=== PATIENT | male | born 1945 | race Caucasian/White ===

== ENCOUNTER 2016-08-21 23:07 | Inpatient (IN) ==
[2016-08-21] MEDS ORDERED: Ipratropium/Albuterol Neb 3 ML IH ONE (23:35)
[2016-08-22 00:23] LABS: Basophils % 0.3 %; Hemoglobin 8.3 g/dL (12.9-16.9); Immature Granulocytes % 1.2 % (0-4); Mean Corpuscular Volume 80.4 fL (83.0-100.0); Nucleated Red Blood Cells 0.3 /100 WBC (0); Red Cell Distribution Width 21.1 % (11.5-14.5)
[2016-08-22 00:25] LABS: Eosinophils # 0.1 K/mcL (0.0-0.6); Eosinophils % 1.6 %; Hematocrit 30.4 % (37.5-50.1); Lymphocytes # 1.2 K/mcL (0.6-4.6); Mean Corpuscular HGB Conc 27.3 g/dL (31.6-35.5); Mean Platelet Volume 10.5 fL (9.4-12.4); Monocytes # 0.7 K/mcL (0.0-1.3); Monocytes % 9.6 %; Neutrophils # 5.5 K/mcL (1.6-8.9); Platelet Count 154 K/mcL (140-400); Red Blood Count 3.78 M/mcL (4.19-5.50); Segmented Neutrophils % 71.3 %
--- NOTE | 2016-08-22 00:31 | Emergency Department Note ---
Disposition Condition: Fair Referrals: NO,PCP [Primary Care Provider] - Forms: ED Satisfaction Letter SOB HPI - General Chief Complaint: ED Altered Mental Status Stated Complaint: AMS,FILIBERTO Time Seen by Provider: 08/21/16 23:21 Source: patient, EMS Mode of arrival: EMS Limitations: altered mental status Nursing Notes Reviewed: Yes Vital Signs Reviewed: Yes - History of Present Illness Pt Subjective Complaint: shortness of breath - Related Data Home Medications Medication Instructions Recorded Confirmed Albuterol Sulfate [Albuterol 2 puff IH QID PRN 03/14/16 03/14/16 Inhaler] Calcium Carbonate [Calcium] 600 mg PO DAILY 03/14/16 03/14/16 Cholecalciferol (Vitamin D3) 8,000 unit PO DAILY 03/14/16 03/14/16 [Vitamin D3] Clotrimazole 1 appl TP BID 03/14/16 03/14/16 Eucerin Creme 1 appl TP DAILY PRN 03/14/16 03/14/16 FentaNYL PATCH [Duragesic] 75 mcg TD Q72H 03/14/16 03/14/16 Furosemide [Lasix] 40 mg PO BID 03/14/16 03/14/16 Hydralazine HCl 50 mg PO TID 03/14/16 03/14/16 Insulin ASPART [NovoLOG] 42 unit SQ TID 03/14/16 03/14/16 Insulin Glargine [Lantus] 110 unit SQ BID 03/14/16 03/14/16 Omeprazole 20 mg PO DAILY 03/14/16 03/14/16 Oxycodone HCl 10 mg PO Q6H PRN 03/14/16 03/14/16 Pregabalin [Lyrica] 75 mg PO BID 03/14/16 03/14/16 Simvastatin [Zocor] 40 mg PO HS 03/14/16 03/14/16 Previous Rx's Medication Instructions Recorded Amlodipine [Norvasc] 10 mg PO DAILY 30 Days 03/22/16 Chair, Shower [SHOWER CHAIR] 1 each .ROUTE DAILY #1 each 03/22/16 Ipratropium/Albuterol Neb [Duoneb] 3 ml IH Q8HR #30 inhsol 03/22/16 Isosorbide MONOnitrate (24 HR) 30 mg PO DAILY 30 Days 03/22/16 [Imdur] Metoprolol [Lopressor] 100 mg PO BID 30 Days 03/22/16 PredniSONE 40 mg PO DAILY 5 Days 03/22/16 Walker W Wheels [WHEELED WALKER] 1 each .ROUTE DAILY #1 each 03/22/16 Allergies Allergy/AdvReac Type Severity Reaction Status Date / Time No Known Allergies Allergy Verified 03/14/16 14:07 Past Medical History - Past Medical History Medical history: Reports: diabetes, hyperlipidemia, hypertension, kidney stones , renal disease Psychiatric history: Reports: no psych history - Social History Smoking Status: Former smoker Smokeless Tobacco Status: No Alcohol use: Reports: none Drug use: Reports: none Physical Exam - General Limitations: altered mental status General appearance: alert, in no apparent distress Course - Reevaluation(s) Reevaluation #1: After the series of 3 Duoneb patient's saturation was in the low 90's but now seems to be consistently staying in the 87-89% range. He continues to have AMS , confusion and we will obtain CT head. Family states he is generally quite alert and oriented, with no memory lapses. Still awaiting other labs at this time. Dr. Brown has been in and also evaluated patient. Time: 00:32 Reevaluation #2: patient doing well on bipap, mental status improving, will plan to admit to hospital. hospitalist called. Time: 01:13 Vital Signs Temperature 97.6 F 08/21/16 23:11 Pulse Rate 74 08/21/16 23:11 Respiratory Rate 21 08/21/16 23:11 Blood Pressure 156/80 08/21/16 23:11 O2 Sat by Pulse Oximetry 90 08/21/16 23:11 Temperature 97.6 F 08/21/16 23:11 Pulse Rate 75 08/22/16 00:29 Respiratory Rate 17 08/22/16 00:29 Blood Pressure 150/81 08/22/16 00:29 O2 Sat by Pulse Oximetry 95 08/22/16 00:29 Oxygen Delivery Oxygen Delivery Room Air Shortness of Breath/Dyspnea - Medical Records Medical records reviewed: Yes I reviewed the patient's medical records. - Lab Data Lab results reviewed: Yes I reviewed the patient's lab results. Result diagrams: 08/22/16 00:10 08/22/16 00:10 Lab Results 08/22/16 08/22/16 08/22/16 Range/Units 00:10 00:10 00:10 WBC 7.7 (4.3-11.1) K/mcL RBC 3.78 L (4.19-5.50) M/mcL Hgb 8.3 L (12.9-16.9) g/dL Hct 30.4 L (37.5-50.1) % MCV 80.4 L (83.0-100.0) fL MCH 22.0 L (28.0-33.3) pg MCHC 27.3 L (31.6-35.5) g/dL RDW 21.1 H (11.5-14.5) % Plt Count 154 (140-400) K/mcL MPV 10.5 (9.4-12.4) fL Immature Gran % 1.2 (0-4) % Seg Neutrophils % 71.3 % Lymphocytes % 16.0 % Monocytes % 9.6 % Eosinophils % 1.6 % Basophils % 0.3 % Neutrophils # 5.5 (1.6-8.9) K/mcL Lymphocytes # 1.2 (0.6-4.6) K/mcL Monocytes # 0.7 (0.0-1.3) K/mcL Eosinophils # 0.1 (0.0-0.6) K/mcL Basophils # 0.0 (0.0-0.2) K/mcL Nucleated RBCs/100 WBC 0.3 H (0) /100 WBC Platelet Estimate Normal (Normal) Hypochromasia Present A (Not Present) Poikilocytosis 1+ A (Not Present) Anisocytosis 1+ A (Not Present) ABG pH (7.32-7.45) pH Units ABG pCO2 (35-45) mmHg ABG pO2 (85-104) mmHg ABG HCO3 (21-27) mEQ/L ABG Total CO2 (20-26) mEq/L ABG O2 Saturation (95-98) % ABG Base Excess (-2.0 to 3.0) mEq/L Blood Gas Modality Inspired O2 % Sodium 142 (136-145) mEq/L Potassium 4.5 (3.5-4.5) mEq/L Chloride 110 H (98-109) mEq/L Carbon Dioxide 27 (19-29) mEq/L BUN 21 (8-26) mg/dL Creatinine 1.56 H (0.72-1.25) mg/dL Est GFR ( Amer) 54 L (> 60) Est GFR (Non-Af Amer) 44 L (> 60) BUN/Creatinine Ratio 13 (6-26) Glucose 93 (70-99) mg/dL Calculated Osmolality 297 (280-300) Lactic Acid 0.6 (0.5-2.2) mmol/L Calcium 8.6 (8.6-10.8) mg/dL Ammonia (18-72) mcmol/L Troponin I (0-0.03) ng/mL B-Natriuretic Peptide (0-100) pg/mL 08/22/16 08/22/16 08/22/16 Range/Units 00:10 00:10 00:10 WBC (4.3-11.1) K/mcL RBC (4.19-5.50) M/mcL Hgb (12.9-16.9) g/dL Hct (37.5-50.1) % MCV (83.0-100.0) fL MCH (28.0-33.3) pg MCHC (31.6-35.5) g/dL RDW (11.5-14.5) % Plt Count (140-400) K/mcL MPV (9.4-12.4) fL Immature Gran % (0-4) % Seg Neutrophils % % Lymphocytes % % Monocytes % % Eosinophils % % Basophils % % Neutrophils # (1.6-8.9) K/mcL Lymphocytes # (0.6-4.6) K/mcL Monocytes # (0.0-1.3) K/mcL Eosinophils # (0.0-0.6) K/mcL Basophils # (0.0-0.2) K/mcL Nucleated RBCs/100 WBC (0) /100 WBC Platelet Estimate (Normal) Hypochromasia (Not Present) Poikilocytosis (Not Present) Anisocytosis (Not Present) ABG pH (7.32-7.45) pH Units ABG pCO2 (35-45) mmHg ABG pO2 (85-104) mmHg ABG HCO3 (21-27) mEQ/L ABG Total CO2 (20-26) mEq/L ABG O2 Saturation (95-98) % ABG Base Excess (-2.0 to 3.0) mEq/L Blood Gas Modality Inspired O2 % Sodium (136-145) mEq/L Potassium (3.5-4.5) mEq/L Chloride (98-109) mEq/L Carbon Dioxide (19-29) mEq/L BUN (8-26) mg/dL Creatinine (0.72-1.25) mg/dL Est GFR ( Amer) (> 60) Est GFR (Non-Af Amer) (> 60) BUN/Creatinine Ratio (6-26) Glucose (70-99) mg/dL Calculated Osmolality (280-300) Lactic Acid (0.5-2.2) mmol/L Calcium (8.6-10.8) mg/dL Ammonia 26 (18-72) mcmol/L Troponin I 0.02 (0-0.03) ng/mL B-Natriuretic Peptide 373 H (0-100) pg/mL 08/22/16 Range/Units 00:43 WBC (4.3-11.1) K/mcL RBC (4.19-5.50) M/mcL Hgb (12.9-16.9) g/dL Hct (37.5-50.1) % MCV (83.0-100.0) fL MCH (28.0-33.3) pg MCHC (31.6-35.5) g/dL RDW (11.5-14.5) % Plt Count (140-400) K/mcL MPV (9.4-12.4) fL Immature Gran % (0-4) % Seg Neutrophils % % Lymphocytes % % Monocytes % % Eosinophils % % Basophils % % Neutrophils # (1.6-8.9) K/mcL Lymphocytes # (0.6-4.6) K/mcL Monocytes # (0.0-1.3) K/mcL Eosinophils # (0.0-0.6) K/mcL Basophils # (0.0-0.2) K/mcL Nucleated RBCs/100 WBC (0) /100 WBC Platelet Estimate (Normal) Hypochromasia (Not Present) Poikilocytosis (Not Present) Anisocytosis (Not Present) ABG pH 7.31 L (7.32-7.45) pH Units ABG pCO2 59 H (35-45) mmHg ABG pO2 64 L (85-104) mmHg ABG HCO3 29.7 H (21-27) mEQ/L ABG Total CO2 31.5 H (20-26) mEq/L ABG O2 Saturation 90 L (95-98) % ABG Base Excess 2.6 (-2.0 to 3.0) mEq/L Blood Gas Modality [place] Inspired O2 40 % Sodium (136-145) mEq/L Potassium (3.5-4.5) mEq/L Chloride (98-109) mEq/L Carbon Dioxide (19-29) mEq/L BUN (8-26) mg/dL Creatinine (0.72-1.25) mg/dL Est GFR ( Amer) (> 60) Est GFR (Non-Af Amer) (> 60) BUN/Creatinine Ratio (6-26) Glucose (70-99) mg/dL Calculated Osmolality (280-300) Lactic Acid (0.5-2.2) mmol/L Calcium (8.6-10.8) mg/dL Ammonia (18-72) mcmol/L Troponin I (0-0.03) ng/mL B-Natriuretic Peptide (0-100) pg/mL - Radiology Data Radiology results reviewed: Yes I reviewed the patient's radiology results. Chest X-Ray 08/21/16 23:23 IMPRESSION: No acute process. D/ / Edi Fraser MD / Edi Fraser MD Interpreting Provider: Edi Fraser MD Chest CT 08/22/16 00:33 IMPRESSION: Findings consistent with interstitial pulmonary edema. There are small bilateral pleural effusions. Atelectasis is also noted in the lower lobes. Cirrhotic morphology of the liver with signs of portal venous hypertension, including [id number] splenomegaly. Hypodensity in the right lobe of the liver is stable, fatty infiltration versus mass. Follow-up CT/ MRI has been recommended in the 3 month interval. D/ / Tommy Rowell MD / Tommy Rowell MD Interpreting Provider: Tommy Rowell MD - EKG Data EKG attestation: Yes I reviewed and interpreted this EKG. EKG shows normal: Reports: sinus rhythm Rate: Reports: normal Rhythm: Reports: NSR Interpretation: Reports: no acute changes, normal EKG Critical Care Time Critical Care Time: Yes Total Critical Care Time: 35 Attestation: Critical care performed: Time is exclusive of separately billable procedures. Time includes: direct patient care, patient reassessment, coordination of patient care, interpretation of data (laboratory data, radiology data, and respiratory data), review of patient's medical records, medical consultation and documentation of patient care. Procedures included in critical care time: Procedures excluded from critical care time: Attestation Statement - Attestation Attestation: I, Max Brown MD, personally performed a history and physical exam of the patient and discussed their management with the midlevel provicer, PAC/OBSTETRICAL TECH. I reviewed the midlevel provider's note and agree with the documented findings, medical decision making, and plan of care. 70-year-old male presents to the emergency department by ambulance with a complaint of increased shortness of breath and altered mental status. Patient unsure when the shortness of breath began but states that he was fine yesterday. He states he was asleep and just woke up short of breath. Patient seems mildly confused and slow to respond but answers questions appropriately. Speech is slow and slightly slurred. Family reports this is not normal for him. Patient denies any increased cough or fever or chest pain. He is on continuous home oxygen at 2.5 L. On examination patient is a well-developed morbidly obese elderly male in mild respiratory distress. He is alert but seems a little confused. There is no cyanosis or diaphoresis. Breath sounds are decreased bilaterally with diffuse tight bilateral expiratory wheezes. Heart regular rate and rhythm. Abdomen soft with some mild right upper quadrant tenderness. Moderately distended. 3+ pedal edema. Labs reviewed. Chest x-ray negative but CT of the chest showed interstitial pulmonary edema with bilateral pleural effusions and some basilar atelectasis. No acute changes on EKG. The hospitalist, Dr. Jackson, was consulted and accepted admission of the patient.
[2016-08-22 00:38] LABS: Calcium 8.6 mg/dL (8.6-10.8); Potassium 4.5 mEq/L (3.5-4.5)
[2016-08-22 00:58] LABS: ABG Base Excess 2.6 mEq/L (-2.0 to 3.0); ABG HCO3 29.7 mEQ/L (21-27); ABG Oxygen Saturation 90 % (95-98); ABG PCO2 59 mmHg (35-45); ABG PH 7.31 pH Units (7.32-7.45); ABG PO2 64 mmHg (85-104); ABG TCO2 31.5 mEq/L (20-26); Blood Gas FiO2 40 %
[2016-08-22 01:05] LABS: Anisocytosis 1+ (Not Present); Hypochromasia Present (Not Present); Platelet Estimate Normal (Normal); Poikilocytosis 1+ (Not Present)
[2016-08-22] MEDS ORDERED: Furosemide 40 MG/4 ML VIAL IVP ONE (01:05)
--- NOTE | 2016-08-22 02:49 | Internal Med History&Physical ---
Date of Encounter: 08/22/16 Time of Encounter: 02:48 Internal Medicine - H&P: HPI History of present illness: Mr. Hamomnd is a 70 year old male Past Med Surg Social Fam HX - Past Medical History Medical history: diabetes, hyperlipidemia, hypertension, kidney stones, renal disease Psychiatric history: no psych history - Social History Smoking Status: Former smoker Smokeless Tobacco Status: No Alcohol use: none Drug use: none Internal Medicine - H&P: Meds Albuterol Sulfate [Albuterol Inhaler] 2 puff IH QID PRN 03/14/16 [History] Calcium Carbonate [Calcium] 600 mg PO DAILY 03/14/16 [History] Cholecalciferol (Vitamin D3) [Vitamin D3] 8,000 unit PO DAILY 03/14/16 [History] Clotrimazole 1 appl TP BID 03/14/16 [History] Eucerin Creme 1 appl TP DAILY PRN 03/14/16 [History] FentaNYL PATCH [Duragesic] 75 mcg TD Q72H 03/14/16 [History] Furosemide [Lasix] 40 mg PO BID 03/14/16 [History] Hydralazine HCl 50 mg PO TID 03/14/16 [History] Insulin ASPART [NovoLOG] 42 unit SQ TID 03/14/16 [History] Insulin Glargine [Lantus] 110 unit SQ BID 03/14/16 [History] Omeprazole 20 mg PO DAILY 03/14/16 [History] Oxycodone HCl 10 mg PO Q6H PRN 03/14/16 [History] Pregabalin [Lyrica] 75 mg PO BID 03/14/16 [History] Simvastatin [Zocor] 40 mg PO HS 03/14/16 [History] Amlodipine [Norvasc] 10 mg PO DAILY 30 Days 03/22/16 [Rx] Chair, Shower [SHOWER CHAIR] 1 each .ROUTE DAILY #1 each 03/22/16 [Rx] Ipratropium/Albuterol Neb [Duoneb] 3 ml IH Q8HR #30 inhsol 03/22/16 [Rx] Isosorbide MONOnitrate (24 HR) [Imdur] 30 mg PO DAILY 30 Days 03/22/16 [Rx] Metoprolol [Lopressor] 100 mg PO BID 30 Days 11/12/16 [Rx] PredniSONE 40 mg PO DAILY 5 Days 03/22/16 [Rx] Walker W Wheels [WHEELED WALKER] 1 each .ROUTE DAILY #1 each 03/22/16 [Rx] Allergies No Known Allergies Allergy (Verified 03/14/16 14:07) All Systems PM: A 10-system review of systems was performed and is negative for pertinent findings except as documented above in the HPI. - Constitutional Vitals: Temp Pulse Resp BP Pulse Ox 98 F 75 18 146/78 95 08/22/16 02:31 08/22/16 00:29 08/22/16 02:31 08/22/16 02:31 08/22/16 00:29 Internal Med - H&P Results - Labs CBC & Chem 7: 08/22/16 00:10 08/22/16 00:10
[2016-08-22] MEDS ORDERED: Dextrose Gel 15 GM PO PRN ×2 (02:58)
[2016-08-22] MEDS ORDERED: D5% in Water 1,000 ML IVC PRN (02:58)
[2016-08-22] MEDS ORDERED: *HR* Dextrose 50 % in Water (Syg) 50 ML SYRINGE IVP PRN (02:58)
[2016-08-22] MEDS ORDERED: Furosemide 20 MG/2 ML VIAL IVP SCH (03:15)
[2016-08-22] MEDS ORDERED: *HR* OxyCODONE Immed Rel 5 MG TABLET PO PRN (03:26)
[2016-08-22] MEDS ORDERED: Albuterol 2.5 MG/3 ML NEBULIZER IH PRN ×2 (03:28→07:13)
--- NOTE | 2016-08-22 03:50 | Internal Med History&Physical ---
<Grayson Hassan - Last Filed: 08/22/16 06:26> Date of Encounter: 08/22/16 Time of Encounter: 03:44 Assessment and Plan (1) Acute respiratory failure Current visit: No Status: Acute -Marked improvement with duoneb and bipap -No longer requiring bipap, is on nasal cannula -CT chest shows effusions. No signs or symptoms of infection. Cardiogenic vs noncardiogenic pulmonary edema. Plan -Duoneb prn -Lasix -Nasal cannula -restart home medication Qualifiers: Respiratory failure complication: hypoxia and hypercapnia Qualified Code(s) : J96.01 - Acute respiratory failure with hypoxia; J96.02 - Acute respiratory failure with hypercapnia (2) Acute encephalopathy Current visit: Yes Status: Acute -Unclear etiology.However, awaiting liver biopsy results for possible hepatocellular carcinoma -Ammonia lvl WNL, no fever/illness, sugars WNL. Denies alcohol or drug use -Patient currently A&Ox3 Plan -continue current treatment (3) COPD (chronic obstructive pulmonary disease) Current visit: Yes Status: Acute -Consider administrating abx based on RF, recent hospitalization in April for similar episode -See above Qualifiers: COPD type: unspecified COPD Qualified Code(s): J44.9 - Chronic obstructive pulmonary disease, unspecified (4) Diabetes Current visit: No Status: Acute -Resume home medication Qualifiers: Diabetes mellitus type: type 2 Diabetes mellitus complication status: with kidney complications Diabetes mellitus complication detail: with chronic kidney disease 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 -Most likely non compliant with medication. Plan -See above Qualifiers: Congestive heart failure type: diastolic Qualified Code(s): I50.33 - Acute on chronic diastolic (congestive) heart failure (6) HTN (hypertension) Current visit: No Status: Acute -Continue home medication Qualifiers: Hypertension type: unspecified secondary hypertension Qualified Code(s): I15.9 - Secondary hypertension, unspecified; I15 - Secondary hypertension (7) Obstructive sleep apnea Current visit: Yes Status: Acute -Consider qualifying if not on home machine. Internal Medicine - H&P: HPI Chief complaint: AMS, Hypoxia Admitted From: Emergency Dept Plans for Post Hospital Care: Home History of present illness: Mr. Hammond is a 70 year old male PHM of DM, COPD, CHF, etc admitted for AMS and hypoxia. Patient found by daughter yesterday around 5pm slumped in chair and minimally responsive and confused. EMS called. BS was "WNL" and placed on oxygen. While in the ED, patient given 3 duonebs treatment and placed on Bipap and improved remarkably. Currently, on the floor, patient is only on nasal cannula, alert, oriented, laughing and cheerful. Admits to mild SOB. Denies any CP, F/N/V/D/ blood stools , sick contacts. He is awaiting his results to his liver biopsy today for possible carcinoma. Family member outside of room informed me that patient has been very depressed and sad since 18 years ago from cancer. Patient lives by himself and is not compliant with medication nor takes care of himself very well. Family is concerned. Patient admitted for a similar episode in April 2016, requiring a 9 day hospital stay, and diagnosed with CHF and MARY. Past Med Surg Social Fam HX - Past Medical History Medical history: diabetes, hyperlipidemia, hypertension, kidney stones, renal disease Psychiatric history: no psych history - Social History Smoking Status: Former smoker Smokeless Tobacco Status: No Alcohol use: none Drug use: none - Family History Mother Hx Family Medical Disorders: Yes (Diabetes ) Internal Medicine - H&P: Meds Albuterol Sulfate [Albuterol Inhaler] 2 puff IH QID PRN 03/14/16 [History] Calcium Carbonate [Calcium] 600 mg PO DAILY 03/14/16 [History] Cholecalciferol (Vitamin D3) [Vitamin D3] 8,000 unit PO DAILY 03/14/16 [History] Eucerin Creme 1 appl TP DAILY PRN 03/14/16 [History] FentaNYL PATCH [Duragesic] 75 mcg TD Q72H 03/14/16 [History] Furosemide [Lasix] 40 mg PO BID 03/14/16 [History] Hydralazine HCl 50 mg PO TID 03/14/16 [History] Insulin ASPART [NovoLOG] 42 unit SQ TID 03/14/16 [History] Insulin Glargine [Lantus] 90 unit SQ BID 03/14/16 [History] Omeprazole 20 mg PO DAILY 03/14/16 [History] Oxycodone HCl 10 mg PO Q6H PRN 03/14/16 [History] Pregabalin [Lyrica] 150 mg PO BID 03/14/16 [History] Simvastatin [Zocor] 40 mg PO HS 03/14/16 [History] Ipratropium/Albuterol Neb [Duoneb] 3 ml IH Q8HR #30 inhsol 03/22/16 [Rx] Isosorbide MONOnitrate (24 HR) [Imdur] 30 mg PO DAILY 30 Days 03/22/16 [Rx] Metoprolol [Lopressor] 100 mg PO BID 30 Days 03/22/16 [Rx] Amitriptyline [Elavil] 25 mg PO HS 08/22/16 [History] Lisinopril [Zestril] 20 mg PO DAILY 08/22/16 [History] Metformin HCl [Glucophage] 1,000 mg PO BID 08/22/16 [History] Nitroglycerin [Nitrostat] 0.4 mg SL AD 08/22/16 [History] Sennosides [Senna] 8.6 mg PO DAILY 08/22/16 [History] Allergies No Known Allergies Allergy (Verified 03/14/16 14:07) All Systems PM: A 10-system review of systems was performed and is negative for pertinent findings except as documented above in the HPI. - Constitutional Constitutional: no chills, no fever(s), no night sweats - Cardiovascular Cardiovascular ROS IM: no chest pain, no diaphoresis, no dyspnea, no lightheadedness, no palpitations, no syncope - Respiratory Respiratory: dyspnea, no cough, no wheezing, no excessive phlegm production - Gastrointestinal Gastrointestinal: no abdominal pain, no diarrhea, no hematemesis, no hematochezia, no melena, no nausea, no vomiting - Neurological Neurological ROS: no confusion, no convulsions, no focal weakness, no numbness, no tingling, no tremor(s) - Psychiatric Psychiatric: as per HPI - Constitutional Vitals: Temp Pulse Resp BP Pulse Ox 97.9 F 80 20 178/83 96 08/22/16 03:36 08/22/16 03:36 08/22/16 03:39 08/22/16 03:36 08/22/16 03:39 General appearance: Present: A&O X 3, obese - Head Head exam: Present: atraumatic, normocephalic - Eye Eye exam: Present: PERRL, conjuntiva pink, sclera anicteric Pupils: Present: PERRL - Respiratory Respiratory exam: Present: rales (bilaterally at bases ) - Cardiovascular Cardiovascular exam: Present: RRR, systolic murmur. Absent: diastolic murmur - GI/Abdominal GI/Abdominal exam: Present: soft, no peritoneal signs. Absent: distended, tenderness - Extremities Exam Extremities exam: Present: pedal edema, warm Additional comments: Mild pitting edema bilaterally - Neurological Exam Neurological exam: Present: oriented X3, no focal deficits. Absent: pronater drift, facial droop, speech deficit - Psychiatric Psychiatric exam: Present: normal affect, normal mood Internal Med - H&P Results - Labs CBC & Chem 7: 08/22/16 00:10 08/22/16 00:10 <Lee Jackson - Last Filed: 08/22/16 20:19> Date of Encounter: 08/22/16 Internal Medicine - H&P: HPI History of present illness: Mr. Hammond is a 70 year old male Past Med Surg Social Fam HX - Past Surgical History Surgical History: other (Endoscopy) All Systems PM: A 10-system review of systems was performed and is negative for pertinent findings except as documented above in the HPI. - Constitutional Vitals: Temp Pulse Resp BP Pulse Ox 98.6 F 75 16 150/73 94 08/22/16 16:07 08/22/16 16:07 08/22/16 16:12 08/22/16 16:07 08/22/16 16:12 Internal Med - H&P Results - Labs CBC & Chem 7: 08/22/16 07:55 08/22/16 07:55 Labs: Short CBC 08/22/16 Range/Units 07:55 WBC 7.2 (4.3-11.1) K/mcL Hgb 8.1 L (12.9-16.9) g/dL Hct 29.5 L (37.5-50.1) % Plt Count 152 (140-400) K/mcL BMP 08/22/16 07:55 Sodium 142 Potassium 3.9 Chloride 106 Carbon Dioxide 29 BUN 22 Creatinine 1.42 H Glucose 99 Calcium 8.9 Cardiac Enzymes 08/22/16 Range/Units 07:55 Troponin I 0.03 (0-0.03) ng/mL Liver Function 08/22/16 Range/Units 07:55 Total Bilirubin 0.7 (0.2-1.2) mg/dL Direct Bilirubin 0.4 (0.0-0.5) mg/dL AST 23 (5-34) Units/L ALT 18 (0-55) Units/L Alkaline Phosphatase 97 (38-126) Units/L Albumin 3.1 L (3.5-5.0) g/dL - ABG Interpretation ABG results: 08/22/16 06:50 ABG pH 7.37 ABG pCO2 51 H ABG pO2 84 L ABG HCO3 29.5 H ABG Total CO2 31.1 H ABG O2 Saturation 96 ABG Base Excess 3.7 H - Impressions ITS Impressions Head CT 08/22/16 08:00 IMPRESSION: Possible acute-subacute left basal ganglia infarct. No other acute intracranial abnormality. Findings were sent to Radiology Results Communication to be conveyed to the referring clinician. D/ / Jose Hernandez MD / Jose Hernandez MD Interpreting Provider: Jose Hernandez MD Brain MRI 08/22/16 10:13 IMPRESSION: 1. No evidence of an acute infarct. 2. Minimal chronic microvascular white matter ischemic disease is noted supratentorially. 3. Motion degraded examination. D/ / 08/22/2016 14:06:18 Tommy Rosenberg MD / [email or web address] Interpreting Provider: Tommy Rosenberg MD - Diagnostic Studies Chest x-ray Status: image reviewed by me CT scan - chest Status: image reviewed by me - Attending Attestation I personally interviewed this patient and his family at bedside and examined him , my medical decision-making was reviewed with the Resident Physician. I agree with the documented findings, disposition and treatment plan as described.
--- NOTE | 2016-08-22 04:05 | Emergency Department Note ---
Disposition Clinical Impression: Hypoxia, Renal failure, Liver mass Pulmonary edema Qualifiers: Chronicity: acute Qualified Code(s): J81.0 - Acute pulmonary edema Disposition: Admitted As Inpatient Condition: Serious Time of Disposition: 03:00 General Adult HPI - General Chief complaint: ED Altered Mental Status Stated complaint: AMS,FILIBERTO Time Seen by Provider: 08/21/16 23:25 Source: patient, EMS Limitations: altered mental status - History of Present Illness HPI Narrative: This is a continuation of the previous "Shortness of Breath" note that was started on this patient for ED visit of 08/21/16. Please merge these 2 notes. Previous note / chart was completed with the exception of disposition. FAmily became concerned about patient stating he had increased difficulty in breathing, shortness of breath. His blood sugar was WNL, but these symptoms progressed over the last 24 hours. Patient arrived via EMS n respiratory distress, hypoxic, and AMS due to hypoxia. During the course of his stay in the ED, his condition improved, after administration of series of 3 Duoneb treatments, IV Lasix, and eventually placed on Bipap. His oxygen saturation was initially in the 80's on 2.5 l/min per n.c. to 96-98% on Bipap. He was then resting more comfortably with easier respiration and less difficulty with breathing. Onset (ago): day(s) (1) Pain Severity: moderate, severe Pain Scale: 9 Associated symptoms: Reports: confusion, cough, malaise, shortness of breath, weakness. Denies: fever/chills, headaches, loss of appetite, nausea/vomiting, rash, seizure, syncope - Related Data Home Medications Medication Instructions Recorded Confirmed Albuterol Sulfate [Albuterol 2 puff IH QID PRN 03/14/16 03/14/16 Inhaler] Calcium Carbonate [Calcium] 600 mg PO DAILY 03/14/16 03/14/16 Cholecalciferol (Vitamin D3) 8,000 unit PO DAILY 03/14/16 03/14/16 [Vitamin D3] Clotrimazole 1 appl TP BID 03/14/16 03/14/16 Eucerin Creme 1 appl TP DAILY PRN 03/14/16 03/14/16 FentaNYL PATCH [Duragesic] 75 mcg TD Q72H 03/14/16 03/14/16 Furosemide [Lasix] 40 mg PO BID 03/14/16 03/14/16 Hydralazine HCl 50 mg PO TID 03/14/16 03/14/16 Insulin ASPART [NovoLOG] 42 unit SQ TID 03/14/16 03/14/16 Insulin Glargine [Lantus] 110 unit SQ BID 03/14/16 03/14/16 Omeprazole 20 mg PO DAILY 03/14/16 03/14/16 Oxycodone HCl 10 mg PO Q6H PRN 03/14/16 03/14/16 Pregabalin [Lyrica] 75 mg PO BID 03/14/16 03/14/16 Simvastatin [Zocor] 40 mg PO HS 03/14/16 03/14/16 Previous Rx's Medication Instructions Recorded Amlodipine [Norvasc] 10 mg PO DAILY 30 Days 03/22/16 Chair, Shower [SHOWER CHAIR] 1 each .ROUTE DAILY #1 each 03/22/16 Ipratropium/Albuterol Neb [Duoneb] 3 ml IH Q8HR #30 inhsol 03/22/16 Isosorbide MONOnitrate (24 HR) 30 mg PO DAILY 30 Days 03/22/16 [Imdur] Metoprolol [Lopressor] 100 mg PO BID 30 Days 03/22/16 PredniSONE 40 mg PO DAILY 5 Days 03/22/16 Walker W Wheels [WHEELED WALKER] 1 each .ROUTE DAILY #1 each 03/22/16 Allergies Allergy/AdvReac Type Severity Reaction Status Date / Time No Known Allergies Allergy Verified 03/14/16 14:07 All systems ED: reviewed and negative except as stated. Constitutional: Reports: weakness Eyes: Denies: eye pain, eye discharge, vision change ENT ED: Reports: congestion. Denies: ear pain, throat pain, dental pain, hearing loss, epistaxis, dysphagia Cardiovascular: Reports: dyspnea on exertion, orthopnea Respiratory: Reports: cough, dyspnea, wheezes Gastrointestinal: Reports: other (abdominal distention, firm, tympanic ) Integumentary: Denies: rash, abrasion, lesions Neurological: Reports: confusion Psychiatric: Reports: anxiety Endocrine: Reports: fatigue Past Medical History - Past Medical History Attestation: Yes The following information was validated with the patient. Source: patient, obtained from family, nursing notes reviewed Medical history: Reports: diabetes, hyperlipidemia, hypertension, kidney stones , renal disease Psychiatric history: Reports: no psych history - Social History Smoking Status: Former smoker Smokeless Tobacco Status: No Alcohol use: Reports: none Drug use: Reports: none Physical Exam - General Limitations: altered mental status General appearance: alert, in no apparent distress - Head Head exam: atraumatic, normocephalic, normal inspection - Eye Eye exam: Present: normal appearance, PERRL, EOMI - ENT ENT exam: normal exam, normal oropharynx, mucous membranes dry, TM's normal bilaterally - Neck Neck exam: Present: normal inspection, full ROM, trachea midline. Absent: tenderness, meningismus, lymphadenopathy, thyromegaly - Chest Chest inspection: Present: other (barrel chest presentation ) - Respiratory Respiratory exam: Present: respiratory distress, wheezes, accessory muscle use, prolonged expiratory phase - Cardiovascular Cardiovascular exam: Present: regular rate, normal rhythm, tachycardia, normal heart sounds. Absent: systolic murmur, diastolic murmur, JVD - Abdominal Exam Abdominal exam: Present: hypoactive bowel sounds, ascites, other (abdominal firm , tympanic ) - Extremities Exam Extremities exam: Present: normal inspection, full ROM, normal capillary refill (delayed ), pedal edema (2+). Absent: tenderness, joint swelling - Back Exam Back exam: Present: normal inspection, full ROM. Absent: tenderness - Neurological Exam Neurological exam: Present: motor sensory deficit - Psychiatric Psychiatric exam: Present: anxious - Skin Skin exam: Present: warm, dry, intact, normal color Course Vital Signs Temperature 97.6 F 08/21/16 23:11 Pulse Rate 74 08/21/16 23:11 Respiratory Rate 21 08/21/16 23:11 Blood Pressure 156/80 08/21/16 23:11 O2 Sat by Pulse Oximetry 90 08/21/16 23:11 Temperature 97.9 F 08/22/16 03:36 Pulse Rate 80 08/22/16 03:36 Respiratory Rate 20 08/22/16 03:39 Blood Pressure 178/83 08/22/16 03:36 O2 Sat by Pulse Oximetry 96 08/22/16 03:39 Oxygen Delivery Oxygen Delivery Room Air Medical Decision Making - Lab Data Result diagrams: 08/22/16 00:10 08/22/16 00:10 Lab Results 08/22/16 08/22/16 08/22/16 Range/Units 00:10 00:10 00:10 WBC 7.7 (4.3-11.1) K/mcL RBC 3.78 L (4.19-5.50) M/mcL Hgb 8.3 L (12.9-16.9) g/dL Hct 30.4 L (37.5-50.1) % MCV 80.4 L (83.0-100.0) fL MCH 22.0 L (28.0-33.3) pg MCHC 27.3 L (31.6-35.5) g/dL RDW 21.1 H (11.5-14.5) % Plt Count 154 (140-400) K/mcL MPV 10.5 (9.4-12.4) fL Immature Gran % 1.2 (0-4) % Seg Neutrophils % 71.3 % Lymphocytes % 16.0 % Monocytes % 9.6 % Eosinophils % 1.6 % Basophils % 0.3 % Neutrophils # 5.5 (1.6-8.9) K/mcL Lymphocytes # 1.2 (0.6-4.6) K/mcL Monocytes # 0.7 (0.0-1.3) K/mcL Eosinophils # 0.1 (0.0-0.6) K/mcL Basophils # 0.0 (0.0-0.2) K/mcL Nucleated RBCs/100 WBC 0.3 H (0) /100 WBC Platelet Estimate Normal (Normal) Hypochromasia Present A (Not Present) Poikilocytosis 1+ A (Not Present) Anisocytosis 1+ A (Not Present) ABG pH (7.32-7.45) pH Units ABG pCO2 (35-45) mmHg ABG pO2 (85-104) mmHg ABG HCO3 (21-27) mEQ/L ABG Total CO2 (20-26) mEq/L ABG O2 Saturation (95-98) % ABG Base Excess (-2.0 to 3.0) mEq/L Blood Gas Modality Inspired O2 % Sodium 142 (136-145) mEq/L Potassium 4.5 (3.5-4.5) mEq/L Chloride 110 H (98-109) mEq/L Carbon Dioxide 27 (19-29) mEq/L BUN 21 (8-26) mg/dL Creatinine 1.56 H (0.72-1.25) mg/dL Est GFR ( Amer) 54 L (> 60) Est GFR (Non-Af Amer) 44 L (> 60) BUN/Creatinine Ratio 13 (6-26) Glucose 93 (70-99) mg/dL Calculated Osmolality 297 (280-300) Lactic Acid 0.6 (0.5-2.2) mmol/L Calcium 8.6 (8.6-10.8) mg/dL Ammonia (18-72) mcmol/L Troponin I (0-0.03) ng/mL B-Natriuretic Peptide (0-100) pg/mL 08/22/16 08/22/16 08/22/16 Range/Units 00:10 00:10 00:10 WBC (4.3-11.1) K/mcL RBC (4.19-5.50) M/mcL Hgb (12.9-16.9) g/dL Hct (37.5-50.1) % MCV (83.0-100.0) fL MCH (28.0-33.3) pg MCHC (31.6-35.5) g/dL RDW (11.5-14.5) % Plt Count (140-400) K/mcL MPV (9.4-12.4) fL Immature Gran % (0-4) % Seg Neutrophils % % Lymphocytes % % Monocytes % % Eosinophils % % Basophils % % Neutrophils # (1.6-8.9) K/mcL Lymphocytes # (0.6-4.6) K/mcL Monocytes # (0.0-1.3) K/mcL Eosinophils # (0.0-0.6) K/mcL Basophils # (0.0-0.2) K/mcL Nucleated RBCs/100 WBC (0) /100 WBC Platelet Estimate (Normal) Hypochromasia (Not Present) Poikilocytosis (Not Present) Anisocytosis (Not Present) ABG pH (7.32-7.45) pH Units ABG pCO2 (35-45) mmHg ABG pO2 (85-104) mmHg ABG HCO3 (21-27) mEQ/L ABG Total CO2 (20-26) mEq/L ABG O2 Saturation (95-98) % ABG Base Excess (-2.0 to 3.0) mEq/L Blood Gas Modality Inspired O2 % Sodium (136-145) mEq/L Potassium (3.5-4.5) mEq/L Chloride (98-109) mEq/L Carbon Dioxide (19-29) mEq/L BUN (8-26) mg/dL Creatinine (0.72-1.25) mg/dL Est GFR ( Amer) (> 60) Est GFR (Non-Af Amer) (> 60) BUN/Creatinine Ratio (6-26) Glucose (70-99) mg/dL Calculated Osmolality (280-300) Lactic Acid (0.5-2.2) mmol/L Calcium (8.6-10.8) mg/dL Ammonia 26 (18-72) mcmol/L Troponin I 0.02 (0-0.03) ng/mL B-Natriuretic Peptide 373 H (0-100) pg/mL 08/22/16 Range/Units 00:43 WBC (4.3-11.1) K/mcL RBC (4.19-5.50) M/mcL Hgb (12.9-16.9) g/dL Hct (37.5-50.1) % MCV (83.0-100.0) fL MCH (28.0-33.3) pg MCHC (31.6-35.5) g/dL RDW (11.5-14.5) % Plt Count (140-400) K/mcL MPV (9.4-12.4) fL Immature Gran % (0-4) % Seg Neutrophils % % Lymphocytes % % Monocytes % % Eosinophils % % Basophils % % Neutrophils # (1.6-8.9) K/mcL Lymphocytes # (0.6-4.6) K/mcL Monocytes # (0.0-1.3) K/mcL Eosinophils # (0.0-0.6) K/mcL Basophils # (0.0-0.2) K/mcL Nucleated RBCs/100 WBC (0) /100 WBC Platelet Estimate (Normal) Hypochromasia (Not Present) Poikilocytosis (Not Present) Anisocytosis (Not Present) ABG pH 7.31 L (7.32-7.45) pH Units ABG pCO2 59 H (35-45) mmHg ABG pO2 64 L (85-104) mmHg ABG HCO3 29.7 H (21-27) mEQ/L ABG Total CO2 31.5 H (20-26) mEq/L ABG O2 Saturation 90 L (95-98) % ABG Base Excess 2.6 (-2.0 to 3.0) mEq/L Blood Gas Modality [place] Inspired O2 40 % Sodium (136-145) mEq/L Potassium (3.5-4.5) mEq/L Chloride (98-109) mEq/L Carbon Dioxide (19-29) mEq/L BUN (8-26) mg/dL Creatinine (0.72-1.25) mg/dL Est GFR ( Amer) (> 60) Est GFR (Non-Af Amer) (> 60) BUN/Creatinine Ratio (6-26) Glucose (70-99) mg/dL Calculated Osmolality (280-300) Lactic Acid (0.5-2.2) mmol/L Calcium (8.6-10.8) mg/dL Ammonia (18-72) mcmol/L Troponin I (0-0.03) ng/mL B-Natriuretic Peptide (0-100) pg/mL
--- NOTE | 2016-08-22 04:20 | Emergency Department Note ---
Disposition Clinical Impression: Hypoxia, Renal failure, Liver mass Pulmonary edema Qualifiers: Chronicity: acute Qualified Code(s): J81.0 - Acute pulmonary edema Disposition: Admitted As Inpatient Condition: Serious Time of Disposition: 03:00 SOB HPI - General Chief Complaint: ED Altered Mental Status Stated Complaint: AMS,FILIBERTO Time Seen by Provider: 08/21/16 23:25 Source: patient, EMS Limitations: altered mental status Nursing Notes Reviewed: Yes Vital Signs Reviewed: Yes - History of Present Illness Pt Subjective Complaint: shortness of breath Onset (ago): day(s) (1) Severity: severe Consistency/Duration: gradually worsening Improves with: nothing Worsens with: exertion Known history of: congestive heart failure, diabetes Associated symptoms: Reports: cough, wheezing, orthopnea. Denies: chest pain, pain with inspiration, fever, sputum production, lower extremity pain, polyuria , polydipsia, parasthesias, palpitations, diaphoresis, nausea/vomiting, syncope , abdominal pain, rash Treatment prior to arrival: oxygen, bronchodilator Cough present: Yes Cough Description: Involuntary, Strong, Bronchospastic, Wheezy Cough Frequency: Intermittent Sputum production: No - Related Data Home oxygen amount: 2 liters (2.5) Home Medications Medication Instructions Recorded Confirmed Albuterol Sulfate [Albuterol 2 puff IH QID PRN 03/14/16 03/14/16 Inhaler] Calcium Carbonate [Calcium] 600 mg PO DAILY 03/14/16 03/14/16 Cholecalciferol (Vitamin D3) 8,000 unit PO DAILY 03/14/16 03/14/16 [Vitamin D3] Clotrimazole 1 appl TP BID 03/14/16 03/14/16 Eucerin Creme 1 appl TP DAILY PRN 03/14/16 03/14/16 FentaNYL PATCH [Duragesic] 75 mcg TD Q72H 03/14/16 03/14/16 Furosemide [Lasix] 40 mg PO BID 03/14/16 03/14/16 Hydralazine HCl 50 mg PO TID 03/14/16 03/14/16 Insulin ASPART [NovoLOG] 42 unit SQ TID 03/14/16 03/14/16 Insulin Glargine [Lantus] 110 unit SQ BID 03/14/16 03/14/16 Omeprazole 20 mg PO DAILY 03/14/16 03/14/16 Oxycodone HCl 10 mg PO Q6H PRN 03/14/16 03/14/16 Pregabalin [Lyrica] 75 mg PO BID 03/14/16 03/14/16 Simvastatin [Zocor] 40 mg PO HS 03/14/16 03/14/16 Previous Rx's Medication Instructions Recorded Amlodipine [Norvasc] 10 mg PO DAILY 30 Days 03/22/16 Chair, Shower [SHOWER CHAIR] 1 each .ROUTE DAILY #1 each 03/22/16 Ipratropium/Albuterol Neb [Duoneb] 3 ml IH Q8HR #30 inhsol 03/22/16 Isosorbide MONOnitrate (24 HR) 30 mg PO DAILY 30 Days 03/22/16 [Imdur] Metoprolol [Lopressor] 100 mg PO BID 30 Days 03/22/16 PredniSONE 40 mg PO DAILY 5 Days 03/22/16 Walker W Wheels [WHEELED WALKER] 1 each .ROUTE DAILY #1 each 03/22/16 Allergies Allergy/AdvReac Type Severity Reaction Status Date / Time No Known Allergies Allergy Verified 03/14/16 14:07 All systems ED: reviewed and negative except as stated. Constitutional: Reports: weakness Eyes: Denies: eye pain, eye discharge, vision change ENT ED: Reports: congestion. Denies: ear pain, throat pain, dental pain, hearing loss, epistaxis, dysphagia Cardiovascular: Reports: dyspnea on exertion, orthopnea Respiratory: Reports: cough, dyspnea, wheezes Gastrointestinal: Reports: other (abdominal distention, firm, tympanic ) Integumentary: Denies: rash, abrasion, lesions Neurological: Reports: confusion Psychiatric: Reports: anxiety Endocrine: Reports: fatigue Past Medical History - Past Medical History Attestation: Yes The following information was validated with the patient. Source: patient, obtained from family, nursing notes reviewed Medical history: Reports: diabetes, hyperlipidemia, hypertension, kidney stones , renal disease Psychiatric history: Reports: no psych history - Social History Smoking Status: Former smoker Smokeless Tobacco Status: No Alcohol use: Reports: none Drug use: Reports: none Physical Exam - General Limitations: altered mental status General appearance: alert, in no apparent distress, anxious, obese - Head Head exam: atraumatic, normocephalic, normal inspection - Eye Eye exam: Present: normal appearance, PERRL, EOMI - ENT ENT exam: normal exam, normal oropharynx, mucous membranes dry - Neck Neck exam: Present: normal inspection, full ROM, trachea midline. Absent: tenderness, meningismus, lymphadenopathy, thyromegaly - Chest Chest inspection: Present: normal inspection, symmetric chest wall rise - Respiratory Respiratory exam: Present: respiratory distress, wheezes, accessory muscle use, prolonged expiratory phase - Cardiovascular Cardiovascular exam: Present: regular rate, normal rhythm, normal heart sounds. Absent: systolic murmur, diastolic murmur, JVD - Abdominal Exam Abdominal exam: Present: distention, diminished bowel sounds, ascites. Absent: guarding, rebound - Extremities Exam Extremities exam: Present: normal inspection, full ROM, pedal edema (2-3+). Absent: tenderness - Expanded Lower Extremity Exam Gait: not tested/not observed - Back Exam Back exam: Present: normal inspection, full ROM. Absent: tenderness - Neurological Exam Neurological exam: Present: alert, oriented X3 - Psychiatric Psychiatric exam: Present: anxious - Skin Skin exam: Present: warm, dry, intact, normal color. Absent: cyanosis, diaphoresis, erythema, pallor, mottled Course - Reevaluation(s) Reevaluation #1: These notes are from the previous documentation that was cancelled in error. Time 00:32 Reevaluation: After the series of 3 Duoneb treatments patient's saturation was in the low 90' s but now seems to be consistently staying in the 87-89% range. He continues to have AMS, confusion and we will obtain CT head. Family states he is generally quite alert and oriented, with no memory lapses. Still awaiting other labs at this time. Dr. Dunn has been in and also evaluated patient. 0113: Once the patient was placed on Bipap AMS improved and he was alert oriented and answering all questions appropriately. Will plan to admit to hospital, hospitalist called Vital Signs 23:11 Temp - 97.6; P-74; R-21; BP 156/80; SAO2 90% 00:29 P-75; R- 17; BP 150/81; SAO2 95% Time: 04:30 Vital Signs Temperature 97.6 F 08/21/16 23:11 Pulse Rate 74 08/21/16 23:11 Respiratory Rate 21 08/21/16 23:11 Blood Pressure 156/80 08/21/16 23:11 O2 Sat by Pulse Oximetry 90 08/21/16 23:11 Temperature 97.9 F 08/22/16 03:36 Pulse Rate 80 08/22/16 03:36 Respiratory Rate 21 08/22/16 05:01 Blood Pressure 178/83 08/22/16 03:36 O2 Sat by Pulse Oximetry 95 08/22/16 05:01 Oxygen Delivery Oxygen Delivery Room Air Shortness of Breath/Dyspnea - MDM Narrative Medical decision making narrative: Pulmonary Edema Bipap CKD Liver Mass Admitted to the hospital Critical Care time: [address] Dunn involved in care of patient and admission - Medical Records Medical records reviewed: Yes I reviewed the patient's medical records. - Lab Data Lab results reviewed: Yes I reviewed the patient's lab results. Result diagrams: 08/22/16 00:10 08/22/16 00:10 Lab Results 08/22/16 08/22/16 08/22/16 Range/Units 00:10 00:10 00:10 WBC 7.7 (4.3-11.1) K/mcL RBC 3.78 L (4.19-5.50) M/mcL Hgb 8.3 L (12.9-16.9) g/dL Hct 30.4 L (37.5-50.1) % MCV 80.4 L (83.0-100.0) fL MCH 22.0 L (28.0-33.3) pg MCHC 27.3 L (31.6-35.5) g/dL RDW 21.1 H (11.5-14.5) % Plt Count 154 (140-400) K/mcL MPV 10.5 (9.4-12.4) fL Immature Gran % 1.2 (0-4) % Seg Neutrophils % 71.3 % Lymphocytes % 16.0 % Monocytes % 9.6 % Eosinophils % 1.6 % Basophils % 0.3 % Neutrophils # 5.5 (1.6-8.9) K/mcL Lymphocytes # 1.2 (0.6-4.6) K/mcL Monocytes # 0.7 (0.0-1.3) K/mcL Eosinophils # 0.1 (0.0-0.6) K/mcL Basophils # 0.0 (0.0-0.2) K/mcL Nucleated RBCs/100 WBC 0.3 H (0) /100 WBC Platelet Estimate Normal (Normal) Hypochromasia Present A (Not Present) Poikilocytosis 1+ A (Not Present) Anisocytosis 1+ A (Not Present) ABG pH (7.32-7.45) pH Units ABG pCO2 (35-45) mmHg ABG pO2 (85-104) mmHg ABG HCO3 (21-27) mEQ/L ABG Total CO2 (20-26) mEq/L ABG O2 Saturation (95-98) % ABG Base Excess (-2.0 to 3.0) mEq/L Blood Gas Modality Inspired O2 % Sodium 142 (136-145) mEq/L Potassium 4.5 (3.5-4.5) mEq/L Chloride 110 H (98-109) mEq/L Carbon Dioxide 27 (19-29) mEq/L BUN 21 (8-26) mg/dL Creatinine 1.56 H (0.72-1.25) mg/dL Est GFR ( Amer) 54 L (> 60) Est GFR (Non-Af Amer) 44 L (> 60) BUN/Creatinine Ratio 13 (6-26) Glucose 93 (70-99) mg/dL Calculated Osmolality 297 (280-300) Lactic Acid 0.6 (0.5-2.2) mmol/L Calcium 8.6 (8.6-10.8) mg/dL Ammonia (18-72) mcmol/L Troponin I (0-0.03) ng/mL B-Natriuretic Peptide (0-100) pg/mL 08/22/16 08/22/16 08/22/16 Range/Units 00:10 00:10 00:10 WBC (4.3-11.1) K/mcL RBC (4.19-5.50) M/mcL Hgb (12.9-16.9) g/dL Hct (37.5-50.1) % MCV (83.0-100.0) fL MCH (28.0-33.3) pg MCHC (31.6-35.5) g/dL RDW (11.5-14.5) % Plt Count (140-400) K/mcL MPV (9.4-12.4) fL Immature Gran % (0-4) % Seg Neutrophils % % Lymphocytes % % Monocytes % % Eosinophils % % Basophils % % Neutrophils # (1.6-8.9) K/mcL Lymphocytes # (0.6-4.6) K/mcL Monocytes # (0.0-1.3) K/mcL Eosinophils # (0.0-0.6) K/mcL Basophils # (0.0-0.2) K/mcL Nucleated RBCs/100 WBC (0) /100 WBC Platelet Estimate (Normal) Hypochromasia (Not Present) Poikilocytosis (Not Present) Anisocytosis (Not Present) ABG pH (7.32-7.45) pH Units ABG pCO2 (35-45) mmHg ABG pO2 (85-104) mmHg ABG HCO3 (21-27) mEQ/L ABG Total CO2 (20-26) mEq/L ABG O2 Saturation (95-98) % ABG Base Excess (-2.0 to 3.0) mEq/L Blood Gas Modality Inspired O2 % Sodium (136-145) mEq/L Potassium (3.5-4.5) mEq/L Chloride (98-109) mEq/L Carbon Dioxide (19-29) mEq/L BUN (8-26) mg/dL Creatinine (0.72-1.25) mg/dL Est GFR ( Amer) (> 60) Est GFR (Non-Af Amer) (> 60) BUN/Creatinine Ratio (6-26) Glucose (70-99) mg/dL Calculated Osmolality (280-300) Lactic Acid (0.5-2.2) mmol/L Calcium (8.6-10.8) mg/dL Ammonia 26 (18-72) mcmol/L Troponin I 0.02 (0-0.03) ng/mL B-Natriuretic Peptide 373 H (0-100) pg/mL 08/22/16 Range/Units 00:43 WBC (4.3-11.1) K/mcL RBC (4.19-5.50) M/mcL Hgb (12.9-16.9) g/dL Hct (37.5-50.1) % MCV (83.0-100.0) fL MCH (28.0-33.3) pg MCHC (31.6-35.5) g/dL RDW (11.5-14.5) % Plt Count (140-400) K/mcL MPV (9.4-12.4) fL Immature Gran % (0-4) % Seg Neutrophils % % Lymphocytes % % Monocytes % % Eosinophils % % Basophils % % Neutrophils # (1.6-8.9) K/mcL Lymphocytes # (0.6-4.6) K/mcL Monocytes # (0.0-1.3) K/mcL Eosinophils # (0.0-0.6) K/mcL Basophils # (0.0-0.2) K/mcL Nucleated RBCs/100 WBC (0) /100 WBC Platelet Estimate (Normal) Hypochromasia (Not Present) Poikilocytosis (Not Present) Anisocytosis (Not Present) ABG pH 7.31 L (7.32-7.45) pH Units ABG pCO2 59 H (35-45) mmHg ABG pO2 64 L (85-104) mmHg ABG HCO3 29.7 H (21-27) mEQ/L ABG Total CO2 31.5 H (20-26) mEq/L ABG O2 Saturation 90 L (95-98) % ABG Base Excess 2.6 (-2.0 to 3.0) mEq/L Blood Gas Modality [place] Inspired O2 40 % Sodium (136-145) mEq/L Potassium (3.5-4.5) mEq/L Chloride (98-109) mEq/L Carbon Dioxide (19-29) mEq/L BUN (8-26) mg/dL Creatinine (0.72-1.25) mg/dL Est GFR ( Amer) (> 60) Est GFR (Non-Af Amer) (> 60) BUN/Creatinine Ratio (6-26) Glucose (70-99) mg/dL Calculated Osmolality (280-300) Lactic Acid (0.5-2.2) mmol/L Calcium (8.6-10.8) mg/dL Ammonia (18-72) mcmol/L Troponin I (0-0.03) ng/mL B-Natriuretic Peptide (0-100) pg/mL - Radiology Data Radiology results reviewed: Yes I reviewed the patient's radiology results. Chest X-Ray 08/21/16 23:23 IMPRESSION: No acute process. D/ / Edi Fraser MD / Edi Fraser MD Interpreting Provider: Edi Fraser MD Chest CT 08/22/16 00:33 IMPRESSION: Findings consistent with interstitial pulmonary edema. There are small bilateral pleural effusions. Atelectasis is also noted in the lower lobes. Cirrhotic morphology of the liver with signs of portal venous hypertension, including [id number] splenomegaly. Hypodensity in the right lobe of the liver is stable, fatty infiltration versus mass. Follow-up CT/ MRI has been recommended in the 3 month interval. D/ / Tommy Rowell MD / Tommy Rowell MD Interpreting Provider: Tommy Rowell MD - EKG Data EKG attestation: Yes I reviewed and interpreted this EKG. EKG shows normal: Reports: sinus rhythm Rate: Reports: normal Rhythm: Reports: NSR Interpretation: Reports: no acute changes, normal EKG - Core Measures AMI Core Measures Followed: Yes Critical Care Time Critical Care Time: Yes Total Critical Care Time: 35 (mins. ) Attestation: Critical care performed: Time is exclusive of separately billable procedures. Time includes: direct patient care, patient reassessment, coordination of patient care, interpretation of data (laboratory data, radiology data, and respiratory data), review of patient's medical records, medical consultation and documentation of patient care. Procedures included in critical care time: Procedures excluded from critical care time: Attestation Statement - Attestation Attestation: I, Max Dunn MD, personally performed a history and physical exam of the patient and discussed their management with the midlevel provicer, PAC/MARBLE COPER. I reviewed the midlevel provider's note and agree with the documented findings, medical decision making, and plan of care. 70-year-old male presents to the emergency department by ambulance with a complaint of increased shortness of breath and altered mental status. Patient unsure when the shortness of breath began but states that he was fine yesterday. He states he was asleep and just woke up short of breath. Patient seems mildly confused and slow to respond but answers questions appropriately. Speech is slow and slightly slurred. Family reports that this is not normal for him. Patient denies any increased cough or fever or chest pain. He is on continuous home oxygen at 2.5 L. On examination patient is a well developed morbidly obese elderly male in mild respiratory distress. He is alert but seems a little confused. There is no cyanosis or diaphoresis. Breath sounds are decreased bilaterally with diffuse tight bilateral expiratory wheezes. Heart regular rate and rhythm. Abdomen soft with some mild right upper quadrant tenderness. Moderately distended. 3+ pedal edema. Labs reviewed. Chest x-ray negative but CT of the chest showed interstitial pulmonary edema with bilateral pleural effusions and some basilar atelectasis. No acute changes on EKG. The hospitalist, Dr. Jackson, was consulted and accepted admission of the patient.
[2016-08-22] MEDS ORDERED: Insulin LISPRO 300 UNITS/3 ML VIAL SQ SCH ×3 (06:00→21:00)
[2016-08-22] MEDS ORDERED: *HR* Heparin 5,000 UNIT/ML VIAL SQ SCH (06:00)
[2016-08-22] MEDS ORDERED: *HR* Dextrose 50 % in Water (Syg) 50 ML SYRINGE ONE (06:48)
[2016-08-22] MEDS ORDERED: D5% in Water 1,000 ML IVC ONE (06:54)
[2016-08-22] MEDS: Naloxone 0.4 MG/ML INJ IVP PRN ×2 (06:54→06:59)
[2016-08-22] MEDS ORDERED: Naloxone 0.4 MG/ML INJ IVP ONE (07:01)
[2016-08-22 07:12] LABS: ABG Base Excess 3.7 mEq/L (-2.0 to 3.0); ABG HCO3 29.5 mEQ/L (21-27); ABG Oxygen Saturation 96 % (95-98); ABG PCO2 51 mmHg (35-45); ABG PH 7.37 pH Units (7.32-7.45); ABG PO2 84 mmHg (85-104); ABG TCO2 31.1 mEq/L (20-26)
[2016-08-22] MEDS ORDERED: *HR* LORazepam 2 MG/ML VIAL IVP PRN (07:13)
[2016-08-22 07:14] LABS: Blood Gas FiO2 44 %; Blood Gas Liter Flow 6 L/MIN
--- NOTE | 2016-08-22 07:28 | Event Note ---
Date of Encounter: 08/22/16 Time of Encounter: 06:40 RAPID RESPONSE Dx=Acute unresponsiveness/toxic-metabolic encephalopathy/delirium; multi- factorial. Moaning articulations. Responsive only to noxious stimuli. Completely disoriented. Protection of airway demonstrated. Nostril from direct pain induction noted. Reflexes blunted. Babinski sign negative. Vital signs stable. Telemetry and pulse regular in rate and rhythm. Afebrile. No evidence of cutaneous trauma. Oropharynx clear. Pupils equal and reactive. No evidence of sensory neglect. Tx= Narcan 0.4 mg q5min4. D50 one half ampule infused. Supplemental oxygen by nasal cannula transitioning to BiPAP application.. Intravenous fluid D5 W. Correction of acid base and metabolic deficits. Introduction of pulmonary toilet measures. Precautions initiated: Aspiration fall seizure. Careful review of patient MAR and deletion of medications of concern in contributing to delirium and encephalopathy. Further assessments to be based on patient course and clinical findings. Outcome = patient awakened and was at baseline in terms of orientation and speech. Able to converse at interact with attending staff. Acutely ill. Remains delirious and encephalopathic due to underlying medical conditions. Labs= CMP, BNP, troponin, prolactin, urinalysis/urine culture, blood culture, TSH, cortisol, urine drug screen, ammonia, magnesium, phosphorus, ionized calcium, arterial blood gas/venous blood gas, lactic acid etc. Study= CT head without contrast protocol. CT chest without contrast. CT abdomen/pelvis without contrast. Electroencephalogram. Consultation = neurology Transfer = 2 north versus ICU pending a collective studies and patient acuity. 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 Hyperammonemia with episodic encephalopathy Remote h/o alcohol dependecy/abuse Copd continuous O2 dependency Chronic respiratory failure, hypoxic-hypercapnic Chronic diastolic CHF Htn Hld Morbid obesity ?PRADEEP ?OHS Debility, multifactorial Condition serious/critical Prognosis guarded orders written Vital Signs Temp Pulse Resp BP Pulse Ox 08/22/16 06:48 20 95 08/22/16 05:01 21 95 08/22/16 03:39 20 96 08/22/16 03:36 97.9 F 80 24 178/83 08/22/16 03:35 27 97 08/22/16 03:30 19 96 08/22/16 02:31 98 F 18 146/78 08/22/16 00:29 75 17 150/81 95 08/21/16 23:45 22 90 08/21/16 23:11 97.6 F 74 21 156/80 90 Intake and Output 08/21/16 08/21/16 08/22/16 15:59 23:59 07:59 Intake Total 0 / 0 Output Total 1500 / 1500 Balance -1500 / -1500 Intake: Oral 0 / 0 Output: Urine 1500 / 1500 Other: Weight 147.418 kg 157.3 kg Blood Glucose* 84 Patient Weight 08/22/16 23:59 Weight 157.3 kg 08/22/16 08/22/16 00:43 06:50 ABG pH 7.31 L 7.37 ABG pCO2 59 H 51 H ABG pO2 64 L 84 L ABG HCO3 29.7 H 29.5 H ABG Total CO2 31.5 H 31.1 H ABG O2 Saturation 90 L 96 ABG Base Excess 2.6 3.7 H Abnormal lab results RBC 3.78 M/mcL (4.19-5.50) L 08/22/16 00:10 Hgb 8.3 g/dL (12.9-16.9) L 08/22/16 00:10 Hct 30.4 % (37.5-50.1) L 08/22/16 00:10 MCV 80.4 fL (83.0-100.0) L 08/22/16 00:10 MCH 22.0 pg (28.0-33.3) L 08/22/16 00:10 MCHC 27.3 g/dL (31.6-35.5) L 08/22/16 00:10 RDW 21.1 % (11.5-14.5) H 08/22/16 00:10 Nucleated RBCs/100 WBC 0.3 /100 WBC (0) H 08/22/16 00:10 Hypochromasia Present (Not Present) A 08/22/16 00:10 Poikilocytosis 1+ (Not Present) A 08/22/16 00:10 Anisocytosis 1+ (Not Present) A 08/22/16 00:10 ABG pCO2 51 mmHg (35-45) H 08/22/16 06:50 ABG pO2 84 mmHg (85-104) L 08/22/16 06:50 ABG HCO3 29.5 mEQ/L (21-27) H 08/22/16 06:50 ABG Total CO2 31.1 mEq/L (20-26) H 08/22/16 06:50 ABG Base Excess 3.7 mEq/L (-2.0 to 3.0) H 08/22/16 06:50 Chloride 110 mEq/L (98-109) H 08/22/16 00:10 Creatinine 1.56 mg/dL (0.72-1.25) H 08/22/16 00:10 Est GFR ( Amer) 54 (> 60) L 08/22/16 00:10 Est GFR (Non-Af Amer) 44 (> 60) L 08/22/16 00:10 B-Natriuretic Peptide 373 pg/mL (0-100) H 08/22/16 00:10 Laboratory Results WBC 7.7 K/mcL (4.3-11.1) 08/22/16 00:10 RBC 3.78 M/mcL (4.19-5.50) L 08/22/16 00:10 Hgb 8.3 g/dL (12.9-16.9) L 08/22/16 00:10 Hct 30.4 % (37.5-50.1) L 08/22/16 00:10 MCV 80.4 fL (83.0-100.0) L 08/22/16 00:10 MCH 22.0 pg (28.0-33.3) L 08/22/16 00:10 MCHC 27.3 g/dL (31.6-35.5) L 08/22/16 00:10 RDW 21.1 % (11.5-14.5) H 08/22/16 00:10 Plt Count 154 K/mcL (140-400) 08/22/16 00:10 MPV 10.5 fL (9.4-12.4) 08/22/16 00:10 Immature Gran % 1.2 % (0-4) 08/22/16 00:10 Seg Neutrophils % 71.3 % 08/22/16 00:10 Lymphocytes % 16.0 % 08/22/16 00:10 Monocytes % 9.6 % 08/22/16 00:10 Eosinophils % 1.6 % 08/22/16 00:10 Basophils % 0.3 % 08/22/16 00:10 Neutrophils # 5.5 K/mcL (1.6-8.9) 08/22/16 00:10 Lymphocytes # 1.2 K/mcL (0.6-4.6) 08/22/16 00:10 Monocytes # 0.7 K/mcL (0.0-1.3) 08/22/16 00:10 Eosinophils # 0.1 K/mcL (0.0-0.6) 08/22/16 00:10 Basophils # 0.0 K/mcL (0.0-0.2) 08/22/16 00:10 Nucleated RBCs/100 WBC 0.3 /100 WBC (0) H 08/22/16 00:10 Platelet Estimate Normal (Normal) 08/22/16 00:10 Hypochromasia Present (Not Present) A 08/22/16 00:10 Poikilocytosis 1+ (Not Present) A 08/22/16 00:10 Anisocytosis 1+ (Not Present) A 08/22/16 00:10 ABG pH 7.37 pH Units (7.32-7.45) 08/22/16 06:50 ABG pCO2 51 mmHg (35-45) H 08/22/16 06:50 ABG pO2 84 mmHg (85-104) L 08/22/16 06:50 ABG HCO3 29.5 mEQ/L (21-27) H 08/22/16 06:50 ABG Total CO2 31.1 mEq/L (20-26) H 08/22/16 06:50 ABG O2 Saturation 96 % (95-98) 08/22/16 06:50 ABG Base Excess 3.7 mEq/L (-2.0 to 3.0) H 08/22/16 06:50 Liter Flow 6 L/MIN 08/22/16 06:50 Blood Gas Modality VENT 08/22/16 06:50 Inspired O2 44 % 08/22/16 06:50 Sodium 142 mEq/L (136-145) 08/22/16 00:10 Potassium 4.5 mEq/L (3.5-4.5) 08/22/16 00:10 Chloride 110 mEq/L (98-109) H 08/22/16 00:10 Carbon Dioxide 27 mEq/L (19-29) 08/22/16 00:10 BUN 21 mg/dL (8-26) 08/22/16 00:10 Creatinine 1.56 mg/dL (0.72-1.25) H 08/22/16 00:10 Est GFR ( Amer) 54 (> 60) L 08/22/16 00:10 Est GFR (Non-Af Amer) 44 (> 60) L 08/22/16 00:10 BUN/Creatinine Ratio 13 (6-26) 08/22/16 00:10 Glucose 93 mg/dL (70-99) 08/22/16 00:10 Calculated Osmolality 297 (280-300) 08/22/16 00:10 Lactic Acid 0.6 mmol/L (0.5-2.2) 08/22/16 00:10 Calcium 8.6 mg/dL (8.6-10.8) 08/22/16 00:10 Ammonia 26 mcmol/L (18-72) 08/22/16 00:10 Troponin I 0.02 ng/mL (0-0.03) 08/22/16 00:10 B-Natriuretic Peptide 373 pg/mL (0-100) H 08/22/16 00:10 Impressions Chest X-Ray 08/21/16 23:23 IMPRESSION: No acute process. D/ / Edi Fraser MD / Edi Fraser MD Interpreting Provider: Edi Fraser MD Chest CT 08/22/16 00:33 IMPRESSION: Findings consistent with interstitial pulmonary edema. There are small bilateral pleural effusions. Atelectasis is also noted in the lower lobes. Cirrhotic morphology of the liver with signs of portal venous hypertension, including [id number]-nphiwojy splenomegaly. Hypodensity in the right lobe of the liver is stable, fatty infiltration versus mass. Follow-up CT/ MRI has been recommended in the 3 month interval. D/ / Tommy Rowell MD / Tommy Rowell MD Interpreting Provider: Tommy Rowell MD
[2016-08-22] MEDS ORDERED: D5% in Water 500 ML IVC SCH (07:30)
[2016-08-22] MEDS ORDERED: Naloxone 0.4 MG/ML INJ IVP STA (07:30)
[2016-08-22 08:14] LABS: INR 1.1; Prothrombin Time 12.3 Seconds (9.4-12.1)
[2016-08-22 08:17] LABS: Activated Partial Thrombo Time 29.8 Seconds (26.0-36.0)
[2016-08-22 08:21] LABS: Ionized Calcium 1.11 mmol/L (1.15-1.35)
[2016-08-22 08:22] LABS: Hemoglobin 8.1 g/dL (12.9-16.9)
[2016-08-22] MEDS: Insulin LISPRO 300 UNITS/3 ML VIAL SQ SCH ×3 (08:23→17:37)
[2016-08-22 08:24] LABS: Hematocrit 29.5 % (37.5-50.1); Mean Corpuscular HGB Conc 27.5 g/dL (31.6-35.5); Mean Corpuscular Volume 79.9 fL (83.0-100.0); Platelet Count 152 K/mcL (140-400); Red Blood Count 3.69 M/mcL (4.19-5.50); Red Cell Distribution Width 20.8 % (11.5-14.5)
[2016-08-22 08:29] LABS: Albumin 3.1 g/dL (3.5-5.0); Albumin/Globulin Ratio 0.9 (1.1-2.2); Bilirubin,Direct 0.4 mg/dL (0.0-0.5); Bilirubin,Indirect 0.3 mg/dL (0.0-1.2); Bilirubin,Total 0.7 mg/dL (0.2-1.2); Calcium 8.9 mg/dL (8.6-10.8); Globulin 3.4 g/dL (2.4-3.5); Potassium 3.9 mEq/L (3.5-4.5); Total Protein 6.5 g/dL (6.0-8.3)
--- NOTE | 2016-08-22 08:44 | Neurology - Consult Note ---
<Franklin Ugalde - Last Filed: 08/22/16 11:02> Date of Encounter: 08/22/16 Time of Encounter: 08:44 Assessment and Plan (1) Change in mental status Current Visit: Yes Status: Acute This could be multifactorial secondary to narcotic use (fentanyl patch + oxycodone at home), carbon dioxide narcosis and/or underlying acute stroke, patient's mental status significantly improved when he received BiPAP and DuoNeb treatment in the ER, ABG showed respiratory acidosis with PCO2 of 59, overnight patient's mental status improved after use of Narcan 2, and head CT scan without contrast this morning showed a possible acute-subacute left basal ganglia infarct, patient does have risk factors for stroke such as morbid obesity, history of alcohol/tobacco abuse, DM II, hypertension, and hyperlipidemia, aspirin was started today and patient is already on statin, check lipid panel in the morning, patient will need further stroke workup of echo and carotid ultrasound, plus brain MRI w/o contrast, will make further recommendations after reviewing the brain MRI. History of Present Illness Chief complaint: Change in mental status HPI: Mr. Hammond is a 70 year old male with history of diabetes type 2, cirrhosis, remote history of alcohol abuse, COPD on home oxygen, chronic diastolic congestive heart failure, hyperlipidemia, hypertension, former smoker and hyperlipidemia, who was brought from home to the ER for change in mental status , patient's daughter found him yesterday around 5 PM slumped in chair and he was minimally responsive and he was confused, patient has no history of baseline dementia. In the ER he was put on BiPAP and patient received a DuoNeb treatment and his mental status improved back to his baseline. 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 Past Med Surg Social Fam HX - Past Medical History Medical history: diabetes, hyperlipidemia, hypertension, kidney stones, renal disease Psychiatric history: no psych history - Social History Smoking Status: Former smoker Smokeless Tobacco Status: No Alcohol use: none Drug use: none - Family History Mother Hx Family Medical Disorders: Yes (Diabetes ) Medications and Allergies Albuterol Sulfate [Albuterol Inhaler] 2 puff IH QID PRN 03/14/16 [History] Calcium Carbonate [Calcium] 600 mg PO DAILY 03/14/16 [History] Cholecalciferol (Vitamin D3) [Vitamin D3] 8,000 unit PO DAILY 03/14/16 [History] Eucerin Creme 1 appl TP DAILY PRN 03/14/16 [History] FentaNYL PATCH [Duragesic] 75 mcg TD Q72H 03/14/16 [History] Furosemide [Lasix] 40 mg PO BID 03/14/16 [History] Hydralazine HCl 50 mg PO TID 03/14/16 [History] Insulin ASPART [NovoLOG] 42 unit SQ TID 03/14/16 [History] Insulin Glargine [Lantus] 90 unit SQ BID 03/14/16 [History] Omeprazole 20 mg PO DAILY 03/14/16 [History] Oxycodone HCl 10 mg PO Q6H PRN 03/14/16 [History] Pregabalin [Lyrica] 150 mg PO BID 03/14/16 [History] Simvastatin [Zocor] 40 mg PO HS 03/14/16 [History] Ipratropium/Albuterol Neb [Duoneb] 3 ml IH Q8HR #30 inhsol 03/22/16 [Rx] Isosorbide MONOnitrate (24 HR) [Imdur] 30 mg PO DAILY 30 Days 03/22/16 [Rx] Metoprolol [Lopressor] 100 mg PO BID 30 Days 03/22/16 [Rx] Amitriptyline [Elavil] 25 mg PO HS 08/22/16 [History] Lisinopril [Zestril] 20 mg PO DAILY 08/22/16 [History] Metformin HCl [Glucophage] 1,000 mg PO BID 08/22/16 [History] Nitroglycerin [Nitrostat] 0.4 mg SL AD 08/22/16 [History] Sennosides [Senna] 8.6 mg PO DAILY 08/22/16 [History] Allergies No Known Allergies Allergy (Verified 03/14/16 14:07) All Systems: A 10-system review of systems was performed and is negative for pertinent findings except as documented above in the HPI. 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 Physical Examination - Vital Signs Vital Signs: Initial Vital Signs Temp Pulse Resp BP Pulse Ox 97.6 F 74 21 156/80 90 08/21/16 23:11 08/21/16 23:11 08/21/16 23:11 08/21/16 23:11 08/21/16 23:11 - Constitutional General appearance: comfortable, other (A and Ox3 in no acute distress) - Neurologic Sensorimotor examination: other (Patient does have chronic tingling/numbness of upper/lower extremities secondary to diabetic neuropathy, he states that nothing is worse) Detailed motor examination: grossly full strength in all extremities, full strength in all major muscle groups Motor examination - right side: 5/5: deltoids, biceps, triceps, wrist flexion, wrist extension, trolley car mechanic, hip flexors, quadriceps, plantarflexion Motor examination - left side: 5/5: deltoids, biceps, triceps, wrist flexion, wrist extension, hip flexors, trolley car mechanic, quadriceps, plantarflexion Reflexes: Biceps: 2+, Triceps: 2+, Brachioradialis: 2+, Patella: 2+, Achilles: 2 + Mental Status Examination: awake, alert, oriented to person, oriented to place, oriented to time, follows commands appropriately, answers questions appropriately, no agnosia, no aphasia, no aproxia Cranial nerve examination: PERRL, EOMI, sensory to face intact, mastication intact, no facial asymmetry is present, no dysarthria, hearing is intact symmetrically, soft palate elevates bilaterally upon phonation, tongue protrudes midline, no atrophy or facial fasiculations present Cerebellar examination: no dysmetria, no difficulty with rapid alternating movements Results - Laboratory Findings CBC and BMP: 08/22/16 07:55 08/22/16 07:55 Abnormal lab findings: Abnormal lab results RBC 3.69 M/mcL (4.19-5.50) L 08/22/16 07:55 Hgb 8.1 g/dL (12.9-16.9) L 08/22/16 07:55 Hct 29.5 % (37.5-50.1) L 08/22/16 07:55 MCV 79.9 fL (83.0-100.0) L 08/22/16 07:55 MCH 22.0 pg (28.0-33.3) L 08/22/16 07:55 MCHC 27.5 g/dL (31.6-35.5) L 08/22/16 07:55 RDW 20.8 % (11.5-14.5) H 08/22/16 07:55 Nucleated RBCs/100 WBC 0.3 /100 WBC (0) H 08/22/16 00:10 Hypochromasia Present (Not Present) A 08/22/16 00:10 Poikilocytosis 1+ (Not Present) A 08/22/16 00:10 Anisocytosis 1+ (Not Present) A 08/22/16 00:10 ESR 67 mm/hr (0-10) H 08/22/16 07:55 PT 12.3 Seconds (9.4-12.1) H 08/22/16 07:55 ABG pCO2 51 mmHg (35-45) H 08/22/16 06:50 ABG pO2 84 mmHg (85-104) L 08/22/16 06:50 ABG HCO3 29.5 mEQ/L (21-27) H 08/22/16 06:50 ABG Total CO2 31.1 mEq/L (20-26) H 08/22/16 06:50 ABG Base Excess 3.7 mEq/L (-2.0 to 3.0) H 08/22/16 06:50 Creatinine 1.42 mg/dL (0.72-1.25) H 08/22/16 07:55 Est GFR (Non-Af Amer) 49 (> 60) L 08/22/16 07:55 Ionized Calcium 1.11 mmol/L (1.15-1.35) L 08/22/16 07:55 B-Natriuretic Peptide 373 pg/mL (0-100) H 08/22/16 00:10 Albumin 3.1 g/dL (3.5-5.0) L 08/22/16 07:55 Albumin/Globulin Ratio 0.9 (1.1-2.2) L 08/22/16 07:55 Consult Discharge Plan - Plan Referrals: Eileen Danielle DO [Resident] - 09/02/16 1:00 pm <Tatyana Conrad - Last Filed: 08/22/16 15:56> Date of Encounter: 08/22/16 History of Present Illness HPI: Mr. Hammond is a 70 year old male All Systems: A 10-system review of systems was performed and is negative for pertinent findings except as documented above in the HPI. Physical Examination - Vital Signs Vital Signs: Initial Vital Signs Temp Pulse Resp BP Pulse Ox 97.6 F 74 21 156/80 90 08/21/16 23:11 08/21/16 23:11 08/21/16 23:11 08/21/16 23:11 08/21/16 23:11 Results - Laboratory Findings CBC and BMP: 08/22/16 07:55 08/22/16 07:55 Abnormal lab findings: Abnormal lab results RBC 3.69 M/mcL (4.19-5.50) L 08/22/16 07:55 Hgb 8.1 g/dL (12.9-16.9) L 08/22/16 07:55 Hct 29.5 % (37.5-50.1) L 08/22/16 07:55 MCV 79.9 fL (83.0-100.0) L 08/22/16 07:55 MCH 22.0 pg (28.0-33.3) L 08/22/16 07:55 MCHC 27.5 g/dL (31.6-35.5) L 08/22/16 07:55 RDW 20.8 % (11.5-14.5) H 08/22/16 07:55 Nucleated RBCs/100 WBC 0.3 /100 WBC (0) H 08/22/16 00:10 Hypochromasia Present (Not Present) A 08/22/16 00:10 Poikilocytosis 1+ (Not Present) A 08/22/16 00:10 Anisocytosis 1+ (Not Present) A 08/22/16 00:10 ESR 67 mm/hr (0-10) H 08/22/16 07:55 PT 12.3 Seconds (9.4-12.1) H 08/22/16 07:55 ABG pCO2 51 mmHg (35-45) H 08/22/16 06:50 ABG pO2 84 mmHg (85-104) L 08/22/16 06:50 ABG HCO3 29.5 mEQ/L (21-27) H 08/22/16 06:50 ABG Total CO2 31.1 mEq/L (20-26) H 08/22/16 06:50 ABG Base Excess 3.7 mEq/L (-2.0 to 3.0) H 08/22/16 06:50 Creatinine 1.42 mg/dL (0.72-1.25) H 08/22/16 07:55 Est GFR (Non-Af Amer) 49 (> 60) L 08/22/16 07:55 Ionized Calcium 1.11 mmol/L (1.15-1.35) L 08/22/16 07:55 C-Reactive Protein 60 mg/L (Less than 5) H 08/22/16 07:55 B-Natriuretic Peptide 373 pg/mL (0-100) H 08/22/16 00:10 Albumin 3.1 g/dL (3.5-5.0) L 08/22/16 07:55 Albumin/Globulin Ratio 0.9 (1.1-2.2) L 08/22/16 07:55 TSH 4.863 mcIU/mL (0.350-4.840) H 08/22/16 07:55
[2016-08-22] MEDS ORDERED: Folic Acid 1 MG TABLET PO SCH (09:00)
[2016-08-22] MEDS ORDERED: amLODIPine 5 MG TABLET PO SCH (09:00)
[2016-08-22] MEDS ORDERED: Lactulose Oral Soln 20 GM/30 ML UDC PO SCH (09:00)
[2016-08-22] MEDS ORDERED: Vitamin B Complex/Vit C/Vit E 1 EACH TABLET PO SCH (09:00)
[2016-08-22] MEDS ORDERED: hydrALAZINE 25 MG TABLET PO SCH ×2 (09:00→16:00)
[2016-08-22] MEDS ORDERED: Thiamine (B-1) 100 MG TABLET PO SCH (09:00)
[2016-08-22] MEDS ORDERED: Pregabalin 75 MG CAPSULE PO SCH (09:00)
[2016-08-22] MEDS ORDERED: Isosorbide MONOnitrate (24 HR) 30 MG TAB.ER.24H PO SCH (09:00)
[2016-08-22] MEDS ORDERED: Aspirin 325 MG TABLET PO ONE (09:06)
[2016-08-22 10:07] LABS: Prolactin 11.4 ng/mL (3.46-19.40)
[2016-08-22] MEDS: Ipratropium/Albuterol Neb 3 ML IH SCH ×3 (10:52→22:53)
[2016-08-22] MEDS: *HR* Heparin 5,000 UNIT/ML VIAL SQ SCH ×2 (14:26→20:33)
--- NOTE | 2016-08-22 15:01 | Internal Med Progress Note ---
<Araceli Brar - Last Filed: 08/22/16 16:48> Date of Encounter: 08/22/16 Time of Encounter: 14:58 - Assessment and plan (1) Acute encephalopathy Current Visit: Yes Status: Acute Assessment and plan: Patient was brought to the ER due to altered mental status. This improved with DuoNeb and BiPAP. ABG in the ER showed hypercapnia and mild hypoxia. The patient was admitted to the unit on BiPAP. At some point the BiPAP was removed and later a rapid response was called due to the patient being altered mental status again. At this point in time the patient was slightly hypoglycemic at ? 74, and became alert after getting Narcan 0.4 mg 2 doses. His home pain medications which had been started upon admission were stopped at this point in time. Multifactorial including but not limited to the following: Hypercapnia Hypoxia Hyperglycemia High-dose opioid use ? Obesity hypoventilation syndrome ? PRADEEP There was concern for a stroke during the rapid response. CT imaging was suspicious for stroke but confirmatory MRI was negative. Echocardiogram and carotid ultrasounds are ordered. Overnight BiPAP ordered. Blood glucose ordered to be measured between 2 and 3 AM to see if patient is becoming hypoglycemic and overcompensating to hyperglycemia by his morning fasting readings. (2) Acute respiratory failure Current Visit: Yes Status: Acute Assessment and plan: ABG in the ER showed pH 7.31, pCO2 59, pO2 64, HCO3 29.7 Patient's altered mental status improved in the ER with duonebs and bipap. Qualifiers: Respiratory failure complication: hypoxia and hypercapnia Qualified Code(s) : J96.01 - Acute respiratory failure with hypoxia; J96.02 - Acute respiratory failure with hypercapnia (3) [id number] kidney injury Current Visit: Yes Status: Acute Assessment and plan: Cr 1.56, baseline 1.28 recent contrast exposure from abdominal CT (08/18) continue to monitor (4) CKD (chronic kidney disease) stage 3, GFR 30-59 ml/min Current Visit: Yes Status: Chronic Assessment and plan: baseline labs from 08/07 Cr 1.28 GFR 56 (5) HTN (hypertension) Current Visit: Yes Status: Chronic Assessment and plan: patient on stroke precautions this morning, so HTN medications were discontinued except for lopressor, which was written as PRN, to allow for permissive HTN --MRI negative for stroke --patient also received 100 mg of lasix before it was discontinued for the day Patient has 5 medications for HTN, CAD, diuresis. Add medications back while monitoring patient. --Hydralazine written with hold parameters. Qualifiers: Hypertension type: unspecified secondary hypertension Qualified Code(s): I15.9 - Secondary hypertension, unspecified; I15 - Secondary hypertension (6) Diabetes Current Visit: Yes Status: Chronic Assessment and plan: Patient tends to run very hyperclycemic per review of PCP records. Hg A1C 06/2015 13.8 (04/2016 7.4) Qualifiers: Diabetes mellitus type: type 2 Diabetes mellitus complication status: with kidney complications Diabetes mellitus complication detail: with chronic kidney disease Diabetes mellitus airplane tester insulin use: with alf use Chronic kidney disease stage: stage 3 (moderate) Qualified Code(s): E11.22 - Type 2 diabetes mellitus with diabetic chronic kidney disease; N18.3 - Chronic kidney disease, stage 3 (moderate); Z79.4 - [facility] (current) use of insulin (7) Anemia Current Visit: Yes Status: Chronic Assessment and plan: admission Hg 8.1 baseline 10.4 (from labs 06/30/2016) continue to monitor Qualifiers: Anemia type: iron deficiency Iron deficiency anemia type: unspecified iron deficiency Qualified Code(s): D50.9 - Iron deficiency anemia, unspecified (8) COPD (chronic obstructive pulmonary disease) Current Visit: Yes Status: Chronic Assessment and plan: continue home meds of duoneb and proventil proventil nebs q 2H PRN Qualifiers: COPD type: unspecified COPD Qualified Code(s): J44.9 - Chronic obstructive pulmonary disease, unspecified (9) Obesity Current Visit: Yes Status: Chronic Qualifiers: Obesity type: due to excess calories Obesity severity: morbid Qualified Code(s): E66.01 - Morbid (severe) obesity due to excess calories (10) DVT prophylaxis Current Visit: Yes Status: Acute Assessment and plan: SQ heparin 5,000 q8 (11) Chronic pain Current Visit: Yes Status: Chronic Assessment and plan: Home pain medications were started on admission but stopped after rapid response at approximately 7 AM this morning. Restarted at approximately 4 PM. Takes fentanyl 75 mcg patch, Lyrica 150 mg twice a day, and OxyContin 10 mg twice a day. Qualifiers: Chronic pain type: other chronic pain Qualified Code(s): G89.29 - Other chronic pain - Subjective Interval history: Patient seen and examined. He does not remember this morning and had vague memories of being brought to the hospital. Denies pain at this time. - Constitutional Vitals: Temp Pulse Resp BP Pulse Ox 98.4 F 85 16 143/57 97 08/22/16 12:05 08/22/16 12:05 08/22/16 12:05 08/22/16 12:05 08/22/16 12:05 General appearance: Present: A&O X 3, morbidly obese - Head Head exam: Present: atraumatic, normocephalic - Eye Eye exam: Present: EOMI, PERRL, sclera anicteric - Neck Neck exam general surgery: Present: supple - Respiratory Respiratory exam: Present: rales - Cardiovascular Cardiovascular exam: Present: RRR, +S1, +S2 - GI/Abdominal GI/Abdominal exam: Present: normal bowel sounds, soft. Absent: tenderness - Extremities Exam Extremities exam: Present: pedal edema, warm - Neurological Exam Neurological exam: Present: alert, CN II-XII intact, oriented X3, no focal deficits - Skin Skin exam: Present: dry, intact, warm Internal Medicine: Result - Labs CBC & Chem 7: 08/22/16 07:55 08/22/16 07:55 Labs: Short CBC 08/22/16 Range/Units 07:55 WBC 7.2 (4.3-11.1) K/mcL Hgb 8.1 L (12.9-16.9) g/dL Hct 29.5 L (37.5-50.1) % Plt Count 152 (140-400) K/mcL BMP 08/22/16 07:55 Sodium 142 Potassium 3.9 Chloride 106 Carbon Dioxide 29 BUN 22 Creatinine 1.42 H Glucose 99 Calcium 8.9 Cardiac Enzymes 08/22/16 Range/Units 07:55 Troponin I 0.03 (0-0.03) ng/mL Liver Function 08/22/16 Range/Units 07:55 Total Bilirubin 0.7 (0.2-1.2) mg/dL Direct Bilirubin 0.4 (0.0-0.5) mg/dL AST 23 (5-34) Units/L ALT 18 (0-55) Units/L Alkaline Phosphatase 97 (38-126) Units/L Albumin 3.1 L (3.5-5.0) g/dL - ABG Interpretation ABG results: ABG ABG pH 7.37 pH Units (7.32-7.45) 08/22/16 06:50 ABG pCO2 51 mmHg (35-45) H 08/22/16 06:50 ABG pO2 84 mmHg (85-104) L 08/22/16 06:50 ABG O2 Saturation 96 % (95-98) 08/22/16 06:50 PT/INR, D-dimer PT 12.3 Seconds (9.4-12.1) H 08/22/16 07:55 - Impressions Impressions Head CT 08/22/16 08:00 IMPRESSION: Possible acute-subacute left basal ganglia infarct. No other acute intracranial abnormality. Findings were sent to Radiology Results Communication to be conveyed to the referring clinician. D/ / Jose Hernandez MD / Jose Hernandez MD Interpreting Provider: Jose Hernandez MD Brain MRI 08/22/16 10:13 IMPRESSION: 1. No evidence of an acute infarct. 2. Minimal chronic microvascular white matter ischemic disease is noted supratentorially. 3. Motion degraded examination. D/ / 08/22/2016 14:06:18 Tommy Rosenberg MD / bcarter Interpreting Provider: Tommy Rosenberg MD Consult Discharge Plan - Plan Referrals: Eileen Danielle DO [Resident] - 09/02/16 1:00 pm <Enmanuel Daniel - Last Filed: 08/22/16 19:11> Date of Encounter: 08/22/16 - Constitutional Vitals: Temp Pulse Resp BP Pulse Ox 98.6 F 75 16 150/73 94 08/22/16 16:07 08/22/16 16:07 08/22/16 16:12 08/22/16 16:07 08/22/16 16:12 Internal Medicine: Result - Labs CBC & Chem 7: 08/22/16 07:55 08/22/16 07:55 Labs: Short CBC 08/22/16 Range/Units 07:55 WBC 7.2 (4.3-11.1) K/mcL Hgb 8.1 L (12.9-16.9) g/dL Hct 29.5 L (37.5-50.1) % Plt Count 152 (140-400) K/mcL BMP 08/22/16 07:55 Sodium 142 Potassium 3.9 Chloride 106 Carbon Dioxide 29 BUN 22 Creatinine 1.42 H Glucose 99 Calcium 8.9 Cardiac Enzymes 08/22/16 Range/Units 07:55 Troponin I 0.03 (0-0.03) ng/mL Liver Function 08/22/16 Range/Units 07:55 Total Bilirubin 0.7 (0.2-1.2) mg/dL Direct Bilirubin 0.4 (0.0-0.5) mg/dL AST 23 (5-34) Units/L ALT 18 (0-55) Units/L Alkaline Phosphatase 97 (38-126) Units/L Albumin 3.1 L (3.5-5.0) g/dL - ABG Interpretation ABG results: ABG ABG pH 7.37 pH Units (7.32-7.45) 08/22/16 06:50 ABG pCO2 51 mmHg (35-45) H 08/22/16 06:50 ABG pO2 84 mmHg (85-104) L 08/22/16 06:50 ABG O2 Saturation 96 % (95-98) 08/22/16 06:50 PT/INR, D-dimer PT 12.3 Seconds (9.4-12.1) H 08/22/16 07:55 - Impressions Impressions Head CT 08/22/16 08:00 IMPRESSION: Possible acute-subacute left basal ganglia infarct. No other acute intracranial abnormality. Findings were sent to Radiology Results Communication to be conveyed to the referring clinician. D/ / Jose Hernandez MD / Jose Hernandez MD Interpreting Provider: Jose Hernandez MD Brain MRI 08/22/16 10:13 IMPRESSION: 1. No evidence of an acute infarct. 2. Minimal chronic microvascular white matter ischemic disease is noted supratentorially. 3. Motion degraded examination. D/ / 08/22/2016 14:06:18 Tommy Rosenberg MD / vic Interpreting Provider: Tommy Rosenberg MD - Attending Attestation I examined this patient and my medical decision-making was reviewed with the Resident Physician on 08/22/16. I agree with the documented findings, disposition and treatment plan as described except to the extent set forth below. Mr. Hammond was admitted earlier today. He had a rapid response due to somnolence. Initially thought to be CVA but MRI negative. Pt alert and conversant. He takes multiple pain meds. Plan for bipap study tonight.
--- NOTE | 2016-08-22 15:22 | EEG/EMG/Oth Biometrics Report ---
EEG Procedure Report Date of procedure: 08/22/16 EEG Procedure: Routine EEG Procedure Note: Report: This EEG was acquired with standard international 10-20 electrode placement system with EKG recording. The background activity during this EEG was replaced by a mixture of theta and alpha activity with best frequency up to 8-9 Hz. The background activity was reactive to eye openings. Stage 1 and 2 sleep were noted due to presence of background slowing, slow eye movements, K- complexes, Vertex waves and sleep spindles. There are no electricographic seizures identified during this tracing. There are no epileptiform discharges and focal slowing noted during this recording. Photic stimulation produced no abnormalities. HV not performed during this study. EKG tracing showed no significant cardiac dysarrhythmia. Impression: This is a mildly abnormal EEG due to presence of mild diffuse background slowing. Clinical Correlation: This EEG is consistent with mild diffuse cerebral dysfunction that can be seen in patients with encephalopathy, metabolic/toxic, electrolyte derangement, or other causes. Clinical correlation suggested.
--- NOTE | 2016-08-22 15:34 | Neurology - Consult Note ---
Date of Encounter: 08/22/16 Time of Encounter: 15:30 History of Present Illness Chief complaint: Abnormal CT of head and altered mental status HPI: Mr. Hammond is a 70 year old male with PMH significant for COPD, HTN, DM, CKD who developed acute COPD exacerbation and hypoxia, reportedly rapidly improved with the use of inhalor and BPAP therapy. Neurology was consulted due to reading of possible acute and subacute infarct on CT of head. Patient has no neurological deficits. I reviewed CT of head and i could not confirm what radiologist's suspicion was based upon. Indeed, MRI of brain was completed and showed no acute intracranial abnormality. Patient is currently asymptomatic. Past Med Surg Social Fam HX - Past Medical History Medical history: diabetes, hyperlipidemia, hypertension, kidney stones, renal disease Psychiatric history: no psych history - Social History Smoking Status: Former smoker Smokeless Tobacco Status: No Alcohol use: none Drug use: none - Family History Mother Hx Family Medical Disorders: Yes (Diabetes ) Medications and Allergies Albuterol Sulfate [Albuterol Inhaler] 2 puff IH QID PRN 03/14/16 [History] Calcium Carbonate [Calcium] 600 mg PO DAILY 03/14/16 [History] Cholecalciferol (Vitamin D3) [Vitamin D3] 8,000 unit PO DAILY 03/14/16 [History] Eucerin Creme 1 appl TP DAILY PRN 03/14/16 [History] FentaNYL PATCH [Duragesic] 75 mcg TD Q72H 03/14/16 [History] Furosemide [Lasix] 40 mg PO BID 03/14/16 [History] Hydralazine HCl 50 mg PO TID 03/14/16 [History] Insulin ASPART [NovoLOG] 42 unit SQ TID 03/14/16 [History] Insulin Glargine [Lantus] 90 unit SQ BID 03/14/16 [History] Omeprazole 20 mg PO DAILY 03/14/16 [History] Oxycodone HCl 10 mg PO Q6H PRN 03/14/16 [History] Pregabalin [Lyrica] 150 mg PO BID 03/14/16 [History] Simvastatin [Zocor] 40 mg PO HS 03/14/16 [History] Ipratropium/Albuterol Neb [Duoneb] 3 ml IH Q8HR #30 inhsol 03/22/16 [Rx] Isosorbide MONOnitrate (24 HR) [Imdur] 30 mg PO DAILY 30 Days 03/22/16 [Rx] Metoprolol [Lopressor] 100 mg PO BID 30 Days 03/22/16 [Rx] Amitriptyline [Elavil] 25 mg PO HS 08/22/16 [History] Lisinopril [Zestril] 20 mg PO DAILY 08/22/16 [History] Metformin HCl [Glucophage] 1,000 mg PO BID 08/22/16 [History] Nitroglycerin [Nitrostat] 0.4 mg SL AD 08/22/16 [History] Sennosides [Senna] 8.6 mg PO DAILY 08/22/16 [History] Allergies No Known Allergies Allergy (Verified 03/14/16 14:07) All Systems: A 10-system review of systems was performed and is negative for pertinent findings except as documented above in the HPI. Physical Examination - Vital Signs Vital Signs: Initial Vital Signs Temp Pulse Resp BP Pulse Ox 97.6 F 74 21 156/80 90 08/21/16 23:11 08/21/16 23:11 08/21/16 23:11 08/21/16 23:11 08/21/16 23:11 - Constitutional General appearance: comfortable - Neurologic Sensorimotor examination: intact Detailed motor examination: grossly full strength in all extremities Motor examination - right side: 5/5: deltoids, biceps, triceps, wrist flexion, wrist extension, credentialer, hip flexors, tibialis Anterior, quadriceps, toe extension (EHL), plantarflexion Mental Status Examination: awake, alert, oriented to person, oriented to place, oriented to time, follows commands appropriately, answers questions appropriately, no agnosia, no aphasia, no aproxia Cranial nerve examination: PERRL, EOMI, visual steven intact, corneal reflexes brisk symmetrically, sensory to face intact, mastication intact, no facial asymmetry is present, no dysarthria, hearing is intact symmetrically, soft palate elevates bilaterally upon phonation, gag reflex intact, flexes SCM and trapezius muscles symmetrically with full power, tongue protrudes midline, no atrophy or facial fasiculations present Cerebellar examination: no dysmetria, performs finger to nose and heel to valiente symmetrically without ataxia, no gait ataxia, no truncal ataxia, no difficulty with rapid alternating movements Results - Laboratory Findings CBC and BMP: 08/22/16 07:55 04 07:55 Abnormal lab findings: Abnormal lab results RBC 3.69 M/mcL (4.19-5.50) L 08/22/16 07:55 Hgb 8.1 g/dL (12.9-16.9) L 08/22/16 07:55 Hct 29.5 % (37.5-50.1) L 08/22/16 07:55 MCV 79.9 fL (83.0-100.0) L 08/22/16 07:55 MCH 22.0 pg (28.0-33.3) L 08/22/16 07:55 MCHC 27.5 g/dL (31.6-35.5) L 08/22/16 07:55 RDW 20.8 % (11.5-14.5) H 08/22/16 07:55 Nucleated RBCs/100 WBC 0.3 /100 WBC (0) H 08/22/16 00:10 Hypochromasia Present (Not Present) A 08/22/16 00:10 Poikilocytosis 1+ (Not Present) A 08/22/16 00:10 Anisocytosis 1+ (Not Present) A 08/22/16 00:10 ESR 67 mm/hr (0-10) H 08/22/16 07:55 PT 12.3 Seconds (9.4-12.1) H 08/22/16 07:55 ABG pCO2 51 mmHg (35-45) H 08/22/16 06:50 ABG pO2 84 mmHg (85-104) L 08/22/16 06:50 ABG HCO3 29.5 mEQ/L (21-27) H 08/22/16 06:50 ABG Total CO2 31.1 mEq/L (20-26) H 08/22/16 06:50 ABG Base Excess 3.7 mEq/L (-2.0 to 3.0) H 08/22/16 06:50 Creatinine 1.42 mg/dL (0.72-1.25) H 08/22/16 07:55 Est GFR (Non-Af Amer) 49 (> 60) L 08/22/16 07:55 Ionized Calcium 1.11 mmol/L (1.15-1.35) L 08/22/16 07:55 C-Reactive Protein 60 mg/L (Less than 5) H 08/22/16 07:55 B-Natriuretic Peptide 373 pg/mL (0-100) H 08/22/16 00:10 Albumin 3.1 g/dL (3.5-5.0) L 08/22/16 07:55 Albumin/Globulin Ratio 0.9 (1.1-2.2) L 08/22/16 07:55 TSH 4.863 mcIU/mL (0.350-4.840) H 08/22/16 07:55 Consult Discharge Plan - Plan Referrals: Eileen Danielle DO [Resident] - 09/02/16 1:00 pm
[2016-08-22] MEDS ORDERED: *HR* FentaNYL PATCH 75 MCG PATCH TD SCH (16:15)
[2016-08-22] MEDS ORDERED: Furosemide 40 MG TABLET PO SCH (17:00)
--- NOTE | 2016-08-22 17:37 | Electrocardiograph Report ---
[place] [id number] Test Date: 2016-08-21 Pat Name: Darrick Hammond Department: 105 Room: 2NE20 Gender: M Surgery Manager: SANGEETHA : 1945 Requested By: Susana Cho Order Number: [id number] Reading MD: Yoseph Ha MD Measurements Intervals [place] Rate: 75 P: 35 VA: 152 QRS: 29 QRSD: 93 T: 36 QT: 391 QTc: 419 Interpretive Statements SINUS RHYTHM Electronically Signed On 08-22-2016 17:35:51 EDT by Yoseph Ha MD
[2016-08-22] MEDS: *HR* OxyCODONE ER (12 HR) 10 MG TABLET PO SCH (17:42)
[2016-08-22] MEDS: hydrALAZINE 25 MG TABLET PO SCH (20:32)
[2016-08-22] MEDS: Pregabalin 75 MG CAPSULE PO SCH (20:32)
[2016-08-22] MEDS ORDERED: Insulin DETEMIR 100 UNIT/ML X5UNITS SQ SCH ×3 (21:00)
[2016-08-23] MEDS: Ipratropium/Albuterol Neb 3 ML IH SCH ×2 (04:32→11:03)
[2016-08-23 04:36] LABS: Hemoglobin 8.2 g/dL (12.9-16.9)
[2016-08-23 04:37] LABS: Hematocrit 29.5 % (37.5-50.1); Mean Corpuscular HGB Conc 27.8 g/dL (31.6-35.5); Mean Corpuscular Hemoglobin 21.9 pg (28.0-33.3); Mean Corpuscular Volume 78.7 fL (83.0-100.0); Mean Platelet Volume 10.9 fL (9.4-12.4); Platelet Count 113 K/mcL (140-400); Red Blood Count 3.75 M/mcL (4.19-5.50)
[2016-08-23 04:55] LABS: ABG Base Excess 7.4 mEq/L (-2.0 to 3.0); ABG HCO3 33.7 mEQ/L (21-27); ABG Oxygen Saturation 96 % (95-98); ABG PCO2 57 mmHg (35-45); ABG PH 7.38 pH Units (7.32-7.45); ABG PO2 85 mmHg (85-104); ABG TCO2 35.4 mEq/L (20-26)
[2016-08-23 04:56] LABS: Blood Gas Liter Flow 6 L/MIN
[2016-08-23 05:06] LABS: BUN/Creatinine Ratio 18 (6-26); Blood Urea Nitrogen 22 mg/dL (8-26); Calcium 8.7 mg/dL (8.6-10.8); Carbon Dioxide 26 mEq/L (19-29); Chloride 107 mEq/L (98-109); Glucose 168 mg/dL (70-99); Osmolality,Calculated 299 (280-300); Potassium 4.5 mEq/L (3.5-4.5); Sodium 141 mEq/L (136-145); eGFR For African Americans > 60 (> 60); eGFR For Non-African Americans 57 (> 60)
[2016-08-23] MEDS: *HR* Heparin 5,000 UNIT/ML VIAL SQ SCH (06:33)
[2016-08-23] MEDS: *HR* OxyCODONE ER (12 HR) 10 MG TABLET PO SCH (06:33)
[2016-08-23 07:42] VITALS: BP 144/58
--- NOTE | 2016-08-23 08:44 | Discharge Summary ---
<Araceli Brar - Last Filed: 08/23/16 09:10> Date of Encounter: 08/23/16 Time of Encounter: 08:37 - Discharge Diagnosis (1) Acute encephalopathy Priority: Primary Status: Resolved (2) Acute respiratory failure Priority: Primary Status: Acute Qualifiers: Respiratory failure complication: hypoxia and hypercapnia Qualified Code(s) : J96.01 - Acute respiratory failure with hypoxia; J96.02 - Acute respiratory failure with hypercapnia (3) [id number] kidney injury Priority: Primary Status: Acute (4) CKD (chronic kidney disease) stage 3, GFR 30-59 ml/min Priority: Secondary Status: Chronic (5) HTN (hypertension) Priority: Secondary Status: Chronic Qualifiers: Hypertension type: unspecified secondary hypertension Qualified Code(s): I15.9 - Secondary hypertension, unspecified; I15 - Secondary hypertension (6) Diabetes Priority: Secondary Status: Chronic Qualifiers: Diabetes mellitus type: type 2 Diabetes mellitus complication status: with kidney complications Diabetes mellitus complication detail: with chronic kidney disease Diabetes mellitus director long term care insulin use: with residential use Chronic kidney disease stage: stage 3 (moderate) Qualified Code(s): E11.22 - Type 2 diabetes mellitus with diabetic chronic kidney disease; N18.3 - Chronic kidney disease, stage 3 (moderate); Z79.4 - MCC (current) use of insulin (7) Anemia Priority: Secondary Status: Chronic Qualifiers: Anemia type: iron deficiency Iron deficiency anemia type: unspecified iron deficiency Qualified Code(s): D50.9 - Iron deficiency anemia, unspecified; D63.1 - Anemia in chronic kidney disease (8) COPD (chronic obstructive pulmonary disease) Priority: Secondary Status: Chronic Qualifiers: COPD type: unspecified COPD Qualified Code(s): J44.9 - Chronic obstructive pulmonary disease, unspecified (9) Obesity Priority: Secondary Status: Chronic Qualifiers: Obesity type: due to excess calories Obesity severity: morbid Qualified Code(s): E66.01 - Morbid (severe) obesity due to excess calories (10) DVT prophylaxis Priority: Secondary Status: Acute (11) Chronic pain Priority: Secondary Status: Chronic Qualifiers: Chronic pain type: other chronic pain Qualified Code(s): G89.29 - Other chronic pain - Discharge Medications Home Medications: Albuterol Sulfate [Albuterol Inhaler] 2 puff IH QID PRN 11/04/16 [History] Calcium Carbonate [Calcium] 600 mg PO DAILY 03/14/16 [History] Cholecalciferol (Vitamin D3) [Vitamin D3] 8,000 unit PO DAILY 03/14/16 [History] Eucerin Creme 1 appl TP DAILY PRN 03/14/16 [History] FentaNYL PATCH [Duragesic] 75 mcg TD Q72H 03/14/16 [History] Hydralazine HCl 50 mg PO TID 03/14/16 [History] Omeprazole 20 mg PO DAILY 03/14/16 [History] Oxycodone HCl 10 mg PO Q6H PRN 03/14/16 [History] Pregabalin [Lyrica] 150 mg PO BID 03/14/16 [History] Simvastatin [Zocor] 40 mg PO HS 03/14/16 [History] Ipratropium/Albuterol Neb [Duoneb] 3 ml IH Q8HR #30 inhsol 03/22/16 [Rx] Isosorbide MONOnitrate (24 HR) [Imdur] 30 mg PO DAILY 30 Days 03/22/16 [Rx] Metoprolol [Lopressor] 100 mg PO BID 30 Days 03/22/16 [Rx] Amitriptyline [Elavil] 25 mg PO HS 08/22/16 [History] Lisinopril [Zestril] 20 mg PO DAILY 08/22/16 [History] Metformin HCl [Glucophage] 1,000 mg PO BID 08/22/16 [History] Nitroglycerin [Nitrostat] 0.4 mg SL AD 08/22/16 [History] Sennosides [Senna] 8.6 mg PO DAILY 08/22/16 [History] Furosemide [Lasix] 80 mg PO DAILY #0 08/23/16 [Rx] Insulin ASPART [NovoLOG] 50 unit SQ TID #0 08/23/16 [Rx] Insulin Glargine [Lantus] 150 unit SQ BID #0 08/23/16 [Rx] Allergies/Adverse Reactions: Allergies No Known Allergies Allergy (Verified 03/14/16 14:07) Procedures/tests Complete & Pending: Procedures Performed prior 72 hours Category Date Time Status CT head/brain wo con [CT] Routine Cat Scan 08/22/16 08:00 Completed MR head/brain wo con [MR] Routine MRI 08/22/16 10:13 Completed ECG 12 lead ECG [ECG] Stat Y 08/22/16 07:31 Completed Date of admission: 08/22/16 02:37 Primary care physician: PCP NO Consults: 08/22/16 07:13 Consult to Nurse Navigator [CONS] Routine Comment: 08/22/16 10:15 Consult to Occupational Therapy [CONS] Stat Comment: Evaluate, develop and implement POC Consult to Physical Therapy [CONS] Routine Comment: Evaluate, develop and implement POC Consult to Speech Therapy [CONS] Routine Comment: Evaluate, develop and implement POC Reason for Consult: New CVA Call Completed: Yes 08/22/16 10:40 Consult to Interpret Exam [CONS] Routine Consulting Provider: Tatyana Conrad Consult to Interpret Exam: Interpret EEG Discharging clinician: Araceli Brar Anticipated date of discharge: 08/23/16 - Patient Status Disposition: Home Health Service Condition: Good Functional capacity at discharge: independent ambulation Overall status at discharge: patient is back to baseline - Discharge Instructions Instructions: Heart Failure (DC), Chest Pain (DC), Sleep Apnea Syndrome (DC), Sleep Apnea Syndrome (GEN), Acute Respiratory Distress Syndrome (DC), Acute Kidney Injury (DC), Acute Kidney Injury (GEN), Diabetes Mellitus Type 2 in Adults (DC), Chronic Obstructive Pulmonary Disease (DC), Chronic Hypertension ( DC), Anemia (GEN), Sleep Apnea Syndrome, Plant Senior Manager (GEN), Acute Kidney Injury, Plant Senior Manager (GEN) Follow Up With: Eileen Danielle DO [Resident] - 09/02/16 1:00 pm - Diet and Activity Diet: diabetic diet Interval History: Patient seen and examined. No complaints at this time. Denies chest pain, shortness of breath beyond baseline, nausea. Hospital course: Mr. Hammond is a 70 year old male who was found slumped in his chair and minimally responsive by his daughter 2 days prior. She called EMS. His blood glucose was "within normal limits "however the patient tends to live very hyperglycemic with blood glucose were ranging from 300-400s. He was brought to the ER and improved remarkably with duonebs and BiPAP. Labs in the ER showed hypercapnic hypoxic respiratory acidosis and a blood glucose of 93. He was not given anything in the ER to increase his blood glucose. After being admitted to the floor and BiPAP being removed for an indeterminate amount of time, he was again minimally responsive and a rapid response was called. He became more alert with the administration of Narcan and his blood sugar was 75. Glucose and D5W were administered. There was initial concern for a stroke and CT scan was suspicious but confirmatory MRI was negative. This acute encephalopathy was most likely multifactorial due to hypercapnia, hypoxia, relative hyperglycemia, possibly of lesser significance is questionable obesity hypoventilation syndrome, questionable PRADEEP, and high opioid use contributing a questionable amount. On the day of discharge Mr. Hammond is back to his normal mental status and he agrees with discharge. He will have follow-up in the residency clinic. - Time Spent with Patient Total time spent providing and/or coordinating discharge services: - Constitutional Vitals: Temp Pulse Resp BP Pulse Ox 98.3 F 66 16 144/58 96 08/23/16 07:38 08/23/16 07:38 08/23/16 07:38 08/23/16 07:38 08/23/16 07:38 General appearance: Present: A&O X 3, morbidly obese, answers questions appropriately - Head Head exam: Present: atraumatic, normocephalic - Eye Eye exam: Present: EOMI, PERRL, sclera anicteric - Neck Neck exam general surgery: Present: supple - Respiratory Respiratory exam: Present: prolonged expiratory phase, wheezes - Cardiovascular Cardiovascular exam: Present: RRR, +S1, +S2 - GI/Abdominal GI/Abdominal exam: Present: normal bowel sounds, soft. Absent: tenderness - Extremities Exam Extremities exam: Present: pedal edema (1+), tenderness (diabetic neuropathy), warm - Neurological Exam Neurological exam: Present: alert, oriented X3, no focal deficits - Skin Skin exam: Present: dry, intact, warm <Enmanuel Dainel - Last Filed: 08/23/16 13:49> Date of Encounter: 08/23/16 - Discharge Diagnosis (1) Acute respiratory failure Priority: Primary Status: Acute Qualifiers: Respiratory failure complication: hypoxia and hypercapnia Qualified Code(s) : J96.01 - Acute respiratory failure with hypoxia; J96.02 - Acute respiratory failure with hypercapnia (2) Acute metabolic encephalopathy due to hypoglycemia Priority: Primary Status: Acute Comments: Has resolved with treatment of blood sugar and bipap. (3) Chronic hypercapnic respiratory failure Priority: Primary Status: Chronic (4) Diabetes Priority: Secondary Status: Chronic Qualifiers: Diabetes mellitus type: type 2 Diabetes mellitus complication status: with kidney complications Diabetes mellitus complication detail: with chronic kidney disease Diabetes mellitus director long term care insulin use: with residential use Chronic kidney disease stage: stage 3 (moderate) Qualified Code(s): E11.22 - Type 2 diabetes mellitus with diabetic chronic kidney disease; N18.3 - Chronic kidney disease, stage 3 (moderate); Z79.4 - MCC (current) use of insulin (5) Hypertension Priority: Secondary Status: Chronic Qualifiers: Hypertension type: essential hypertension Qualified Code(s): I10 - Essential (primary) hypertension (6) Anemia Status: Chronic Qualifiers: Anemia type: other cause Other causes of anemia: chronic disease, kidney Qualified Code(s): N18.9 - Chronic kidney disease, unspecified; D63.1 - Anemia in chronic kidney disease (7) Sleep apnea Priority: Secondary Status: Suspected Comments: Needs bipap at home - to be arranged by Pool respiratory. Qualifiers: Sleep apnea type: obstructive Qualified Code(s): G47.33 - Obstructive sleep apnea (adult) (pediatric) Procedures/tests Complete & Pending: Procedures Performed prior 72 hours Category Date Time Status CT head/brain wo con [CT] Routine Cat Scan 08/22/16 08:00 Completed MR head/brain wo con [MR] Routine MRI 08/22/16 10:13 Completed ECG 12 lead ECG [ECG] Stat Y 08/22/16 07:31 Completed Date of admission: 08/22/16 02:37 Primary care physician: PCP NO Consults: 08/22/16 07:13 Consult to Nurse Navigator [CONS] Routine Comment: 08/22/16 10:15 Consult to Occupational Therapy [CONS] Stat Comment: Evaluate, develop and implement POC Consult to Physical Therapy [CONS] Routine Comment: Evaluate, develop and implement POC Consult to Speech Therapy [CONS] Routine Comment: Evaluate, develop and implement POC Reason for Consult: New CVA Call Completed: Yes 08/22/16 10:40 Consult to Interpret Exam [CONS] Routine Consulting Provider: Tatyana Conrad Consult to Interpret Exam: Interpret EEG Hospital course: Mr. Hammond is a 70 year old male - Time Spent with Patient Total time spent providing and/or coordinating discharge services: 38min - Constitutional Vitals: Temp Pulse Resp BP Pulse Ox 98.3 F 66 16 144/58 96 08/23/16 07:38 08/23/16 07:38 08/23/16 07:38 08/23/16 07:38 08/23/16 09:00 - Attending Attestation I examined this patient and my medical decision-making was reviewed with the Resident Physician on 08/23/16. I agree with the documented findings, disposition and treatment plan as described except to the extent set forth below. Mr. Hammond is doing better this AM. His sister is at bedside. His blood sugars have been fairly controlled. Exam Alert Comfortable Heart reg Lungs with some end exp wheeze Plan D/C home with bipap arranged as soon as possible Discussed with patient and sister - need to be cautious with lowering blood sugar too quickly. We also discussed when to wear bipap (i.e. night and long naps). Follow up with Dr. Danielle and Dr. Bernstein as arranged.
[2016-08-23] MEDS: Insulin LISPRO 300 UNITS/3 ML VIAL SQ SCH ×2 (08:52→11:59)
[2016-08-23] MEDS: Pregabalin 75 MG CAPSULE PO SCH (08:53)
[2016-08-23] MEDS ORDERED: Aspirin 81 MG TAB.CHEW PO SCH (09:00)
[2016-08-23] MEDS ORDERED: Lisinopril 20 MG TABLET PO SCH (09:00)
[2016-08-23] MEDS ORDERED: Isosorbide MONOnitrate (24 HR) 30 MG TAB.ER.24H PO SCH (09:00)
[2016-08-23] MEDS ORDERED: Furosemide 40 MG TABLET PO SCH (09:00)
--- NOTE | 2016-08-23 09:06 | Physician Discharge Referral ---
<FrankteresescottyAraceli westbrook - Last Filed: 08/23/16 09:03> Home Health/Hosp Referral Info Transfer to: Home Health Attending Provider: enmanuel daniel Provider in Charge Post Discharge: PCP (Storm Bernstein) - Diagnosis (1) Acute encephalopathy Priority: Secondary Status: Resolved (2) Acute respiratory failure Priority: Secondary Status: Acute (3) Pxnrh-wq-[id number] kidney injury Priority: Secondary Status: Acute (4) CKD (chronic kidney disease) stage 3, GFR 30-59 ml/min Priority: Secondary Status: Chronic (5) HTN (hypertension) Priority: Secondary Status: Chronic (6) Diabetes Priority: Primary Status: Chronic (7) Anemia Priority: Secondary Status: Chronic (8) COPD (chronic obstructive pulmonary disease) Priority: Primary Status: Chronic (9) Obesity Priority: Secondary Status: Chronic (10) DVT prophylaxis Priority: Secondary Status: Acute (11) Chronic pain Priority: Secondary Status: Chronic - Respiratory Orders Oxygen / L per min (2.5), Other (overnight bipap) Smoking Cessation: Smoking cessation has been advised. For more information, call the [place] Tobacco Quit Line at 0-722-HQLT-NOW. - Diet/Nutrition Diet/Nutrition Orders: Cardiac (diabetic) - Activity Activity Orders: Ambulate - Services Needed Following services are medically necessary services: Nursing, Home Health Aide - Transfer Medications Home Medications: Albuterol Sulfate [Albuterol Inhaler] 2 puff IH QID PRN 03/14/16 [History] Calcium Carbonate [Calcium] 600 mg PO DAILY 03/14/16 [History] Cholecalciferol (Vitamin D3) [Vitamin D3] 8,000 unit PO DAILY 03/14/16 [History] Eucerin Creme 1 appl TP DAILY PRN 03/14/16 [History] FentaNYL PATCH [Duragesic] 75 mcg TD Q72H 03/14/16 [History] Hydralazine HCl 50 mg PO TID 03/14/16 [History] Omeprazole 20 mg PO DAILY 03/14/16 [History] Oxycodone HCl 10 mg PO Q6H PRN 03/14/16 [History] Pregabalin [Lyrica] 150 mg PO BID 03/14/16 [History] Simvastatin [Zocor] 40 mg PO HS 03/14/16 [History] Ipratropium/Albuterol Neb [Duoneb] 3 ml IH Q8HR #30 inhsol 03/22/16 [Rx] Isosorbide MONOnitrate (24 HR) [Imdur] 30 mg PO DAILY 30 Days 03/22/16 [Rx] Metoprolol [Lopressor] 100 mg PO BID 30 Days 03/22/16 [Rx] Amitriptyline [Elavil] 25 mg PO HS 08/22/16 [History] Lisinopril [Zestril] 20 mg PO DAILY 08/22/16 [History] Metformin HCl [Glucophage] 1,000 mg PO BID 08/22/16 [History] Nitroglycerin [Nitrostat] 0.4 mg SL AD 08/22/16 [History] Sennosides [Senna] 8.6 mg PO DAILY 08/22/16 [History] Furosemide [Lasix] 80 mg PO DAILY #0 08/23/16 [Rx] Insulin ASPART [NovoLOG] 50 unit SQ TID #0 08/23/16 [Rx] Insulin Glargine [Lantus] 150 unit SQ BID #0 08/23/16 [Rx] Allergies/Adverse Reactions: Allergies No Known Allergies Allergy (Verified 03/14/16 14:07) Certification: Further, I certify that my clinical findings support that this patient is homebound (i.e. absences from home require considerable and taxing effort and are for medical reasons or yazidi services or infrequently or short duration when for other reasons) because: Homebound Reason: Patient requires assistance of a person or device to safely leave home, Leaving home requires considerable and taxing effort due to condition, Severity of cardiac or pulmonary status limits activity tolerance Attestation: My signature below is to certify that this patient is under my care and that I, or nurse practitioner, or a physician's assistant inventory manager working with me, has a face-to -face encounter with this patient. <Enmanuel Daniel - Last Filed: 08/23/16 13:50> - Diagnosis (1) Acute respiratory failure Status: Acute (2) Acute metabolic encephalopathy due to hypoglycemia Status: Acute (3) Chronic hypercapnic respiratory failure Status: Chronic (4) Diabetes Status: Chronic (5) Hypertension Status: Chronic (6) Anemia Status: Chronic (7) Sleep apnea Status: Suspected - Respiratory Orders Smoking Cessation: Smoking cessation has been advised. For more information, call the [place] Tobacco Quit Line at 2-454-LWRQ-NOW. Certification: Further, I certify that my clinical findings support that this patient is homebound (i.e. absences from home require considerable and taxing effort and are for medical reasons or yazidi services or infrequently or short duration when for other reasons) because: Attestation: My signature below is to certify that this patient is under my care and that I, or nurse practitioner, or a physician's assistant inventory manager working with me, has a face-to -face encounter with this patient.
[2016-08-23] MEDS: hydrALAZINE 25 MG TABLET PO SCH (11:58)
== END 2016-08-23 13:26 | disposition home health service (06) | DRG 189 ==
LOC: EMEROO 23:07 → 2NENU 23:07 → SUATTDRO 08-22 02:37 → 2NENU 08-22 03:06
PROVIDERS: ADMIT Internal Medicine; ATTEND Internal Medicine

== ENCOUNTER 2016-09-29 07:14 | Inpatient (IN) ==
--- NOTE | 2016-09-29 07:21 | Emergency Department Note ---
Disposition Clinical Impression: MARY (acute kidney injury), Hyperglycemia Fall Qualifiers: Encounter type: initial encounter Qualified Code(s): W19.XXXA - Unspecified fall, initial encounter UTI (urinary tract infection) Qualifiers: Urinary tract infection type: site unspecified Hematuria presence: without hematuria Qualified Code(s): N39.0 - Urinary tract infection, site not specified Disposition: Admitted As Inpatient Condition: Fair General Adult HPI - General Chief complaint: ED Fall Stated complaint: fall Source: patient Mode of arrival: EMS Limitations: no limitations Nursing Notes Reviewed: Yes Vital Signs Reviewed: Yes - History of Present Illness HPI Narrative: 70-year-old male history of hypertension, hyperlipidemia, CAD, diabetes, renal disease presents for evaluation of recurrent falls. Patient states he has felt multiple times in the past 2 weeks. Patient does note an injury to his right foot subsequent to from a fall. Noted to present to the ER this morning due to a fall. Patient states that he typically and relates was assistance and was getting up to use the restroom and fell backwards hitting his head. No LOC. Denies any pain or injury at this time. States that he is concerned about the frequency of his falls. Patient does live with his daughter. Patient states she has had increased urinary frequency and incontinence. Patient also notes some shakiness of his hands. Patient denies any chest pain or short of breath. Patient's typically on abdominal oxygen at baseline. Denies any nausea vomiting abdominal pain. No fevers or cough. - Related Data Home Medications Medication Instructions Recorded Confirmed Albuterol Sulfate [Albuterol 2 puff IH QID PRN 03/14/16 09/29/16 Inhaler] Calcium Carbonate [Calcium] 600 mg PO DAILY 03/14/16 09/29/16 Cholecalciferol (Vitamin D3) 8,000 unit PO DAILY 03/14/16 09/29/16 [Vitamin D3] Eucerin Creme 1 appl TP DAILY PRN 03/14/16 09/29/16 FentaNYL PATCH [Duragesic] 75 mcg TD Q72H 03/14/16 09/29/16 Hydralazine HCl 50 mg PO TID 03/14/16 09/29/16 Omeprazole 20 mg PO DAILY 03/14/16 09/29/16 Oxycodone HCl 10 mg PO Q12H 03/14/16 09/29/16 Pregabalin [Lyrica] 150 mg PO BID 03/14/16 09/29/16 Simvastatin [Zocor] 40 mg PO HS 03/14/16 09/29/16 Amitriptyline [Elavil] 25 mg PO HS 08/22/16 09/29/16 Lisinopril [Zestril] 20 mg PO DAILY 08/22/16 09/29/16 Nitroglycerin [Nitrostat] 0.4 mg SL Q5M PRN 08/22/16 09/29/16 Sennosides [Senna] 8.6 mg PO DAILY 08/22/16 09/29/16 Insulin ASPART [NovoLOG] 50 unit SQ TIDWM 09/29/16 09/29/16 Insulin Glargine,Hum.rec.anlog 80 unit SQ BID 09/29/16 09/29/16 [[place] Solostar] Ipratropium/Albuterol Neb [Duoneb] 3 ml IH Q8HR PRN 09/29/16 09/29/16 Previous Rx's Medication Instructions Recorded Isosorbide MONOnitrate (24 HR) 30 mg PO DAILY 30 Days 03/22/16 [Imdur] Metoprolol [Lopressor] 100 mg PO BID 30 Days 03/22/16 Furosemide [Lasix] 80 mg PO DAILY #0 08/23/16 Allergies Allergy/AdvReac Type Severity Reaction Status Date / Time No Known Allergies Allergy Verified 03/14/16 14:07 All systems ED: reviewed and negative except as stated. Constitutional: Reports: as per HPI. Denies: fever Eyes: Reports: as per HPI ENT ED: Reports: as per HPI Cardiovascular: Reports: as per HPI. Denies: chest pain Respiratory: Reports: as per HPI. Denies: cough, dyspnea Gastrointestinal: Reports: as per HPI. Denies: abdominal pain, nausea, vomiting , diarrhea Genitourinary: Reports: as per HPI Musculoskeletal: Reports: as per HPI Integumentary: Reports: as per HPI Neurological: Reports: as per HPI Psychiatric: Reports: as per HPI Endocrine: Reports: as per HPI Hematological/Lymphatic: Reports: as per HPI Allergic/Immunologic: Reports: as per HPI Past Medical History - Past Medical History Medical history: Reports: CHF, diabetes, hyperlipidemia, hypertension, kidney stones, renal disease Surgical history: Reports: other (Endoscopy) Psychiatric history: Reports: no psych history - Social History Smoking Status: Former smoker Smokeless Tobacco Status: No Alcohol use: Reports: rarely Drug use: Reports: none Physical Exam - General Limitations: no limitations General appearance: alert, in no apparent distress, obese - Head Head exam: atraumatic, normal inspection - Eye Eye exam: Present: normal appearance, EOMI - ENT ENT exam: normal exam, mucous membranes moist - Neck Neck exam: Present: normal inspection, trachea midline - Chest Chest inspection: Present: normal inspection, symmetric chest wall rise - Respiratory Respiratory exam: Present: normal lung sounds bilaterally. Absent: respiratory distress, accessory muscle use - Cardiovascular Cardiovascular exam: Present: regular rate, normal rhythm - Abdominal Exam Abdominal exam: Present: soft, Non-Tender, other (Anterior abdominal wall hernia ) - Extremities Exam Extremities exam: Present: other (Right lower leg and a splint with distal brisk cap refill.) - Back Exam Back exam: Present: normal inspection - Neurological Exam Neurological exam: Present: alert, oriented X3, CN II-XII intact - Skin Skin exam: Present: warm, dry, intact, normal color Course Course Narrative: Patient seen and examined upon arrival. Patient is in no acute distress. Patient's been having recurrent falls. Patient denies any recent changes to his medications. Patient is a poor historian. Patient will get a CT workup including a head CT. Basic lab work, cardiac evaluation and urinalysis. Disposition pending. - Reevaluation(s) Reevaluation #1: Patient's resting comfortably no complaints at this time. Patients receiving gradual IV fluid hydration. Time: 09:17 Vital Signs Temperature 97.9 F 09/29/16 07:15 Pulse Rate 83 09/29/16 07:15 Respiratory Rate 24 09/29/16 07:15 Blood Pressure 119/90 09/29/16 07:15 O2 Sat by Pulse Oximetry 89 09/29/16 07:15 Temperature 97.9 F 09/29/16 07:15 Pulse Rate 81 09/29/16 10:35 Respiratory Rate 18 09/29/16 10:35 Blood Pressure 124/50 09/29/16 10:35 O2 Sat by Pulse Oximetry 95 09/29/16 10:35 Oxygen Delivery Oxygen Delivery Nasal Cannula Medical Decision Making - [facility] Narrative Medical decision making narrative: 70-year-old male persists for evaluation of recurrent falls and urinary incontinence. Patient had urinalysis performed which shows signs of urinary tract infection. Patient has not had any previous microbiology cultures from his urine. Patient was started on Rocephin. Patient was also noted to be hyperglycemic and ketotic. Patient bicarbonate is normal. Patient's been giving gradual IV fluid hydration given his cardiopulmonary status. Patient's EKG and troponin shows no acute abnormalities. Patient also has new MARY which should gradually improve with IV fluid hydration. Patient was also given insulin to help with the hyperglycemia. Patient will be admitted to the hospitalist service for further evaluation and monitoring including electrolyte monitoring. Patient would benefit from a PT OT evaluation as well as discharge planning. Patient does not meet SIRS criteria does not meet sepsis. Patient's hemoglobin is chronically low at baseline. No overt signs of bleeding. - Lab Data Lab results reviewed: Yes I reviewed the patient's lab results. Result diagrams: 09/29/16 07:48 09/29/16 07:48 Lab Results 09/29/16 09/29/16 09/29/16 Range/Units 07:48 07:48 07:48 WBC 8.8 (4.3-11.1) K/mcL RBC 3.92 L (4.19-5.50) M/mcL Hgb 8.4 L (12.9-16.9) g/dL Hct 29.9 L (37.5-50.1) % MCV 76.3 L (83.0-100.0) fL MCH 21.4 L (28.0-33.3) pg MCHC 28.1 L (31.6-35.5) g/dL RDW 20.9 H (11.5-14.5) % Plt Count 217 (140-400) K/mcL MPV 10.9 (9.4-12.4) fL Immature Gran % 0.5 (0-4) % Seg Neutrophils % 77.5 % Lymphocytes % 12.1 % Monocytes % 8.0 % Eosinophils % 1.7 % Basophils % 0.2 % Neutrophils # 6.8 (1.6-8.9) K/mcL Lymphocytes # 1.1 (0.6-4.6) K/mcL Monocytes # 0.7 (0.0-1.3) K/mcL Eosinophils # 0.2 (0.0-0.6) K/mcL Basophils # 0.0 (0.0-0.2) K/mcL Polychromasia 1+ A (Not Present) Hypochromasia Present A (Not Present) Basophilic Stippling 1+ A (Not Present) PT 12.1 (9.4-12.1) Seconds INR 1.1 Sodium 137 (136-145) mEq/L Potassium 4.5 (3.5-4.5) mEq/L Chloride 98 (98-109) mEq/L Carbon Dioxide 26 (19-29) mEq/L BUN 48 H (8-26) mg/dL Creatinine 2.10 H (0.72-1.25) mg/dL Est GFR ( Amer) 38 L (> 60) Est GFR (Non-Af Amer) 31 L (> 60) BUN/Creatinine Ratio 23 (6-26) Glucose 427 H (70-99) mg/dL Calculated Osmolality 315 H (280-300) Calcium 9.1 (8.6-10.8) mg/dL Total Bilirubin 1.0 (0.2-1.2) mg/dL AST 23 (5-34) Units/L ALT 14 (0-55) Units/L Alkaline Phosphatase 126 (38-126) Units/L Troponin I (0-0.03) ng/mL B-Natriuretic Peptide (0-100) pg/mL Serum Total Protein 7.3 (6.0-8.3) g/dL Albumin 3.1 L (3.5-5.0) g/dL Globulin 4.2 H (2.4-3.5) g/dL Albumin/Globulin Ratio 0.7 L (1.1-2.2) Beta-Hydroxybutyric Acd 0.32 H (0.02-0.27) mmol/L Urine Color (Yellow) Urine Clarity (Clear) Urine pH (5.0-8.0) pH Units Ur Specific [place] (1.010-1.025) Urine Protein (Neg-Trace) mg/dL Urine Glucose (UA) (Normal) mg/dL Urine Ketones (Negative) mg/dL Urine Blood (Negative) Urine Nitrite (Negative) Urine Bilirubin (Negative) Urine Urobilinogen (Normal) mg/dL Ur Leukocyte Esterase (Negative) Urine Microscopic RBC (0-3) per hpf Urine Microscopic WBC (0-3) per hpf Ur Squamous Epith Cells (None-Few) per lpf Urine Bacteria (None-Few) per hpf Hyaline Casts Urine Yeast 09/29/16 09/29/16 09/29/16 Range/Units 07:48 07:48 07:59 WBC (4.3-11.1) K/mcL RBC (4.19-5.50) M/mcL Hgb (12.9-16.9) g/dL Hct (37.5-50.1) % MCV (83.0-100.0) fL MCH (28.0-33.3) pg MCHC (31.6-35.5) g/dL RDW (11.5-14.5) % Plt Count (140-400) K/mcL MPV (9.4-12.4) fL Immature Gran % (0-4) % Seg Neutrophils % % Lymphocytes % % Monocytes % % Eosinophils % % Basophils % % Neutrophils # (1.6-8.9) K/mcL Lymphocytes # (0.6-4.6) K/mcL Monocytes # (0.0-1.3) K/mcL Eosinophils # (0.0-0.6) K/mcL Basophils # (0.0-0.2) K/mcL Polychromasia (Not Present) Hypochromasia (Not Present) Basophilic Stippling (Not Present) PT (9.4-12.1) Seconds INR Sodium (136-145) mEq/L Potassium (3.5-4.5) mEq/L Chloride (98-109) mEq/L Carbon Dioxide (19-29) mEq/L BUN (8-26) mg/dL Creatinine (0.72-1.25) mg/dL Est GFR ( Amer) (> 60) Est GFR (Non-Af Amer) (> 60) BUN/Creatinine Ratio (6-26) Glucose (70-99) mg/dL Calculated Osmolality (280-300) Calcium (8.6-10.8) mg/dL Total Bilirubin (0.2-1.2) mg/dL AST (5-34) Units/L ALT (0-55) Units/L Alkaline Phosphatase (38-126) Units/L Troponin I 0.00 (0-0.03) ng/mL B-Natriuretic Peptide 47 (0-100) pg/mL Serum Total Protein (6.0-8.3) g/dL Albumin (3.5-5.0) g/dL Globulin (2.4-3.5) g/dL Albumin/Globulin Ratio (1.1-2.2) Beta-Hydroxybutyric Acd (0.02-0.27) mmol/L Urine Color Yellow (Yellow) Urine Clarity Cloudy A (Clear) Urine pH 5.5 (5.0-8.0) pH Units Ur Specific [place] 1.018 (1.010-1.025) Urine Protein Negative (Neg-Trace) mg/dL Urine Glucose (UA) >=1000 H (Normal) mg/dL Urine Ketones Negative (Negative) mg/dL Urine Blood Negative (Negative) Urine Nitrite Positive A (Negative) Urine Bilirubin Negative (Negative) Urine Urobilinogen Normal (Normal) mg/dL Ur Leukocyte Esterase Large H (Negative) Urine Microscopic RBC 3-5 H (0-3) per hpf Urine Microscopic WBC TNTC H (0-3) per hpf Ur Squamous Epith Cells Many H (None-Few) per lpf Urine Bacteria Moderate H (None-Few) per hpf Hyaline Casts Test Not Performed Urine Yeast Test Not Performed - Radiology Data Radiology results reviewed: Yes I reviewed the patient's radiology results. Chest X-Ray 09/29/16 07:16 IMPRESSION: Cardiomegaly without acute cardiopulmonary process. D/ / 09/29/2016 08:17:32 Edmundo Riggs MD / [email or web address] Interpreting Provider: Edmundo Riggs MD Head CT 09/29/16 07:16 IMPRESSION: No evidence of acute intracranial process. D/ / Enrique Hook MD / Enrique Hook MD Interpreting Provider: Enrique Hook MD - EKG Data EKG #1 EKG attestation: Yes I reviewed and interpreted this EKG. EKG shows normal: sinus rhythm Rate: normal Rhythm: NSR [place]/QRS: normal QTc: other (430) Interpretation: no acute changes, unchanged when compared to prior tracing (date ) Wilber - Wilber Situation: Demographics Background: Presenting Complaint Assessment: Vital Signs, Course and respsone to treatment, Patient/Family Expectation, Pertinant Lab Results Recommendation: Barrier(s) to disposition, Recommendation based on pending studies, treatments, or consults Wilber Report Given to: Dr. Tulio Merino Repor Time: 10:09 Attestation Statement - Attestation Attestation: Patient was seen with resident physician. I reviewed the history, physical, assessment and plan, and agree with the findings. I also personally evaluated this patient and had [id number] time with this patient. 70-year-old male presents to the emergency Department chief complaint of falls. Patient states that he has had more trouble controlling his urine. He said he got up today to go to the bathroom and walked the dogs, when he slipped and fell backwards. He has had on the ground. He did not lose consciousness. He complains of no pain now. He is here today because he just wants to get checked out and is concerned his medications may be contributing to his increased falling. He does have a splint from previous injury on his right lower extremity. No other complaints at this time. On examination vital signs are stable. ENT is unremarkable. The head is nontender the neck is nontender. Heart and lungs are both normal. Abdomen is soft and nontender. Extremities patient is a splint on the right lower extremity left workup is unremarkable. Pelvis is stable. Neurologically the patient's intact, though a very poor historian. Skin exam is intact with no open wounds. We will do workup for fall including head CT scan especially that he is on blood thinners. We will also check laboratory data and urinalysis to look for abnormalities that could be causing his symptoms. We will disposition based on the findings. CT scan of the abdomen did not reveal any acute abnormalities. He had multiple x-ray at abnormalities however including acute kidney injury as well as significant hyperglycemia. Patient also has a urinary tract infection. We will admit patient for management of his multiple problems. Hospitalist was notified and agreed to admit patient. Agree with resident physician assessment and plan.
[2016-09-29 07:57] LABS: Hemoglobin 8.4 g/dL (12.9-16.9)
[2016-09-29 07:59] LABS: Basophils % 0.2 %; Eosinophils # 0.2 K/mcL (0.0-0.6); Eosinophils % 1.7 %; Hematocrit 29.9 % (37.5-50.1); Immature Granulocytes % 0.5 % (0-4); Lymphocytes # 1.1 K/mcL (0.6-4.6); Lymphocytes % 12.1 %; Mean Corpuscular HGB Conc 28.1 g/dL (31.6-35.5); Mean Corpuscular Hemoglobin 21.4 pg (28.0-33.3); Mean Corpuscular Volume 76.3 fL (83.0-100.0); Mean Platelet Volume 10.9 fL (9.4-12.4); Monocytes # 0.7 K/mcL (0.0-1.3); Platelet Count 217 K/mcL (140-400); Red Blood Count 3.92 M/mcL (4.19-5.50); Red Cell Distribution Width 20.9 % (11.5-14.5); Segmented Neutrophils % 77.5 %
[2016-09-29 08:11] LABS: Albumin 3.1 g/dL (3.5-5.0); Albumin/Globulin Ratio 0.7 (1.1-2.2); Calcium 9.1 mg/dL (8.6-10.8); Globulin 4.2 g/dL (2.4-3.5); Potassium 4.5 mEq/L (3.5-4.5); Total Protein 7.3 g/dL (6.0-8.3)
[2016-09-29 08:12] LABS: Bilirubin,Urine Negative (Negative); Blood,Urine Negative (Negative); Clarity,Urine Cloudy (Clear); Color,Urine Yellow (Yellow); Glucose,Urine (UA) >=1000 mg/dL (Normal); Ketones,Urine Negative (Negative); Leukocyte Esterase,Urine Large (Negative); Nitrite,Urine Positive (Negative); PH,Urine 5.5 pH Units (5.0-8.0); Protein,Urine Negative (Neg-Trace); Specific Gravity,Urine 1.018 (1.010-1.025); Urobilinogen,Urine Normal (Normal)
[2016-09-29 08:13] LABS: Squamous Epithelial Cell,Urine Many per lpf (None-Few); WBC,Urine TNTC per hpf (0-3)
[2016-09-29 08:18] LABS: Neutrophils # 6.8 K/mcL (1.6-8.9)
[2016-09-29] MEDS ORDERED: 0.9 % Sodium Chloride 500 ML IVC ONE ×2 (08:18→09:17)
[2016-09-29 08:20] LABS: Basophilic Stippling 1+ (Not Present); Hypochromasia Present (Not Present); Polychromasia 1+ (Not Present)
[2016-09-29] MEDS ORDERED: Insulin Human Regular 10 UNIT in 0.9 % Sodium Chloride 10 ML IV ONE (08:38)
[2016-09-29 08:39] LABS: Bacteria,Urine Moderate per hpf (None-Few)
[2016-09-29 08:54] LABS: INR 1.1; Prothrombin Time 12.1 Seconds (9.4-12.1)
[2016-09-29 08:56] LABS: Beta-Hydroxybutyric Acid 0.32 mmol/L (0.02-0.27)
[2016-09-29] MEDS ORDERED: Naloxone 0.4 MG/ML INJ IVP PRN (10:08)
[2016-09-29] MEDS ORDERED: Acetaminophen 325 MG TABLET PO PRN (10:08)
[2016-09-29] MEDS ORDERED: Ondansetron 4 MG/2 ML VIAL IVP PRN (10:08)
[2016-09-29] MEDS ORDERED: D5% in Water 1,000 ML IVC PRN (10:11)
[2016-09-29] MEDS ORDERED: Dextrose Gel 15 GM PO PRN ×2 (10:11)
[2016-09-29] MEDS ORDERED: *HR* Dextrose 50 % in Water (Syg) 50 ML SYRINGE IVP PRN (10:11)
[2016-09-29] MEDS ORDERED: Nitroglycerin 0.4 MG TAB.SUBL SL PRN (11:08)
[2016-09-29] MEDS ORDERED: Ipratropium/Albuterol Neb 3 ML IH PRN (11:08)
[2016-09-29] MEDS ORDERED: 0.9 % Sodium Chloride 1,000 ML IVC SCH (11:15)
[2016-09-29] MEDS ORDERED: *HR* FentaNYL PATCH 75 MCG PATCH TD SCH (11:15)
--- NOTE | 2016-09-29 11:22 | Internal Med History&Physical ---
Date of Encounter: 09/29/16 Time of Encounter: 11:00 Assessment and Plan (1) Frequent falls Current visit: Yes Status: Acute 1atient has been extensively frequent falls within the past month recently sustaining a right fibular fracture. Patient fell again today striking head loss of consciousness CT of head was negative. Patient also complains of an essential tremor in hands and in the feet he has also history of neuropathy and complains of inability to feel the floor. 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 Today 's 2.10. Patient has had history of CHF we will give gentle hydration overnight continue to monitor creatinine 2 monitor intake and output daily weight 3 avoid nephrotoxins-we will hold lisinopril for now and resume once patient's back to baseline (3) UTI (urinary tract infection) Current visit: Yes Status: Acute 1 urinalysis indicative of UTI patient is exercising urgency frequency and no fevers no abdominal pain no leukocytosis at this time patient will be given Rocephin and past history of UTIs. Urine culture has been sent awaiting sensitivity 2 IV fluids 3 monitor intake and output Qualifiers: Urinary tract infection type: site unspecified Hematuria presence: without hematuria Qualified Code(s): N39.0 - Urinary tract infection, site not specified (4) Diabetes Current visit: No Status: Chronic We will continue with Accu-Cheks before meals at bedtime with sliding scale insulin as well as nasal insulin coverage. Goals to maintain postprandial less than 180 2 diabetic diet Qualifiers: Diabetes mellitus type: type 2 Diabetes mellitus complication status: with kidney complications Diabetes mellitus complication detail: with chronic kidney disease Diabetes mellitus termination clerk insulin use: with termination clerk use Chronic kidney disease stage: stage 3 (moderate) Qualified Code(s): E11.22 - Type 2 diabetes mellitus with diabetic chronic kidney disease; N18.3 - Chronic kidney disease, stage 3 (moderate); Z79.4 - prison (current) use of insulin (5) Diastolic CHF Current visit: No Status: Acute 1 EF of 6570%. We will hold Lasix for now due to MARY we will give gentle IV fluids and monitor intake and output will resume Lasix once back to baseline Qualifiers: Congestive heart failure chronicity: acute Qualified Code(s): I50.31 - Acute diastolic (congestive) heart failure (6) Obstructive sleep apnea Current visit: No Status: Acute Continue his CPAP at night (7) COPD (chronic obstructive pulmonary disease) Current visit: No Status: Chronic 1 presently stable we will continue with oxygen as needed titrating maintain SPO2 greater than 92% 2 we will continue with bronchodilators Qualifiers: COPD type: unspecified COPD Qualified Code(s): J44.9 - Chronic obstructive pulmonary disease, unspecified (8) HTN (hypertension) Current visit: No Status: Chronic 1e will continue with hydralazine will hold lisinopril for now due to elevation in creatinine and resume on screening back to baseline 2 low-sodium diet Qualifiers: Hypertension type: unspecified secondary hypertension Qualified Code(s): I15.9 - Secondary hypertension, unspecified; I15 - Secondary hypertension (9) DVT prophylaxis Current visit: No Status: Acute 1 heparin subcutaneous Internal Medicine - H&P: HPI Chief complaint: fall Admitted From: Emergency Dept Plans for Post Hospital Care: Home History of present illness: Mr. Hammond is a 70 year old male past medical history of coronary artery disease CHF CKD stage III hypertension diabetes and COPD oxygen dependent. Oriented the patient he has been experienced increase of falls over the past month. He has had several minor injuries however recently he broke his R foot. He states fill when he stands he has difficulty feeling the floor, and unsure where to put feet. As well as he has been experiencing tremors to his hands and feet. At times unable to eat. He lives with his daughter and uses a wheeled walker. Daughter states that she has noticed increase of falls in the last month since he moved to a new house. Patient has been experiencing urinary urgency and frequency which has also contributed to his falls. Today patient was attempting to go to the bathroom and he fell backwards striking his head. He denies any loss of consciousness chest pain or palpitations. He was brought to the ER for evaluation. According to her records CT of head was negative for any intracranial abnormality chest x-ray showed cardiomegaly but no acute cardiopulmonary process. Lab work did reveal some anemia hemoglobin 8.4 however this is stable from previous which was 8.2. Chemistry revealed some PKI creatinine 2.10 as. Hyperglycemia 427 his bicarbonate was 26 potassium 4.5. UA positive for nitrates large Leuk esterase and negative for blood patient was given IV fluid as well as Rocephin and has been admitted for further workup evaluation. On presentation patient does not appear to be in any respiratory distress he denies any chest pain or shortness of breath at this time. Lungs sounds are clear heart sounds S1 and S2 with no rubs clicks, murmurs. He is alert and oriented 3 possible commandsranial nerves II through XII i. Dr Antunez performed finger to nose, noted tremor patient was unable to complete [id number] due to tremor. Romberg was deferred due to patient's inability to stand at this time. Patient is hemodynamically stable. I reviewed this case with DR Antunez who agrees with plan Past Med Surg Social Fam HX - Past Medical History Medical history: CHF, diabetes, hyperlipidemia, hypertension, kidney stones, renal disease Psychiatric history: no psych history - Past Surgical History Surgical History: other (Endoscopy) - Social History Smoking Status: Former smoker Smokeless Tobacco Status: No Alcohol use: rarely Drug use: none - Family History Father [facility]: [facility] Mother Living Status: Cause of : Cancer DM Internal Medicine - H&P: Meds Albuterol Sulfate [Albuterol Inhaler] 2 puff IH QID PRN 03/14/16 [History] Calcium Carbonate [Calcium] 600 mg PO DAILY 03/14/16 [History] Cholecalciferol (Vitamin D3) [Vitamin D3] 8,000 unit PO DAILY 03/14/16 [History] Eucerin Creme 1 appl TP DAILY PRN 03/14/16 [History] FentaNYL PATCH [Duragesic] 75 mcg TD Q72H 03/14/16 [History] Hydralazine HCl 50 mg PO TID 03/14/16 [History] Omeprazole 20 mg PO DAILY 03/14/16 [History] Oxycodone HCl 10 mg PO Q12H 03/14/16 [History] Pregabalin [Lyrica] 150 mg PO BID 03/14/16 [History] Simvastatin [Zocor] 40 mg PO HS 03/14/16 [History] Isosorbide MONOnitrate (24 HR) [Imdur] 30 mg PO DAILY 30 Days 03/22/16 [Rx] Metoprolol [Lopressor] 100 mg PO BID 30 Days 03/22/16 [Rx] Amitriptyline [Elavil] 25 mg PO HS 08/22/16 [History] Lisinopril [Zestril] 20 mg PO DAILY 08/22/16 [History] Nitroglycerin [Nitrostat] 0.4 mg SL Q5M PRN 08/22/16 [History] Sennosides [Senna] 8.6 mg PO DAILY 08/22/16 [History] Furosemide [Lasix] 80 mg PO DAILY #0 08/23/16 [Rx] Insulin ASPART [NovoLOG] 50 unit SQ TIDWM 09/29/16 [History] Insulin Glargine,Hum.rec.anlog [Toujeo Solostar] 80 unit SQ BID 09/29/16 [ History] Ipratropium/Albuterol Neb [Duoneb] 3 ml IH Q8HR PRN 09/29/16 [History] Allergies No Known Allergies Allergy (Verified 03/14/16 14:07) All Systems PM: A 10-system review of systems was performed and is negative for pertinent findings except as documented above in the HPI. - Constitutional Constitutional: falls, no chills, no fever(s), no night sweats - EENT Eyes: no change in vision, no discharge, no pain, no photophobia Nose, mouth and throat: no dysphagia, no nasal discharge, no neck pain, no sore throat - Cardiovascular Cardiovascular ROS IM: no chest pain, no diaphoresis, no dyspnea, no lightheadedness, no palpitations, no syncope - Respiratory Respiratory: no cough, no dyspnea, no wheezing, no excessive phlegm production - Gastrointestinal Gastrointestinal: no abdominal pain, no diarrhea, no hematemesis, no hematochezia, no melena, no nausea, no vomiting - Genitourinary Genitourinary ROS male: urinary frequency, urinary urgency - Integumentary Integumentary IM: no rash, no unusual bruising - Neurological Neurological ROS: frequent falls, numbness, tingling, tremor(s), weakness - Constitutional Vitals: Temp Pulse Resp BP Pulse Ox 97.9 F 81 18 124/50 95 09/29/16 07:15 09/29/16 10:35 09/29/16 10:35 09/29/16 10:35 09/29/16 10:35 General appearance: Present: A&O X 3, morbidly obese, answers questions appropriately - Head Head exam: Present: atraumatic, normocephalic - Eye Eye exam: Present: PERRL, conjuntiva pink, sclera anicteric Pupils: Present: PERRL - Neck Neck exam general surgery: Present: supple, trachea midline. Absent: lymphadenopathy - Respiratory Respiratory exam: Present: CTAB. Absent: accessory muscle use, rales, rhonchi, wheezes - Cardiovascular Cardiovascular exam: Present: RRR, +S1, +S2. Absent: diastolic murmur, gallop, rubs, systolic murmur - GI/Abdominal GI/Abdominal exam: Present: normal bowel sounds, soft, no peritoneal signs. Absent: distended, tenderness - Extremities Exam Extremities exam: Present: normal capillary refill, warm, radial pulses palpable and symetrical. Absent: calf tenderness, cyanotic, pedal edema Additional comments: Right leg splint in place extremity warm and pink brisk capillary refill - Neurological Exam Neurological exam: Present: CN II-XII intact, oriented X3, no focal deficits. Absent: pronater drift, facial droop, speech deficit - Expanded Neurological Exam Cerebellar function: finger to nose: Normal (tremor noted ), heel to valiente: Abnormal Right (unable to complete dt tremor ) - Skin Skin exam: Present: dry, intact Additional comments: has multiple abrasions on face a different stages of healing Internal Med - H&P Results - Labs CBC & Chem 7: 09/29/16 07:48 09/29/16 07:48 - EKG Data EKG shows normal: sinus rhythm - EKG Data Prior EKG available for review: yes When compared to previous EKG: there is no significant change - Diagnostic Studies Other Images Additional comments: Chest X-Ray 09/29/16 07:16 IMPRESSION: Cardiomegaly without acute cardiopulmonary process. D/ / 09/29/2016 08:17:32 Edmundo Riggs MD / vic Interpreting Provider: Edmundo Riggs MD Head CT 09/29/16 07:16 IMPRESSION: No evidence of acute intracranial process. D/ / Enrique Hook MD / Enrique Hook MD Interpreting Provider: Enrique Hook MD
[2016-09-29] MEDS ORDERED: Insulin LISPRO 300 UNITS/3 ML VIAL SQ SCH ×3 (11:30→21:00)
--- NOTE | 2016-09-29 11:50 | Event Note ---
Date of Encounter: 09/29/16 Time of Encounter: 11:00 I examined this patient and my medical decision-making was reviewed with Ms. Bowen. I agree with the documented findings, disposition and treatment plan as described except to the extent set forth below. Briefly, 70 yo CM with multiple falls present to ER after sustaining another fall. Patient accompanied by daughter. Both report that patient has been having tremors in both his hands when he tries to feed himself or perform an activity over the past 2 weeks. Denies weakness in his arms. Denies vertigo or dysphagia. On exam, patient has what appears to be intentional tremor in both hands. No dysdiadocokinesia. Finger nose finger abnormal due to tremors and heel valiente test also abnormal due to tremors. Power 5/5 B/L upper extremities. Limited power exam of LE due to pain. CTAB. 1. Recurent falls in the setting of new onset intention tremors - Will perform MRI for evaluation of cerebellar lesions. Pt. does not have a history of CVA/ TIA. If unable to obtain MRI (pt. has possible screws in his right shoulder), will obtain neurology consult. PT/OT. 2. DM-2 on insulin with CKD-3 with mild MARY - Resume home insulin. SSI. IV fluid hydration. 3. Abnormal stress test being managed medically Admit to inpatient status. High risk due to risk of falls and possible CVA. Expected to stay at least 2 midnights. Expected DC dispo is home health vs rehab. JOHNSON Nicholas
[2016-09-29] MEDS ORDERED: Eucerin Cream 57 GM TUBE TP PRN (13:33)
[2016-09-29] MEDS: *HR* OxyCODONE Immed Rel 5 MG TABLET PO SCH (13:36)
[2016-09-29] MEDS: hydrALAZINE 25 MG TABLET PO SCH ×2 (13:46→20:37)
--- NOTE | 2016-09-29 15:16 | Podiatry Consult Note ---
Date of Encounter: 09/29/16 Time of Encounter: 15:14 Assessment and Plan (1) Lisfranc dislocation Current visit: Yes Status: Acute had planned on surgery for fusion of this dislocated joint in his foot this thursday s/p other fall. f/u xray. if patient is stable and medically cleared/ optimized may plan to proceed Qualifiers: Qualified Code(s): S93.324A - Dislocation of tarsometatarsal joint of right foot, initial encounter (2) Ankle fracture, lateral malleolus, closed Current visit: Yes Status: Acute this was midly dislocated and was going to be treated nonoperatively prior to this last fall, f/u xray. if further dislocated may require ORIF of the right ankle. Qualifiers: Qualified Code(s): S82.61XA - Displaced fracture of lateral malleolus of right fibula, initial encounter for closed fracture History of Present Illness Chief complaint: frequent falls HPI: Mr. Hammond is a 70 year old male admitted to the hospital s/p fall. He was seen in our office last week for a mildly displaced ankle fracture and found to have a 1st tarsometatarsal dislocation on the right foot for which he was scheduled to undergo surgery on Thursday. He is currently admitted after this last fall at home and says he was trying to get to the bathroom and fell. He says he thinks he put all of his weight on the right extremity when he fell and says he felt pain. denies f/c/n/v/sob/cp. Past Med Surg Social Fam HX - Past Medical History Medical history: CHF, diabetes, hyperlipidemia, hypertension, kidney stones, renal disease Psychiatric history: no psych history - Past Surgical History Surgical History: other - Social History Smoking Status: Former smoker Smokeless Tobacco Status: No Alcohol use: rarely Drug use: none - Family History Father Living Status: Cause of : uknown Mother Living Status: Cause of : Cancer DM Medications and Allergies RX: Albuterol Sulfate [Albuterol Inhaler] 2 puff IH QID PRN 03/14/16 [History] RX: Calcium Carbonate [Calcium] 600 mg PO DAILY 03/14/16 [History] RX: Cholecalciferol (Vitamin D3) [Vitamin D3] 8,000 unit PO DAILY 03/14/16 [ History] RX: Eucerin Creme 1 appl TP DAILY PRN 03/14/16 [History] RX: FentaNYL PATCH [Duragesic] 75 mcg TD Q72H 03/14/16 [History] RX: Hydralazine HCl 50 mg PO TID 03/14/16 [History] RX: Omeprazole 20 mg PO DAILY 03/14/16 [History] RX: Oxycodone HCl 10 mg PO Q12H 03/14/16 [History] RX: Pregabalin [Lyrica] 150 mg PO BID 03/14/16 [History] RX: Simvastatin [Zocor] 40 mg PO HS 03/14/16 [History] RX: Isosorbide MONOnitrate (24 HR) [Imdur] 30 mg PO DAILY 30 Days 03/22/16 [Rx] RX: Metoprolol [Lopressor] 100 mg PO BID 30 Days 03/22/16 [Rx] RX: Amitriptyline [Elavil] 25 mg PO HS 08/22/16 [History] RX: Lisinopril [Zestril] 20 mg PO DAILY 08/22/16 [History] RX: Nitroglycerin [Nitrostat] 0.4 mg SL Q5M PRN 08/22/16 [History] RX: Sennosides [Senna] 8.6 mg PO DAILY 08/22/16 [History] RX: Furosemide [Lasix] 80 mg PO DAILY #0 08/23/16 [Rx] Insulin Glargine,Hum.rec.anlog [Toujeo Solostar] 80 unit SQ BID 09/29/16 [ History] RX: Insulin ASPART [NovoLOG] 50 unit SQ TIDWM 09/29/16 [History] RX: Ipratropium/Albuterol Neb [Duoneb] 3 ml IH Q8HR PRN 09/29/16 [History] Allergies No Known Allergies Allergy (Verified 03/14/16 14:07) All Systems Reviewed: A 10-system review of systems was performed and is negative for pertinent findings except as documented above in the HPI. Physical Exam - Constitutional Vitals: Temp Pulse Resp BP Pulse Ox 98.4 F 68 18 147/63 96 09/29/16 12:48 09/29/16 12:48 09/29/16 12:48 09/29/16 12:48 09/29/16 14:45 - Ankle & Foot Exam: right foot splint is clean, dry, and intact. absent sensation to toes. can flex and extend digits of the right foot. toes are warm to touch. no calf tenderness with squeeze. Results - Labs Result Diagrams: 09/29/16 07:48 09/29/16 07:48 Labs: Abnormal lab results RBC 3.92 M/mcL (4.19-5.50) L 09/29/16 07:48 Hgb 8.4 g/dL (12.9-16.9) L 09/29/16 07:48 Hct 29.9 % (37.5-50.1) L 09/29/16 07:48 MCV 76.3 fL (83.0-100.0) L 09/29/16 07:48 MCH 21.4 pg (28.0-33.3) L 09/29/16 07:48 MCHC 28.1 g/dL (31.6-35.5) L 09/29/16 07:48 RDW 20.9 % (11.5-14.5) H 09/29/16 07:48 Polychromasia 1+ (Not Present) A 09/29/16 07:48 Hypochromasia Present (Not Present) A 09/29/16 07:48 Basophilic Stippling 1+ (Not Present) A 09/29/16 07:48 BUN 48 mg/dL (8-26) H 09/29/16 07:48 Creatinine 2.10 mg/dL (0.72-1.25) H 09/29/16 07:48 Est GFR ( Amer) 38 (> 60) L 09/29/16 07:48 Est GFR (Non-Af Amer) 31 (> 60) L 09/29/16 07:48 Glucose 427 mg/dL (70-99) H 09/29/16 07:48 POC Glucose 550 (58-89) H* 09/29/16 15:01 Calculated Osmolality 315 (280-300) H 09/29/16 07:48 Albumin 3.1 g/dL (3.5-5.0) L 09/29/16 07:48 Globulin 4.2 g/dL (2.4-3.5) H 09/29/16 07:48 Albumin/Globulin Ratio 0.7 (1.1-2.2) L 09/29/16 07:48 Beta-Hydroxybutyric Acd 0.32 mmol/L (0.02-0.27) H 09/29/16 07:48 Urine Clarity Cloudy (Clear) A 09/29/16 07:59 Urine Glucose (UA) >=1000 mg/dL (Normal) H 09/29/16 07:59 Urine Nitrite Positive (Negative) A 09/29/16 07:59 Ur Leukocyte Esterase Large (Negative) H 09/29/16 07:59 Urine Microscopic RBC 3-5 per hpf (0-3) H 09/29/16 07:59 Urine Microscopic WBC TNTC per hpf (0-3) H 09/29/16 07:59 Ur Squamous Epith Cells Many per lpf (None-Few) H 09/29/16 07:59 Urine Bacteria Moderate per hpf (None-Few) H 09/29/16 07:59 All other labs normal. Consult Discharge Plan - Plan Referrals: Storm Bernstein DO [Primary Care Provider] -
[2016-09-29] MEDS: Insulin Human Regular 100 UNIT in 0.9 % Sodium Chloride 100 ML IVC SCH ×2 (16:39→22:56)
[2016-09-29] MEDS: *HR* Heparin 5,000 UNIT/ML VIAL SQ SCH (17:23)
--- NOTE | 2016-09-29 18:59 | Electrocardiograph Report ---
[address] [address] Test Date: 2016-09-29 Pat Name: Darrick Hammond Department: 104 Room: 3A21 Gender: M Rest Room Matron: [facility] : 1945 Requested By: Julius Torres Order Number: [id number] Reading MD: Yoseph Ha MD Measurements Intervals [place] Rate: 78 P: 41 CO: 185 QRS: 22 QRSD: 97 T: 47 QT: 396 QTc: 430 Interpretive Statements SINUS RHYTHM Electronically Signed On 09-29-2016 18:58:07 EDT by Yoseph Ha MD
[2016-09-29] MEDS ORDERED: Insulin Human Regular 20 UNIT in 0.9 % Sodium Chloride 10 ML IV ONE (19:19)
[2016-09-29] MEDS: Pregabalin 75 MG CAPSULE PO SCH (20:38)
[2016-09-29] MEDS ORDERED: Insulin DETEMIR 100 UNIT/ML X5UNITS SQ SCH ×3 (21:00)
[2016-09-29] MEDS ORDERED: *HR* FentaNYL PATCH 75 MCG PATCH TD ONE (21:36)
[2016-09-30] MEDS: *HR* Heparin 5,000 UNIT/ML VIAL SQ SCH ×3 (00:10→16:53)
[2016-09-30] MEDS: *HR* OxyCODONE Immed Rel 5 MG TABLET PO SCH ×3 (00:10→22:46)
[2016-09-30 04:53] LABS: Calcium 8.6 mg/dL (8.6-10.8); Potassium 4.2 mEq/L (3.5-4.5)
[2016-09-30] MEDS: Cholecalciferol (D-3) 1,000 UNIT TABLET PO SCH (08:13)
[2016-09-30] MEDS: Isosorbide MONOnitrate (24 HR) 30 MG TAB.ER.24H PO SCH (08:13)
[2016-09-30] MEDS: Pregabalin 75 MG CAPSULE PO SCH ×2 (08:13→21:49)
[2016-09-30] MEDS: hydrALAZINE 25 MG TABLET PO SCH ×3 (08:14→21:49)
[2016-09-30] MEDS: Sennosides 8.6 MG TABLET PO SCH (08:14)
[2016-09-30] MEDS ORDERED: 0.9 % Sodium Chloride 1,000 ML ONE (11:07)
[2016-09-30] MEDS ORDERED: Insulin DETEMIR 100 UNIT/ML X5UNITS SQ SCH (12:00)
[2016-09-30 12:07] LABS: Hemoglobin A1C 11.5 %
--- NOTE | 2016-09-30 13:29 | Podiatry Consult Note ---
Date of Encounter: 09/30/16 Time of Encounter: 13:27 Assessment and Plan (1) Lisfranc dislocation Current visit: Yes Status: Acute xrays reviewed. discussed with nib adjuster, Dr. Sanders, will proceed with first TMT joint fusion on Thursday as long as medically cleared and optimized. discussed with Dr. Sanders and patient who are in agreement with an ECF upon discharge. Qualifiers: Qualified Code(s): S93.324A - Dislocation of tarsometatarsal joint of right foot, initial encounter (2) Ankle fracture, lateral malleolus, closed Current visit: Yes Status: Acute reviewed xrays. there is more displacement and some lateral shift of the ankle joint. discussed with nib adjuster, Dr. Sanders, will plan for ORIF of the right ankle fracture on Thursday as long as medically clear and optimized for surgery. will benefit from ECF placement s/p surgery with demonstrated difficulty being non-wb which is a strict requirement for his condition and potential for disrupting his surgery and requiring more surgery if he is non-compliant. risks vs benefits potential complications and consequences of the procedure were discussed with the patient again today including but not limited to infection, bleeding, swelling, numbness, tingling, pain, arthritis, blood clot, heart attack, loss of limb, loss of life, delayed or non-healing of bone or wound, pneumonia, need for further surgery. all questions were answered. Qualifiers: Qualified Code(s): S82.61XA - Displaced fracture of lateral malleolus of right fibula, initial encounter for closed fracture History of Present Illness HPI: patient sitting up in bed talking. AO x 3. he admits to walking on the right foot at home against instruction. he is being worked up by medicine and medical conditions being treated by them. Past Med Surg Social Fam HX - Past Medical History Medical history: CHF, diabetes, hyperlipidemia, hypertension, kidney stones, renal disease Psychiatric history: no psych history - Past Surgical History Surgical History: other - Social History Smoking Status: Former smoker Smokeless Tobacco Status: No Alcohol use: rarely Drug use: none - Family History Father Living Status: [facility] : [facility] Mother Living Status: Cause of : Cancer DM Medications and Allergies Albuterol Sulfate [Albuterol Inhaler] 2 puff IH QID PRN 03/14/16 [History] Calcium Carbonate [Calcium] 600 mg PO DAILY 03/14/16 [History] Cholecalciferol (Vitamin D3) [Vitamin D3] 8,000 unit PO DAILY 03/14/16 [History] Eucerin Creme 1 appl TP DAILY PRN 03/14/16 [History] FentaNYL PATCH [Duragesic] 75 mcg TD Q72H 03/14/16 [History] Hydralazine HCl 50 mg PO TID 03/14/16 [History] Omeprazole 20 mg PO DAILY 03/14/16 [History] Oxycodone HCl 10 mg PO Q12H 03/14/16 [History] Pregabalin [Lyrica] 150 mg PO BID 03/14/16 [History] Simvastatin [Zocor] 40 mg PO HS 03/14/16 [History] Isosorbide MONOnitrate (24 HR) [Imdur] 30 mg PO DAILY 30 Days 03/22/16 [Rx] Metoprolol [Lopressor] 100 mg PO BID 30 Days 03/22/16 [Rx] Amitriptyline [Elavil] 25 mg PO HS 08/22/16 [History] Lisinopril [Zestril] 20 mg PO DAILY 08/22/16 [History] Nitroglycerin [Nitrostat] 0.4 mg SL Q5M PRN 08/22/16 [History] Sennosides [Senna] 8.6 mg PO DAILY 08/22/16 [History] Furosemide [Lasix] 80 mg PO DAILY #0 08/23/16 [Rx] Insulin ASPART [NovoLOG] 50 unit SQ TIDWM 09/29/16 [History] Insulin Glargine,Hum.rec.anlog [Toujeo Solostar] 80 unit SQ BID 09/29/16 [ History] Ipratropium/Albuterol Neb [Duoneb] 3 ml IH Q8HR PRN 09/29/16 [History] Allergies No Known Allergies Allergy (Verified 03/14/16 14:07) All Systems Reviewed: A 10-system review of systems was performed and is negative for pertinent findings except as documented above in the HPI. Physical Exam - Constitutional Vitals: Temp Pulse Resp BP Pulse Ox 96.6 F L 69 18 133/50 95 09/30/16 11:00 09/30/16 11:00 09/30/16 11:00 09/30/16 11:00 09/30/16 11:00 General appearance: cooperative, no acute distress - Ankle & Foot Exam: right LE in posterior splint. CFT < 3 sec x 5 digits right foot. can flex and extend digits of the right foot. no calf pain with squeeze. profound neuropathy right foot. Results - Labs Result Diagrams: 09/29/16 07:48 09/30/16 04:16 Labs: Abnormal lab results RBC 3.92 M/mcL (4.19-5.50) L 09/29/16 07:48 Hgb 8.4 g/dL (12.9-16.9) L 09/29/16 07:48 Hct 29.9 % (37.5-50.1) L 09/29/16 07:48 MCV 76.3 fL (83.0-100.0) L 09/29/16 07:48 MCH 21.4 pg (28.0-33.3) L 09/29/16 07:48 MCHC 28.1 g/dL (31.6-35.5) L 09/29/16 07:48 RDW 20.9 % (11.5-14.5) H 09/29/16 07:48 Polychromasia 1+ (Not Present) A 09/29/16 07:48 Hypochromasia Present (Not Present) A 09/29/16 07:48 Basophilic Stippling 1+ (Not Present) A 09/29/16 07:48 BUN 33 mg/dL (8-26) H D 09/30/16 04:16 Creatinine 1.43 mg/dL (0.72-1.25) H 09/30/16 04:16 Est GFR ( Amer) 59 (> 60) L 09/30/16 04:16 Est GFR (Non-Af Amer) 49 (> 60) L 09/30/16 04:16 Glucose 151 mg/dL (70-99) H 09/30/16 04:16 POC Glucose 223 (58-89) H 09/30/16 11:53 Hemoglobin A1c 11.5 % (-5.6) H 09/30/16 04:10 Albumin 3.1 g/dL (3.5-5.0) L 09/29/16 07:48 Globulin 4.2 g/dL (2.4-3.5) H 09/29/16 07:48 Albumin/Globulin Ratio 0.7 (1.1-2.2) L 09/29/16 07:48 Beta-Hydroxybutyric Acd 0.32 mmol/L (0.02-0.27) H 09/29/16 07:48 Urine Clarity Cloudy (Clear) A 09/29/16 07:59 Urine Glucose (UA) >=1000 mg/dL (Normal) H 09/29/16 07:59 Urine Nitrite Positive (Negative) A 09/29/16 07:59 Ur Leukocyte Esterase Large (Negative) H 09/29/16 07:59 Urine Microscopic RBC 3-5 per hpf (0-3) H 09/29/16 07:59 Urine Microscopic WBC TNTC per hpf (0-3) H 09/29/16 07:59 Ur Squamous Epith Cells Many per lpf (None-Few) H 09/29/16 07:59 Urine Bacteria Moderate per hpf (None-Few) H 09/29/16 07:59 All other labs normal. Consult Discharge Plan - Plan Referrals: Storm Bernstein DO [Primary Care Provider] -
[2016-09-30] MEDS: Insulin LISPRO 300 UNITS/3 ML VIAL SQ SCH ×5 (13:52→21:50)
--- NOTE | 2016-09-30 15:43 | Internal Med Progress Note ---
Date of Encounter: 09/30/16 Time of Encounter: 10:00 - Assessment and plan (1) Frequent falls Current Visit: Yes Status: Acute Assessment and plan: Patient denies loss of consciousness. CAT scan of head negative. Will check TSH, vitamin B12, folic acid, and VDRL. (2) Congestive heart failure Current Visit: No Status: Acute Assessment and plan: stable. No signs of exacerbation Qualifiers: Congestive heart failure type: diastolic Congestive heart failure chronicity: unspecified congestive heart failure chronicity Qualified Code(s) : I50.30 - Unspecified diastolic (congestive) heart failure (3) Diabetes Current Visit: No Status: Chronic Assessment and plan: Patient use a high-dose insulin at home. will continue basal, prandial, and a sliding sugar insulin. Closely monitor glucose level. Qualifiers: Diabetes mellitus type: type 2 Diabetes mellitus complication status: with kidney complications Diabetes mellitus complication detail: with chronic kidney disease Diabetes mellitus terminologist insulin use: with terminologist use Chronic kidney disease stage: stage 3 (moderate) Qualified Code(s): E11.22 - Type 2 diabetes mellitus with diabetic chronic kidney disease; N18.3 - Chronic kidney disease, stage 3 (moderate); Z79.4 - MCC (current) use of insulin (4) CKD (chronic kidney disease) stage 3, GFR 30-59 ml/min Current Visit: No Status: Chronic Assessment and plan: creatinine level is at baseline. (5) [id number] kidney injury Current Visit: No Status: Acute Assessment and plan: creatinine level has improved after hydration. Now is about at baseline (6) Obesity Current Visit: No Status: Acute Assessment and plan: need lifestyle modification Qualifiers: Obesity type: due to excess calories Obesity severity: morbid Qualified Code(s): E66.01 - Morbid (severe) obesity due to excess calories (7) DVT prophylaxis Current Visit: No Status: Acute Assessment and plan: heparin subcutaneously. (8) Sleep apnea Current Visit: No Status: Suspected Assessment and plan: continue CPAP during night. continuous pulse oximeter monitoring Qualifiers: Sleep apnea type: obstructive Qualified Code(s): G47.33 - Obstructive sleep apnea (adult) (pediatric) (9) Ankle fracture, lateral malleolus, closed Current Visit: Yes Status: Acute Assessment and plan: podiatry consult is appreciated. plan for surgery on Thursday Qualifiers: Encounter type: initial encounter Fracture alignment: displaced Laterality: right Qualified Code(s): S82.61XA - Displaced fracture of lateral malleolus of right fibula, initial encounter for closed fracture (10) DVT prophylaxis Current Visit: No Status: Acute Assessment and plan: heparin subcutaneously - Time Spent With Patient 25 - 35 minutes - Subjective Interval history: patient is a 70-year-old male admitted for frequent fall in last 2 weeks. his past medical history is significant for CHF, diabetes, hyperlipidemia, hTN, renal disease. Patient was seen and examined. denies pain or discomfort. Vitals are stable. Patient has a right ankle fracture, plan for surgery on Thursday. Podiatry consult appreciated. patient use a high-dose insulin at home for DM. Will cover him with basal, prandial, and sliding scale insulin. - Constitutional Vitals: Temp Pulse Resp BP Pulse Ox 98.3 F 88 18 118/63 96 09/30/16 15:09 09/30/16 15:09 09/30/16 15:09 09/30/16 15:09 09/30/16 15:09 General appearance: Present: A&O X 3, morbidly obese, answers questions appropriately - Head Head exam: Present: atraumatic, normocephalic - Eye Eye exam: Present: PERRL, conjuntiva pink, sclera anicteric Pupils: Present: PERRL - Neck Neck exam general surgery: Present: supple, trachea midline. Absent: lymphadenopathy - Respiratory Respiratory exam: Present: CTAB. Absent: accessory muscle use, rales, rhonchi, wheezes - Cardiovascular Cardiovascular exam: Present: RRR, +S1, +S2. Absent: diastolic murmur, gallop, rubs, systolic murmur - GI/Abdominal GI/Abdominal exam: Present: normal bowel sounds, soft, no peritoneal signs. Absent: distended, tenderness - Extremities Exam Extremities exam: Present: warm, radial pulses palpable and symetrical. Absent : calf tenderness, cyanotic, pedal edema - Neurological Exam Neurological exam: Present: CN II-XII intact, oriented X3, no focal deficits. Absent: pronater drift, facial droop, speech deficit - Skin Skin exam: Present: dry, intact Internal Medicine: Result - Labs CBC & Chem 7: 09/29/16 07:48 09/30/16 04:16 Labs: BMP 09/30/16 04:16 Sodium 140 Potassium 4.2 Chloride 104 Carbon Dioxide 28 BUN 33 H D Creatinine 1.43 H Glucose 151 H Calcium 8.6 - ABG Interpretation ABG results: PT/INR, D-dimer PT 12.1 Seconds (9.4-12.1) 09/29/16 07:48 - Impressions Impressions Brain MRI 09/29/16 11:22 IMPRESSION: 1. No acute intracranial abnormality. 2. Minimal chronic white matter microvascular ischemic changes. D/ / Jaren Vogt MD / Jaren Vogt MD Interpreting Provider: Jaren Vogt MD Ankle X-Ray 09/29/16 15:11 IMPRESSION: 1. Again noted is an oblique traumatic fracture of the distal fibula with slightly increased displacement. Otherwise stable appearance of the right ankle and right foot since 09/21/2016. D/ / 09/29/2016 16:04:00 Nicolle Casanova MD / semaj Interpreting Provider: Nicolle Casanova MD Foot X-Ray 09/29/16 15:11 IMPRESSION: 1. Again noted is an oblique traumatic fracture of the distal fibula with slightly increased displacement. Otherwise stable appearance of the right ankle and right foot since 09/21/2016. D/ / 09/29/2016 16:04:00 Nicolle Casanova MD / semaj Interpreting Provider: Nicolle Casanova MD Consult Discharge Plan - Plan Referrals: Storm Bernstein DO [Primary Care Provider] -
[2016-09-30] MEDS ORDERED: *HR* FentaNYL PATCH 75 MCG PATCH TD SCH (21:22)
[2016-09-30] MEDS: Insulin DETEMIR 100 UNIT/ML X5UNITS SQ SCH (21:50)
[2016-10-01] MEDS: *HR* Heparin 5,000 UNIT/ML VIAL SQ SCH ×4 (00:15→23:13)
[2016-10-01 06:31] LABS: Basophils % 0.2 %; Hemoglobin 7.8 g/dL (12.9-16.9); Mean Corpuscular Volume 77.2 fL (83.0-100.0); Monocytes % 9.8 %
[2016-10-01 06:32] LABS: Eosinophils # 0.2 K/mcL (0.0-0.6); Eosinophils % 2.7 %; Hematocrit 27.8 % (37.5-50.1); Immature Granulocytes % 0.6 % (0-4); Lymphocytes # 1.1 K/mcL (0.6-4.6); Mean Corpuscular HGB Conc 28.1 g/dL (31.6-35.5); Mean Corpuscular Hemoglobin 21.7 pg (28.0-33.3); Monocytes # 0.6 K/mcL (0.0-1.3); Neutrophils # 4.4 K/mcL (1.6-8.9); Platelet Count 195 K/mcL (140-400); Red Cell Distribution Width 20.4 % (11.5-14.5); Segmented Neutrophils % 69.7 %
[2016-10-01 06:46] LABS: Potassium 4.1 mEq/L (3.5-4.5)
[2016-10-01 07:08] LABS: Thyroid Stimulating Hormone 6.495 mcIU/mL (0.350-4.840)
[2016-10-01 07:40] LABS: Anisocytosis 2+ (Not Present); Hypochromasia Present (Not Present); Microcytosis Present (Not Present); Polychromasia 2+ (Not Present)
[2016-10-01 07:41] LABS: Platelet Estimate Normal (Normal)
[2016-10-01] MEDS: Isosorbide MONOnitrate (24 HR) 30 MG TAB.ER.24H PO SCH (08:32)
[2016-10-01] MEDS: Pregabalin 75 MG CAPSULE PO SCH ×2 (08:32→20:46)
[2016-10-01] MEDS: Sennosides 8.6 MG TABLET PO SCH (08:33)
[2016-10-01] MEDS: hydrALAZINE 25 MG TABLET PO SCH ×3 (08:33→20:48)
[2016-10-01] MEDS: Cholecalciferol (D-3) 1,000 UNIT TABLET PO SCH (08:33)
[2016-10-01] MEDS: Insulin LISPRO 300 UNITS/3 ML VIAL SQ SCH ×7 (08:49→22:34)
[2016-10-01] MEDS: Insulin DETEMIR 100 UNIT/ML X5UNITS SQ SCH ×2 (08:50→22:30)
[2016-10-01 11:34] LABS: Folate 8.7 ng/mL (7.0-31.4)
[2016-10-01] MEDS ORDERED: 0.9 % Sodium Chloride 250 ML ONE (11:38)
[2016-10-01] MEDS: *HR* OxyCODONE Immed Rel 5 MG TABLET PO SCH ×2 (12:37→23:13)
[2016-10-01] MEDS ORDERED: Insulin DETEMIR 100 UNIT/ML X5UNITS SQ SCH ×3 (15:16→21:00)
--- NOTE | 2016-10-01 15:23 | Internal Med Progress Note ---
Date of Encounter: 10/01/16 Time of Encounter: 10:00 - Assessment and plan (1) Frequent falls Current Visit: Yes Status: Acute Assessment and plan: Patient denies loss of consciousness. CAT scan of head negative. He has a mild elevated TSH, possibly subclinical hypothyroidism, will recommend repeat TSH in 6 weeks. vitamin B12 and folic acid are WNL. VDRL is pending. (2) Congestive heart failure Current Visit: No Status: Acute Assessment and plan: stable. No signs of exacerbation Qualifiers: Congestive heart failure type: diastolic Congestive heart failure chronicity: unspecified congestive heart failure chronicity Qualified Code(s) : I50.30 - Unspecified diastolic (congestive) heart failure (3) Diabetes Current Visit: No Status: Chronic Assessment and plan: Patient use a high-dose insulin at home. will continue basal, prandial, and a sliding sugar insulin. Adjust dose to get better control. Closely monitor glucose level. Qualifiers: Diabetes mellitus type: type 2 Diabetes mellitus complication status: with kidney complications Diabetes mellitus complication detail: with chronic kidney disease Diabetes mellitus meterman insulin use: with fpc use Chronic kidney disease stage: stage 3 (moderate) Qualified Code(s): E11.22 - Type 2 diabetes mellitus with diabetic chronic kidney disease; N18.3 - Chronic kidney disease, stage 3 (moderate); Z79.4 - superintendent container terminal (current) use of insulin (4) CKD (chronic kidney disease) stage 3, GFR 30-59 ml/min Current Visit: No Status: Chronic Assessment and plan: creatinine level is at baseline. (5) Vkhqh-ko-dbulssi kidney injury Current Visit: No Status: Acute Assessment and plan: creatinine level has improved after hydration. Now is about at baseline (6) Obesity Current Visit: No Status: Acute Assessment and plan: need lifestyle modification Qualifiers: Obesity type: due to excess calories Obesity severity: morbid Qualified Code(s): E66.01 - Morbid (severe) obesity due to excess calories (7) DVT prophylaxis Current Visit: No Status: Acute Assessment and plan: heparin subcutaneously. (8) Sleep apnea Current Visit: No Status: Suspected Assessment and plan: continue CPAP during night. continuous pulse oximeter monitoring. Risk for scheduled surgery, needed close monitoring theresa-operatively. Qualifiers: Sleep apnea type: obstructive Qualified Code(s): G47.33 - Obstructive sleep apnea (adult) (pediatric) (9) Ankle fracture, lateral malleolus, closed Current Visit: Yes Status: Acute Assessment and plan: podiatry consult is appreciated. plan for surgery on Thursday Qualifiers: Encounter type: initial encounter Fracture alignment: displaced Laterality: right Qualified Code(s): S82.61XA - Displaced fracture of lateral malleolus of right fibula, initial encounter for closed fracture (10) DVT prophylaxis Current Visit: No Status: Acute Assessment and plan: heparin subcutaneously - Subjective Interval history: patient is a 70-year-old male admitted for frequent fall in last 2 weeks. his past medical history is significant for CHF, diabetes, hyperlipidemia, hTN, renal disease. Patient was seen and examined. Mild right ankle pain. Vitals are stable. Patient has a right ankle fracture, plan for surgery on Thursday by podiatry. patient use a high-dose insulin at home for DM. Cover him with basal, prandial , and sliding scale insulin and adjust dose to get better control. Urinalysis shows UTI, patient had no symptoms, will empirically treat patient with Rocephin. Patient has a low hemoglobin, will give him transfusion for 1 unit to prepare scheduled surgery. Patient has a chronic anemia since March 2016 , previous anemia workup shows iron deficiency, patient also had endoscope and a colonoscopy done in March 2016, results are reviewed, unremarkable. - Constitutional Vitals: Temp Pulse Resp BP Pulse Ox 97.8 F 75 18 145/63 99 10/01/16 14:47 10/01/16 14:47 10/01/16 14:47 10/01/16 14:47 10/01/16 14:47 General appearance: Present: A&O X 3, morbidly obese, answers questions appropriately - Head Head exam: Present: atraumatic, normocephalic - Eye Eye exam: Present: PERRL, conjuntiva pink, sclera anicteric Pupils: Present: PERRL - Neck Neck exam general surgery: Present: supple, trachea midline. Absent: lymphadenopathy - Respiratory Respiratory exam: Present: CTAB. Absent: accessory muscle use, rales, rhonchi, wheezes - Cardiovascular Cardiovascular exam: Present: RRR, +S1, +S2. Absent: diastolic murmur, gallop, rubs, systolic murmur - GI/Abdominal GI/Abdominal exam: Present: normal bowel sounds, soft, no peritoneal signs. Absent: distended, tenderness - Extremities Exam Extremities exam: Present: tenderness (Right ankle), warm, radial pulses palpable and symetrical. Absent: calf tenderness, cyanotic, pedal edema - Neurological Exam Neurological exam: Present: CN II-XII intact, oriented X3, no focal deficits. Absent: pronater drift, facial droop, speech deficit - Skin Skin exam: Present: dry, intact Internal Medicine: Result - Labs CBC & Chem 7: 10/01/16 05:17 10/01/16 05:17 Labs: Short CBC 10/01/16 Range/Units 05:17 WBC 6.3 (4.3-11.1) K/mcL Hgb 7.8 L (12.9-16.9) g/dL Hct 27.8 L (37.5-50.1) % Plt Count 195 (140-400) K/mcL Neutrophils # 4.4 (1.6-8.9) K/mcL BMP 10/01/16 05:17 Sodium 139 Potassium 4.1 Chloride 104 Carbon Dioxide 27 BUN 27 H Creatinine 1.44 H Glucose 277 H Calcium 9.0 - ABG Interpretation ABG results: PT/INR, D-dimer PT 12.1 Seconds (9.4-12.1) 09/29/16 07:48 - Impressions Impressions Ankle X-Ray 09/30/16 18:51 IMPRESSION: Slightly limited evaluation of left angle as only a single frontal view was obtained. No definite acute fracture subluxation. Ankle mortise is grossly symmetric and intact. D/ / Clayton Alba MD / Clayton Alba MD Interpreting Provider: Clayton Alba MD Consult Discharge Plan - Plan Referrals: Storm Bernstein DO [Primary Care Provider] -
[2016-10-02 04:35] LABS: Red Cell Distribution Width 19.9 % (11.5-14.5)
[2016-10-02 04:37] LABS: Basophils % 0.2 %; Eosinophils # 0.2 K/mcL (0.0-0.6); Eosinophils % 2.8 %; Hematocrit 31.7 % (37.5-50.1); Hemoglobin 8.9 g/dL (12.9-16.9); Immature Granulocytes % 0.6 % (0-4); Lymphocytes # 0.9 K/mcL (0.6-4.6); Lymphocytes % 16.4 %; Mean Corpuscular HGB Conc 28.1 g/dL (31.6-35.5); Mean Corpuscular Hemoglobin 21.7 pg (28.0-33.3); Mean Corpuscular Volume 77.1 fL (83.0-100.0); Mean Platelet Volume 9.8 fL (9.4-12.4); Monocytes # 0.4 K/mcL (0.0-1.3); Monocytes % 7.3 %; Neutrophils # 3.9 K/mcL (1.6-8.9); Platelet Count 198 K/mcL (140-400); Red Blood Count 4.11 M/mcL (4.19-5.50); Segmented Neutrophils % 72.7 %
[2016-10-02 05:08] LABS: Anisocytosis 1+ (Not Present); Microcytosis Present (Not Present); Platelet Estimate Normal (Normal); Reactive Lymphocytes Present (Not Present)
[2016-10-02 05:09] LABS: Hypochromasia Present (Not Present); Polychromasia 2+ (Not Present)
[2016-10-02 05:17] LABS: BUN/Creatinine Ratio 17 (6-26); Blood Urea Nitrogen 22 mg/dL (8-26); Calcium 9.2 mg/dL (8.6-10.8); Carbon Dioxide 26 mEq/L (19-29); Chloride 103 mEq/L (98-109); Glucose 235 mg/dL (70-99); Osmolality,Calculated 297 (280-300); Potassium 4.4 mEq/L (3.5-4.5); Sodium 138 mEq/L (136-145); eGFR For African Americans > 60 (> 60); eGFR For Non-African Americans 54 (> 60)
[2016-10-02] MEDS: *HR* Heparin 5,000 UNIT/ML VIAL SQ SCH ×2 (09:00→15:43)
[2016-10-02] MEDS: Insulin LISPRO 300 UNITS/3 ML VIAL SQ SCH ×7 (09:00→20:43)
[2016-10-02] MEDS: Insulin DETEMIR 100 UNIT/ML X5UNITS SQ SCH ×2 (09:01→20:41)
[2016-10-02] MEDS: Isosorbide MONOnitrate (24 HR) 30 MG TAB.ER.24H PO SCH (09:04)
[2016-10-02] MEDS: hydrALAZINE 25 MG TABLET PO SCH ×3 (09:04→20:41)
[2016-10-02] MEDS: Sennosides 8.6 MG TABLET PO SCH (09:04)
[2016-10-02] MEDS: Pregabalin 75 MG CAPSULE PO SCH ×2 (09:04→20:41)
[2016-10-02] MEDS: Cholecalciferol (D-3) 1,000 UNIT TABLET PO SCH (09:05)
--- NOTE | 2016-10-02 09:42 | Podiatry Progress Note ---
Date of Encounter: 10/02/16 Time of Encounter: 08:20 - Assessment and Plan (1) Lisfranc dislocation Current Visit: Yes Status: Acute xrays reviewed. discussed with firmware developer, Dr. Sanders and patient cleared for planned procedures. will proceed with first TMT joint fusion tomorrow. procedure discussed at length with patient as well as risks vs benefits potential complications and consequces of all procedures. all questions answered. no guarantees made as to the outcome. informed consent was signed and witnessed. Qualifiers: Qualified Code(s): S93.324D - Dislocation of tarsometatarsal joint of right foot, subsequent encounter (2) Ankle fracture, lateral malleolus, closed Current Visit: Yes Status: Acute reviewed xrays. discussed with patient with Dr. Sanders, clear for surgery tomorrow for his foot and ORIF of the right ankle fracture. discussed procedures in detail. strict non-wb is imperative following the surgery. awaiting ECF placement after surgery. risks vs benefits potential complications and consequences of the procedure were discussed with the patient again today including but not limited to infection, bleeding, swelling, numbness, tingling, pain, arthritis, blood clot, heart attack, loss of limb, loss of life, delayed or non-healing of bone or wound, pneumonia, need for further surgery. all questions were answered. informed consent was signed for all procedures. NPO after midnight Qualifiers: Encounter type: subsequent encounter Fracture alignment: displaced Laterality: right Qualified Code(s): S82.61XD - Displaced fracture of lateral malleolus of right fibula, subsequent encounter for closed fracture with routine healing Subjective Interval history: says he is doing well. he is sitting up in bed eating. denies f/c/n/v/sob/cp. patient says his blood sugar has been under better control. Objective - Vital Signs Vital Signs: Vital Signs Temp Pulse Resp BP Pulse Ox 10/02/16 06:48 97.7 F 71 17 157/69 93 10/02/16 04:53 97.8 F 66 15 126/64 97 10/02/16 04:00 18 93 10/01/16 23:44 98.4 F 76 15 133/55 92 10/01/16 20:18 98.4 F 85 14 132/55 95 10/01/16 14:47 97.8 F 75 18 145/63 99 10/01/16 14:35 98.7 F 75 12 129/69 75 10/01/16 12:30 97.5 F L 72 12 137/64 97 10/01/16 12:15 97.7 F 68 12 149/60 96 10/01/16 10:59 98.4 F 68 18 128/53 94 Intake and Output 10/01/16 10/02/16 10/02/16 23:59 07:59 15:59 Intake Total 0 / 0 120 / 120 Output Total 770 / 770 0 / 0 Balance -770 / -770 0 / 0 120 / 120 Intake: Oral 0 / 0 120 / 120 Output: Urine 770 / 770 0 / 0 Other: Meal Breakfast Percent of Meal Consumed 100% Weight 143.39 kg Blood Glucose* 131 267 Patient Weight 10/02/16 23:59 Weight 143.39 kg - Exam Exam: well developed obese male in no acute distress Vasc: CFT < 3 sec x 5 digits right foot. foot is warm to touch. Derm: no open lesions. ecchymosis of the foot. Musc: no calf pain with squeeze, pt can flex and extend digits of the right foot Neuro: absent sensation to light touch. - Radiology X-Rays: report reviewed, other (increased displacement of right ankle fracture with more than a 1mm increase in medial clear space compared to previous xrays. right foot demonstrates persistent 1st TMT dislocation.) - Lab Result Diagrams: 10/02/16 04:21 10/02/16 04:21 Labs: Abnormal lab results RBC 4.11 M/mcL (4.19-5.50) L 10/02/16 04:21 Hgb 8.9 g/dL (12.9-16.9) L 10/02/16 04:21 Hct 31.7 % (37.5-50.1) L 10/02/16 04:21 MCV 77.1 fL (83.0-100.0) L 10/02/16 04:21 MCH 21.7 pg (28.0-33.3) L 10/02/16 04:21 MCHC 28.1 g/dL (31.6-35.5) L 10/02/16 04:21 RDW 19.9 % (11.5-14.5) H 10/02/16 04:21 Reactive Lymphocytes Present (Not Present) A 10/02/16 04:21 Polychromasia 2+ (Not Present) A 10/02/16 04:21 Hypochromasia Present (Not Present) A 10/02/16 04:21 Basophilic Stippling 1+ (Not Present) A 09/29/16 07:48 Anisocytosis 1+ (Not Present) A 10/02/16 04:21 Microcytosis Present (Not Present) A 10/02/16 04:21 Creatinine 1.32 mg/dL (0.72-1.25) H 10/02/16 04:21 Est GFR (Non-Af Amer) 54 (> 60) L 10/02/16 04:21 Glucose 235 mg/dL (70-99) H 10/02/16 04:21 POC Glucose 267 (58-89) H 10/02/16 08:15 Hemoglobin A1c 11.5 % (-5.6) H 09/30/16 04:10 Albumin 3.1 g/dL (3.5-5.0) L 09/29/16 07:48 Globulin 4.2 g/dL (2.4-3.5) H 09/29/16 07:48 Albumin/Globulin Ratio 0.7 (1.1-2.2) L 09/29/16 07:48 Beta-Hydroxybutyric Acd 0.32 mmol/L (0.02-0.27) H 09/29/16 07:48 TSH 6.495 mcIU/mL (0.350-4.840) H 10/01/16 05:17 Urine Clarity Cloudy (Clear) A 09/29/16 07:59 Urine Glucose (UA) >=1000 mg/dL (Normal) H 09/29/16 07:59 Urine Nitrite Positive (Negative) A 09/29/16 07:59 Ur Leukocyte Esterase Large (Negative) H 09/29/16 07:59 Urine Microscopic RBC 3-5 per hpf (0-3) H 09/29/16 07:59 Urine Microscopic WBC TNTC per hpf (0-3) H 09/29/16 07:59 Ur Squamous Epith Cells Many per lpf (None-Few) H 09/29/16 07:59 Urine Bacteria Moderate per hpf (None-Few) H 09/29/16 07:59 Consult Discharge Plan - Plan Referrals: Storm Bernstein, DO [Primary Care Provider] -
[2016-10-02] MEDS: *HR* OxyCODONE Immed Rel 5 MG TABLET PO SCH (10:07)
--- NOTE | 2016-10-02 16:41 | Internal Med Progress Note ---
Date of Encounter: 10/02/16 Time of Encounter: 10:00 - Assessment and plan (1) Frequent falls Current Visit: Yes Status: Acute Assessment and plan: Patient denies loss of consciousness. CAT scan of head negative. He has a mild elevated TSH, possibly subclinical hypothyroidism, will recommend repeat TSH in 6 weeks. vitamin B12 and folic acid are WNL. VDRL is pending. (2) Congestive heart failure Current Visit: No Status: Acute Assessment and plan: stable. No signs of exacerbation Qualifiers: Congestive heart failure type: diastolic Congestive heart failure chronicity: unspecified congestive heart failure chronicity Qualified Code(s) : I50.30 - Unspecified diastolic (congestive) heart failure (3) Diabetes Current Visit: No Status: Chronic Assessment and plan: Patient use a high-dose insulin at home. will continue basal, prandial, and a sliding sugar insulin. Adjust dose to get better control. Closely monitor glucose level. Qualifiers: Diabetes mellitus type: type 2 Diabetes mellitus complication status: with kidney complications Diabetes mellitus complication detail: with chronic kidney disease Diabetes mellitus buttermaker continuous churn insulin use: with chcf use Chronic kidney disease stage: stage 3 (moderate) Qualified Code(s): E11.22 - Type 2 diabetes mellitus with diabetic chronic kidney disease; N18.3 - Chronic kidney disease, stage 3 (moderate); Z79.4 - medical terminologist (current) use of insulin (4) CKD (chronic kidney disease) stage 3, GFR 30-59 ml/min Current Visit: No Status: Chronic Assessment and plan: creatinine level is at baseline. (5) Wxgiz-ni-enxwkrz kidney injury Current Visit: No Status: Acute Assessment and plan: creatinine level has improved after hydration. Now is about at baseline (6) Obesity Current Visit: No Status: Acute Assessment and plan: need lifestyle modification Qualifiers: Obesity type: due to excess calories Obesity severity: morbid Qualified Code(s): E66.01 - Morbid (severe) obesity due to excess calories (7) Sleep apnea Current Visit: No Status: Suspected Assessment and plan: continue CPAP during night. continuous pulse oximeter monitoring. Risk for scheduled surgery, needed close monitoring theresa-operatively. Qualifiers: Sleep apnea type: obstructive Qualified Code(s): G47.33 - Obstructive sleep apnea (adult) (pediatric) (8) Ankle fracture, lateral malleolus, closed Current Visit: Yes Status: Acute Assessment and plan: podiatry consult is appreciated. plan for surgery on Thursday Qualifiers: Encounter type: subsequent encounter Fracture alignment: displaced Laterality: right Qualified Code(s): S82.61XD - Displaced fracture of lateral malleolus of right fibula, subsequent encounter for closed fracture with routine healing (9) DVT prophylaxis Current Visit: No Status: Acute Assessment and plan: heparin subcutaneously - Time Spent With Patient 25 - 35 minutes - Subjective Interval history: patient is a 70-year-old male admitted for frequent fall in last 2 weeks. his past medical history is significant for CHF, diabetes, hyperlipidemia, hTN, renal disease. Patient was seen and examined. Mild right ankle pain. Vitals are stable. Patient has a right ankle fracture, plan for surgery on Thursday by podiatry. Hemoglobin increased to 8.9 after transfusion. Diabetes is getting better controlled. EKG reviewed, unremarkable. Medically patient is optimized for surgery. He has history of PRADEEP, need closely monitor pulse oximeter perioperatively. Also need to closely monitor glucose level perioperatively. - Constitutional Vitals: Temp Pulse Resp BP Pulse Ox 98.5 F 68 14 131/54 94 10/02/16 11:20 10/02/16 11:20 10/02/16 11:20 10/02/16 11:20 10/02/16 11:20 General appearance: Present: A&O X 3, morbidly obese, answers questions appropriately - Head Head exam: Present: atraumatic, normocephalic - Eye Eye exam: Present: PERRL, conjuntiva pink, sclera anicteric Pupils: Present: PERRL - Neck Neck exam general surgery: Present: supple, trachea midline. Absent: lymphadenopathy - Respiratory Respiratory exam: Present: CTAB. Absent: accessory muscle use, rales, rhonchi, wheezes - Cardiovascular Cardiovascular exam: Present: RRR, +S1, +S2. Absent: diastolic murmur, gallop, rubs, systolic murmur - GI/Abdominal GI/Abdominal exam: Present: normal bowel sounds, soft, no peritoneal signs. Absent: distended, tenderness - Extremities Exam Extremities exam: Present: warm, radial pulses palpable and symetrical. Absent : calf tenderness, cyanotic, pedal edema Additional comments: Right ankle fixed due to fracture - Neurological Exam Neurological exam: Present: CN II-XII intact, oriented X3, no focal deficits. Absent: pronater drift, facial droop, speech deficit - Skin Skin exam: Present: dry, intact Internal Medicine: Result - Labs CBC & Chem 7: 10/02/16 04:21 10/02/16 04:21 Labs: Short CBC 10/02/16 Range/Units 04:21 WBC 5.4 (4.3-11.1) K/mcL Hgb 8.9 L (12.9-16.9) g/dL Hct 31.7 L (37.5-50.1) % Plt Count 198 (140-400) K/mcL Neutrophils # 3.9 (1.6-8.9) K/mcL BMP 10/02/16 04:21 Sodium 138 Potassium 4.4 Chloride 103 Carbon Dioxide 26 BUN 22 Creatinine 1.32 H Glucose 235 H Calcium 9.2 - ABG Interpretation ABG results: PT/INR, D-dimer PT 12.1 Seconds (9.4-12.1) 09/29/16 07:48 Consult Discharge Plan - Plan Referrals: Storm Bernstein DO [Primary Care Provider] -
--- NOTE | 2016-10-02 19:56 | Anesthesia Evaluation PreOp ---
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 REPAIRER History: Denies Any Significant HX Other Medical History: Renal (CKD stage 3), Diabetes Type II, Other (obesity BMI =42.9) Anesthesia History: No Prior Anesthetic Complications, Past Anesthesia Alcohol Use: rarely Drug use: none Medications and Allergies Albuterol Sulfate [Albuterol Inhaler] 2 puff IH QID PRN 03/14/16 [History] Calcium Carbonate [Calcium] 600 mg PO DAILY 03/14/16 [History] Cholecalciferol (Vitamin D3) [Vitamin D3] 8,000 unit PO DAILY 03/14/16 [History] Eucerin Creme 1 appl TP DAILY PRN 03/14/16 [History] FentaNYL PATCH [Duragesic] 75 mcg TD Q72H 03/14/16 [History] Hydralazine HCl 50 mg PO TID 03/14/16 [History] Omeprazole 20 mg PO DAILY 03/14/16 [History] Oxycodone HCl 10 mg PO Q12H 03/14/16 [History] Pregabalin [Lyrica] 150 mg PO BID 03/14/16 [History] Simvastatin [Zocor] 40 mg PO HS 03/14/16 [History] Isosorbide MONOnitrate (24 HR) [Imdur] 30 mg PO DAILY 30 Days 03/22/16 [Rx] Metoprolol [Lopressor] 100 mg PO BID 30 Days 03/22/16 [Rx] Amitriptyline [Elavil] 25 mg PO HS 08/22/16 [History] Lisinopril [Zestril] 20 mg PO DAILY 08/22/16 [History] Nitroglycerin [Nitrostat] 0.4 mg SL Q5M PRN 08/22/16 [History] Sennosides [Senna] 8.6 mg PO DAILY 08/22/16 [History] Furosemide [Lasix] 80 mg PO DAILY #0 08/23/16 [Rx] Insulin ASPART [NovoLOG] 50 unit SQ TIDWM 09/29/16 [History] Insulin Glargine,Hum.rec.anlog [Edinson Cifuentes] 80 unit SQ BID 09/29/16 [ History] Ipratropium/Albuterol Neb [Duoneb] 3 ml IH Q8HR PRN 09/29/16 [History] Allergies No Known Allergies Allergy (Verified 03/14/16 14:07) - Meds/Allergy Pre-op Review Medications Reviewed: Yes Allergies Reviewed: Yes Beta Blockers on Current Med List: Yes If Beta Blockers taken, Date/Time (Last Dose taken): 10/02/2016 at 2041 Anesthesia Results - Labs 10/02/16 04:21 10/02/16 04:21 - Imaging EKG: report reviewed (09/29/2016 SR) Additional studies: 03/19/2016 Stress technically challenging study due to body habitus EF 58% patchy perfusion uptake on rst and stress VLA images HLA images demonstrate normal rest perfusion. There is a small sized, mild intensity perfusion defect seen in the distal inferior wall. This may represent a small amount of ischemia 03/16/2016 Echo LVEF 65-70% moderate LV diastolic dysfunction mildly dilated RV with normal appearing function severely dilated LA Anesthesia Exam Vital Signs/O2 Sat/Glucose, Most Recent Temp Pulse Resp BP Pulse Ox 98.5 F 68 14 131/54 94 10/02/16 11:20 10/02/16 11:20 10/02/16 11:20 10/02/16 11:20 10/02/16 11:20 Blood Glucose* 267 Height: 6'/1.83 m Weight: 316 lbs/143.39 kg Pain Scale: 6 Pain Scale Used: Numeric (1 - 10) - HEENT Pupil (Motor): EOMI Mallampati: III Teeth: Edentulous Oral Opening: Greater than 3 - MAGNETO REPAIRER LOC: Oriented MAGNETO REPAIRER Motor: Normal RUE, Normal LUE, Normal RLE, Normal LLE, Normal Face MAGNETO REPAIRER Sensory: Normal: Face, Deficit: RUE, LUE, RLE, LLE - Cardiac Rhythm: Regular Murmur: None - Pulmonary Breath Sounds: bilateral Clear Respiratory Effort: Symmetrical Anesthesia Assess/Plan ASA Score: 4 Modified Alyssa Scale for Level of Consciousness: Cooperative, oriented, and tranquil Anesthetic Plan: General, Regional Monitoring Plan: Standard Monitors Recovery Plan: PACU
[2016-10-03] MEDS: *HR* OxyCODONE Immed Rel 5 MG TABLET PO SCH ×3 (00:04→23:20)
[2016-10-03] MEDS: *HR* Heparin 5,000 UNIT/ML VIAL SQ SCH ×3 (00:05→23:22)
[2016-10-03 05:01] LABS: Basophils % 0.4 %; Immature Granulocytes % 0.4 % (0-4)
[2016-10-03 05:02] LABS: Eosinophils # 0.1 K/mcL (0.0-0.6); Eosinophils % 2.6 %; Hematocrit 30.8 % (37.5-50.1); Hemoglobin 8.5 g/dL (12.9-16.9); Lymphocytes % 19.3 %; Mean Corpuscular HGB Conc 27.6 g/dL (31.6-35.5); Mean Corpuscular Hemoglobin 21.4 pg (28.0-33.3); Mean Corpuscular Volume 77.6 fL (83.0-100.0); Mean Platelet Volume 10.6 fL (9.4-12.4); Monocytes # 0.5 K/mcL (0.0-1.3); Neutrophils # 3.7 K/mcL (1.6-8.9); Platelet Count 211 K/mcL (140-400); Red Blood Count 3.97 M/mcL (4.19-5.50); Red Cell Distribution Width 19.7 % (11.5-14.5); Segmented Neutrophils % 68.3 %
[2016-10-03 05:16] LABS: BUN/Creatinine Ratio 16 (6-26); Blood Urea Nitrogen 21 mg/dL (8-26); Calcium 9.1 mg/dL (8.6-10.8); Carbon Dioxide 26 mEq/L (19-29); Chloride 104 mEq/L (98-109); Glucose 198 mg/dL (70-99); Osmolality,Calculated 299 (280-300); Potassium 4.1 mEq/L (3.5-4.5); Sodium 140 mEq/L (136-145); eGFR For African Americans > 60 (> 60); eGFR For Non-African Americans 55 (> 60)
[2016-10-03 05:34] LABS: Anisocytosis 1+ (Not Present); Hypochromasia Present (Not Present); Platelet Estimate Normal (Normal); Poikilocytosis 1+ (Not Present)
[2016-10-03] MEDS ORDERED: *HR* FentaNYL (PF) 100 MCG/2 ML VIAL ONE (08:46)
[2016-10-03] MEDS ORDERED: *HR* Midazolam HCl 2 MG/2 ML VIAL ONE (08:47)
[2016-10-03] MEDS ORDERED: *HR* Propofol 200 MG/20 ML VIAL IVP ONE (08:48)
[2016-10-03] MEDS ORDERED: Lidocaine -MPF 2% 2 ML VIAL ONE (08:49)
[2016-10-03] MEDS: Sennosides 8.6 MG TABLET PO SCH (08:50)
[2016-10-03] MEDS ORDERED: *HR* Succinylcholine 200 MG/10 ML VIAL IVP ONE (08:50)
[2016-10-03] MEDS: Cholecalciferol (D-3) 1,000 UNIT TABLET PO SCH (08:50)
[2016-10-03] MEDS: Pregabalin 75 MG CAPSULE PO SCH ×2 (08:50→20:47)
[2016-10-03] MEDS: hydrALAZINE 25 MG TABLET PO SCH ×2 (08:50→20:48)
[2016-10-03] MEDS: Isosorbide MONOnitrate (24 HR) 30 MG TAB.ER.24H PO SCH (08:50)
[2016-10-03] MEDS: Insulin LISPRO 300 UNITS/3 ML VIAL SQ SCH ×7 (08:52→20:49)
[2016-10-03] MEDS: Insulin DETEMIR 100 UNIT/ML X5UNITS SQ SCH ×2 (08:54→20:51)
[2016-10-03] MEDS ORDERED: Ondansetron 4 MG/2 ML VIAL ONE (08:57)
[2016-10-03] MEDS ORDERED: Dexamethasone 4 MG/ML VIAL ONE (08:57)
[2016-10-03] MEDS ORDERED: Propofol 500 MG/50 ML INFUS..BTL ONE (09:02)
[2016-10-03] MEDS ORDERED: Ketorolac 30 MG/ML VIAL ONE (09:12)
--- NOTE | 2016-10-03 12:06 | Podiatry Progress Note ---
Date of Encounter: 10/03/16 Time of Encounter: 12:04 - Assessment and Plan (1) Lisfranc dislocation Current Visit: Yes Status: Acute patient has been medically cleared. proceed as planned. Qualifiers: Qualified Code(s): S93.324D - Dislocation of tarsometatarsal joint of right foot, subsequent encounter (2) Ankle fracture, lateral malleolus, closed Current Visit: Yes Status: Acute patient has been medically cleared. proceed as planned risks vs benefits potential complications and consequences of the procedure were discussed with the patient again today including but not limited to infection, bleeding, swelling, numbness, tingling, pain, arthritis, blood clot, heart attack, loss of limb, loss of life, delayed or non-healing of bone or wound, pneumonia, need for further surgery. all questions were answered. informed consent was signed for all procedures. Qualifiers: Encounter type: subsequent encounter Fracture alignment: displaced Laterality: right Qualified Code(s): S82.61XD - Displaced fracture of lateral malleolus of right fibula, subsequent encounter for closed fracture with routine healing Subjective Interval history: brought to OR. denies f/c/n/v/sob/cp. Objective - Vital Signs Vital Signs: Vital Signs Temp Pulse Resp BP Pulse Ox 10/03/16 10:28 98.2 F 61 19 122/62 96 10/03/16 07:58 98.1 F 74 20 162/72 10/03/16 07:07 98.1 F 74 20 162/72 95 10/03/16 03:37 98.7 F 70 22 155/66 98 10/03/16 01:00 95 10/02/16 21:52 98.7 F 87 14 164/70 94 Intake and Output 10/02/16 10/03/16 10/03/16 23:59 07:59 15:59 Intake Total 240 / 240 0 / 0 0 / 0 Output Total 300 / 300 525 / 525 475 / 475 Balance -60 / -60 -525 / -525 -475 / -475 Intake: Oral 240 / 240 0 / 0 0 / 0 Output: Urine 300 / 300 525 / 525 475 / 475 Other: Meal Dinner NPO Percent of Meal Consumed 100% Stool Size Large Stool Consistency soft Stool Color Brown # Bowel Movements 1 Weight 143.4 kg Blood Glucose* 194 220 Patient Weight 10/03/16 23:59 Weight 143.4 kg - Exam Exam: unchanged from previous. AOx3. - Lab Result Diagrams: 10/03/16 03:30 10/03/16 03:30 Labs: Abnormal lab results RBC 3.97 M/mcL (4.19-5.50) L 10/03/16 03:30 Hgb 8.5 g/dL (12.9-16.9) L 10/03/16 03:30 Hct 30.8 % (37.5-50.1) L 10/03/16 03:30 MCV 77.6 fL (83.0-100.0) L 10/03/16 03:30 MCH 21.4 pg (28.0-33.3) L 10/03/16 03:30 MCHC 27.6 g/dL (31.6-35.5) L 10/03/16 03:30 RDW 19.7 % (11.5-14.5) H 10/03/16 03:30 Reactive Lymphocytes Present (Not Present) A 10/02/16 04:21 Polychromasia 2+ (Not Present) A 10/02/16 04:21 Hypochromasia Present (Not Present) A 10/03/16 03:30 Poikilocytosis 1+ (Not Present) A 10/03/16 03:30 Basophilic Stippling 1+ (Not Present) A 09/29/16 07:48 Anisocytosis 1+ (Not Present) A 10/03/16 03:30 Microcytosis Present (Not Present) A 10/02/16 04:21 Creatinine 1.29 mg/dL (0.72-1.25) H 10/03/16 03:30 Est GFR (Non-Af Amer) 55 (> 60) L 10/03/16 03:30 Glucose 198 mg/dL (70-99) H 10/03/16 03:30 POC Glucose 220 (58-89) H 10/03/16 11:11 Hemoglobin A1c 11.5 % (-5.6) H 09/30/16 04:10 Albumin 3.1 g/dL (3.5-5.0) L 09/29/16 07:48 Globulin 4.2 g/dL (2.4-3.5) H 09/29/16 07:48 Albumin/Globulin Ratio 0.7 (1.1-2.2) L 09/29/16 07:48 Beta-Hydroxybutyric Acd 0.32 mmol/L (0.02-0.27) H 09/29/16 07:48 TSH 6.495 mcIU/mL (0.350-4.840) H 10/01/16 05:17 Urine Clarity Cloudy (Clear) A 09/29/16 07:59 Urine Glucose (UA) >=1000 mg/dL (Normal) H 09/29/16 07:59 Urine Nitrite Positive (Negative) A 09/29/16 07:59 Ur Leukocyte Esterase Large (Negative) H 09/29/16 07:59 Urine Microscopic RBC 3-5 per hpf (0-3) H 09/29/16 07:59 Urine Microscopic WBC TNTC per hpf (0-3) H 09/29/16 07:59 Ur Squamous Epith Cells Many per lpf (None-Few) H 09/29/16 07:59 Urine Bacteria Moderate per hpf (None-Few) H 09/29/16 07:59 Consult Discharge Plan - Plan Referrals: Storm Bernstein DO [Primary Care Provider] -
[2016-10-03] MEDS ORDERED: Bupivacaine/EPI 1:200k 0.25%PF 30 ML VIAL ONE (12:08)
[2016-10-03] MEDS ORDERED: ROPIVACAINE HCL/PF 0.5% 30 ML VIAL ONE ×2 (12:13→12:49)
[2016-10-03] MEDS ORDERED: 0.9 % Sodium Chloride 1,000 ML IVC SCH (14:00)
--- NOTE | 2016-10-03 14:01 | Internal Med Progress Note ---
Date of Encounter: 10/03/16 Time of Encounter: 10:00 - Assessment and plan (1) Frequent falls Current Visit: Yes Status: Acute Assessment and plan: Patient denies loss of consciousness. CAT scan of head negative. He has a mild elevated TSH, possibly subclinical hypothyroidism, will recommend repeat TSH in 6 weeks. vitamin B12 and folic acid are WNL. VDRL is pending. (2) Congestive heart failure Current Visit: No Status: Acute Assessment and plan: stable. No signs of exacerbation Qualifiers: Congestive heart failure type: diastolic Congestive heart failure chronicity: unspecified congestive heart failure chronicity Qualified Code(s) : I50.30 - Unspecified diastolic (congestive) heart failure (3) Diabetes Current Visit: No Status: Chronic Assessment and plan: Patient use a high-dose insulin at home. will continue basal, prandial, and a sliding sugar insulin. Adjust dose to get better control. Closely monitor glucose level. 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 (5) [id number] kidney injury Current Visit: No Status: Acute Assessment and plan: creatinine level has improved after hydration. Now is about at baseline (6) Obesity Current Visit: No Status: Acute Assessment and plan: need lifestyle modification Qualifiers: Obesity type: due to excess calories Obesity severity: morbid Qualified Code(s): E66.01 - Morbid (severe) obesity due to excess calories (7) Sleep apnea Current Visit: No Status: Suspected Assessment and plan: continue CPAP during night. continuous pulse oximeter monitoring. Risk for scheduled surgery, needed close monitoring theresa-operatively. Qualifiers: Sleep apnea type: obstructive Qualified Code(s): G47.33 - Obstructive sleep apnea (adult) (pediatric) (8) Ankle fracture, lateral malleolus, closed Current Visit: Yes Status: Acute Assessment and plan: podiatry consult is appreciated. plan for surgery today Qualifiers: Encounter type: subsequent encounter Fracture alignment: displaced Laterality: right Qualified Code(s): S82.61XD - Displaced fracture of lateral malleolus of right fibula, subsequent encounter for closed fracture with routine healing (9) DVT prophylaxis Current Visit: No Status: Acute Assessment and plan: heparin subcutaneously - Time Spent With Patient 25 - 35 minutes - Subjective Interval history: patient is a 70-year-old male admitted for frequent fall in last 2 weeks. his past medical history is significant for CHF, diabetes, hyperlipidemia, hTN, renal disease. Patient was seen and examined. Mild right ankle pain. Vitals are stable. Patient has a right ankle fracture, plan for surgery today. - Constitutional Vitals: Temp Pulse Resp BP Pulse Ox 98.2 F 61 19 122/62 96 10/03/16 10:28 10/03/16 10:28 10/03/16 10:28 10/03/16 10:28 10/03/16 10:28 General appearance: Present: A&O X 3, morbidly obese, answers questions appropriately - Head Head exam: Present: atraumatic, normocephalic - Eye Eye exam: Present: PERRL, conjuntiva pink, sclera anicteric Pupils: Present: PERRL - Neck Neck exam general surgery: Present: supple, trachea midline. Absent: lymphadenopathy - Respiratory Respiratory exam: Present: CTAB. Absent: accessory muscle use, rales, rhonchi, wheezes - Cardiovascular Cardiovascular exam: Present: RRR, +S1, +S2. Absent: diastolic murmur, gallop, rubs, systolic murmur - GI/Abdominal GI/Abdominal exam: Present: normal bowel sounds, soft, no peritoneal signs. Absent: distended, tenderness - Extremities Exam Extremities exam: Present: warm, radial pulses palpable and symetrical. Absent : calf tenderness, cyanotic, pedal edema - Neurological Exam Neurological exam: Present: CN II-XII intact, oriented X3, no focal deficits. Absent: pronater drift, facial droop, speech deficit - Skin Skin exam: Present: dry, intact Internal Medicine: Result - Labs CBC & Chem 7: 10/03/16 03:30 10/03/16 03:30 Labs: Short CBC 10/03/16 Range/Units 03:30 WBC 5.4 (4.3-11.1) K/mcL Hgb 8.5 L (12.9-16.9) g/dL Hct 30.8 L (37.5-50.1) % Plt Count 211 (140-400) K/mcL Neutrophils # 3.7 (1.6-8.9) K/mcL BMP 10/03/16 03:30 Sodium 140 Potassium 4.1 Chloride 104 Carbon Dioxide 26 BUN 21 Creatinine 1.29 H Glucose 198 H Calcium 9.1 - ABG Interpretation ABG results: PT/INR, D-dimer PT 12.1 Seconds (9.4-12.1) 09/29/16 07:48 - Impressions Impressions Ankle X-Ray 10/02/16 16:28 IMPRESSION: No acute osseous abnormality of the left ankle. Soft tissue swelling is unchanged. D/ / Lanre Bee MD / Lanre Bee MD Interpreting Provider: Lanre Bee MD Consult Discharge Plan - Plan Referrals: Storm Bernstein DO [Primary Care Provider] -
--- NOTE | 2016-10-03 15:48 | Orthopedic Operative Note ---
Date of procedure: 10/03/16 Pre-op diagnosis: right foot dislocation 1st TMT, displaced ankle fracture Post-op diagnosis: same Procedure: 10/03/16 15:47 right ankle ORIF, midfoot capsulotomy, 1st Tarsometatarsal joint fusion Surgeon: Ishmael Miles Estimated blood loss (cc): 25 Specimen: none Condition: stable Disposition: PACU
[2016-10-03] MEDS ORDERED: Ipratropium/Albuterol Neb 3 ML IH PRN (16:27)
[2016-10-03] MEDS ORDERED: Eucerin Cream 57 GM TUBE TP PRN (16:27)
[2016-10-03] MEDS ORDERED: Ondansetron 4 MG/2 ML VIAL IVP PRN (16:27)
[2016-10-03] MEDS ORDERED: Naloxone 0.4 MG/ML INJ IVP PRN (16:27)
[2016-10-03] MEDS ORDERED: D5% in Water 1,000 ML IVC PRN (16:27)
[2016-10-03] MEDS ORDERED: Nitroglycerin 0.4 MG TAB.SUBL SL PRN (16:27)
[2016-10-03] MEDS ORDERED: *HR* Dextrose 50 % in Water (Syg) 50 ML SYRINGE IVP PRN (16:27)
[2016-10-03] MEDS ORDERED: Dextrose Gel 15 GM PO PRN ×2 (16:27)
[2016-10-03] MEDS ORDERED: Acetaminophen 325 MG TABLET PO PRN (16:27)
--- NOTE | 2016-10-03 16:36 | Operative Note ---
Date of procedure: 10/03/16 Pre-op diagnosis: right foot dislocated 1st TMT joint, right displaced ankle fracture Post-op diagnosis: same Procedure: right ankle ORIF, midfoot capsulotomy, 1st tarsometatarsal joint fusion, injection of PRP Implants: [employer] fibula locking plate with 3.5mm locking and non-locking screws, 3.5mm solid lag screw [employer] locking plate with 3.5mm locking and non-locking screws 4.5mm cannulated partially threaded screw Complications: none Anesthesia: GETA Surgeon: Ishmael Miles Estimated blood loss (cc): 25 Specimen: none Condition: stable Disposition: PACU Procedure in Detail: Indications: This is a 70-year-old diabetic male with neuropathy who sustained a fall approximately 2 weeks ago sustaining a right ankle fracture and first tarsometatarsal dislocation. He sustained a second fall approximately 5 days ago and was admitted to the hospital. X-rays of his right ankle showed increased displacement of the right ankle fracture zone and increased medial clear space more than 1 mm compared to previous. He was cleared medically and stable to proceed with surgery including the above. Procedures discussed at length with patient and his family member bedside. Risks versus benefits potential complications and consequences of surgery discussed with the patient. No guarantees made as to the outcome of any procedure. All questions answered and the informed consent had been signed. The patient was given a popliteal block. The patient was taken from the preoperative holding area into the operating room placed on the operating room table in the supine position. The right lower extremity was scrubbed prepped and draped in the usual sterile fashion. A high thigh tourniquet was applied to the right lower extremity inflated to 300 mmHg. The following procedures then began. Right ankle ORIF. Attention was directed to the lateral aspect of the patient s right ankle where a #15 blade was used to make an incision over the fibula approximately 8 cm in length. Skin incision was deepened through blunt dissection care was taken to avoid all neurovascular tendinous structures. The periosteum was then incised and reflected from the fibula exposing the displaced right ankle fracture. The fibula fracture site hematoma was then evacuated and bone curet used to freshen the ends of the fracture zone. There was bleeding bone present. At this time the reduction clamp was used to reduce the fracture. Position and alignment was confirmed with intraoperative fluoroscopy. The fibula was noted to be out to length and talus well aligned and the ankle mortise. It was also good tib-fib overlap. Next using standard technique a [employer] 3.5 mm lag screw was thrown using standard technique perpendicular to the fracture zone of the fibula. Next the [employer] locking plate with 3.5 mm locking locking was applied to the lateral aspect of the fibula with screws and 3.5mm locking and non-locking screws inserted with the ankle joint in a neutral position, two screws were thrown tib-pro-fib due to the patients neuropathic condition and history of noncompliance to weightbearing course. C-arm was used to confirm good position and alignment with reduction of the fracture zone. Intra-operative c-arm showed reduction of the medial clearspace was within normal limits. Surgical site was then flushed with copious amounts of normal sterile saline and closure performed in the deep and subcutaneous tissues with 2-0 Vicryl and vini used to reapproximate the skin. PRP was injected into the lateral ankle and fracture zone. Midfoot capsulotomy and fusion of the first tarsometatarsal joint. Attention was then directed to the patients right midfoot where a dislocated right first tarsometatarsal joint was present. Skin incision was made over the first tarsometatarsal joint approximately 5 cm in length. Skin incision was deepened through sharp and blunt dissection care was taken to avoid all neurovascular tendinous structures. All traversing veins were divided and ligated as deemed appropriate with the Bovie. Once down to the level of the midfoot joint, the capsule was incised and a portion resected of the capsule to be able to reduce the first tarsometatarsal joint into alignment with the medial cuneiform. At this time using a combination of bone curettes and osteotomes cartilage was removed from the first metatarsal and cuneiform joint and the osteotome was used to fenestrate past the subchondral bone in a fish scale technique and K wire was also used to fenestrate the joint. PRP was injected into the fusion zone. The surgical site was then held in a reduced position and good apposition held with a k-wire and a [employer] 4.5 mm cannulated partially threaded screw was then inserted from the drosal first metatarsal into the cuneiform traversing the fusion zone with threads capture the proximal plantar end of the medial cuneiform. C-arm was used to confirm position and alignment and that all threads were past the fusion zone. Clinically, there was excellent compression across the fusion zone was noted and there was no space that could be filled with bone graft. Next a [employer] locking plate was applied to the dorsomedial aspect of the right first tarsometatarsal joint with 3.5mm locking and non-locking screws. Excellent compression was noted. C-arm was used to confirm position and alignment intra-operatively and the proximal screws were clear of the 2nd tarsometatarsal joint. The surgical site was flushed with copious amounts of normal sterile saline. Deep and subcutaneous tissues were closed with 2-0 Vicryl and the skin was reapproximated with vini. Postoperative bandaging included Xeroform, 4 x 4 gauze, abdominal pad , Kerlix and the patient was placed in a adequately padded posterior splint. Patient tolerated the anesthesia and the procedure well and was escorted to recovery room with vital signs stable and vascular status intact to the right foot noted by instant capillary refill time to all digits of the right foot. Patient instructed first direct nonweight bearing to the right foot. He will return to the floor when cleared to leave PACU. Patient will follow-up in one week.
[2016-10-03] MEDS ORDERED: *HR* FentaNYL PATCH 75 MCG PATCH TD SCH (21:22)
[2016-10-04 03:55] LABS: Hemoglobin 8.7 g/dL (12.9-16.9); Immature Granulocytes % 0.5 % (0-4); Red Cell Distribution Width 19.7 % (11.5-14.5)
[2016-10-04 03:56] LABS: Hematocrit 30.6 % (37.5-50.1); Lymphocytes # 0.6 K/mcL (0.6-4.6); Lymphocytes % 6.9 %; Mean Corpuscular HGB Conc 28.4 g/dL (31.6-35.5); Mean Corpuscular Hemoglobin 22.2 pg (28.0-33.3); Mean Corpuscular Volume 78.1 fL (83.0-100.0); Mean Platelet Volume 11.2 fL (9.4-12.4); Monocytes # 0.2 K/mcL (0.0-1.3); Monocytes % 2.8 %; Neutrophils # 7.3 K/mcL (1.6-8.9); Platelet Count 217 K/mcL (140-400); Red Blood Count 3.92 M/mcL (4.19-5.50); Segmented Neutrophils % 89.8 %
[2016-10-04 04:17] LABS: BUN/Creatinine Ratio 14 (6-26); Blood Urea Nitrogen 20 mg/dL (8-26); Calcium 8.9 mg/dL (8.6-10.8); Carbon Dioxide 24 mEq/L (19-29); Chloride 103 mEq/L (98-109); Glucose 369 mg/dL (70-99); Osmolality,Calculated 300 (280-300); Potassium 4.9 mEq/L (3.5-4.5); Sodium 136 mEq/L (136-145); eGFR For African Americans > 60 (> 60); eGFR For Non-African Americans 50 (> 60)
[2016-10-04 04:35] LABS: Anisocytosis 1+ (Not Present)
[2016-10-04 04:36] LABS: Hypochromasia Present (Not Present); Large Platelets Present (Not Present); Microcytosis Present (Not Present); Platelet Estimate Normal (Normal); Polychromasia 1+ (Not Present)
[2016-10-04] MEDS: hydrALAZINE 25 MG TABLET PO SCH ×3 (08:27→20:40)
[2016-10-04] MEDS: Pregabalin 75 MG CAPSULE PO SCH ×2 (08:27→20:39)
[2016-10-04] MEDS: *HR* Heparin 5,000 UNIT/ML VIAL SQ SCH ×3 (08:27→23:16)
[2016-10-04] MEDS: Isosorbide MONOnitrate (24 HR) 30 MG TAB.ER.24H PO SCH (08:28)
[2016-10-04] MEDS: Cholecalciferol (D-3) 1,000 UNIT TABLET PO SCH (08:28)
[2016-10-04] MEDS: Sennosides 8.6 MG TABLET PO SCH (08:28)
[2016-10-04] MEDS: Insulin LISPRO 300 UNITS/3 ML VIAL SQ SCH ×7 (08:29→20:45)
[2016-10-04] MEDS: Insulin DETEMIR 100 UNIT/ML X5UNITS SQ SCH ×2 (08:31→20:46)
--- NOTE | 2016-10-04 10:47 | Podiatry Progress Note ---
Date of Encounter: 10/04/16 Time of Encounter: 10:43 - Assessment and Plan (1) Lisfranc dislocation Current Visit: Yes Status: Acute c/w non-wb R LE. f/u physical therapy. OOB to chair with assistance only. elevation. pain controlled with medication. c/w current regimine. awaiting ECF placement. Qualifiers: Qualified Code(s): S93.324D - Dislocation of tarsometatarsal joint of right foot, subsequent encounter (2) Ankle fracture, lateral malleolus, closed Current Visit: Yes Status: Acute c/w non-weight bearing right LE. elevation. f/u physical therapy. pain controlled. c/w current regimine. patient has fell multiple times in the past couple weeks which resulted in fracture dislocations and remains high risk for recurrent falls after his surgery as he is non-wb to the right LE. more falls could result in disruption of surgery or more injuries both of which could necessitate more surgery. awaiting ECF placement. he does have right calf pain with squeeze and I did order a venous doppler to look for a DVT. c/w DVT ppx for now and will treat accordingly. discussed blood sugar management with Dr. Sanders. discussed with patient and encouraged glycemic control. discussed high blood sugar increases potential risks and complications. He will follow up in my office after discharge. Qualifiers: Encounter type: subsequent encounter Fracture alignment: displaced Laterality: right Qualified Code(s): S82.61XD - Displaced fracture of lateral malleolus of right fibula, subsequent encounter for closed fracture with routine healing Subjective Interval history: day #1 s/p right ankle ORIF, midfoot capsulotomy, and 1st tarsometatarsal fusion. says pain is controlled. denies f/c/n/v/sob/cp. no falls or accidents. Objective - Vital Signs Vital Signs: Vital Signs Temp Pulse Resp BP Pulse Ox 10/04/16 07:46 98 F 69 16 158/71 95 10/04/16 03:29 97.2 F L 84 18 152/67 97 10/03/16 23:30 98.3 F 74 18 164/68 94 10/03/16 20:45 98.4 F 86 12 117/56 92 10/03/16 19:40 97.5 F L 86 16 132/69 94 10/03/16 19:29 98.1 F 87 16 147/65 93 10/03/16 18:36 97.3 F L 74 16 179/66 10/03/16 17:57 97.3 F L 83 16 165/62 10/03/16 17:21 97.9 F 77 16 181/65 96 10/03/16 16:23 97.2 F L 79 14 140/77 94 10/03/16 16:13 97.2 F L 78 16 156/61 95 10/03/16 16:03 71 16 150/63 97 10/03/16 15:53 80 18 161/89 93 10/03/16 15:43 97.5 F L 80 20 157/81 97 Intake and Output 10/03/16 10/04/16 10/04/16 23:59 07:59 15:59 Intake Total 120 / 120 0 / 0 Output Total 1200 / 1200 955 / 955 Balance -1080 / -1080 -955 / -955 Intake: Oral 120 / 120 0 / 0 Output: Urine 1200 / 1200 955 / 955 Other: Meal Dinner Percent of Meal Consumed 75% Weight 143.4 kg Blood Glucose* 367 373 Patient Weight 10/04/16 23:59 Weight 143.4 kg - Exam Exam: well developed obese male in no acute distress posterior splint clean, dry, and intact. CFT < 3 sec x 5 digits b/l. toes are warm to touch. can flex and extend digits of the right foot. there is some calf pain with squeeze on the right. absent sensation consistent with pre-operative evaluation and neuropathy. - Lab Result Diagrams: 10/04/16 03:11 10/04/16 03:11 Labs: Abnormal lab results RBC 3.92 M/mcL (4.19-5.50) L 10/04/16 03:11 Hgb 8.7 g/dL (12.9-16.9) L 10/04/16 03:11 Hct 30.6 % (37.5-50.1) L 10/04/16 03:11 MCV 78.1 fL (83.0-100.0) L 10/04/16 03:11 MCH 22.2 pg (28.0-33.3) L 10/04/16 03:11 MCHC 28.4 g/dL (31.6-35.5) L 10/04/16 03:11 RDW 19.7 % (11.5-14.5) H 10/04/16 03:11 Reactive Lymphocytes Present (Not Present) A 10/02/16 04:21 Large Platelets Present (Not Present) A 10/04/16 03:11 Polychromasia 1+ (Not Present) A 10/04/16 03:11 Hypochromasia Present (Not Present) A 10/04/16 03:11 Poikilocytosis 1+ (Not Present) A 10/03/16 03:30 Basophilic Stippling 1+ (Not Present) A 09/29/16 07:48 Anisocytosis 1+ (Not Present) A 10/04/16 03:11 Microcytosis Present (Not Present) A 10/04/16 03:11 Potassium 4.9 mEq/L (3.5-4.5) H 10/04/16 03:11 Creatinine 1.41 mg/dL (0.72-1.25) H 10/04/16 03:11 Est GFR (Non-Af Amer) 50 (> 60) L 10/04/16 03:11 Glucose 369 mg/dL (70-99) H 10/04/16 03:11 POC Glucose 373 (58-89) H 10/04/16 07:42 Hemoglobin A1c 11.5 % (-5.6) H 09/30/16 04:10 Albumin 3.1 g/dL (3.5-5.0) L 09/29/16 07:48 Globulin 4.2 g/dL (2.4-3.5) H 09/29/16 07:48 Albumin/Globulin Ratio 0.7 (1.1-2.2) L 09/29/16 07:48 Beta-Hydroxybutyric Acd 0.32 mmol/L (0.02-0.27) H 09/29/16 07:48 TSH 6.495 mcIU/mL (0.350-4.840) H 10/01/16 05:17 Urine Clarity Cloudy (Clear) A 09/29/16 07:59 Urine Glucose (UA) >=1000 mg/dL (Normal) H 09/29/16 07:59 Urine Nitrite Positive (Negative) A 09/29/16 07:59 Ur Leukocyte Esterase Large (Negative) H 09/29/16 07:59 Urine Microscopic RBC 3-5 per hpf (0-3) H 09/29/16 07:59 Urine Microscopic WBC TNTC per hpf (0-3) H 09/29/16 07:59 Ur Squamous Epith Cells Many per lpf (None-Few) H 09/29/16 07:59 Urine Bacteria Moderate per hpf (None-Few) H 09/29/16 07:59 Consult Discharge Plan - Plan Referrals: Storm Bernstein DO [Primary Care Provider] -
--- NOTE | 2016-10-04 13:40 | Internal Med Progress Note ---
Date of Encounter: 10/04/16 Time of Encounter: 09:00 - Assessment and plan (1) Frequent falls Current Visit: Yes Status: Acute Assessment and plan: Patient denies loss of consciousness. CAT scan of head negative. He has a mild elevated TSH (very mild with age correction), possibly subclinical hypothyroidism, will recommend repeat TSH in 6 weeks. vitamin B12 and folic acid are WNL. VDRL negative. (2) Congestive heart failure Current Visit: No Status: Acute Assessment and plan: stable. No signs of exacerbation Qualifiers: Congestive heart failure type: diastolic Congestive heart failure chronicity: unspecified congestive heart failure chronicity Qualified Code(s) : I50.30 - Unspecified diastolic (congestive) heart failure (3) Diabetes Current Visit: No Status: Chronic Assessment and plan: Patient use a high-dose insulin at home. will continue basal, prandial, and a sliding sugar insulin. Adjust dose to get better control. Closely monitor glucose level. Qualifiers: Diabetes mellitus type: type 2 Diabetes mellitus complication status: with kidney complications Diabetes mellitus complication detail: with chronic kidney disease Diabetes mellitus termite inspector insulin use: with termite inspector use Chronic kidney disease stage: stage 3 (moderate) Qualified Code(s): E11.22 - Type 2 diabetes mellitus with diabetic chronic kidney disease; N18.3 - Chronic kidney disease, stage 3 (moderate); Z79.4 - shelter (current) use of insulin (4) CKD (chronic kidney disease) stage 3, GFR 30-59 ml/min Current Visit: No Status: Chronic Assessment and plan: creatinine level is at baseline. (5) Oxxda-pp-uvdixgr kidney injury Current Visit: No Status: Acute Assessment and plan: creatinine level has improved after hydration. Now is about at baseline (6) Obesity Current Visit: No Status: Acute Assessment and plan: need lifestyle modification Qualifiers: Obesity type: due to excess calories Obesity severity: morbid Qualified Code(s): E66.01 - Morbid (severe) obesity due to excess calories (7) Sleep apnea Current Visit: No Status: Suspected Assessment and plan: continue CPAP during night. continuous pulse oximeter monitoring. Qualifiers: Sleep apnea type: obstructive Qualified Code(s): G47.33 - Obstructive sleep apnea (adult) (pediatric) (8) Ankle fracture, lateral malleolus, closed Current Visit: Yes Status: Acute Assessment and plan: podiatry consult is appreciated. s/p SURGERY. Continue pain management and PT/OT Qualifiers: Encounter type: subsequent encounter Fracture alignment: displaced Laterality: right Qualified Code(s): S82.61XD - Displaced fracture of lateral malleolus of right fibula, subsequent encounter for closed fracture with routine healing (9) DVT prophylaxis Current Visit: No Status: Acute Assessment and plan: heparin subcutaneously - Subjective Interval history: patient is a 70-year-old male admitted for frequent fall in last 2 weeks. his past medical history is significant for CHF, diabetes, hyperlipidemia, hTN, renal disease. Patient was seen and examined. Had surgery yesterday. Vitals are stable. No pain (blockade placed by anesthesiologist). Continue insulin for DM control. - Constitutional Vitals: Temp Pulse Resp BP Pulse Ox 97.3 F L 72 18 137/57 96 10/04/16 11:51 10/04/16 11:51 10/04/16 11:51 10/04/16 11:51 10/04/16 11:51 General appearance: Present: A&O X 3, morbidly obese, answers questions appropriately - Head Head exam: Present: atraumatic, normocephalic - Eye Eye exam: Present: PERRL, conjuntiva pink, sclera anicteric Pupils: Present: PERRL - Neck Neck exam general surgery: Present: supple, trachea midline. Absent: lymphadenopathy - Respiratory Respiratory exam: Present: CTAB. Absent: accessory muscle use, rales, rhonchi, wheezes - Cardiovascular Cardiovascular exam: Present: RRR, +S1, +S2. Absent: diastolic murmur, gallop, rubs, systolic murmur - GI/Abdominal GI/Abdominal exam: Present: normal bowel sounds, soft, no peritoneal signs. Absent: distended, tenderness - Extremities Exam Extremities exam: Present: warm, radial pulses palpable and symetrical. Absent : calf tenderness, cyanotic, pedal edema - Neurological Exam Neurological exam: Present: CN II-XII intact, oriented X3, no focal deficits. Absent: pronater drift, facial droop, speech deficit - Skin Skin exam: Present: dry, intact Internal Medicine: Result - Labs CBC & Chem 7: 10/04/16 03:11 10/04/16 03:11 Labs: Short CBC 10/04/16 Range/Units 03:11 WBC 8.1 (4.3-11.1) K/mcL Hgb 8.7 L (12.9-16.9) g/dL Hct 30.6 L (37.5-50.1) % Plt Count 217 (140-400) K/mcL Neutrophils # 7.3 (1.6-8.9) K/mcL BMP 10/04/16 03:11 Sodium 136 Potassium 4.9 H Chloride 103 Carbon Dioxide 24 BUN 20 Creatinine 1.41 H Glucose 369 H Calcium 8.9 - ABG Interpretation ABG results: PT/INR, D-dimer PT 12.1 Seconds (9.4-12.1) 09/29/16 07:48 - Impressions Impressions Ankle X-Ray 09/29/16 15:11 IMPRESSION: 1. Again noted is an oblique traumatic fracture of the distal fibula with slightly increased displacement. 2. Questionable mild lateral subluxation of the 1st TMT and 2nd TMT joints. Disruption of the Lisfranc interval cannot be excluded. Otherwise stable appearance of the right ankle and right foot since 09/21/2016. D/ / 09/29/2016 16:04:00 Nicolle Casanova MD / semaj Interpreting Provider: Nicolle Casanova MD Foot X-Ray 09/29/16 15:11 IMPRESSION: 1. Again noted is an oblique traumatic fracture of the distal fibula with slightly increased displacement. 2. Questionable mild lateral subluxation of the 1st TMT and 2nd TMT joints. Disruption of the Lisfranc interval cannot be excluded. Otherwise stable appearance of the right ankle and right foot since 09/21/2016. D/ / 09/29/2016 16:04:00 Nicolle Casanova MD / semaj Interpreting Provider: Nicolle Casanova MD Fluoroscopy 10/03/16 13:22 IMPRESSION: Intraprocedural fluoroscopic spot images as above. See separate procedure report for more information. D/ / 10/03/2016 17:01:56 Immanuel Bryson MD / michael Interpreting Provider: Immanuel Bryson MD Fluoroscopy 10/03/16 13:22 IMPRESSION: Intraprocedural fluoroscopic spot images as above. See separate procedure report for more information. D/ / 10/03/2016 17:01:56 Immanuel Bryson MD / michael Interpreting Provider: Immanuel Bryson MD Ankle X-Ray 10/03/16 15:48 IMPRESSION: Postoperative changes fibular fracture fixation and 1st tarsometatarsal joint fixation. No acute complication identified. D/ / 10/03/2016 17:25:53 Jose Hernandez MD / [email or web address] Interpreting Provider: Jose Hernandez MD Foot X-Ray 10/03/16 15:48 IMPRESSION: Postsurgical changes from interval fixation of 1st TMT joint as well as a fixation screw from the 1st metatarsal to the middle cuneiform. D/ / 10/03/2016 17:20:58 Nicolle Casanova MD / michael Interpreting Provider: Nicolle Casanova MD Consult Discharge Plan - Plan Referrals: Storm Bernstein DO [Primary Care Provider] -
[2016-10-04] MEDS: *HR* OxyCODONE Immed Rel 5 MG TABLET PO SCH ×2 (14:36→23:15)
--- NOTE | 2016-10-04 17:29 | Venous Imaging Report ---
LE Venous Duplex Patient Name:Darrick Hammond Order Number:[id number] Procedure Date:10/04/2016 Date:1945ge:70 yrs Gender:Male Location:[facility] Room #: 3A21 Senior Network Systems Engineer:Carlyn Juarezrony Referring MD:Ishmael Miles DPM executive director of nursing:Storm Bernstein DO Reading MD:Job Palacio MD Primary Indications:calf pain Secondary Indications: Risk Factors Yes/No Anticoagulants Yes Impressions: Right lower extremity: normal superficial and deep exam. Recommendations: After imaging the patient returned to their room. Findings Venous Duplex Results: Right: Venous imaging of the lower extremity reveals full patency and normal vessel compressibility of the right distal iliac, right common femoral, right superficial femoral, right popliteal, right proximal posterior tibial, right proximal peroneal, right great saphenous and right lesser saphenous. Doppler signals in the evaluated veins were normal. Left: Venous imaging of the lower extremity reveals full patency and normal vessel compressibility of the left common femoral. Doppler signals in the evaluated veins were normal. Prior Study: No prior study available for comparison. Lower Extremity Venous Duplex Side Vein Compress Spontaneous Flow Augment Diameter (cm) Depth (cm) Right Distal Iliac Normal Yes Phasic Yes Right Common Femoral Normal Yes Phasic Yes Right Superficial Femoral Normal Yes Phasic Yes Right Popliteal Normal Yes Phasic Yes Right Posterior Tibial Normal Yes Phasic Yes Right Peroneal Normal Yes Phasic Yes Right Great Saphenous Normal Yes Phasic Yes Right Lesser Saphenous Normal Yes Phasic Yes Left Common Femoral Normal Yes Phasic Yes Updated by Job Palacio MD on 10/04/2016 5:25:18 PM electronically signed on 10/04/2016 5:25:29 PM with status of Final
[2016-10-05 04:59] LABS: Basophils % 0.3 %; Eosinophils % 0.4 %; Hematocrit 30.6 % (37.5-50.1); Hemoglobin 8.4 g/dL (12.9-16.9); Immature Granulocytes % 0.4 % (0-4); Lymphocytes # 1.3 K/mcL (0.6-4.6); Lymphocytes % 18.1 %; Mean Corpuscular HGB Conc 27.5 g/dL (31.6-35.5); Mean Corpuscular Hemoglobin 21.9 pg (28.0-33.3); Mean Corpuscular Volume 79.9 fL (83.0-100.0); Monocytes # 0.6 K/mcL (0.0-1.3); Monocytes % 7.7 %; Platelet Count 220 K/mcL (140-400); Red Blood Count 3.83 M/mcL (4.19-5.50); Segmented Neutrophils % 73.1 %
[2016-10-05 05:00] LABS: Neutrophils # 5.3 K/mcL (1.6-8.9)
[2016-10-05 05:13] LABS: Calcium 8.7 mg/dL (8.6-10.8); Potassium 4.5 mEq/L (3.5-4.5)
[2016-10-05 05:20] LABS: Hypochromasia Present (Not Present); Platelet Estimate Normal (Normal)
[2016-10-05 05:21] LABS: Polychromasia 1+ (Not Present)
[2016-10-05 05:22] LABS: Anisocytosis 1+ (Not Present)
[2016-10-05] MEDS: Cholecalciferol (D-3) 1,000 UNIT TABLET PO SCH (08:22)
[2016-10-05] MEDS: hydrALAZINE 25 MG TABLET PO SCH ×2 (08:22→14:43)
[2016-10-05] MEDS: Pregabalin 75 MG CAPSULE PO SCH (08:23)
[2016-10-05] MEDS: Isosorbide MONOnitrate (24 HR) 30 MG TAB.ER.24H PO SCH (08:23)
[2016-10-05] MEDS: Sennosides 8.6 MG TABLET PO SCH (08:23)
[2016-10-05] MEDS: *HR* Heparin 5,000 UNIT/ML VIAL SQ SCH ×2 (08:23→15:45)
[2016-10-05] MEDS: Insulin DETEMIR 100 UNIT/ML X5UNITS SQ SCH (08:24)
[2016-10-05] MEDS: Insulin LISPRO 300 UNITS/3 ML VIAL SQ SCH ×4 (08:25→11:40)
[2016-10-05] MEDS: *HR* OxyCODONE Immed Rel 5 MG TABLET PO PRN ×2 (09:52→15:44)
[2016-10-05 11:37] VITALS: BP 136/71
--- NOTE | 2016-10-05 11:37 | Discharge Summary ---
Date of Encounter: 10/05/16 Time of Encounter: 10:00 - Discharge Diagnosis (1) Frequent falls Priority: Primary Status: Acute (2) Congestive heart failure Priority: Secondary Status: Acute Qualifiers: Congestive heart failure type: diastolic Congestive heart failure chronicity: unspecified congestive heart failure chronicity Qualified Code(s) : I50.30 - Unspecified diastolic (congestive) heart failure (3) Diabetes Priority: Secondary Status: Chronic Qualifiers: Diabetes mellitus type: type 2 Diabetes mellitus complication status: with kidney complications Diabetes mellitus complication detail: with chronic kidney disease Diabetes mellitus fci insulin use: with fci use Chronic kidney disease stage: stage 3 (moderate) Qualified Code(s): E11.22 - Type 2 diabetes mellitus with diabetic chronic kidney disease; N18.3 - Chronic kidney disease, stage 3 (moderate); Z79.4 - manager terminal (current) use of insulin (4) CKD (chronic kidney disease) stage 3, GFR 30-59 ml/min Priority: Secondary Status: Chronic (5) Jdvam-rh-thuwlbc kidney injury Priority: Secondary Status: Acute (6) Obesity Priority: Secondary Status: Acute Qualifiers: Obesity type: due to excess calories Obesity severity: morbid Qualified Code(s): E66.01 - Morbid (severe) obesity due to excess calories (7) Sleep apnea Priority: Secondary Status: Suspected Qualifiers: Sleep apnea type: obstructive Qualified Code(s): G47.33 - Obstructive sleep apnea (adult) (pediatric) (8) Ankle fracture, lateral malleolus, closed Priority: Primary Status: Acute Qualifiers: Encounter type: subsequent encounter Fracture alignment: displaced Laterality: right Qualified Code(s): S82.61XD - Displaced fracture of lateral malleolus of right fibula, subsequent encounter for closed fracture with routine healing (9) DVT prophylaxis Priority: Primary Status: Acute - Discharge Medications Prescriptions: Heparin 5,000 unit SQ Q12HR #14 vial FentaNYL PATCH [Duragesic] 75 mcg TD Q72H #3 patch.td72 OxyCODONE Immed Rel [Roxicodone 5 MG] 10 mg PO Q12H #6 tablet Pregabalin [Lyrica] 150 mg PO BID #10 capsule Home Medications: Albuterol Sulfate [Albuterol Inhaler] 2 puff IH QID PRN 03/14/16 [History] Calcium Carbonate [Calcium] 600 mg PO DAILY 03/14/16 [History] Cholecalciferol (Vitamin D3) [Vitamin D3] 8,000 unit PO DAILY 03/14/16 [History] Eucerin Creme 1 appl TP DAILY PRN 03/14/16 [History] Hydralazine HCl 50 mg PO TID 03/14/16 [History] Omeprazole 20 mg PO DAILY 03/14/16 [History] Oxycodone HCl 10 mg PO Q12H 03/14/16 [History] Simvastatin [Zocor] 40 mg PO HS 03/14/16 [History] Isosorbide MONOnitrate (24 HR) [Imdur] 30 mg PO DAILY 30 Days 03/22/16 [Rx] Metoprolol [Lopressor] 100 mg PO BID 30 Days 03/22/16 [Rx] Amitriptyline [Elavil] 25 mg PO HS 08/22/16 [History] Lisinopril [Zestril] 20 mg PO DAILY 08/22/16 [History] Nitroglycerin [Nitrostat] 0.4 mg SL Q5M PRN 08/22/16 [History] Sennosides [Senna] 8.6 mg PO DAILY 08/22/16 [History] Furosemide [Lasix] 80 mg PO DAILY #0 08/23/16 [Rx] Insulin ASPART [NovoLOG] 50 unit SQ TIDWM 09/29/16 [History] Insulin Glargine,Hum.rec.anlog [Toujeo Solostar] 80 unit SQ BID 09/29/16 [ History] Ipratropium/Albuterol Neb [Duoneb] 3 ml IH Q8HR PRN 09/29/16 [History] FentaNYL PATCH [Duragesic] 75 mcg TD Q72H #3 patch.td72 10/05/16 [Rx] Heparin 5,000 unit SQ Q12HR #14 vial 10/05/16 [Rx] OxyCODONE Immed Rel [Roxicodone 5 MG] 10 mg PO Q12H #6 tablet 10/05/16 [Rx] Pregabalin [Lyrica] 150 mg PO BID #10 capsule 10/05/16 [Rx] Allergies/Adverse Reactions: Allergies No Known Allergies Allergy (Verified 03/14/16 14:07) Procedures/tests Complete & Pending: Procedures Performed prior 72 hours Category Date Time Status Venous Ultrasound [EV venous imaging LE RT] Stat Y 10/04/16 10:42 Completed - Notes to Outpatient Provider 1. Please continue heparin 5000 units subcutaneously every 12 hours for DVT prophylaxis for 4 weeks. Please check hemoglobin and platelet level weekly when patient is on heparin. Date of admission: 09/29/16 11:00 Primary care physician: Storm Bernstein, Consults: 09/29/16 12:55 Consult to Corn Detasseler Machine Operator [CONS] Routine Reason for SW Consult: potential need for ECF 09/30/16 11:38 Consult to Podiatry [CONS] Stat Consulting Provider: [facility] Reason for Consult: Ankle/foot fracture, supposed to have surgery thursday by Dr. Stoll. Call Completed: No Discharging clinician: Ariel Sanders Anticipated date of discharge: 10/05/16 - Patient Status Disposition: Transfer Inpatient Rehab Fac Condition: Fair Overall status at discharge: patient is not back to baseline - Discharge Instructions Follow Up With: Storm Bernstein, [Primary Care Provider] - - Diet and Activity Activity: as per physical therapy Diet: diabetic diet Interval History: Mr. Hammond is a 70 year old male past medical history of coronary artery disease CHF CKD stage III hypertension diabetes and COPD oxygen dependent. Oriented the patient he has been experienced increase of falls over the past month. He has had several minor injuries however recently he broke his R foot. He states fill when he stands he has difficulty feeling the floor, and unsure where to put feet. As well as he has been experiencing tremors to his hands and feet. At times unable to eat. He lives with his daughter and uses a wheeled walker. Daughter states that she has noticed increase of falls in the last month since he moved to a new house. Patient has been experiencing urinary urgency and frequency which has also contributed to his falls. Today patient was attempting to go to the bathroom and he fell backwards striking his head. He denies any loss of consciousness chest pain or palpitations. He was brought to the ER for evaluation. According to her records CT of head was negative for any intracranial abnormality chest x-ray showed cardiomegaly but no acute cardiopulmonary process. Lab work did reveal some anemia hemoglobin 8.4 however this is stable from previous which was 8.2. Chemistry revealed some PKI creatinine 2.10 as. Hyperglycemia 427 his bicarbonate was 26 potassium 4.5. UA positive for nitrates large Leuk esterase and negative for blood patient was given IV fluid as well as Rocephin and has been admitted for further workup evaluation. On presentation patient does not appear to be in any respiratory distress he denies any chest pain or shortness of breath at this time. Lungs sounds are clear heart sounds S1 and S2 with no rubs clicks, murmurs. He is alert and oriented 3 possible commandsranial nerves II through XII i. Dr Antunez performed finger to nose, noted tremor patient was unable to complete [id number] due to tremor. Romberg was deferred due to patient's inability to stand at this time. Patient is hemodynamically stable. Hospital course: Mr. Hammond is a 70 year old male admitted for fall. He denies loss of consciousness. He was placed on close monitoring. He has dehydration and acute renal injury, which improved after hydration. He has UTI, finished that 3 days IV antibiotic treatment. He has right ankle fracture, podiatry consult was called. Patient had the surgery. After surgery, patient's vital are stable , will discharge patient to rehabilitation center for further management. Pt was seen and examined today. He is awake alert, oriented 3. Complaining mild to moderate operation sites pain. Vitals are stable. D/W podiatry, will discharge patient to rehabilitation for further management. Patient will follow -up with podiatry in 1 week as outpatient. - Time Spent with Patient Total time spent providing and/or coordinating discharge services: 40 minutes Greater than 30 minutes - Constitutional Vitals: Temp Pulse Resp BP Pulse Ox 98.5 F 71 16 148/56 99 10/04/16 23:46 10/04/16 23:46 10/04/16 23:46 10/04/16 23:46 10/04/16 23:46 General appearance: Present: A&O X 3, morbidly obese, answers questions appropriately - Head Head exam: Present: atraumatic, normocephalic - Eye Eye exam: Present: PERRL, conjuntiva pink, sclera anicteric Pupils: Present: PERRL - Neck Neck exam general surgery: Present: supple, trachea midline. Absent: lymphadenopathy - Respiratory Respiratory exam: Present: CTAB. Absent: accessory muscle use, rales, rhonchi, wheezes - Cardiovascular Cardiovascular exam: Present: RRR, +S1, +S2. Absent: diastolic murmur, gallop, rubs, systolic murmur - GI/Abdominal GI/Abdominal exam: Present: normal bowel sounds, soft, no peritoneal signs. Absent: distended, tenderness - Extremities Exam Extremities exam: Present: warm, radial pulses palpable and symetrical. Absent : calf tenderness, cyanotic, pedal edema Additional comments: Rt ankle s/p surgery, in cast - Neurological Exam Neurological exam: Present: CN II-XII intact, oriented X3, no focal deficits. Absent: pronater drift, facial droop, speech deficit - Skin Skin exam: Present: dry, intact
[2016-10-05] MEDS: *HR* OxyCODONE Immed Rel 5 MG TABLET PO SCH (11:39)
--- NOTE | 2016-10-05 11:48 | Physician Discharge Referral ---
ExtendedCare Referral Info Transfer To: Rehab Provider in Charge after Transfer: Other - Diagnosis (1) Frequent falls Priority: Primary Status: Acute (2) Congestive heart failure Priority: Secondary Status: Acute (3) Diabetes Priority: Secondary Status: Chronic (4) CKD (chronic kidney disease) stage 3, GFR 30-59 ml/min Priority: Secondary Status: Chronic (5) [id number]-[id number] kidney injury Priority: Primary Status: Acute (6) Obesity Priority: Secondary Status: Acute (7) Sleep apnea Priority: Secondary Status: Suspected (8) Ankle fracture, lateral malleolus, closed Priority: Primary Status: Acute (9) DVT prophylaxis Priority: Primary Status: Acute - Transfer Medications Prescriptions: Heparin 5,000 unit SQ Q12HR #14 vial FentaNYL PATCH [Duragesic] 75 mcg TD Q72H #3 patch.td72 OxyCODONE Immed Rel [Roxicodone 5 MG] 10 mg PO Q12H #6 tablet Pregabalin [Lyrica] 150 mg PO BID #10 capsule Home Medications: Albuterol Sulfate [Albuterol Inhaler] 2 puff IH QID PRN 03/14/16 [History] Calcium Carbonate [Calcium] 600 mg PO DAILY 03/14/16 [History] Cholecalciferol (Vitamin D3) [Vitamin D3] 8,000 unit PO DAILY 03/14/16 [History] Eucerin Creme 1 appl TP DAILY PRN 03/14/16 [History] Hydralazine HCl 50 mg PO TID 03/14/16 [History] Omeprazole 20 mg PO DAILY 03/14/16 [History] Oxycodone HCl 10 mg PO Q12H 03/14/16 [History] Simvastatin [Zocor] 40 mg PO HS 03/14/16 [History] Isosorbide MONOnitrate (24 HR) [Imdur] 30 mg PO DAILY 30 Days 03/22/16 [Rx] Metoprolol [Lopressor] 100 mg PO BID 30 Days 03/22/16 [Rx] Amitriptyline [Elavil] 25 mg PO HS 08/22/16 [History] Lisinopril [Zestril] 20 mg PO DAILY 08/22/16 [History] Nitroglycerin [Nitrostat] 0.4 mg SL Q5M PRN 08/22/16 [History] Sennosides [Senna] 8.6 mg PO DAILY 08/22/16 [History] Furosemide [Lasix] 80 mg PO DAILY #0 08/23/16 [Rx] Insulin ASPART [NovoLOG] 50 unit SQ TIDWM 09/29/16 [History] Insulin Glargine,Hum.rec.anlog [[place] Solostar] 80 unit SQ BID 09/29/16 [ History] Ipratropium/Albuterol Neb [Duoneb] 3 ml IH Q8HR PRN 09/29/16 [History] FentaNYL PATCH [Duragesic] 75 mcg TD Q72H #3 patch.td72 10/05/16 [Rx] Heparin 5,000 unit SQ Q12HR #14 vial 10/05/16 [Rx] OxyCODONE Immed Rel [Roxicodone 5 MG] 10 mg PO Q12H #6 tablet 10/05/16 [Rx] Pregabalin [Lyrica] 150 mg PO BID #10 capsule 10/05/16 [Rx] Allergies/Adverse Reactions: Allergies No Known Allergies Allergy (Verified 03/14/16 14:07) - Respiratory Orders Oxygen / L per min (3), Other (CPAP during night) Smoking Cessation: Smoking cessation has been advised. For more information, call the [place] Tobacco Quit Line at 7-198-MDGQ-NOW. - Lab Orders Lab Orders: CBC (Weekly when pt is on heparin) - Advance Directives Code Status: Full Code - Rehabiliation Orders Rehab Orders: Evaluation for Physical Therapy, Evaluation for Occupational Therapy - Diet Orders No Concentrated Sweets CERTIFICATION: I certify that the transfer of the above named patient to an Extended Care Facility is necessary for the continuing treatment of the diagnosis listed. The above information is true and accurate reflection of patient's current condition. Confidential - Redisclosure prohibited without a patient's written consent.
== END 2016-10-05 16:20 | DRG 493 ==
LOC: EMEROO 07:14 → 3ANU 07:14 → SUATTDRO 11:00 → 3ANU 12:32
PROVIDERS: ADMIT Internal Medicine Sleep Medicine; ATTEND Internal Medicine

== ENCOUNTER 2016-10-14 12:19 | Inpatient (IN) ==
--- NOTE | 2016-10-14 12:25 | Emergency Department Note ---
Disposition Clinical Impression: Acute kidney injury Disposition: Admitted As Inpatient Referrals: Storm Bernstein DO [Primary Care Provider] - Forms: ED Satisfaction Letter Time of Disposition: 14:06 General Adult HPI - General Chief complaint: ED Shortness of Breath/Dyspnea Stated complaint: Abd distention Time Seen by Provider: 10/14/16 12:22 Source: patient, EMS Mode of arrival: EMS Limitations: no limitations Nursing Notes Reviewed: Yes Vital Signs Reviewed: Yes - History of Present Illness HPI Narrative: 71-year-old who was sent in from the intermediate due to hand swelling and increasing abdominal girth. Patient has a history of CHF. The patient has no complaints. He states his hands while intimately swell he doesn't really notice it. He denies shortness of breath. Patient is admitted there as he tripped over his dog broke his right foot. Pt Subjective Complaint: None - Related Data Home Medications Medication Instructions Recorded Confirmed Albuterol Sulfate [Albuterol 2 puff IH QID PRN 03/14/16 09/29/16 Inhaler] Calcium Carbonate [Calcium] 600 mg PO DAILY 03/14/16 09/29/16 Cholecalciferol (Vitamin D3) 8,000 unit PO DAILY 03/14/16 09/29/16 [Vitamin D3] Eucerin Creme 1 appl TP DAILY PRN 03/14/16 09/29/16 Hydralazine HCl 50 mg PO TID 03/14/16 09/29/16 Omeprazole 20 mg PO DAILY 03/14/16 09/29/16 Oxycodone HCl 10 mg PO Q12H 03/14/16 09/29/16 Simvastatin [Zocor] 40 mg PO HS 03/14/16 09/29/16 Amitriptyline [Elavil] 25 mg PO HS 08/22/16 09/29/16 Lisinopril [Zestril] 20 mg PO DAILY 08/22/16 09/29/16 Nitroglycerin [Nitrostat] 0.4 mg SL Q5M PRN 08/22/16 09/29/16 Sennosides [Senna] 8.6 mg PO DAILY 08/22/16 09/29/16 Insulin ASPART [NovoLOG] 50 unit SQ TIDWM 09/29/16 09/29/16 Insulin Glargine,Hum.rec.anlog 80 unit SQ BID 09/29/16 09/29/16 [[place] Solostar] Ipratropium/Albuterol Neb [Duoneb] 3 ml IH Q8HR PRN 09/29/16 09/29/16 Previous Rx's Medication Instructions Recorded Isosorbide MONOnitrate (24 HR) 30 mg PO DAILY 30 Days 03/22/16 [Imdur] Metoprolol [Lopressor] 100 mg PO BID 30 Days 03/22/16 Furosemide [Lasix] 80 mg PO DAILY #0 08/23/16 FentaNYL PATCH [Duragesic] 75 mcg TD Q72H #3 patch.td72 10/05/16 Heparin 5,000 unit SQ Q12HR #14 vial 10/05/16 OxyCODONE Immed Rel [Roxicodone 5 10 mg PO Q12H #6 tablet 10/05/16 MG] Pregabalin [Lyrica] 150 mg PO BID #10 capsule 10/05/16 Allergies Allergy/AdvReac Type Severity Reaction Status Date / Time No Known Allergies Allergy Verified 03/14/16 14:07 All systems ED: reviewed and negative except as stated. Constitutional: Denies: fever, chills, weakness, weight change Eyes: Denies: eye pain, eye discharge, vision change ENT ED: Denies: ear pain, throat pain, dental pain, hearing loss, epistaxis, congestion, dysphagia Cardiovascular: Denies: chest pain, palpitations, dyspnea on exertion, edema, syncope Respiratory: Denies: cough, dyspnea, wheezes, hemoptysis, stridor Gastrointestinal: Denies: abdominal pain, nausea, vomiting, diarrhea, constipation, hematemesis, melena, hematochezia Genitourinary: Denies: urgency, dysuria, frequency, hematuria Musculoskeletal: Denies: back pain, neck pain, arthralgia, myalgia Integumentary: Denies: rash, abrasion, lesions Neurological: Denies: headache, weakness, numbness, paresthesias, confusion, abnormal gait, vertigo Psychiatric: Denies: anxiety, depression, suicidal thoughts, homicidal thoughts , auditory hallucinations, visual hallucinations Endocrine: Denies: fatigue Hematological/Lymphatic: Denies: easy bleeding, easy bruising Allergic/Immunologic: Denies: facial swelling, urticaria Past Medical History - Past Medical History Medical history: Reports: CHF, diabetes, hyperlipidemia, hypertension, kidney stones, renal disease Surgical history: Reports: other Psychiatric history: Reports: no psych history - Social History Smoking Status: Former smoker Smokeless Tobacco Status: No Alcohol use: Reports: rarely Drug use: Reports: none Physical Exam - General Limitations: no limitations General appearance: alert, in no apparent distress - Head Head exam: atraumatic, normocephalic, normal inspection - Eye Eye exam: Present: normal appearance, PERRL, EOMI - ENT ENT exam: normal exam, normal oropharynx, mucous membranes moist - Neck Neck exam: Present: normal inspection, full ROM, trachea midline - Respiratory Respiratory exam: Present: normal lung sounds bilaterally - Cardiovascular Cardiovascular exam: Present: regular rate, normal rhythm, normal heart sounds - Abdominal Exam Abdominal exam: Present: soft, Non-Tender. Absent: tenderness, distention, guarding, rebound, rigidity - Extremities Exam Extremities exam: Present: normal inspection, full ROM. Absent: tenderness, pedal edema - Expanded Upper Extremity Exam Shoulder exam: Present: normal inspection, full ROM Arm exam: Present: normal inspection, full ROM Elbow exam: Present: normal inspection, full ROM Forearm/Wrist exam: Present: normal inspection, full ROM Hand exam: Present: normal inspection, full ROM. Absent: swelling Vascular exam: Normal: capillary refill, radial pulse - Expanded Lower Extremity Exam Gait: not tested/not observed - Back Exam Back exam: Present: normal inspection, full ROM. Absent: tenderness - Neurological Exam Neurological exam: Present: alert, oriented X3 - Psychiatric Psychiatric exam: Present: normal affect, normal mood - Skin Skin exam: Present: warm, dry, intact, normal color Course - Reevaluation(s) Reevaluation #1: The patient comes in with increasing swelling of his extremities and abdominal girth increased. Findings of acute kidney injury with a creatinine of 2.20 which is significantly up for him. I discussed the case with the admitting hospitalist and he wants to gently hydrate at 50. The patient does not appear to be volume overloaded with respect to intravascular volume with a BNP of less than 100. They will also obtain renal consultation. Time: 13:58 - Consultations Consultation #1: Discussed with james Powell. Time: 14:04 Vital Signs Temperature 98.5 F 10/14/16 12:21 Pulse Rate 70 10/14/16 12:21 Respiratory Rate 16 10/14/16 12:21 Blood Pressure 136/61 10/14/16 12:21 O2 Sat by Pulse Oximetry 94 10/14/16 12:21 Temperature 98.5 F 10/14/16 12:21 Pulse Rate 82 10/14/16 13:31 Respiratory Rate 16 10/14/16 13:31 Blood Pressure 131/55 10/14/16 13:31 O2 Sat by Pulse Oximetry 96 10/14/16 13:31 Oxygen Delivery Oxygen Delivery Nasal Cannula Medical Decision Making - Lab Data Lab results reviewed: Yes I reviewed the patient's lab results. Result diagrams: 10/14/16 12:54 10/14/16 12:54 Lab Results 10/14/16 10/14/16 10/14/16 Range/Units 12:54 12:54 12:54 WBC 6.8 (4.3-11.1) K/mcL RBC 3.68 L (4.19-5.50) M/mcL Hgb 8.1 L (12.9-16.9) g/dL Hct 29.3 L (37.5-50.1) % MCV 79.6 L (83.0-100.0) fL MCH 22.0 L (28.0-33.3) pg MCHC 27.6 L (31.6-35.5) g/dL RDW 20.4 H (11.5-14.5) % Plt Count 214 (140-400) K/mcL MPV 10.3 (9.4-12.4) fL Immature Gran % 0.6 (0-4) % Seg Neutrophils % 73.1 % Lymphocytes % 15.4 % Monocytes % 8.4 % Eosinophils % 2.2 % Basophils % 0.3 % Neutrophils # 5.0 (1.6-8.9) K/mcL Lymphocytes # 1.1 (0.6-4.6) K/mcL Monocytes # 0.6 (0.0-1.3) K/mcL Eosinophils # 0.2 (0.0-0.6) K/mcL Basophils # 0.0 (0.0-0.2) K/mcL Platelet Estimate Normal (Normal) Hypochromasia Present A (Not Present) Anisocytosis 1+ A (Not Present) Sodium 139 (136-145) mEq/L Potassium 4.4 (3.5-4.5) mEq/L Chloride 104 (98-109) mEq/L Carbon Dioxide 26 (19-29) mEq/L BUN 49 H (8-26) mg/dL Creatinine 2.20 H (0.72-1.25) mg/dL Est GFR ( Amer) 36 L (> 60) Est GFR (Non-Af Amer) 30 L (> 60) BUN/Creatinine Ratio 22 (6-26) Glucose 244 H (70-99) mg/dL Calculated Osmolality 309 H (280-300) Calcium 9.1 (8.6-10.8) mg/dL Troponin I 0.01 (0-0.03) ng/mL B-Natriuretic Peptide (0-100) pg/mL 10/14/16 Range/Units 12:54 WBC (4.3-11.1) K/mcL RBC (4.19-5.50) M/mcL Hgb (12.9-16.9) g/dL Hct (37.5-50.1) % MCV (83.0-100.0) fL MCH (28.0-33.3) pg MCHC (31.6-35.5) g/dL RDW (11.5-14.5) % Plt Count (140-400) K/mcL MPV (9.4-12.4) fL Immature Gran % (0-4) % Seg Neutrophils % % Lymphocytes % % Monocytes % % Eosinophils % % Basophils % % Neutrophils # (1.6-8.9) K/mcL Lymphocytes # (0.6-4.6) K/mcL Monocytes # (0.0-1.3) K/mcL Eosinophils # (0.0-0.6) K/mcL Basophils # (0.0-0.2) K/mcL Platelet Estimate (Normal) Hypochromasia (Not Present) Anisocytosis (Not Present) Sodium (136-145) mEq/L Potassium (3.5-4.5) mEq/L Chloride (98-109) mEq/L Carbon Dioxide (19-29) mEq/L BUN (8-26) mg/dL Creatinine (0.72-1.25) mg/dL Est GFR ( Amer) (> 60) Est GFR (Non-Af Amer) (> 60) BUN/Creatinine Ratio (6-26) Glucose (70-99) mg/dL Calculated Osmolality (280-300) Calcium (8.6-10.8) mg/dL Troponin I (0-0.03) ng/mL B-Natriuretic Peptide 78 (0-100) pg/mL - EKG Data EKG #1 EKG shows normal: sinus rhythm Rate: normal Rhythm: NSR When compared to previous EKG there are: no significant changes (09/29/2016) Interpretation: no acute changes
[2016-10-14 13:05] LABS: Hemoglobin 8.1 g/dL (12.9-16.9); Immature Granulocytes % 0.6 % (0-4); Mean Corpuscular HGB Conc 27.6 g/dL (31.6-35.5)
[2016-10-14 13:07] LABS: Basophils % 0.3 %; Eosinophils # 0.2 K/mcL (0.0-0.6); Eosinophils % 2.2 %; Hematocrit 29.3 % (37.5-50.1); Lymphocytes % 15.4 %; Mean Corpuscular Volume 79.6 fL (83.0-100.0); Mean Platelet Volume 10.3 fL (9.4-12.4); Monocytes # 0.6 K/mcL (0.0-1.3); Monocytes % 8.4 %; Platelet Count 214 K/mcL (140-400); Red Blood Count 3.68 M/mcL (4.19-5.50); Red Cell Distribution Width 20.4 % (11.5-14.5); Segmented Neutrophils % 73.1 %
[2016-10-14 13:10] LABS: Lymphocytes # 1.1 K/mcL (0.6-4.6)
[2016-10-14 13:19] LABS: Calcium 9.1 mg/dL (8.6-10.8); Potassium 4.4 mEq/L (3.5-4.5)
[2016-10-14 13:30] LABS: Anisocytosis 1+ (Not Present); Hypochromasia Present (Not Present); Platelet Estimate Normal (Normal)
--- NOTE | 2016-10-14 20:28 | Event Note ---
Date of Encounter: 10/14/16 Time of Encounter: 20:27 1. Acute on chronic renal failure/chronic kidney disease stage III likely secondary to acute diastolic CHF exacerbation Start Lasix IV 40 mg twice a day Strict I's and O's, daily weight Nephrology consult/Dr. Jody Houston 2. Diabetes type 2 insulin-dependent, continue insulin sliding scale 3. COPD oxygen dependent, order DuoNeb nebs as needed and continue oxygen therapy 4. Hyperlipidemia, stable The patient will be admitted as inpatient. Expected to stay more than 2 midnights. Full code. Time spent on this admission 40 minutes. High risk due to acute on chronic renal failure Subcutaneous heparin for DVT prophylaxis
[2016-10-14] MEDS ORDERED: Naloxone 0.4 MG/ML INJ IVP PRN (20:33)
[2016-10-14] MEDS ORDERED: Ondansetron ODT 4 MG TAB.RAPDIS SL PRN (20:33)
[2016-10-14] MEDS ORDERED: Nitroglycerin 0.4 MG TAB.SUBL SL PRN (20:37)
[2016-10-14] MEDS ORDERED: Eucerin Cream 57 GM TUBE TP PRN (20:37)
[2016-10-14] MEDS ORDERED: Ipratropium/Albuterol Neb 3 ML IH PRN (20:37)
[2016-10-14] MEDS ORDERED: D5% in Water 1,000 ML IVC PRN (20:42)
[2016-10-14] MEDS ORDERED: Dextrose Gel 15 GM PO PRN ×2 (20:42)
[2016-10-14] MEDS ORDERED: *HR* Dextrose 50 % in Water (Syg) 50 ML SYRINGE IVP PRN (20:42)
--- NOTE | 2016-10-14 20:49 | Internal Med History&Physical ---
<YoeloisakendellVin le - Last Filed: 10/14/16 21:25> Date of Encounter: 10/14/16 Time of Encounter: 20:15 Assessment and Plan (1) [id number] kidney injury Current visit: Yes Status: Acute Assess: Patient presents with acute on chronic kidney injury and chronic kidney disease stage III likely secondary to acute diastolic CHF exacerbation. Plan: Hold oral Lasix Lasix IV 40 mg BID ordered Daily I&O Monitor daily weight (2) Diastolic CHF Current visit: Yes Status: Acute Assess: Patient presents with chronic history of chronic congestive heart failure. Patient currently has edema of the extremities and SOB related to CHF exacerbation and acute on chronic renal failure. Plan: Hold oral Lasix Lasix IV 40 mg BID ordered Daily I&O Monitor daily weight Qualifiers: Congestive heart failure chronicity: acute Qualified Code(s): I50.31 - Acute diastolic (congestive) heart failure (3) Diabetes Current visit: Yes Status: Chronic Assess: Patient presents with history of chronic diabetes type 2 insulin-dependent. 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 Plan: DuoNebs ordered PRN Supplemental O2 ordered with titration if SpO2 <92% Continuous SpO2 monitoring Monitor patient and vital signs Qualifiers: COPD type: unspecified COPD Qualified Code(s): J44.9 - Chronic obstructive pulmonary disease, unspecified (5) Hyperlipidemia Current visit: Yes Status: Chronic Assess: Patient presents with history of chronic hyperlipidemia. Plan: Continue Zocor Lipid panel ordered Qualifiers: Hyperlipidemia type: unspecified Qualified Code(s): E78.5 - Hyperlipidemia , unspecified (6) Hypertension Current visit: Yes Status: Chronic Assess: Patient presents with history of chronic hypertension. Plan: Continue Lisinopril Monitor patient and vital signs Qualifiers: Hypertension type: essential hypertension Qualified Code(s): I10 - Essential (primary) hypertension (7) DVT prophylaxis Current visit: Yes Status: Acute Assess: Patient to receive DVT prophylaxis based on inpatient protocol and bed rest status. Plan: Heparin 5,000 units SQ Q8 ordered Internal Medicine - H&P: HPI Chief complaint: SOB/Dyspnea Admitted From: Emergency Dept Plans for Post Hospital Care: Home History of present illness: Mr. Hammond is a 71 year old male presents from the ED with chief complaint of shortness of breath and dyspnea related to chronic CHF. Patient reports his daughter noticed his hands, face, stomach had become more swollen. Patient also currently has chronic kidney disease stage III with acute changes as evidenced by changes in creatinine level up to 2.2 during this admission. Patient reports neuropathy in both feet and denies chest pain, cough, lightheadedness, nausea, vomiting, diarrhea. Patient reports occasional dizziness when standing. She reports using cane at home for ambulation and is currently falls risk due to broken right ankle with cast. Patient has a history of CHF, diabetes, hyperlipidemia, hypertension, kidney stones, and chronic renal disease. Patient to be admitted as inpatient status due to high risk related to readmission and acute on chronic renal failure/chronic kidney disease stage III likely secondary to acute diastolic CHF exacerbation. Patient is currently full code. Patient will receive IV Lasix 40 mg twice a day with daily I&O and daily weight. DuoNebs will be ordered for COPD status with supplemental O2 with titration if SpO2 <92%. Patient to continue insulin with correction dosing and hypoglycemia protocol. Patient will be given Heparin SQ Q8 for DVT prophylaxis. Patient to be closely monitored for continued signs of fluid overload. Past Med Surg Social Fam HX - Past Medical History Medical history: CHF, diabetes, hyperlipidemia, hypertension, kidney stones, renal disease Psychiatric history: no psych history - Past Surgical History Surgical History: other (Rotator cuff repair of right shoulder, repair of right ankle which was broken in 2 places and right great toe) - Social History Smoking Status: Former smoker Packs per day: 2 PPD - Reports quitting 9 months ago Smokeless Tobacco Status: No Alcohol use: none Drug use: none Occupational status: retired Current living situation: Home, With Family Activity Level: Uses cane/walker Recent Out of Country Travel Within the Last 8 Weeks: No Exposure or Possible Exposure to Illness During Travel: No - Family History Father Race: Family Member Ethnicity: Non- Living Status: Age at : 83 Cause of : Old age Mother Race: Family Member Ethnicity: Non- Living Status: Age at : 70 Cause of : Cancer Hx Family Cancer: Yes (Unknown) Hx Family Endocrine Disorder: Yes (DM) Brother Race: Family Member Ethnicity: Non- Living Status: Hx Family Endocrine Disorder: Yes (DM) Sister Race: Family Member Ethnicity: Non- Living Status: Still Living Hx Family Neurologic Disorders: Yes (Alzheimer's disease) Internal Medicine - H&P: Meds Albuterol Sulfate [Albuterol Inhaler] 2 puff IH QID PRN 03/14/16 [History] Calcium Carbonate [Calcium] 600 mg PO DAILY 03/14/16 [History] Cholecalciferol (Vitamin D3) [Vitamin D3] 8,000 unit PO DAILY 03/14/16 [History] Eucerin Creme 1 appl TP DAILY PRN 03/14/16 [History] Hydralazine HCl 50 mg PO TID 03/14/16 [History] Omeprazole 20 mg PO DAILY 03/14/16 [History] Simvastatin [Zocor] 40 mg PO HS 03/14/16 [History] Isosorbide MONOnitrate (24 HR) [Imdur] 30 mg PO DAILY 30 Days 03/22/16 [Rx] Metoprolol [Lopressor] 100 mg PO BID 30 Days 03/22/16 [Rx] Amitriptyline [Elavil] 25 mg PO HS 08/22/16 [History] Lisinopril [Zestril] 20 mg PO DAILY 08/22/16 [History] Nitroglycerin [Nitrostat] 0.4 mg SL Q5M PRN 08/22/16 [History] Sennosides [Senna] 8.6 mg PO DAILY 08/22/16 [History] Furosemide [Lasix] 80 mg PO DAILY #0 08/23/16 [Rx] Insulin ASPART [NovoLOG] 50 unit SQ TIDWM 09/29/16 [History] Insulin Glargine,Hum.rec.anlog [Toujeo Solostar] 80 unit SQ BID 09/29/16 [ History] Ipratropium/Albuterol Neb [Duoneb] 3 ml IH Q8HR PRN 09/29/16 [History] FentaNYL PATCH [Duragesic] 75 mcg TD Q72H #3 patch.td72 10/05/16 [Rx] Pregabalin [Lyrica] 150 mg PO BID #10 capsule 10/05/16 [Rx] Insulin ASPART [NovoLOG] 2 - 12 unit SQ QID 10/14/16 [History] Oxycodone HCl 10 mg PO BID 10/14/16 [History] Allergies No Known Allergies Allergy (Verified 10/14/16 14:36) All Systems PM: A 10-system review of systems was performed and is negative for pertinent findings except as documented above in the HPI. - Constitutional Constitutional: no chills, no fever(s), no night sweats - EENT Eyes: no change in vision, no discharge, no pain, no photophobia Ears: no ear discharge, no ear pain, no tinnitus Nose, mouth and throat: no dysphagia, no nasal discharge, no neck pain, no sore throat - Breasts Breasts: as per HPI - Cardiovascular Cardiovascular ROS IM: as per HPI, dyspnea, dyspnea on exertion, edema, no chest pain, no diaphoresis, no lightheadedness, no palpitations, no syncope - Respiratory Respiratory: as per HPI, dyspnea, dyspnea on exertion, no cough, no wheezing, no excessive phlegm production - Gastrointestinal Gastrointestinal: no abdominal pain, no diarrhea, no hematemesis, no hematochezia, no melena, no nausea, no vomiting - Genitourinary Genitourinary ROS male: as per HPI, urinary frequency, urinary urgency (Related to lasix use) - Musculoskeletal Musculoskeletal ROS IM: as per HPI, other (Limited ambulation due to broken right ankle with cast), no numbness, no tingling - Integumentary Integumentary IM: no rash, no unusual bruising - Neurological Neurological ROS: no confusion, no convulsions, no focal weakness, no numbness, no tingling, no tremor(s) - Psychiatric Psychiatric: as per HPI - Endocrine Endocrine IM: as per HPI - Hematologic/Lymphatic Hematologic/Lymphatic: no easy bruising - Allergic/Immunologic Allergic/Immunologic: as per HPI - Constitutional Vitals: Temp Pulse Resp BP Pulse Ox 98.9 F 84 16 107/57 94 10/14/16 19:04 06/06/17 19:04 10/14/16 19:04 10/14/16 19:04 10/14/16 19:04 General appearance: Present: cooperative, A&O X 3, morbidly obese, pleasant, no acute distress, answers questions appropriately - Head Head exam: Present: atraumatic, normocephalic - Eye Eye exam: Present: PERRL, conjuntiva pink, sclera anicteric Pupils: Present: PERRL - ENT ENT exam: Present: normal exam, normal external ear exam - Neck Neck exam general surgery: Present: supple, trachea midline. Absent: lymphadenopathy - Respiratory Respiratory exam: Present: accessory muscle use, decreased breath sounds. Absent: rales, rhonchi, wheezes - Cardiovascular Cardiovascular exam: Present: RRR, +S1, +S2. Absent: diastolic murmur, gallop, rubs, systolic murmur - GI/Abdominal GI/Abdominal exam: Present: normal bowel sounds, soft, no peritoneal signs. Absent: distended, tenderness - Rectal Rectal exam: Present: deferred - Additional comments: exam deferred. - Extremities Exam Extremities exam: Present: warm, radial pulses palpable and symetrical. Absent : calf tenderness, cyanotic, pedal edema - Back Exam Back exam: Present: normal inspection - Neurological Exam Neurological exam: Present: CN II-XII intact, oriented X3, no focal deficits. Absent: pronater drift, facial droop, speech deficit - Psychiatric Psychiatric exam: Present: normal affect, normal mood - Skin Skin exam: Present: dry, intact Internal Med - H&P Results - Labs CBC & Chem 7: 10/14/16 12:54 10/14/16 12:54 - EKG Data EKG shows normal: sinus rhythm - EKG Data Prior EKG available for review: yes When compared to previous EKG: there is no significant change EKG comments: 10/14/16 21:04 EKG dated 09/29/16 shows sinus rhythm. EKG dated 10/14/16 shows sinus rhythm nonspecific ST elevation. - Diagnostic Studies Chest x-ray Additional comments: Impressions Chest X-Ray 10/14/16 12:22 IMPRESSION: Cardiomegaly without acute cardiopulmonary process. D/ / 10/14/2016 13:27:06 Edmundo Riggs MD / robert Interpreting Provider: Edmundo Riggs MD <Brett Pisano H - Last Filed: 10/14/16 21:59> Date of Encounter: 10/14/16 Internal Medicine - H&P: HPI History of present illness: Mr. Hammond is a 71 year old male All Systems PM: A 10-system review of systems was performed and is negative for pertinent findings except as documented above in the HPI. - Constitutional Vitals: Temp Pulse Resp BP Pulse Ox 98.9 F 84 16 107/57 94 10/14/16 19:04 10/14/16 19:04 10/14/16 19:04 10/14/16 19:04 10/14/16 19:04 Internal Med - H&P Results - Labs CBC & Chem 7: 10/14/16 12:54 10/14/16 12:54 - Attending Attestation 1. Acute on chronic renal failure/chronic kidney disease stage III likely secondary to acute diastolic CHF exacerbation Start Lasix IV 40 mg twice a day Strict I's and O's, daily weight Nephrology consult/Dr. Jody Houston 2. Diabetes type 2 insulin-dependent, continue insulin sliding scale 3. COPD oxygen dependent, order DuoNeb nebs as needed and continue oxygen therapy 4. Hyperlipidemia, stable The patient will be admitted as inpatient. Expected to stay more than 2 midnights. Full code. Time spent on this admission 40 minutes. High risk due to acute on chronic renal failure Subcutaneous heparin for DVT prophylaxis I examined this patient and my medical decision-making was reviewed with the STONE DRILLER HELPER/PA/Advanced Practice Nurse/Resident Physician. I agree with the documented findings, disposition and treatment plan as described except to the extent set forth below.
[2016-10-14] MEDS ORDERED: Insulin LISPRO 300 UNITS/3 ML VIAL SQ SCH (21:00)
[2016-10-14] MEDS ORDERED: *HR* FentaNYL PATCH 75 MCG PATCH TD SCH (21:00)
[2016-10-14] MEDS: *HR* OxyCODONE Immed Rel 5 MG TABLET PO SCH (22:22)
[2016-10-14] MEDS: Insulin DETEMIR 100 UNIT/ML X5UNITS SQ SCH (22:22)
[2016-10-14] MEDS: Pregabalin 75 MG CAPSULE PO SCH (22:22)
[2016-10-14] MEDS: hydrALAZINE 25 MG TABLET PO SCH (22:23)
[2016-10-14] MEDS: *HR* Heparin 5,000 UNIT/ML VIAL SQ SCH (22:25)
[2016-10-14] MEDS: Metoprolol 100 MG TABLET PO SCH (22:25)
[2016-10-14] MEDS: Furosemide 40 MG/4 ML VIAL IVP SCH (22:26)
[2016-10-15 06:10] LABS: Hemoglobin 7.7 g/dL (12.9-16.9); Immature Granulocytes % 0.6 % (0-4)
[2016-10-15 06:11] LABS: Hematocrit 28.3 % (37.5-50.1); Mean Corpuscular HGB Conc 27.2 g/dL (31.6-35.5); Mean Corpuscular Hemoglobin 21.3 pg (28.0-33.3); Mean Corpuscular Volume 78.4 fL (83.0-100.0); Mean Platelet Volume 10.1 fL (9.4-12.4); Platelet Count 192 K/mcL (140-400); Red Blood Count 3.61 M/mcL (4.19-5.50); Red Cell Distribution Width 20.1 % (11.5-14.5); Segmented Neutrophils % 64.1 %
[2016-10-15 06:12] LABS: Basophils % 0.2 %; Eosinophils # 0.2 K/mcL (0.0-0.6); Eosinophils % 3.2 %; Lymphocytes # 1.2 K/mcL (0.6-4.6); Lymphocytes % 23.1 %; Monocytes # 0.4 K/mcL (0.0-1.3); Monocytes % 8.8 %; Neutrophils # 3.2 K/mcL (1.6-8.9)
[2016-10-15 06:27] LABS: Calcium 8.6 mg/dL (8.6-10.8); Chol/HDL Ratio 4.1 (0-4.9); Magnesium 2.2 mg/dL (1.6-2.6); Potassium 4.6 mEq/L (3.5-4.5)
[2016-10-15] MEDS: *HR* Heparin 5,000 UNIT/ML VIAL SQ SCH ×3 (06:53→21:14)
[2016-10-15 06:56] LABS: Anisocytosis 1+ (Not Present); Hypochromasia Present (Not Present); Microcytosis Present (Not Present); Platelet Estimate Normal (Normal); Poikilocytosis 1+ (Not Present)
[2016-10-15] MEDS ORDERED: INSULIN ASPART 50 UNIT SQ SCH (08:00)
[2016-10-15] MEDS: Insulin LISPRO 300 UNITS/3 ML VIAL SQ SCH ×4 (08:38→21:21)
[2016-10-15] MEDS: Cholecalciferol (D-3) 1,000 UNIT TABLET PO SCH (08:39)
[2016-10-15] MEDS: *HR* OxyCODONE Immed Rel 5 MG TABLET PO SCH (08:39)
[2016-10-15] MEDS: Furosemide 40 MG/4 ML VIAL IVP SCH ×2 (08:39→16:12)
[2016-10-15] MEDS: Metoprolol 100 MG TABLET PO SCH ×2 (08:39→20:17)
[2016-10-15] MEDS: Isosorbide MONOnitrate (24 HR) 30 MG TAB.ER.24H PO SCH (08:39)
[2016-10-15] MEDS: hydrALAZINE 25 MG TABLET PO SCH ×3 (08:39→20:17)
[2016-10-15] MEDS: Lisinopril 20 MG TABLET PO SCH (08:40)
[2016-10-15] MEDS: Pregabalin 75 MG CAPSULE PO SCH ×2 (08:40→20:17)
[2016-10-15] MEDS: Sennosides 8.6 MG TABLET PO SCH (08:40)
[2016-10-15] MEDS: Insulin DETEMIR 100 UNIT/ML X5UNITS SQ SCH ×2 (08:46→20:20)
--- NOTE | 2016-10-15 09:46 | Nephrology Consult Note ---
Date of Encounter: 10/15/16 Time of Encounter: 09:20 Assessment and Plan (1) Acute kidney injury Current Visit: Yes Status: Acute Non-oliguric MARY on CKD stage III, likely multifactorial in etiology. 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 He is already trending better. Hold nephrotoxins while hospitalized. Diuretics for ADHF as per primary but in general to use the lowest but effective dose for volume mgt. Continue to follow a renal protective & supportive strategy. Dose Rx by GFR. Avoid nephrotoxins as able. Thank you for consulting the [facility] group. Will follow with you. (2) CKD (chronic kidney disease) stage 3, GFR 30-59 ml/min Current Visit: Yes Status: Chronic (3) Hypertension Current Visit: Yes Status: Chronic Qualifiers: Hypertension type: essential hypertension Qualified Code(s): I10 - Essential (primary) hypertension (4) Diastolic CHF Current Visit: Yes Status: Acute Qualifiers: Congestive heart failure chronicity: acute Qualified Code(s): I50.31 - Acute diastolic (congestive) heart failure (5) Diabetes Current Visit: Yes Status: Chronic Qualifiers: Diabetes mellitus type: type 2 Diabetes mellitus complication status: with kidney complications Diabetes mellitus complication detail: with chronic kidney disease Diabetes mellitus terminal operator insulin use: with fci use Chronic kidney disease stage: stage 3 (moderate) Qualified Code(s): E11.22 - Type 2 diabetes mellitus with diabetic chronic kidney disease; N18.3 - Chronic kidney disease, stage 3 (moderate); Z79.4 - prison (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 The pt said that he was unclear why the ECF sent him the ER and he reported no new symptoms to me. He denied significant worsening of shortness of breath, CP, N/V/D. He said that his LLE edema is actually much better than normal for him. He recently had RLE podiatric surgery , he said, and is scheduled for outpt follow with [facility] later this week to assess for cast removal. He is followed by my colleague Dr. Rhodes in the nephrology clinic. He denied using NSAIDs. He denied having any Family History of ESRD. Past Med Surg Social Fam HX - Past Medical History Medical history: CHF, diabetes, hyperlipidemia, hypertension, kidney stones, renal disease Psychiatric history: no psych history - Past Surgical History Surgical History: other (Rotator cuff repair of right shoulder, repair of right ankle which was broken in 2 places and right great toe) - Social History Smoking Status: Former smoker Packs per day: 2 PPD - Reports quitting 9 months ago Smokeless Tobacco Status: No Alcohol use: none Drug use: none - Family History Father Race: Family Member Ethnicity: Non- Living Status: Age at : 83 Cause of : Old age Mother Race: Family Member Ethnicity: Non- Living Status: Age at : 70 Cause of : Cancer Hx Family Cancer: Yes (Unknown) Hx Family Endocrine Disorder: Yes (DM) Brother Race: Family Member Ethnicity: Non- Living Status: Hx Family Endocrine Disorder: Yes (DM) Sister Race: Family Member Ethnicity: Non- Living Status: Still Living Hx Family Neurologic Disorders: Yes (Alzheimer's disease) Medications and Allergies Albuterol Sulfate [Albuterol Inhaler] 2 puff IH QID PRN 03/14/16 [History] Calcium Carbonate [Calcium] 600 mg PO DAILY 03/14/16 [History] Cholecalciferol (Vitamin D3) [Vitamin D3] 8,000 unit PO DAILY 03/14/16 [History] Eucerin Creme 1 appl TP DAILY PRN 03/14/16 [History] Hydralazine HCl 50 mg PO TID 03/14/16 [History] Omeprazole 20 mg PO DAILY 03/14/16 [History] Simvastatin [Zocor] 40 mg PO HS 03/14/16 [History] Isosorbide MONOnitrate (24 HR) [Imdur] 30 mg PO DAILY 30 Days 03/22/16 [Rx] Metoprolol [Lopressor] 100 mg PO BID 30 Days 03/22/16 [Rx] Amitriptyline [Elavil] 25 mg PO HS 08/22/16 [History] Lisinopril [Zestril] 20 mg PO DAILY 08/22/16 [History] Nitroglycerin [Nitrostat] 0.4 mg SL Q5M PRN 08/22/16 [History] Sennosides [Senna] 8.6 mg PO DAILY 08/22/16 [History] Furosemide [Lasix] 80 mg PO DAILY #0 08/23/16 [Rx] Insulin ASPART [NovoLOG] 50 unit SQ TIDWM 09/29/16 [History] Insulin Glargine,Hum.rec.anlog [Toujeo Solostar] 80 unit SQ BID 09/29/16 [ History] Ipratropium/Albuterol Neb [Duoneb] 3 ml IH Q8HR PRN 09/29/16 [History] FentaNYL PATCH [Duragesic] 75 mcg TD Q72H #3 patch.td72 10/05/16 [Rx] Pregabalin [Lyrica] 150 mg PO BID #10 capsule 10/05/16 [Rx] Insulin ASPART [NovoLOG] 2 - 12 unit SQ QID 10/14/16 [History] Oxycodone HCl 10 mg PO BID 10/14/16 [History] Allergies No Known Allergies Allergy (Verified 10/14/16 14:36) Review of Systems All Systems: reviewed and no additional remarkable complaints except as stated Exam - Vital Signs Vital signs: Initial Vital Signs Temp Pulse Resp BP Pulse Ox 98.5 F 70 16 136/61 94 10/14/16 12:21 10/14/16 12:21 10/14/16 12:21 10/14/16 12:21 10/14/16 12:21 Vital Signs - Last 8 Hours Temp Pulse Resp BP Pulse Ox 10/15/16 06:58 97.6 F 81 18 161/51 93 10/15/16 04:36 98.2 F 82 16 150/71 96 Intake and Output 10/14/16 10/15/16 10/15/16 23:59 07:59 15:59 Output Total 600 / 600 600 / 600 Balance -600 / -600 -600 / -600 Output: Urine 600 / 600 600 / 600 Other: Weight 145.3 kg Blood Glucose* 479 357 Patient Weight 10/15/16 23:59 Weight 145.3 kg - General Appearance General appearance: well-developed, well-nourished, appears started age, obese EENT: ATNC, PERRL, mucous membranes moist Neck: supple Respiratory: clear Cardiology: edema (trace to 1+ LLE pretibial and the RLE remains in a cast), normal S1, normal S2 Gastrointestinal: normoactive bowel sounds, no tenderness, no guarding, obese Integumentary: no rash, warm and dry Neurologic: no focal deficit, no asterixis, alert and oriented x3 Musculoskeletal: no deformities, no erythema, no cyanosis Psychiatric: mood/affect appropriate, cooperative Results - Lab Results 10/15/16 05:51 10/15/16 05:51 Most recent lab results Calcium 8.6 mg/dL (8.6-10.8) 10/15/16 05:51 Magnesium 2.2 mg/dL (1.6-2.6) 10/15/16 05:51 I reviewed the above autogenerated data steven including labs, meds, vitals, I/ Os, medical records including outpt Nephrology progress notes and imaging. Consult Discharge Plan - Plan Referrals: Storm Bernstein DO [Primary Care Provider] -
[2016-10-15] MEDS ORDERED: *HR* OxyCODONE Immed Rel 5 MG TABLET PO PRN (10:23)
--- NOTE | 2016-10-15 10:29 | Internal Med Progress Note ---
<Storm Bernstein - Last Filed: 10/15/16 10:27> Date of Encounter: 10/15/16 Time of Encounter: 10:27 - Assessment and plan (1) Icrxn-pk-tvuxzsz kidney injury Current Visit: Yes Status: Acute Assessment and plan: Good urine output. Likely related to fluid overload, improved with diureses. Will continue to cautiously diurese, monitor kidney function. Appreciate nephrology recommendations (2) Cirrhosis Current Visit: Yes Status: Acute Assessment and plan: with ascities present. Patient has evidence of cirrhosis on imaging performed as an outpatient. Further work up has been delayed due to recent hospitalizations and hesitancy by the patient for further invasive testing. Likely contributing to patients edema in the setting of increased fluid intake. Will diurese with lasix. Potassium is elevated so will not start spirinolactone at this time. Will check ammonia. Further work up as an outpatient Qualifiers: Hepatic cirrhosis type: unspecified hepatic cirrhosis Ascites presence: with ascites Qualified Code(s): K74.60 - Unspecified cirrhosis of liver (3) HTN (hypertension) Current Visit: No Status: Chronic Assessment and plan: Stable. Continue home medication Qualifiers: Hypertension type: unspecified secondary hypertension Qualified Code(s): I15.9 - Secondary hypertension, unspecified (4) Diabetes Current Visit: No Status: Chronic Assessment and plan: Elevated on arrival. Difficult to control, increase basal insulin. 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 He states he feels much better. He states his swelling is much improved. He states his breathing is improved. Denies fever ,chills, chest pain. - Constitutional Vitals: Temp Pulse Resp BP Pulse Ox 97.6 F 81 18 161/51 93 10/15/16 06:58 10/15/16 06:58 10/15/16 06:58 10/15/16 06:58 10/15/16 06:58 General appearance: Present: cooperative, A&O X 3, morbidly obese, pleasant, no acute distress, answers questions appropriately - Respiratory Respiratory exam: Present: CTAB. Absent: rales, rhonchi, wheezes - Cardiovascular Cardiovascular exam: Present: RRR. Absent: gallop, rubs, systolic murmur - GI/Abdominal GI/Abdominal exam: Present: distended, normal bowel sounds, soft. Absent: tenderness Additional comments: +fluid wave, dullness to percussion - Extremities Exam Extremities exam: Present: pedal edema (1+), warm. Absent: tenderness Additional comments: Splint with eliceo wrap present to R LE - Neurological Exam Neurological exam: Present: alert, CN II-XII intact, oriented X3, no focal deficits Internal Medicine: Result - Labs CBC & Chem 7: 10/15/16 05:51 10/15/16 05:51 Labs: Short CBC 10/15/16 Range/Units 05:51 WBC 5.0 (4.3-11.1) K/mcL Hgb 7.7 L (12.9-16.9) g/dL Hct 28.3 L (37.5-50.1) % Plt Count 192 (140-400) K/mcL Neutrophils # 3.2 (1.6-8.9) K/mcL BMP 10/15/16 05:51 Sodium 139 Potassium 4.6 H Chloride 106 Carbon Dioxide 25 BUN 42 H Creatinine 1.78 H Glucose 343 H Calcium 8.6 Consult Discharge Plan - Plan Referrals: Storm Bernstein, [Primary Care Provider] - <Enmanuel Daniel - Last Filed: 10/15/16 19:29> Date of Encounter: 10/15/16 - Assessment and plan (1) Diastolic CHF Current Visit: Yes Status: Acute Assessment and plan: Diuresing well. Qualifiers: Congestive heart failure chronicity: acute Qualified Code(s): I50.31 - Acute diastolic (congestive) heart failure (2) Acute kidney injury Current Visit: Yes Status: Acute (3) CKD (chronic kidney disease) stage 3, GFR 30-59 ml/min Current Visit: Yes Status: Chronic (4) HTN (hypertension) Current Visit: No Status: Chronic Qualifiers: Hypertension type: renovascular hypertension Qualified Code(s): I15.0 - Renovascular hypertension (5) Diabetes Current Visit: No Status: Chronic Qualifiers: Diabetes mellitus type: type 2 Diabetes mellitus complication status: with kidney complications Diabetes mellitus complication detail: with chronic kidney disease 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 Chronic kidney disease stage: stage 3 (moderate) Qualified Code(s): E11.22 - Type 2 diabetes mellitus with diabetic chronic kidney disease; N18.3 - Chronic kidney disease, stage 3 (moderate); Z79.4 - longterm (current) use of insulin (6) Chronic pain Current Visit: No Status: Chronic Qualifiers: Chronic pain type: other chronic pain Qualified Code(s): G89.29 - Other chronic pain (7) Obstructive sleep apnea Current Visit: No Status: Acute - Constitutional Vitals: Temp Pulse Resp BP Pulse Ox 98.2 F 76 18 145/63 93 10/15/16 15:49 10/15/16 15:49 10/15/16 15:49 10/15/16 15:49 10/15/16 15:49 Internal Medicine: Result - Labs CBC & Chem 7: 10/15/16 05:51 10/15/16 05:51 Labs: Short CBC 10/15/16 Range/Units 05:51 WBC 5.0 (4.3-11.1) K/mcL Hgb 7.7 L (12.9-16.9) g/dL Hct 28.3 L (37.5-50.1) % Plt Count 192 (140-400) K/mcL Neutrophils # 3.2 (1.6-8.9) K/mcL BMP 10/15/16 05:51 Sodium 139 Potassium 4.6 H Chloride 106 Carbon Dioxide 25 BUN 42 H Creatinine 1.78 H Glucose 343 H Calcium 8.6 Liver Function 10/15/16 Range/Units 10:54 Total Bilirubin 0.6 (0.2-1.2) mg/dL Direct Bilirubin 0.3 (0.0-0.5) mg/dL AST 34 (5-34) Units/L ALT 25 (0-55) Units/L Alkaline Phosphatase 159 H (38-126) Units/L Albumin 3.0 L (3.5-5.0) g/dL - ABG Interpretation ABG results: PT/INR, D-dimer PT 11.9 Seconds (9.4-12.1) 10/15/16 10:54 - Attending Attestation I examined this patient and my medical decision-making was reviewed with the Resident Physician on 10/15/16. I agree with the documented findings, disposition and treatment plan as described except to the extent set forth below. Mr. Hammond is currently admitted for acute kidney injury and acute exac CHF. He is moderate to high risk due to potential for worsening respiratory status. Mr. Hammond has diuresed OK overnight. No new issues. No fever or chills. No GI symptoms. Exam Alert. Comfortable Heart reg No wheeze Edema present I/P 1. CHF exac 2. MARY Further diagnoses and plan as above.
[2016-10-15 11:09] LABS: INR 1.1; Prothrombin Time 11.9 Seconds (9.4-12.1)
[2016-10-15 11:19] LABS: Albumin/Globulin Ratio 0.8 (1.1-2.2); Bilirubin,Direct 0.3 mg/dL (0.0-0.5); Bilirubin,Indirect 0.3 mg/dL (0.0-1.2); Bilirubin,Total 0.6 mg/dL (0.2-1.2); Globulin 3.9 g/dL (2.4-3.5); Total Protein 6.9 g/dL (6.0-8.3)
[2016-10-15 11:53] LABS: Folate 10.9 ng/mL (7.0-31.4)
--- NOTE | 2016-10-15 15:19 | Electrocardiograph Report ---
[place] [id number] Test Date: 2016-10-14 Pat Name: Darrick Hammond Department: 104 Room: [facility] Gender: M Varnish Mixer: : [id number] Requested By: Eddy De Leon Order Number: [id number] Reading MD: Yoseph Ha MD Measurements Intervals Bishop Rate: 69 P: 42 CT: 196 QRS: 19 QRSD: 97 T: 31 QT: 411 QTc: 430 Interpretive Statements SINUS RHYTHM BASELINE ARTIFACT Electronically Signed On 10-15-2016 15:17:43 EDT by Yoseph Ha MD
[2016-10-15] MEDS ORDERED: Insulin DETEMIR 100 UNIT/ML X5UNITS SQ ONE (20:18)
[2016-10-16] MEDS: *HR* Heparin 5,000 UNIT/ML VIAL SQ SCH ×3 (05:47→23:01)
[2016-10-16 05:52] LABS: Hemoglobin 7.9 g/dL (12.9-16.9); Immature Granulocytes % 0.4 % (0-4)
[2016-10-16 05:54] LABS: Basophils % 0.2 %; Eosinophils # 0.1 K/mcL (0.0-0.6); Eosinophils % 2.5 %; Lymphocytes # 1.2 K/mcL (0.6-4.6); Lymphocytes % 22.1 %; Mean Corpuscular HGB Conc 28.2 g/dL (31.6-35.5); Mean Platelet Volume 11.3 fL (9.4-12.4); Monocytes # 0.4 K/mcL (0.0-1.3); Monocytes % 7.1 %; Neutrophils # 3.5 K/mcL (1.6-8.9); Platelet Count 193 K/mcL (140-400); Red Blood Count 3.59 M/mcL (4.19-5.50); Red Cell Distribution Width 20.4 % (11.5-14.5); Segmented Neutrophils % 67.7 %
[2016-10-16 06:14] LABS: Calcium 8.8 mg/dL (8.6-10.8); Magnesium 2.3 mg/dL (1.6-2.6); Phosphorous 3.7 mg/dL (2.3-4.7); Potassium 4.8 mEq/L (3.5-4.5)
[2016-10-16 06:28] LABS: Platelet Estimate Normal (Normal)
[2016-10-16 06:30] LABS: Anisocytosis 2+ (Not Present); Hypochromasia Present (Not Present)
[2016-10-16] MEDS: Cholecalciferol (D-3) 1,000 UNIT TABLET PO SCH (07:43)
[2016-10-16] MEDS: hydrALAZINE 25 MG TABLET PO SCH ×3 (07:43→23:01)
[2016-10-16] MEDS: Sennosides 8.6 MG TABLET PO SCH (07:43)
[2016-10-16] MEDS: Metoprolol 100 MG TABLET PO SCH ×2 (07:43→23:01)
[2016-10-16] MEDS: Furosemide 40 MG/4 ML VIAL IVP SCH (07:43)
[2016-10-16] MEDS: Pregabalin 75 MG CAPSULE PO SCH ×2 (07:43→23:01)
[2016-10-16] MEDS: Isosorbide MONOnitrate (24 HR) 30 MG TAB.ER.24H PO SCH (07:43)
[2016-10-16] MEDS: Insulin LISPRO 300 UNITS/3 ML VIAL SQ SCH ×6 (07:44→23:02)
[2016-10-16] MEDS: Insulin DETEMIR 100 UNIT/ML X5UNITS SQ SCH ×2 (07:44→23:01)
--- NOTE | 2016-10-16 10:22 | Nephrology Progress Note ---
Date of Encounter: 10/16/16 Time of Encounter: 10:22 - Assessment and Plan (1) Acute kidney injury Current Visit: Yes Status: Acute Nonoliguric MARY on CKD with improving SCr while undergoing IV diuresis. Volume status is improving. Likely able to wean down to oral diuretics by tomorrow. Cont to follow a renal protective / supportive strategy: dose Rx by GFR, Avoid Nephrotoxins. Thank you. (2) CKD (chronic kidney disease) stage 3, GFR 30-59 ml/min Current Visit: Yes Status: Chronic (3) Hypertension Current Visit: Yes Status: Chronic Hold MARU or ARB d/t the MARY Qualifiers: Hypertension type: essential hypertension Qualified Code(s): I10 - Essential (primary) hypertension (4) Diastolic CHF Current Visit: Yes Status: Acute As per primary Qualifiers: Congestive heart failure chronicity: acute Qualified Code(s): I50.31 - Acute diastolic (congestive) heart failure (5) Diabetes Current Visit: Yes Status: Chronic I counseled him to focus on glycemic control for a nursing home goal of delaying CKD progression. 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 He did not affirm N/V or uremic symptoms. He felt like his edema is improving. Objective - Vital Signs Vital signs: Vital Signs Temp Pulse Resp BP Pulse Ox 10/16/16 07:20 97.5 F L 75 18 153/62 92 10/16/16 03:13 98.2 F 77 16 136/63 97 10/16/16 00:21 98.5 F 73 16 126/53 93 10/15/16 23:45 18 96 10/15/16 19:24 97.8 F 85 18 145/53 95 10/15/16 15:49 98.2 F 76 18 145/63 93 10/15/16 10:26 98 F 73 18 124/61 100 Intake and Output 06/11/2410/16/16 10/16/16 23:59 07:59 15:59 Intake Total 240 / 240 200 / 200 360 / 360 Output Total 1450 / 1450 1600 / 1600 0 / 0 Balance -1210 / -1210 -1400 / -1400 360 / 360 Intake: Oral 240 / 240 200 / 200 360 / 360 Output: Urine 1450 / 1450 1600 / 1600 0 / 0 Other: Meal Breakfast Percent of Meal Consumed 100% Stool Size Smear Stool Consistency loose Stool Color Brown # Voids 0 1 # Bowel Movements 0 Weight 144.6 kg Blood Glucose* [phone] Patient Weight 10/16/16 23:59 Weight 144.6 kg - General Appearance Exam: General appearance: well-developed, well-nourished, appears started age, obese EENT: ATNC, PERRL, mucous membranes moist Neck: supple Respiratory: clear Cardiology: edema (trace to 1+ LLE pretibial and the RLE remains in a cast), normal S1, normal S2 Gastrointestinal: normoactive bowel sounds, no tenderness, no guarding, obese Integumentary: no rash, warm and dry Neurologic: no focal deficit, no asterixis, alert and oriented x3 Musculoskeletal: no deformities, no erythema, no cyanosis Psychiatric: mood/affect appropriate, cooperative - Lab 10/16/16 05:21 10/16/16 14:49 Most recent lab results Calcium 8.8 mg/dL (8.6-10.8) 10/16/16 05:21 Phosphorus 3.7 mg/dL (2.3-4.7) 10/16/16 05:21 Magnesium 2.3 mg/dL (1.6-2.6) 10/16/16 05:21 Consult Discharge Plan - Plan Referrals: Storm Bernstein DO [Primary Care Provider] - 10/23/16 2:30 pm (Correction Phone Number is [phone] Bernstein at [facility]. Please follow up as scheduled)
--- NOTE | 2016-10-16 10:23 | Internal Med Progress Note ---
<Storm Bernstein - Last Filed: 10/16/16 10:21> Date of Encounter: 10/16/16 Time of Encounter: 10:21 - Assessment and plan (1) Cfpzb-fl-ibnxies kidney injury Current Visit: Yes Status: Acute Assessment and plan: Good urine output. Likely related to fluid overload, improved with diuresis. Will continue to cautiously diurese, monitor kidney function. Transitioned to by mouth Lasix today Appreciate nephrology recommendations (2) Cirrhosis Current Visit: Yes Status: Acute Assessment and plan: with ascities present. Patient has evidence of cirrhosis on imaging performed as an outpatient. Further work up has been delayed due to recent hospitalizations and hesitancy by the patient for further invasive testing. Likely contributing to patients edema in the setting of increased fluid intake. Will diurese with lasix. Potassium is elevated so will not start spirinolactone at this time. Will check ammonia. Further work up as an outpatient Qualifiers: Hepatic cirrhosis type: unspecified hepatic cirrhosis Ascites presence: with ascites Qualified Code(s): K74.60 - Unspecified cirrhosis of liver (3) HTN (hypertension) Current Visit: No Status: Chronic Assessment and plan: Stable. Continue home medication Qualifiers: Hypertension type: renovascular hypertension Qualified Code(s): I15.0 - Renovascular hypertension (4) Diabetes Current Visit: No Status: Chronic Assessment and plan: Elevated on arrival. Difficult to control, increase basal insulin. We will add preprandial insulin in addition to sliding scale. 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 He states he feels much better. He states his swelling is much improved. He states his breathing is improved. Continues to have good urine output. Denies fever,chills, chest pain. - Constitutional Vitals: Temp Pulse Resp BP Pulse Ox 97.5 F L 75 18 153/62 92 10/16/16 07:20 10/16/16 07:20 10/16/16 07:20 10/16/16 07:20 10/16/16 07:20 General appearance: Present: cooperative, A&O X 3, morbidly obese, pleasant, no acute distress, answers questions appropriately - Respiratory Respiratory exam: Present: CTAB. Absent: rales, rhonchi, wheezes - Cardiovascular Cardiovascular exam: Present: RRR. Absent: gallop, rubs, systolic murmur - GI/Abdominal GI/Abdominal exam: Present: distended, normal bowel sounds, soft. Absent: tenderness Additional comments: Improved. - Extremities Exam Extremities exam: Present: pedal edema (1+), warm. Absent: tenderness Additional comments: Cast present to right lower extremity. - Neurological Exam Neurological exam: Present: alert, CN II-XII intact, oriented X3, no focal deficits Internal Medicine: Result - Labs CBC & Chem 7: 10/16/16 05:21 10/16/16 05:21 Labs: Short CBC 10/16/16 Range/Units 05:21 WBC 5.2 (4.3-11.1) K/mcL Hgb 7.9 L (12.9-16.9) g/dL Hct 28.0 L (37.5-50.1) % Plt Count 193 (140-400) K/mcL Neutrophils # 3.5 (1.6-8.9) K/mcL BMP 10/16/16 05:21 Sodium 139 Potassium 4.8 H Chloride 103 Carbon Dioxide 28 BUN 42 H Creatinine 1.66 H Glucose 389 H Calcium 8.8 Liver Function 10/15/16 Range/Units 10:54 Total Bilirubin 0.6 (0.2-1.2) mg/dL Direct Bilirubin 0.3 (0.0-0.5) mg/dL AST 34 (5-34) Units/L ALT 25 (0-55) Units/L Alkaline Phosphatase 159 H (38-126) Units/L Albumin 3.0 L (3.5-5.0) g/dL - ABG Interpretation ABG results: PT/INR, D-dimer PT 11.9 Seconds (9.4-12.1) 10/15/16 10:54 Consult Discharge Plan - Plan Referrals: Storm Bernstein DO [Primary Care Provider] - 10/23/16 2:30 pm (Correction Phone Number is [phone] Bernstein at [facility]. Please follow up as scheduled) <Enmanuel Daniel - Last Filed: 10/16/16 18:54> Date of Encounter: 10/16/16 - Assessment and plan (1) Diastolic CHF Current Visit: Yes Status: Acute Qualifiers: Congestive heart failure chronicity: acute Qualified Code(s): I50.31 - Acute diastolic (congestive) heart failure (2) Acute kidney injury Current Visit: Yes Status: Acute (3) CKD (chronic kidney disease) stage 3, GFR 30-59 ml/min Current Visit: Yes Status: Chronic (4) HTN (hypertension) Current Visit: No Status: Chronic Qualifiers: Hypertension type: renovascular hypertension Qualified Code(s): I15.0 - Renovascular hypertension (5) Diabetes Current Visit: No Status: Chronic Qualifiers: Diabetes mellitus type: type 2 Diabetes mellitus complication status: with kidney complications Diabetes mellitus complication detail: with chronic kidney disease Diabetes mellitus intermediate accountant insulin use: with intermediate accountant use Chronic kidney disease stage: stage 3 (moderate) Qualified Code(s): E11.22 - Type 2 diabetes mellitus with diabetic chronic kidney disease; N18.3 - Chronic kidney disease, stage 3 (moderate); 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 of 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 (6) Chronic pain Current Visit: No Status: Chronic Qualifiers: Chronic pain type: other chronic pain Qualified Code(s): G89.29 - Other chronic pain (7) Obstructive sleep apnea Current Visit: No Status: Acute - Constitutional Vitals: Temp Pulse Resp BP Pulse Ox 98.3 F 80 16 140/65 94 10/16/16 16:16 10/16/16 16:16 10/16/16 16:16 10/16/16 16:16 10/16/16 16:16 Internal Medicine: Result - Labs CBC & Chem 7: 10/16/16 05:21 10/16/16 14:49 Labs: Short CBC 10/16/16 Range/Units 05:21 WBC 5.2 (4.3-11.1) K/mcL Hgb 7.9 L (12.9-16.9) g/dL Hct 28.0 L (37.5-50.1) % Plt Count 193 (140-400) K/mcL Neutrophils # 3.5 (1.6-8.9) K/mcL BMP 10/16/16 10/16/16 05:21 14:49 Sodium 139 Potassium 4.8 H 5.1 H Chloride 103 Carbon Dioxide 28 BUN 42 H Creatinine 1.66 H Glucose 389 H Calcium 8.8 Urine 10/16/16 Range/Units 10:40 Urine Color Yellow (Yellow) Urine Clarity Clear (Clear) Urine pH 6.0 (5.0-8.0) pH Units Ur Specific [place] 1.014 (1.010-1.025) Urine Protein Negative (Neg-Trace) mg/dL Urine Glucose (UA) 500 H (Normal) mg/dL - ABG Interpretation ABG results: PT/INR, D-dimer PT 11.9 Seconds (9.4-12.1) 10/15/16 10:54 - Attending Attestation I examined this patient and my medical decision-making was reviewed with the Resident Physician on 10/16/16. I agree with the documented findings, disposition and treatment plan as described except to the extent set forth below. Mr. Hammond is currently admitted for acute exac CHF. He remains moderate to high risk due to potential for worsening cardiac and renal status. Mr. Hammond is starting to improve. He has been diuresing. No other new issues. No fever. No GI symptoms. Exam Alert. Comfortable Heart reg No wheeze Less edema I/P 1. CHF exac 2. Cirrhosis Further diagnoses and plan as above.
[2016-10-16] MEDS: Lisinopril 20 MG TABLET PO SCH (10:34)
[2016-10-16 11:09] LABS: Bilirubin,Urine Negative (Negative); Clarity,Urine Clear (Clear); Color,Urine Yellow (Yellow); Glucose,Urine (UA) 500 mg/dL (Normal); Ketones,Urine Negative (Negative); Specific Gravity,Urine 1.014 (1.010-1.025)
[2016-10-16 11:10] LABS: Blood,Urine Negative (Negative)
[2016-10-16 11:11] LABS: Leukocyte Esterase,Urine Negative (Negative); Nitrite,Urine Negative (Negative); Protein,Urine Negative (Neg-Trace); Urobilinogen,Urine Normal (Normal)
[2016-10-16] MEDS: Furosemide 40 MG TABLET PO SCH (16:36)
[2016-10-16] MEDS ORDERED: Insulin LISPRO 300 UNITS/3 ML VIAL SQ ONE (21:30)
[2016-10-17] MEDS ORDERED: Insulin LISPRO 300 UNITS/3 ML VIAL SQ ONE (02:45)
[2016-10-17] MEDS: Insulin LISPRO 300 UNITS/3 ML VIAL SQ SCH ×4 (05:44→11:49)
[2016-10-17] MEDS: *HR* Heparin 5,000 UNIT/ML VIAL SQ SCH (05:45)
[2016-10-17 05:52] LABS: Eosinophils % 2.1 %; Hemoglobin 8.3 g/dL (12.9-16.9); Immature Granulocytes % 0.5 % (0-4)
[2016-10-17 05:53] LABS: Basophils % 0.4 %; Eosinophils # 0.1 K/mcL (0.0-0.6); Hematocrit 29.9 % (37.5-50.1); Lymphocytes # 1.2 K/mcL (0.6-4.6); Lymphocytes % 21.7 %; Mean Corpuscular HGB Conc 27.8 g/dL (31.6-35.5); Mean Corpuscular Hemoglobin 21.4 pg (28.0-33.3); Mean Corpuscular Volume 77.3 fL (83.0-100.0); Monocytes # 0.5 K/mcL (0.0-1.3); Monocytes % 8.1 %; Neutrophils # 3.8 K/mcL (1.6-8.9); Platelet Count 200 K/mcL (140-400); Red Blood Count 3.87 M/mcL (4.19-5.50); Red Cell Distribution Width 20.3 % (11.5-14.5); Segmented Neutrophils % 67.2 %
[2016-10-17 06:03] LABS: Calcium 9.2 mg/dL (8.6-10.8); Magnesium 2.2 mg/dL (1.6-2.6); Potassium 4.4 mEq/L (3.5-4.5)
[2016-10-17 06:46] LABS: Anisocytosis 2+ (Not Present); Hypochromasia Present (Not Present)
[2016-10-17 06:48] LABS: Microcytosis Present (Not Present); Platelet Estimate Normal (Normal); Stomatocytes 1+ (Not Present)
[2016-10-17 06:49] LABS: Ovalocytes 1+ (Not Present)
[2016-10-17] MEDS: hydrALAZINE 25 MG TABLET PO SCH (08:31)
[2016-10-17] MEDS: Isosorbide MONOnitrate (24 HR) 30 MG TAB.ER.24H PO SCH (08:32)
[2016-10-17] MEDS: Lisinopril 20 MG TABLET PO SCH (08:32)
[2016-10-17] MEDS: Sennosides 8.6 MG TABLET PO SCH (08:32)
[2016-10-17] MEDS: Cholecalciferol (D-3) 1,000 UNIT TABLET PO SCH (08:32)
[2016-10-17] MEDS: Pregabalin 75 MG CAPSULE PO SCH (08:32)
[2016-10-17] MEDS: Furosemide 40 MG TABLET PO SCH (08:32)
[2016-10-17] MEDS: Metoprolol 100 MG TABLET PO SCH (08:32)
[2016-10-17] MEDS: Insulin DETEMIR 100 UNIT/ML X5UNITS SQ SCH (08:38)
--- NOTE | 2016-10-17 08:49 | Discharge Summary ---
<Storm Bernstein - Last Filed: 10/17/16 09:52> Date of Encounter: 10/17/16 Time of Encounter: 08:47 - Discharge Diagnosis (1) Wddtz-oc-[id number] kidney injury Priority: Primary Status: Acute (2) Cirrhosis Priority: Secondary Status: Chronic Qualifiers: Hepatic cirrhosis type: unspecified hepatic cirrhosis Ascites presence: with ascites Qualified Code(s): K74.60 - Unspecified cirrhosis of liver (3) HTN (hypertension) Priority: Secondary Status: Chronic Qualifiers: Hypertension type: renovascular hypertension Qualified Code(s): I15.0 - Renovascular hypertension (4) Diabetes Priority: Secondary Status: Chronic Qualifiers: Diabetes mellitus type: type 2 Diabetes mellitus complication status: with kidney complications Diabetes mellitus complication detail: with chronic kidney disease Diabetes mellitus mcc insulin use: with mcc use Chronic kidney disease stage: stage 3 (moderate) Qualified Code(s): E11.22 - Type 2 diabetes mellitus with diabetic chronic kidney disease; N18.3 - Chronic kidney disease, stage 3 (moderate); Z79.4 - prison (current) use of insulin - Discharge Medications Prescriptions: Furosemide [Lasix] 40 mg PO BID #60 tablet Home Medications: Albuterol Sulfate [Albuterol Inhaler] 2 puff IH QID PRN 03/14/16 [History] Calcium Carbonate [Calcium] 600 mg PO DAILY 03/14/16 [History] Cholecalciferol (Vitamin D3) [Vitamin D3] 8,000 unit PO DAILY 03/14/16 [History] Eucerin Creme 1 appl TP DAILY PRN 03/14/16 [History] Hydralazine HCl 50 mg PO TID 03/14/16 [History] Omeprazole 20 mg PO DAILY 03/14/16 [History] Simvastatin [Zocor] 40 mg PO HS 03/14/16 [History] Isosorbide MONOnitrate (24 HR) [Imdur] 30 mg PO DAILY 30 Days 03/22/16 [Rx] Metoprolol [Lopressor] 100 mg PO BID 30 Days 03/22/16 [Rx] Amitriptyline [Elavil] 25 mg PO HS 08/22/16 [History] Lisinopril [Zestril] 20 mg PO DAILY 08/22/16 [History] Nitroglycerin [Nitrostat] 0.4 mg SL Q5M PRN 08/22/16 [History] Sennosides [Senna] 8.6 mg PO DAILY 08/22/16 [History] Insulin ASPART [NovoLOG] 50 unit SQ TIDWM 09/29/16 [History] Insulin Glargine,Hum.rec.anlog [Toujeo Solostar] 80 unit SQ BID 09/29/16 [ History] Ipratropium/Albuterol Neb [Duoneb] 3 ml IH Q8HR PRN 09/29/16 [History] FentaNYL PATCH [Duragesic] 75 mcg TD Q72H #3 patch.td72 10/05/16 [Rx] Pregabalin [Lyrica] 150 mg PO BID #10 capsule 10/05/16 [Rx] Insulin ASPART [NovoLOG] 2 - 12 unit SQ QID 10/14/16 [History] Oxycodone HCl 10 mg PO BID 10/14/16 [History] Furosemide [Lasix] 40 mg PO BID #60 tablet 10/17/16 [Rx] Allergies/Adverse Reactions: Allergies No Known Allergies Allergy (Verified 10/14/16 14:36) Date of admission: 10/14/16 20:33 Primary care physician: Storm Bernstein, Consults: 10/14/16 22:32 Consult to Nephrology [CONS] Routine Consulting Provider: Kidney Lois/TAMMY/RICH/PAMELA Reason for Consult: Acute on chronic kidney failure Call Completed: No Discharging clinician: Storm Bernstein Anticipated date of discharge: 10/17/16 - Patient Status Disposition: Home Health Service Condition: Fair Functional capacity at discharge: wheelchair bound Overall status at discharge: patient is progressing back to baseline - Discharge Instructions Instructions: Furosemide (By mouth) Follow Up With: Storm Bernstein, [Primary Care Provider] - 10/31/16 2:00 pm (Correction Phone Number is [phone] Bernstein at [facility]. Please follow up as scheduled) Additional Instructions: Please follow up with your primary care physician as scheduled. Please restart your home medications. Please take lasix 40mg twice a day. Please restrict your fluid intake to 1.5L daily. Please return for any new or worsening symptoms. - Diet and Activity Activity: as per physical therapy, wear oxygen at all times Diet: low salt diet, other (Restrict your fluid to 1.5L daily) Interval History: Patient seen and examined at bedside. Patient states he feels much improved today. He denies any shortness of breath, reports his lower extremity swelling is much better. Hospital course: Mr. Hammond is a 71 year old male with history of type 2 diabetes, diastolic heart failure presented with shortness of breath. Patient was found to have evidence of fluid overload and acute kidney injury. Patient did report that he was drinking more water than normal recently. Patient underwent aggressive IV diuresis which showed an improvement in his kidney function which is returned to baseline. Patient's symptomatology had resolved. Patient has been discharged home in stable condition. - Time Spent with Patient Total time spent providing and/or coordinating discharge services: - Constitutional Vitals: Temp Pulse Resp BP Pulse Ox 97.6 F 71 20 144/72 97 10/17/16 08:17 10/17/16 08:17 10/17/16 08:17 10/17/16 08:17 10/17/16 08:17 General appearance: Present: cooperative, A&O X 3, morbidly obese, pleasant, no acute distress, answers questions appropriately - Respiratory Respiratory exam: Present: CTAB. Absent: rales, rhonchi, wheezes - Cardiovascular Cardiovascular exam: Present: RRR. Absent: gallop, rubs, systolic murmur - GI/Abdominal GI/Abdominal exam: Present: distended (Improved), normal bowel sounds, soft. Absent: tenderness - Extremities Exam Extremities exam: Present: pedal edema (Trace), warm. Absent: tenderness Additional comments: Cast present right lower extremity. - Neurological Exam Neurological exam: Present: alert, CN II-XII intact, oriented X3, no focal deficits <Enmanuel Daniel - Last Filed: 10/17/16 14:49> Date of Encounter: 10/17/16 - Discharge Diagnosis (1) Diastolic CHF Priority: Primary Status: Acute Qualifiers: Congestive heart failure chronicity: acute Qualified Code(s): I50.31 - Acute diastolic (congestive) heart failure (2) Acute kidney injury Priority: Secondary Status: Acute (3) CKD (chronic kidney disease) stage 3, GFR 30-59 ml/min Priority: Secondary Status: Chronic (4) HTN (hypertension) Status: Chronic Qualifiers: Hypertension type: renovascular hypertension Qualified Code(s): I15.0 - Renovascular hypertension (5) Diabetes Status: Chronic Qualifiers: Diabetes mellitus type: type 2 Diabetes mellitus complication status: with kidney complications Diabetes mellitus complication detail: with chronic kidney disease Diabetes mellitus medical terminologist insulin use: with medical terminologist use Chronic kidney disease stage: stage 3 (moderate) Qualified Code(s): E11.22 - Type 2 diabetes mellitus with diabetic chronic kidney disease; N18.3 - Chronic kidney disease, stage 3 (moderate); Z79.4 - prison (current) use of insulin (6) Chronic pain Priority: Secondary Status: Chronic Qualifiers: Chronic pain type: other chronic pain Qualified Code(s): G89.29 - Other chronic pain (7) Obstructive sleep apnea Priority: Secondary Status: Acute (8) Cirrhosis Priority: Secondary Status: Chronic Qualifiers: Hepatic cirrhosis type: unspecified hepatic cirrhosis Ascites presence: with ascites Qualified Code(s): K74.60 - Unspecified cirrhosis of liver Date of admission: 10/14/16 20:33 Primary care physician: Storm Bernstein, Consults: 10/14/16 22:32 Consult to Nephrology [CONS] Routine Consulting Provider: Kidney Lois/TAMMY/RICH/PAMELA Reason for Consult: Acute on chronic kidney failure Call Completed: No Hospital course: Mr. Hammond is a 71 year old male - Time Spent with Patient Total time spent providing and/or coordinating discharge services: 28min - Constitutional Vitals: Temp Pulse Resp BP Pulse Ox 97.6 F 71 20 144/72 97 10/17/16 08:17 10/17/16 08:17 10/17/16 08:17 10/17/16 08:17 10/17/16 08:17 - Attending Attestation I examined this patient and my medical decision-making was reviewed with the Resident Physician on 10/17/16. I agree with the documented findings, disposition and treatment plan as described except to the extent set forth below. Mr. Hammond is doing better today. He feels nearly at baseline. He is afebrile with stable vitals and feels ready for discharge home. Exam Alert. Comfortable Heart reg No wheeze Plan D/C home today Follow up as outpatient.
--- NOTE | 2016-10-17 09:08 | Physician Discharge Referral ---
<Storm Bernstein - Last Filed: 10/17/16 09:06> Home Health/Hosp Referral Info Transfer to: Home Health Attending Provider: Enmanuel Daniel Provider in Charge Post Discharge: PCP - Diagnosis (1) Nojkw-ry-xnvxsrj kidney injury Priority: Primary Status: Acute (2) Cirrhosis Priority: Secondary Status: Chronic (3) HTN (hypertension) Priority: Secondary Status: Chronic (4) Diabetes Priority: Secondary Status: Chronic - Respiratory Orders Oxygen / L per min (2) Smoking Cessation: Smoking cessation has been advised. For more information, call the [place] Tobacco Quit Line at 5-005-ZCCI-NOW. - Diet/Nutrition Diet/Nutrition Orders: Cardiac (Fluid restriction 1.5L) - Services Needed Following services are medically necessary services: Nursing, Home Health Aide, Physical Therapy, Occupational Therapy - Transfer Medications Prescriptions: Furosemide [Lasix] 40 mg PO BID #60 tablet Home Medications: Albuterol Sulfate [Albuterol Inhaler] 2 puff IH QID PRN 03/14/16 [History] Calcium Carbonate [Calcium] 600 mg PO DAILY 03/14/16 [History] Cholecalciferol (Vitamin D3) [Vitamin D3] 8,000 unit PO DAILY 03/14/16 [History] Eucerin Creme 1 appl TP DAILY PRN 03/14/16 [History] Hydralazine HCl 50 mg PO TID 03/14/16 [History] Omeprazole 20 mg PO DAILY 03/14/16 [History] Simvastatin [Zocor] 40 mg PO HS 03/14/16 [History] Isosorbide MONOnitrate (24 HR) [Imdur] 30 mg PO DAILY 30 Days 03/22/16 [Rx] Metoprolol [Lopressor] 100 mg PO BID 30 Days 03/22/16 [Rx] Amitriptyline [Elavil] 25 mg PO HS 08/22/16 [History] Lisinopril [Zestril] 20 mg PO DAILY 08/22/16 [History] Nitroglycerin [Nitrostat] 0.4 mg SL Q5M PRN 08/22/16 [History] Sennosides [Senna] 8.6 mg PO DAILY 08/22/16 [History] Insulin ASPART [NovoLOG] 50 unit SQ TIDWM 09/29/16 [History] Insulin Glargine,Hum.rec.anlog [Toujeo Solostar] 80 unit SQ BID 09/29/16 [ History] Ipratropium/Albuterol Neb [Duoneb] 3 ml IH Q8HR PRN 09/29/16 [History] FentaNYL PATCH [Duragesic] 75 mcg TD Q72H #3 patch.td72 10/05/16 [Rx] Pregabalin [Lyrica] 150 mg PO BID #10 capsule 10/05/16 [Rx] Insulin ASPART [NovoLOG] 2 - 12 unit SQ QID 10/14/16 [History] Oxycodone HCl 10 mg PO BID 10/14/16 [History] Furosemide [Lasix] 40 mg PO BID #60 tablet 10/17/16 [Rx] Allergies/Adverse Reactions: Allergies No Known Allergies Allergy (Verified 10/14/16 14:36) Certification: Further, I certify that my clinical findings support that this patient is homebound (i.e. absences from home require considerable and taxing effort and are for medical reasons or [facility] services or infrequently or short duration when for other reasons) because: Homebound Reason: Patient requires assistance of a person or device to safely leave home, Post-surgery restriction and or conditions limit ability to leave home, Leaving home requires considerable and taxing effort due to condition Attestation: My signature below is to certify that this patient is under my care and that I, or nurse practitioner, or a physician's court assistant working with me, has a face-to -face encounter with this patient. <Enmanuel Daniel - Last Filed: 10/17/16 10:17> - Diagnosis (1) Diastolic CHF Status: Acute (2) Acute kidney injury Status: Acute (3) CKD (chronic kidney disease) stage 3, GFR 30-59 ml/min Status: Chronic (4) HTN (hypertension) Status: Chronic (5) Diabetes Status: Chronic (6) Chronic pain Status: Chronic (7) Obstructive sleep apnea Status: Acute - Respiratory Orders Smoking Cessation: Smoking cessation has been advised. For more information, call the [place] Tobacco Quit Line at 2-843-GLVA-NOW. Certification: Further, I certify that my clinical findings support that this patient is homebound (i.e. absences from home require considerable and taxing effort and are for medical reasons or [facility] services or infrequently or short duration when for other reasons) because: Attestation: My signature below is to certify that this patient is under my care and that I, or nurse practitioner, or a physician's court assistant working with me, has a face-to -face encounter with this patient.
[2016-10-18 07:08] VITALS: BP 135/55
== END 2016-10-17 12:13 | disposition home health service (06) | DRG 291 ==
LOC: 3BNU 12:19 → EMEROO 12:19 → 3BNU 15:58 → SUATTDRO 20:33 → 2ANU 10-15 01:21
PROVIDERS: ADMIT Nurse Practitioner Family; ATTEND Internal Medicine

== ENCOUNTER 2017-10-11 23:27 | Inpatient (IN) ==
[2017-10-12 00:10] LABS: Basophils % 0.3 %; Eosinophils % 0.5 %; Hematocrit 38.1 % (37.5-50.1); Hemoglobin 12.5 g/dL (12.9-16.9); Immature Granulocytes % 0.5 % (0-4); Lymphocytes # 0.9 K/mcL (0.6-4.6); Lymphocytes % 14.1 %; Mean Corpuscular HGB Conc 32.8 g/dL (31.6-35.5); Mean Corpuscular Hemoglobin 30.8 pg (28.0-33.3); Mean Corpuscular Volume 93.8 fL (83.0-100.0); Mean Platelet Volume 11.6 fL (9.4-12.4); Monocytes # 0.5 K/mcL (0.0-1.3); Monocytes % 7.9 %; Neutrophils # 4.8 K/mcL (1.6-8.9); Platelet Count 156 K/mcL (140-400); Red Blood Count 4.06 M/mcL (4.19-5.50); Red Cell Distribution Width 15.6 % (11.5-14.5); Segmented Neutrophils % 76.7 %
[2017-10-12 00:14] LABS: Bilirubin,Urine Negative (Negative); Blood,Urine Negative (Negative); Clarity,Urine Clear (Clear); Color,Urine Yellow (Yellow); Glucose,Urine (UA) >=1000 mg/dL (Normal); Ketones,Urine Negative (Negative); Leukocyte Esterase,Urine Negative (Negative); Nitrite,Urine Negative (Negative); Protein,Urine Negative (Neg-Trace); Specific Gravity,Urine 1.015 (1.010-1.025); Urobilinogen,Urine Normal (Normal)
[2017-10-12 00:15] LABS: INR 1.1; Prothrombin Time 11.6 Seconds (9.4-12.1)
[2017-10-12 00:16] LABS: Amphetamine Screen,Urine Negative ng/mL (Cutoff=1000); Barbiturate Screen,Urine Negative ng/mL (Cutoff=200); Benzodiazepines Screen,Urine Negative ng/mL (Cutoff=200); Cannabinoid Screen,Urine Negative ng/mL (Cutoff = 50); Cocaine Screen,Urine Negative ng/mL (Cutoff= 300); Opiate Screen,Urine Negative ng/mL (Cutoff=300); Phencyclidine Screen,Urine Negative ng/mL (Cutoff=25)
[2017-10-12 00:18] LABS: Activated Partial Thrombo Time 32.6 Seconds (26.0-36.0)
[2017-10-12 00:28] LABS: Troponin I < 0.03 ng/mL (< 0.04)
[2017-10-12 00:29] LABS: Alanine Aminotransferase 32 Units/L (7-52); Albumin/Globulin Ratio 1.1 (1.1-2.2); Alkaline Phosphatase 147 Units/L (34-104); Aspartate Amino Transferase 42 Units/L (13-39); BUN/Creatinine Ratio 18 (6-26); Bilirubin,Direct 0.2 mg/dL (0.0-0.2); Bilirubin,Indirect 0.4 mg/dL (0.0-1.2); Bilirubin,Total 0.6 mg/dL (0.3-1.0); Blood Urea Nitrogen 33 mg/dL (8-23); Calcium 9.9 mg/dL (8.6-10.3); Carbon Dioxide 20 mEq/L (23-29); Chloride 106 mEq/L (98-107); Ethanol < 10 mg/dL (Less than 10); Globulin 3.7 g/dL (2.4-3.5); Glucose 241 mg/dL (70-105); Osmolality,Calculated 301 (280-300); Potassium 4.4 mEq/L (3.5-5.1); Sodium 138 mEq/L (136-145); Total Protein 7.7 g/dL (6.4-8.9); eGFR For African Americans 43 (> 60); eGFR For Non-African Americans 36 (> 60)
[2017-10-12] MEDS ORDERED: Lactulose Oral Soln 20 GM/30 ML UDC PO ONE ×2 (00:31→04:21)
[2017-10-12] MEDS ORDERED: Ondansetron 4 MG/2 ML VIAL IVP ONE (00:37)
--- NOTE | 2017-10-12 00:37 | Emergency Department Note ---
Disposition Clinical Impression: Hepatic encephalopathy Disposition: Admitted As Inpatient Referrals: Storm Bernstein DO [Primary Care Provider] - Forms: ED Satisfaction Letter Time of Disposition: 01:39 Altered Mental Status HPI - General Chief Complaint: ED Altered Mental Status Stated Complaint: lethargy Source: patient, EMS Limitations: altered mental status Nursing Notes Reviewed: Yes Vital Signs Reviewed: Yes - History of Present Illness HPI Narrative: This is a 72 year-old male with history of cirrhosis/end-stage liver disease, HTN, HLD, IDDM, COPD, CHF, and CKD. He presents with lethargy, gradually worsening for the past day. Patient's reports gradually worsening generalized weakness and confusion. He has had 2 episodes of nonbloody, nonbilious emesis. He "felt warm" but has had no measured fevers Family state that patient's symptoms are similar to previous bouts of hepatic encephalopathy. On questioning, family says that patient's ascites is worse today. Patient is on lactulose but missed his second dose today. MD complaint: altered mental status, confusion, decreased responsiveness Onset (ago): day(s) (1) Timing confirmed by: spouse Pain Severity: mild Consistency of Symptoms: getting worse Context: history of similar presentation Associated symptoms: Reports: chills, malaise, nausea/vomiting, shortness of breath (sounds congested), weakness (generalized). Denies: chest pain, cough, fever - Related Data Home Medications Medication Instructions Recorded Confirmed Albuterol Sulfate [Albuterol 2 puff IH QID PRN 03/14/16 10/12/17 Inhaler] Cholecalciferol (Vitamin D3) 2,000 unit PO DAILY 03/14/16 10/12/17 [Vitamin D3] Eucerin Creme 1 appl TP DAILY PRN 03/14/16 10/12/17 Hydralazine HCl 50 mg PO TID 03/14/16 10/12/17 Omeprazole 20 mg PO DAILY 03/14/16 10/12/17 Simvastatin [Zocor] 40 mg PO HS 03/14/16 10/12/17 Lisinopril [Zestril] 10 mg PO DAILY 08/22/16 10/12/17 Nitroglycerin [Nitrostat] 0.4 mg SL Q5M PRN 08/22/16 10/12/17 Ipratropium/Albuterol Neb [Duoneb] 3 ml IH Q8HR PRN 09/29/16 10/12/17 OxyCODONE Immed Rel [Roxicodone 10 10 mg PO Q6H PRN 10/14/16 10/12/17 MG] Aspirin Enteric Coated [Aspirin EC] 325 mg PO DAILY 07/11/17 10/12/17 Ferrous Sulfate [Iron] 325 mg PO TID 07/11/17 10/12/17 Metoprolol [Lopressor] 50 mg PO BID 07/11/17 10/12/17 Sennosides/Docusate Sodium 1 tab PO BID PRN 07/11/17 10/12/17 [Senna-Docusate Sodium Tablet] Insulin Glargine,Hum.rec.anlog 220 unit SQ BID 10/12/17 10/12/17 [Lantus Solostar] Previous Rx's Medication Instructions Recorded Isosorbide MONOnitrate (24 HR) 30 mg PO DAILY 30 Days tab.er.24h 03/22/16 [Imdur] FentaNYL PATCH [Duragesic] 75 mcg TD Q72H #3 patch.td72 10/05/16 Pregabalin [Lyrica] 150 mg PO BID #10 capsule 10/05/16 Furosemide [Lasix] 40 mg PO BID #60 tablet 10/17/16 Lactulose 20 gm PO BID 2 Days #4 udc 07/12/17 Allergies Allergy/AdvReac Type Severity Reaction Status Date / Time No Known Allergies Allergy Verified 10/14/16 14:36 Limitations: ROS unobtainable due to patients medical condition Constitutional: Denies: fever Cardiovascular: Denies: chest pain Respiratory: Denies: dyspnea (but breathing sounded "congested" according to family) Gastrointestinal: Reports: abdominal pain, vomiting, other (no BM today) Past Medical History - Past Medical History Medical history: Reports: CHF, diabetes, hyperlipidemia, hypertension, kidney stones, liver disease, renal disease Surgical history: Reports: other Psychiatric history: Reports: no psych history - Social History Smoking Status: Former smoker Smokeless Tobacco Status: No Alcohol use: Reports: none Drug use: Reports: none Physical Exam - General Limitations: altered mental status General appearance: in no apparent distress, lethargic (somnolent) - Head Head exam: atraumatic, normocephalic - Eye Eye exam: Present: normal appearance. Absent: scleral icterus - ENT ENT exam: normal exam - Neck Neck exam: Absent: meningismus - Chest Chest inspection: Present: normal inspection - Respiratory Respiratory exam: Present: normal lung sounds bilaterally. Absent: respiratory distress, wheezes - Cardiovascular Cardiovascular exam: Present: regular rate, normal rhythm, normal heart sounds - Abdominal Exam Abdominal exam: Present: soft, ascites. Absent: tenderness, guarding, rebound, rigidity - Extremities Exam Extremities exam: Present: normal inspection - Neurological Exam Neurological exam: Present: CN II-XII intact, other (+asterixis). Absent: oriented X3, motor sensory deficit - Skin Skin exam: Present: warm, dry, intact Course - Reevaluation(s) Reevaluation #1: Patient remains stable. Patient took lactulose well. Mental status seems slightly improved. Time: 02:48 - Consultations Consultation #1: Reviewed case with Dr. Mccain, and patient accepted for admission. Time: 04:01 Vital Signs Temperature 98.8 F 10/11/17 23:28 Pulse Rate 103 10/11/17 23:28 Respiratory Rate 20 10/11/17 23:28 Blood Pressure 139/68 10/11/17 23:28 O2 Sat by Pulse Oximetry 94 10/11/17 23:28 Temperature 98.8 F 10/11/17 23:28 Pulse Rate 80 10/12/17 03:06 Respiratory Rate 20 10/12/17 03:06 Blood Pressure 135/66 10/12/17 03:06 O2 Sat by Pulse Oximetry 94 10/12/17 03:07 Oxygen Delivery Oxygen Delivery Nasal Cannula Altered Mental Status - Lab Data Lab results reviewed: Yes I reviewed the patient's lab results. Result diagrams: 10/11/17 23:56 10/11/17 23:56 Lab Results 10/11/17 10/11/17 10/11/17 Range/Units 23:36 23:48 23:48 WBC (4.3-11.1) K/mcL RBC (4.19-5.50) M/mcL Hgb (12.9-16.9) g/dL Hct (37.5-50.1) % MCV (83.0-100.0) fL MCH (28.0-33.3) pg MCHC (31.6-35.5) g/dL RDW (11.5-14.5) % Plt Count (140-400) K/mcL MPV (9.4-12.4) fL Immature Gran % (0-4) % Seg Neutrophils % % Lymphocytes % % Monocytes % % Eosinophils % % Basophils % % Neutrophils # (1.6-8.9) K/mcL Lymphocytes # (0.6-4.6) K/mcL Monocytes # (0.0-1.3) K/mcL Eosinophils # (0.0-0.6) K/mcL Basophils # (0.0-0.2) K/mcL PT (9.4-12.1) Seconds INR APTT (26.0-36.0) Seconds Sample Site ABG pH (7.32-7.45) pH Units ABG pCO2 (35-45) mmHg ABG pO2 (85-104) mmHg ABG HCO3 (21-27) mEq/L ABG Total CO2 (20-26) mEq/L ABG O2 Saturation (95-98) % ABG Base Excess (-2 to 3) mEq/L Tyler Test O2 Delivery Device Inspired O2 (1-15=lpm [id number]=%) Sodium (136-145) mEq/L Potassium (3.5-5.1) mEq/L Chloride (98-107) mEq/L Carbon Dioxide (23-29) mEq/L BUN (8-23) mg/dL Creatinine (0.70-1.30) mg/dL Est GFR ( Amer) (> 60) Est GFR (Non-Af Amer) (> 60) BUN/Creatinine Ratio (6-26) Glucose (70-105) mg/dL Calculated Osmolality (280-300) Calcium (8.6-10.3) mg/dL Total Bilirubin (0.3-1.0) mg/dL Direct Bilirubin (0.0-0.2) mg/dL Indirect Bilirubin (0.0-1.2) mg/dL AST (13-39) Units/L ALT (7-52) Units/L Alkaline Phosphatase (34-104) Units/L Ammonia 187 H (16-53) mcmol/L Troponin I (< 0.04) ng/mL Serum Total Protein (6.4-8.9) g/dL Albumin (3.5-5.7) g/dL Globulin (2.4-3.5) g/dL Albumin/Globulin Ratio (1.1-2.2) TSH (0.340-5.600) mcIU/mL Urine Color Yellow (Yellow) Urine Clarity Clear (Clear) Urine pH 6.0 (5.0-8.0) pH Units Ur Specific [place] 1.015 (1.010-1.025) Urine Protein Negative (Neg-Trace) mg/dL Urine Glucose (UA) >=1000 H (Normal) mg/dL Urine Ketones Negative (Negative) mg/dL Urine Blood Negative (Negative) Urine Nitrite Negative (Negative) Urine Bilirubin Negative (Negative) Urine Urobilinogen Normal (Normal) mg/dL Ur Leukocyte Esterase Negative (Negative) Ur Culture Indicated? NO (NO) Urine Opiates Screen Negative (Cujoan=564) ng/mL Ur Barbiturates Screen Negative (Zxmtsn=189) ng/mL Ur Phencyclidine Scrn Negative (Cutoff=25) ng/mL Ur Amphetamines Screen Negative (Lmsymx=0648) ng/mL U Benzodiazepines Scrn Negative (Xeumiu=015) ng/mL Urine Cocaine Screen Negative (Cutoff= 300) ng/mL U Marijuana (THC) Screen Negative (Cutoff = 50) ng/mL Ethyl Alcohol (Less than 10) mg/dL 10/11/17 10/11/17 10/11/17 Range/Units 23:56 23:56 23:56 WBC 6.3 (4.3-11.1) K/mcL RBC 4.06 L (4.19-5.50) M/mcL Hgb 12.5 L (12.9-16.9) g/dL Hct 38.1 (37.5-50.1) % MCV 93.8 (83.0-100.0) fL MCH 30.8 (28.0-33.3) pg MCHC 32.8 (31.6-35.5) g/dL RDW 15.6 H (11.5-14.5) % Plt Count 156 (140-400) K/mcL MPV 11.6 (9.4-12.4) fL Immature Gran % 0.5 (0-4) % Seg Neutrophils % 76.7 % Lymphocytes % 14.1 % Monocytes % 7.9 % Eosinophils % 0.5 % Basophils % 0.3 % Neutrophils # 4.8 (1.6-8.9) K/mcL Lymphocytes # 0.9 (0.6-4.6) K/mcL Monocytes # 0.5 (0.0-1.3) K/mcL Eosinophils # 0.0 (0.0-0.6) K/mcL Basophils # 0.0 (0.0-0.2) K/mcL PT 11.6 (9.4-12.1) Seconds INR 1.1 APTT 32.6 (26.0-36.0) Seconds Sample Site ABG pH (7.32-7.45) pH Units ABG pCO2 (35-45) mmHg ABG pO2 (85-104) mmHg ABG HCO3 (21-27) mEq/L ABG Total CO2 (20-26) mEq/L ABG O2 Saturation (95-98) % ABG Base Excess (-2 to 3) mEq/L Tyler Test O2 Delivery Device Inspired O2 (1-15=lpm [id number]=%) Sodium 138 (136-145) mEq/L Potassium 4.4 (3.5-5.1) mEq/L Chloride 106 (98-107) mEq/L Carbon Dioxide 20 L (23-29) mEq/L BUN 33 H (8-23) mg/dL Creatinine 1.87 H (0.70-1.30) mg/dL Est GFR ( Amer) 43 L (> 60) Est GFR (Non-Af Amer) 36 L (> 60) BUN/Creatinine Ratio 18 (6-26) Glucose 241 H (70-105) mg/dL Calculated Osmolality 301 H (280-300) Calcium 9.9 (8.6-10.3) mg/dL Total Bilirubin 0.6 (0.3-1.0) mg/dL Direct Bilirubin 0.2 (0.0-0.2) mg/dL Indirect Bilirubin 0.4 (0.0-1.2) mg/dL AST 42 H (13-39) Units/L ALT 32 (7-52) Units/L Alkaline Phosphatase 147 H (34-104) Units/L Ammonia (16-53) mcmol/L Troponin I < 0.03 (< 0.04) ng/mL Serum Total Protein 7.7 (6.4-8.9) g/dL Albumin 4.0 (3.5-5.7) g/dL Globulin 3.7 H (2.4-3.5) g/dL Albumin/Globulin Ratio 1.1 (1.1-2.2) TSH 9.572 H (0.340-5.600) mcIU/mL Urine Color (Yellow) Urine Clarity (Clear) Urine pH (5.0-8.0) pH Units Ur Specific [place] (1.010-1.025) Urine Protein (Neg-Trace) mg/dL Urine Glucose (UA) (Normal) mg/dL Urine Ketones (Negative) mg/dL Urine Blood (Negative) Urine Nitrite (Negative) Urine Bilirubin (Negative) Urine Urobilinogen (Normal) mg/dL Ur Leukocyte Esterase (Negative) Ur Culture Indicated? (NO) Urine Opiates Screen (Fqrnbo=563) ng/mL Ur Barbiturates Screen (Ftuoaz=297) ng/mL Ur Phencyclidine Scrn (Cutoff=25) ng/mL Ur Amphetamines Screen (Qsrtht=8246) ng/mL U Benzodiazepines Scrn (Ftwlil=653) ng/mL Urine Cocaine Screen (Cutoff= 300) ng/mL U Marijuana (THC) Screen (Cutoff = 50) ng/mL Ethyl Alcohol < 10 (Less than 10) mg/dL 10/12/17 Range/Units 02:22 WBC (4.3-11.1) K/mcL RBC (4.19-5.50) M/mcL Hgb (12.9-16.9) g/dL Hct (37.5-50.1) % MCV (83.0-100.0) fL MCH (28.0-33.3) pg MCHC (31.6-35.5) g/dL RDW (11.5-14.5) % Plt Count (140-400) K/mcL MPV (9.4-12.4) fL Immature Gran % (0-4) % Seg Neutrophils % % Lymphocytes % % Monocytes % % Eosinophils % % Basophils % % Neutrophils # (1.6-8.9) K/mcL Lymphocytes # (0.6-4.6) K/mcL Monocytes # (0.0-1.3) K/mcL Eosinophils # (0.0-0.6) K/mcL Basophils # (0.0-0.2) K/mcL PT (9.4-12.1) Seconds INR APTT (26.0-36.0) Seconds Sample Site L Radial ABG pH 7.43 (7.32-7.45) pH Units ABG pCO2 37 (35-45) mmHg ABG pO2 89 (85-104) mmHg ABG HCO3 24 (21-27) mEq/L ABG Total CO2 25 (20-26) mEq/L ABG O2 Saturation 97 (95-98) % ABG Base Excess 0 (-2 to 3) mEq/L Tyler Test Positive O2 Delivery Device Cannula Inspired O2 3.0 (1-15=lpm [id number]=%) Sodium (136-145) mEq/L Potassium (3.5-5.1) mEq/L Chloride (98-107) mEq/L Carbon Dioxide (23-29) mEq/L BUN (8-23) mg/dL Creatinine (0.70-1.30) mg/dL Est GFR ( Amer) (> 60) Est GFR (Non-Af Amer) (> 60) BUN/Creatinine Ratio (6-26) Glucose (70-105) mg/dL Calculated Osmolality (280-300) Calcium (8.6-10.3) mg/dL Total Bilirubin (0.3-1.0) mg/dL Direct Bilirubin (0.0-0.2) mg/dL Indirect Bilirubin (0.0-1.2) mg/dL AST (13-39) Units/L ALT (7-52) Units/L Alkaline Phosphatase (34-104) Units/L Ammonia (16-53) mcmol/L Troponin I (< 0.04) ng/mL Serum Total Protein (6.4-8.9) g/dL Albumin (3.5-5.7) g/dL Globulin (2.4-3.5) g/dL Albumin/Globulin Ratio (1.1-2.2) TSH (0.340-5.600) mcIU/mL Urine Color (Yellow) Urine Clarity (Clear) Urine pH (5.0-8.0) pH Units Ur Specific [place] (1.010-1.025) Urine Protein (Neg-Trace) mg/dL Urine Glucose (UA) (Normal) mg/dL Urine Ketones (Negative) mg/dL Urine Blood (Negative) Urine Nitrite (Negative) Urine Bilirubin (Negative) Urine Urobilinogen (Normal) mg/dL Ur Leukocyte Esterase (Negative) Ur Culture Indicated? (NO) Urine Opiates Screen (Dnaari=075) ng/mL Ur Barbiturates Screen (Uhbevl=851) ng/mL Ur Phencyclidine Scrn (Cutoff=25) ng/mL Ur Amphetamines Screen (Woblit=9896) ng/mL U Benzodiazepines Scrn (Supijc=789) ng/mL Urine Cocaine Screen (Cutoff= 300) ng/mL U Marijuana (THC) Screen (Cutoff = 50) ng/mL Ethyl Alcohol (Less than 10) mg/dL - Radiology Data Radiology results reviewed: Yes I reviewed the patient's radiology results. XR/XR chest 1V portable IMPRESSION: No acute abnormality. CT/CT head/brain wo con IMPRESSION: No acute intracranial abnormality. CT/CT chest wo con IMPRESSION: 1. Minimal edema versus atelectasis at the bilateral lung bases. 2. Nodular contour of the liver may indicate underlying chronic liver disease. Recommend correlation with liver function studies. Stable enlargement of the spleen. CT/CT abd pelvis wo no iv no oral IMPRESSION: 1. Minimal edema versus atelectasis at the bilateral lung bases. 2. Nodular contour of the liver may indicate underlying chronic liver disease. Recommend correlation with liver function studies. Stable enlargement of the spleen. TPA Checklist - LKW: 3-4.5 hrs Add. Warnings/Precautions Patient/family understanding: The patient/family members have been counseled and understood the risk, benefit , and alternatives of treatment.
[2017-10-12 00:42] LABS: Thyroid Stimulating Hormone 9.572 mcIU/mL (0.340-5.600)
[2017-10-12 02:25] LABS: ABG Base Excess 0 mEq/L (-2 to 3); ABG HCO3 24 mEq/L (21-27); ABG Oxygen Saturation 97 % (95-98); ABG PCO2 37 mmHg (35-45); ABG PH 7.43 pH Units (7.32-7.45); ABG PO2 89 mmHg (85-104); ABG TCO2 25 mEq/L (20-26)
--- NOTE | 2017-10-12 04:16 | Event Note ---
Date of Encounter: 10/12/17 Time of Encounter: 04:11 Patient was seen and examined. I agree with the H&P as written by the Resident Physician. 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 Family brought him in and there is no family at my time of evaluation. Reprtedly he missed his lactulose doses today for whatever reason. He got a work up including lab, CT chest, CT abd/pelvis, and CT head that were mostly unremarkable except for ammonia of 187 and TSH 9.572 Given ammonia in the ED. Hemodynamically stable in the ED. A/Ox0. Stares at me RRR. S1, S2, no m/r/g Diminished breath sounds. No wheezes. bibasilar crackles Abdomen is obese, soft, NT, +BS No edema. 2+ DP moves extremities spontaneously but follows no commands. Pupils equal and reactive Admit to hospitalist for hepatic encephalopathy Lactulose and Rifaximin with goals of 3-4 BM in 24 hours Give a dose of IV synthroid Check free T4 Resume rest of home meds DVT ppx
--- NOTE | 2017-10-12 04:49 | Internal Med History&Physical ---
Date of Encounter: 10/15/17 Time of Encounter: 04:01 Internal Medicine - H&P: HPI Chief complaint: AMS Admitted From: Home Plans for Post Hospital Care: Home History of present illness: Mr. Hammond is a 72 year old male w/ pmh of cirrhosis, HTN, HLD, T2DM insulin dependent, COPD CHF, and CKD presents after missing today's doses of lactulose with confusion. Due to mental status, hx was gathered from charts. Patient had progressively worsening weakness and confusion throughout the day and also had associated 2 nonbloody, nonbilious emesis. This presentation is similar to previous hepatic encephalopathy episodes Past Med Surg Social Fam HX - Past Medical History Medical history: CHF, diabetes, hyperlipidemia, hypertension, kidney stones, liver disease, renal disease Additional medical history: Chronic back pain Psychiatric history: no psych history - Past Surgical History Surgical History: other Additional surgical history: Back surgery, right shoulder surgery. - Social History Smoking Status: Former smoker Smokeless Tobacco Status: No Alcohol use: none Drug use: none - Family History Father Family Member Ethnicity: Non- Living Status: Mother Family Member Ethnicity: Non- Living Status: Hx Family Cancer: Yes (Unknown) Hx Family Endocrine Disorder: Yes (DM) Brother Family Member Ethnicity: Non- Living Status: Hx Family Endocrine Disorder: Yes (DM) Sister Family Member Ethnicity: Non- Living Status: Still Living Hx Family Neurologic Disorders: Yes (Alzheimer's disease) Internal Medicine - H&P: Meds Albuterol Sulfate [Albuterol Inhaler] 2 puff IH QID PRN 03/14/16 [History] Cholecalciferol (Vitamin D3) [Vitamin D3] 2,000 unit PO DAILY 03/14/16 [History] Hydralazine HCl 50 mg PO TID 03/14/16 [History] Omeprazole 20 mg PO DAILY 03/14/16 [History] Simvastatin [Zocor] 40 mg PO HS 03/14/16 [History] Isosorbide MONOnitrate (24 HR) [Imdur] 30 mg PO DAILY 30 Days tab.er.24h [Rx] Lisinopril [Zestril] 10 mg PO DAILY 08/22/16 [History] Nitroglycerin [Nitrostat] 0.4 mg SL Q5M PRN 08/22/16 [History] FentaNYL PATCH [Duragesic] 75 mcg TD Q72H #3 patch.td72 10/05/16 [Rx] Pregabalin [Lyrica] 150 mg PO BID #10 capsule 10/05/16 [Rx] OxyCODONE Immed Rel [Roxicodone 10 MG] 10 mg PO Q6H PRN 10/14/16 [History] Furosemide [Lasix] 40 mg PO BID #60 tablet 10/17/16 [Rx] Aspirin Enteric Coated [Aspirin EC] 325 mg PO DAILY 07/11/17 [History] Ferrous Sulfate [Iron] 325 mg PO TID 07/11/17 [History] Metoprolol [Lopressor] 50 mg PO BID 07/11/17 [History] Sennosides/Docusate Sodium [Senna-Docusate Sodium Tablet] 1 tab PO BID PRN 07/11 [History] Insulin Glargine,Hum.rec.anlog [Lantus Solostar] 220 unit SQ BID 10/12/17 [ History] Insulin Regular, Human [Humulin R U-500 Kwikpen] 220 unit SQ BID 10/12/17 [ History] Saxagliptin HCl [Onglyza] 2.5 mg PO DAILY 10/12/17 [History] Lactulose 20 gm PO BID 2 Days #4 udc 10/15/17 [Rx] Rifaximin [Xifaxan] 400 mg PO BID #30 tablet 10/15/17 [Rx] 3 Allergy/AdvReac Type Severity Reaction Status Date / Time No Known Allergies Allergy Verified 10/14/16 14:36 ROS unobtainable: due to mental status All Systems PM: A 10-system review of systems was performed and is negative for pertinent findings except as documented above in the HPI. - Constitutional Vitals: Temp Pulse Resp BP Pulse Ox 98.8 F 100 20 135/60 100 10/11/17 23:28 10/12/17 04:23 10/12/17 04:23 10/12/17 04:23 10/12/17 04:23 General appearance: Present: A&O X 0, disheveled, morbidly obese - Head Head exam: Present: atraumatic, normocephalic - Eye Eye exam: Present: PERRL, conjuntiva pink, sclera anicteric Pupils: Present: PERRL - Neck Neck exam general surgery: Present: supple, trachea midline. Absent: lymphadenopathy - Respiratory Respiratory exam: Present: prolonged expiratory phase. Absent: accessory muscle use, rales, rhonchi, wheezes - Cardiovascular Cardiovascular exam: Present: RRR. Absent: diastolic murmur, gallop, rubs, systolic murmur - GI/Abdominal GI/Abdominal exam: Present: diminished bowel sounds, distended, hepatomegaly, soft, no peritoneal signs. Absent: firm, guarding, rebound, rigid, tenderness Additional comments: positive fluid wave - Extremities Exam Extremities exam: Present: warm, radial pulses palpable and symmetrical. Absent : calf tenderness, cyanotic, pedal edema - Neurological Exam Neurological exam: Absent: pronater drift, facial droop, speech deficit Additional comments: patient is unable to follow commands - Skin Skin exam: Present: dry, intact Internal Med - H&P Results - Labs CBC & Chem 7: 10/15/17 04:09 10/15/17 04:09 - Impressions ITS Impressions Chest X-Ray 10/12/17 23:56 IMPRESSION: No acute abnormality. D/ / All Hernandez MD / All Hernandez MD Interpreting Provider: All Hernandez MD - Assessment and plan (1) Hepatic encephalopathy Current Visit: Yes Status: Acute Assessment and plan: most likely due to hepatic encephalopathy vs cannot rule out hypothyroid as contributing factor vs possible polypharmacy. Patient missed dose of lactulose today, will continue home rx of lactulose with goal BM 2-3 a day. As well ammonia was elevated; will not continue to follow due to poor correlation between encephalopathy and ammonia levels. Patient TSH was elevated on admission, unlikely in the myxedema range. Will replace with levothyroxine, follow up outpatient for lab follow up. Will hold mentally altering medications - continue lactulose, rifaxamin - strict I/O - continuous neurologic exams - hold mentally altering meds - replacing levothyroxine (2) Hypothyroid Current Visit: Yes Status: Acute Assessment and plan: TSH in ED was 9.572. Will replenish with levothyroxine Qualifiers: Qualified Code(s): E03.9 - Hypothyroidism, unspecified (3) Acute on chronic renal failure Current Visit: Yes Status: Acute Assessment and plan: Cr on admission 1.87, baseline ~1.50. Will continue to follow Cr. Qualifiers: Acute renal failure type: unspecified Chronic kidney disease stage: stage 3 (moderate) Qualified Code(s): N17.9 - Acute kidney failure, unspecified; N18.3 - Chronic kidney disease, stage 3 (moderate) (4) Anemia Current Visit: Yes Status: Chronic Assessment and plan: mildly decreased on admission. unlikely related to the encephalopathy. Qualifiers: Anemia type: iron deficiency Iron deficiency anemia type: unspecified iron deficiency Qualified Code(s): D50.9 - Iron deficiency anemia, unspecified (5) Cirrhosis Current Visit: Yes Status: Chronic Assessment and plan: Known hx of End stage liver disease. Patient has ascites on clinical exam. MELD score is 13; 3 month mortality estimated to be 6.0%. Recommend patient have follow up with club room attendant on discharge. Qualifiers: Hepatic cirrhosis type: unspecified hepatic cirrhosis Ascites presence: with ascites Qualified Code(s): K74.60 - Unspecified cirrhosis of liver; R18.8 - Other ascites (6) CKD (chronic kidney disease) stage 3, GFR 30-59 ml/min Current Visit: Yes Status: Chronic Assessment and plan: see above (7) COPD (chronic obstructive pulmonary disease) Current Visit: Yes Status: Chronic Assessment and plan: currently stable. will continue to provide support - Respiratory support; SpO2 goal 88-92%. - duoneb Qualifiers: COPD type: emphysema Emphysema type: panlobular Qualified Code(s): J43.1 - Panlobular emphysema (8) Diabetes Current Visit: Yes Status: Chronic Assessment and plan: BG on admission elevated. known hx of poorly controlled DM. 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 (9) DVT prophylaxis Current Visit: Yes Status: Acute Assessment and plan: sq heparin (10) HTN (hypertension) Current Visit: Yes Status: Chronic Assessment and plan: currently stable, continue to montior Qualifiers: Hypertension type: essential hypertension Qualified Code(s): I10 - Essential (primary) hypertension (11) Hyperlipidemia Current Visit: Yes Status: Chronic Assessment and plan: chonic Qualifiers: Hyperlipidemia type: mixed hyperlipidemia Qualified Code(s): E78.2 - Mixed hyperlipidemia (12) Obstructive sleep apnea Current Visit: Yes Status: Chronic Assessment and plan: unsure if patient uses sleeping device at home. patient has both PRADEEP and COPD, and most likely also has OHS. (13) CHF (congestive heart failure) Current Visit: Yes Status: Acute Assessment and plan: known hx of CHF. last echo 07/2017 LVEF 65%. Qualifiers: Qualified Code(s): I50.9 - Heart failure, unspecified (14) Morbid obesity with BMI of 40.0-44.9, adult Current Visit: Yes Status: Acute Assessment and plan: chronic - Time Spent With Patient Total time spent is greater than 50% in coordination of care (as documented) at patient's floor/unit and/or counseling patient:
[2017-10-12] MEDS ORDERED: Naloxone 0.4 MG/ML INJ IVP PRN (05:06)
[2017-10-12] MEDS ORDERED: Dextrose Gel 15 GM/37.5 ML TUBE PO PRN ×2 (05:15)
[2017-10-12] MEDS ORDERED: *HR* Dextrose 50 % in Water (Syg) 50 ML SYRINGE IVP PRN (05:15)
[2017-10-12] MEDS ORDERED: D5% in Water 1,000 ML IVC PRN (05:15)
[2017-10-12] MEDS ORDERED: Nitroglycerin 0.4 MG TAB.SUBL SL PRN (05:21)
[2017-10-12] MEDS ORDERED: Sennosides/Docusate Sodium TABLET PO PRN (05:21)
[2017-10-12] MEDS ORDERED: Ipratropium/Albuterol Neb 3 ML IH PRN (05:21)
[2017-10-12] MEDS ORDERED: Eucerin Cream 57 GM TUBE TP PRN (05:21)
[2017-10-12 06:39] LABS: Magnesium 2.2 mg/dL (1.6-2.6); Phosphorous 4.4 mg/dL (2.7-4.5)
[2017-10-12] MEDS ORDERED: Levothyroxine Sodium 200 MCG VIAL IVP ONE (06:58)
[2017-10-12] MEDS ORDERED: Lactulose Oral Soln 20 GM/30 ML UDC PO SCH (09:00)
[2017-10-12] MEDS ORDERED: Insulin DETEMIR 100 UNIT/ML X5UNITS SQ SCH (09:00)
--- NOTE | 2017-10-12 09:06 | Event Note ---
Date of Encounter: 10/12/17 Time of Encounter: 09:05 Seen patient at bedside Patient remains partially confused Discussed with care team aspiration risk , trial of lactulose - titrate to 3-4 BM daily Close monitoring of symptoms and labs If unable to take PO, may have to place NGT and schedule lactulose
[2017-10-12] MEDS: Insulin LISPRO 300 UNITS/3 ML VIAL SQ SCH ×4 (09:40→22:00)
[2017-10-12] MEDS: Insulin DETEMIR 100 UNIT/ML X5UNITS SQ SCH ×2 (09:40→22:10)
[2017-10-12] MEDS: Furosemide 40 MG TABLET PO SCH ×2 (11:59→15:10)
[2017-10-12] MEDS: Cholecalciferol (D-3) 1,000 UNIT TABLET PO SCH (12:00)
[2017-10-12] MEDS: hydrALAZINE 25 MG TABLET PO SCH ×3 (12:00→22:01)
[2017-10-12] MEDS: Isosorbide MONOnitrate (24 HR) 30 MG TAB.ER.24H PO SCH (12:00)
[2017-10-12] MEDS: Lactulose Oral Soln 20 GM/30 ML UDC RC SCH ×3 (12:48→22:00)
--- NOTE | 2017-10-12 17:13 | Electrocardiograph Report ---
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
[2017-10-12 21:50] LABS: Acinetobacter baumannii by PCR Not Detected (Not Detect); Candida albicans by PCR Not Detected (Not Detect); Candida glabrata by PCR Not Detected (Not Detect); Candida krusei by PCR Not Detected (Not Detect); Candida parapsilosis by PCR Not Detected (Not Detect); Candida tropicalis by PCR Not Detected (Not Detect); Escherichia coli by PCR Not Detected (Not Detect); Klebsiella oxytoca by PCR Not Detected (Not Detect); Klebsiella pneumoniae by PCR Not Detected (Not Detect); Pseudomonas aeruginosa by PCR Not Detected (Not Detect); Serratia marcescens by PCR Not Detected (Not Detect); Staphylococcus aureus by PCR Not Detected (Not Detect); Streptococcus agalactiae(B)PCR Not Detected (Not Detect); Streptococcus by PCR Not Detected (Not Detect); Streptococcus pneumoniae PCR Not Detected (Not Detect); Streptococcus pyogenes (A) PCR Not Detected (Not Detect); blaKPC Carbapenem-Resist Gene Not Detected (Not Detect); mecA Methicillin-Resist Gene Not Detected (Not Detect); vanA/B Vancomycin-Resist Genes Not Detected (Not Detect)
[2017-10-12 21:51] LABS: Enterococcus by PCR Not Detected (Not Detect)
--- NOTE | 2017-10-12 22:19 | Event Note ---
Date of Encounter: 10/12/17 Time of Encounter: 22:17 Blood culture is positive for entero bacter, proteus and staph, the patient is on rifaxim, will add merrem until sensitivity is back.
[2017-10-13] MEDS ORDERED: Meropenem 500 MG in Water for inj. (sterile) 20 ML 10 ML IVPB SCH
[2017-10-13] MEDS ORDERED: Albuterol 2.5 MG/3 ML NEBULIZER IH PRN (07:20)
[2017-10-13 07:28] LABS: Basophils % 0.2 %; Eosinophils % 0.7 %; Hematocrit 38.5 % (37.5-50.1); Hemoglobin 12.5 g/dL (12.9-16.9); Immature Granulocytes % 0.2 % (0-4); Lymphocytes % 16.6 %; Mean Corpuscular HGB Conc 32.5 g/dL (31.6-35.5); Mean Corpuscular Hemoglobin 30.3 pg (28.0-33.3); Mean Corpuscular Volume 93.2 fL (83.0-100.0); Mean Platelet Volume 11.3 fL (9.4-12.4); Monocytes # 0.5 K/mcL (0.0-1.3); Monocytes % 9.2 %; Neutrophils # 4.3 K/mcL (1.6-8.9); Platelet Count 141 K/mcL (140-400); Red Blood Count 4.13 M/mcL (4.19-5.50); Red Cell Distribution Width 15.4 % (11.5-14.5); Segmented Neutrophils % 73.1 %
[2017-10-13 07:48] LABS: Albumin 3.8 g/dL (3.5-5.7); Albumin/Globulin Ratio 1.1 (1.1-2.2); Calcium 9.8 mg/dL (8.6-10.3); Globulin 3.4 g/dL (2.4-3.5); Potassium 4.8 mEq/L (3.5-5.1); Total Protein 7.2 g/dL (6.4-8.9)
--- NOTE | 2017-10-13 07:50 | Internal Med Progress Note ---
Date of Encounter: 10/13/17 Time of Encounter: 07:40 - Assessment and plan (1) Hepatic encephalopathy Current Visit: Yes Status: Acute Assessment and plan: most likely due to hepatic encephalopathy vs cannot rule out hypothyroid as contributing factor vs possible polypharmacy. Patient missed dose of lactulose today, will continue home rx of lactulose with goal BM 2-3 a day. As well ammonia was elevated; will not continue to follow due to poor correlation between encephalopathy and ammonia levels. Patient TSH was elevated on admission, unlikely in the myxedema range. Will replace with levothyroxine, follow up outpatient for lab follow up. Will hold mentally altering medications - continue lactulose, rifaxamin - strict I/O - continuous neurologic exams - hold mentally altering meds - replacing levothyroxine (2) Cirrhosis Current Visit: Yes Status: Chronic Qualifiers: Hepatic cirrhosis type: unspecified hepatic cirrhosis Ascites presence: with ascites Qualified Code(s): K74.60 - Unspecified cirrhosis of liver (3) Acute on chronic renal failure Current Visit: Yes Status: Acute Qualifiers: Acute renal failure type: unspecified Chronic kidney disease stage: stage 3 (moderate) Qualified Code(s): N17.9 - Acute kidney failure, unspecified; N18.3 - Chronic kidney disease, stage 3 (moderate); N18.3 - Chronic kidney disease, stage 3 (moderate) (4) Congestive heart failure Current Visit: Yes Status: Acute Qualifiers: Qualified Code(s): I50.30 - Unspecified diastolic (congestive) heart failure (5) Diabetes Current Visit: Yes Status: Chronic Qualifiers: Diabetes mellitus type: type 2 Diabetes mellitus correction insulin use: with etcher machine use Diabetes mellitus complication status: with kidney complications Diabetes mellitus complication detail: with chronic kidney disease Chronic kidney disease stage: stage 3 (moderate) Qualified Code(s): E11.22 - Type 2 diabetes mellitus with diabetic chronic kidney disease; N18.3 - Chronic kidney disease, stage 3 (moderate); Z79.4 - sugar controller (current) use of insulin (6) Obesity Current Visit: Yes Status: Chronic Qualifiers: Obesity type: due to excess calories Qualified Code(s): E66.01 - Morbid ( severe) obesity due to excess calories (7) CKD (chronic kidney disease) stage 3, GFR 30-59 ml/min Current Visit: Yes Status: Chronic (8) DVT prophylaxis Current Visit: Yes Status: Acute (9) Anemia Current Visit: Yes Status: Acute Qualifiers: Qualified Code(s): D64.9 - Anemia, unspecified (10) HTN (hypertension) Current Visit: Yes Status: Chronic Qualifiers: Hypertension type: renovascular hypertension Qualified Code(s): I15.0 - Renovascular hypertension (11) COPD (chronic obstructive pulmonary disease) Current Visit: Yes Status: Chronic Qualifiers: COPD type: unspecified COPD Qualified Code(s): J44.9 - Chronic obstructive pulmonary disease, unspecified (12) Obstructive sleep apnea Current Visit: Yes Status: Acute (13) Hyperlipidemia Current Visit: Yes Status: Chronic Qualifiers: Hyperlipidemia type: unspecified Qualified Code(s): E78.5 - Hyperlipidemia , unspecified (14) Hypothyroid Current Visit: Yes Status: Acute - Time Spent With Patient Total time spent is greater than 50% in coordination of care (as documented) at patient's floor/unit and/or counseling patient: - Subjective Interval history: No acute events overnight - Constitutional Vitals: Temp Pulse Resp BP Pulse Ox 98.3 F 69 15 163/69 97 10/13/17 07:36 10/13/17 07:36 10/13/17 07:36 10/13/17 07:36 10/13/17 07:36 General appearance: Present: A&O X 0, disheveled, morbidly obese Internal Medicine: Result - Labs CBC & Chem 7: 10/13/17 07:14 10/13/17 07:14 Labs: Short CBC 10/13/17 Range/Units 07:14 WBC 5.9 (4.3-11.1) K/mcL Hgb 12.5 L (12.9-16.9) g/dL Hct 38.5 (37.5-50.1) % Plt Count 141 (140-400) K/mcL Neutrophils # 4.3 (1.6-8.9) K/mcL BMP 10/13/17 07:14 Sodium 137 Potassium 4.8 Chloride 107 Carbon Dioxide 19 L BUN 31 H Creatinine 1.60 H Glucose 298 H Calcium 9.8 Liver Function 10/13/17 Range/Units 07:14 Total Bilirubin 1.0 (0.3-1.0) mg/dL AST 41 H (13-39) Units/L ALT 31 (7-52) Units/L Alkaline Phosphatase 124 H (34-104) Units/L Albumin 3.8 (3.5-5.7) g/dL - ABG Interpretation ABG results: ABG ABG pH 7.43 pH Units (7.32-7.45) 10/12/17 02:22 ABG pCO2 37 mmHg (35-45) 10/12/17 02:22 ABG pO2 89 mmHg (85-104) 10/12/17 02:22 ABG O2 Saturation 97 % (95-98) 10/12/17 02:22 PT/INR, D-dimer PT 11.6 Seconds (9.4-12.1) 10/11/17 23:56 Consult Discharge Plan - Plan Referrals: Storm Bernstein DO [Primary Care Provider] -
--- NOTE | 2017-10-13 08:18 | Internal Med Progress Note ---
<AmandeepStorm Kelsea - Last Filed: 10/13/17 08:16> Date of Encounter: 10/13/17 Time of Encounter: 08:16 - Assessment and plan (1) Hepatic encephalopathy Current Visit: Yes Status: Acute Assessment and plan: Likely due to noncompliance with lactulose regimen. Ammonia elevated 187 on presentation, has decreased to 67 this morning. Mental status appears to be improving. Continue lactulose orally and rifaximin. Patient has known cirrhosis with large liver mass of unknown etiology. This is been discussed extensively as an outpatient and patient has refused further workup and does not want to know what is causing this liver mass. (2) Cirrhosis Current Visit: Yes Status: Chronic Assessment and plan: Likely secondary to nonalcoholic fatty liver disease however patient has refused biopsy and further workup of his liver abnormalities. Meld score 12 indicative of a 6% 3 month mortality. Continue with symptomatic treatment. Qualifiers: Hepatic cirrhosis type: unspecified hepatic cirrhosis Ascites presence: with ascites Qualified Code(s): K74.60 - Unspecified cirrhosis of liver (3) Positive blood culture Current Visit: Yes Status: Acute Assessment and plan: One blood culture was positive for gram-positive cocci indicative of staph species, not staph aureus. Likely contaminant. Patient has no clinical signs of infection including no fever, leukocytosis, or source of infection. We will hold antibiotics at this time and repeat blood cultures. (4) Elevated TSH Current Visit: Yes Status: Acute Assessment and plan: Likely sick euthyroid as patient has normal T4. Will hold off on any treatment at this time, will recheck as outpatient. (5) Diabetes Current Visit: Yes Status: Chronic Assessment and plan: Patient assets of diabetes with severe insulin resistance. Falls with endocrinology as an outpatient. Currently on U500 220 units twice a day. Blood sugars are controlled. We will restart at 150 units twice a day and adjust as necessary. Continue sliding scale insulin. Qualifiers: Diabetes mellitus type: type 2 Diabetes mellitus bed bug exterminator insulin use: with correction use Diabetes mellitus complication status: with kidney complications Diabetes mellitus complication detail: with chronic kidney disease Chronic kidney disease stage: stage 3 (moderate) Qualified Code(s): E11.22 - Type 2 diabetes mellitus with diabetic chronic kidney disease; N18.3 - Chronic kidney disease, stage 3 (moderate); Z79.4 - care home (current) use of insulin (6) CKD (chronic kidney disease) stage 3, GFR 30-59 ml/min Current Visit: Yes Status: Chronic Assessment and plan: Patient had acute elevation presentation however this has returned to normal. Good urine output. Continue monitor renal function. (7) Goals of care, counseling/discussion Current Visit: Yes Status: Acute Assessment and plan: Patient has previously established a CODE STATUS of DNR CCA/DNI as an outpatient. Order has been changed to reflect this. Patient is currently slightly altered so cannot discuss in detail with him, we will discuss with the patient's daughter who is the medical power of deputy county attorney upon arrival and confirm goals of care. We will also bring up the subject of hospice with the family. (8) Anemia Current Visit: Yes Status: Acute Assessment and plan: Mild. Hemoglobin 12.5 on presentation, has remained stable. Continue iron supplementation. No evidence of active bleeding Qualifiers: Anemia type: iron deficiency Iron deficiency anemia type: unspecified iron deficiency Qualified Code(s): D50.9 - Iron deficiency anemia, unspecified (9) HTN (hypertension) Current Visit: Yes Status: Chronic Assessment and plan: Blood pressure mildly elevated this morning but not critical. Continue home medications and continue to monitor. Adjust as necessary. Qualifiers: Hypertension type: essential hypertension Qualified Code(s): I10 - Essential (primary) hypertension (10) COPD (chronic obstructive pulmonary disease) Current Visit: Yes Status: Chronic Assessment and plan: Stable. No evidence of acute exacerbation. Continue when necessary albuterol. Qualifiers: COPD type: unspecified COPD Qualified Code(s): J44.9 - Chronic obstructive pulmonary disease, unspecified (11) Chronic pain Current Visit: Yes Status: Acute Assessment and plan: Patient at home and uses fentanyl patches 75 g every 72 hours and oxycodone 10 mg every 6 when necessary. We will restart fentanyl patch at a lower dose given the patient's altered mental status and closely monitor. Qualifiers: Chronic pain type: chronic pain syndrome Qualified Code(s): G89.4 - Chronic pain syndrome (12) Obstructive sleep apnea Current Visit: Yes Status: Acute (13) Hyperlipidemia Current Visit: Yes Status: Chronic Qualifiers: Hyperlipidemia type: unspecified Qualified Code(s): E78.5 - Hyperlipidemia , unspecified (14) DVT prophylaxis Current Visit: Yes Status: Acute Assessment and plan: Heparin 5000u sq BID (15) Heart failure Current Visit: Yes Status: Acute Assessment and plan: Chronic heart failure with preserved ejection fraction. No evidence of acute exacerbation. Continue home diuretic regimen Qualifiers: Heart failure type: diastolic Heart failure chronicity: chronic Qualified Code(s): I50.32 - Chronic diastolic (congestive) heart failure - Time Spent With Patient Total time spent is greater than 50% in coordination of care (as documented) at patient's floor/unit and/or counseling patient: - Subjective Interval history: Patient seen and examined at bedside. Patient states that he feels pretty good today, he is ready to go home. Patient still seems slightly confused. Otherwise has no complaints at this time. - Constitutional Vitals: Temp Pulse Resp BP Pulse Ox 98.3 F 69 15 163/69 97 10/13/17 07:36 10/13/17 07:36 10/13/17 07:36 10/13/17 07:36 10/13/17 07:36 General appearance: Present: A&O X 2, morbidly obese, no acute distress - Respiratory Respiratory exam: Present: decreased breath sounds. Absent: rales, rhonchi, wheezes - Cardiovascular Cardiovascular exam: Present: RRR. Absent: diastolic murmur, gallop, rubs, systolic murmur - GI/Abdominal GI/Abdominal exam: Present: diminished bowel sounds, distended, soft, tenderness (mild, diffuse). Absent: firm - Extremities Exam Extremities exam: Present: pedal edema (trace bilateral), tenderness (bilateral) , warm - Neurological Exam Neurological exam: Present: alert, altered, no focal deficits. Absent: oriented X3 Internal Medicine: Result - Labs CBC & Chem 7: 10/13/17 07:14 10/13/17 07:14 Labs: Short CBC 10/13/17 Range/Units 07:14 WBC 5.9 (4.3-11.1) K/mcL Hgb 12.5 L (12.9-16.9) g/dL Hct 38.5 (37.5-50.1) % Plt Count 141 (140-400) K/mcL Neutrophils # 4.3 (1.6-8.9) K/mcL BMP 10/13/17 07:14 Sodium 137 Potassium 4.8 Chloride 107 Carbon Dioxide 19 L BUN 31 H Creatinine 1.60 H Glucose 298 H Calcium 9.8 Liver Function 10/13/17 Range/Units 07:14 Total Bilirubin 1.0 (0.3-1.0) mg/dL AST 41 H (13-39) Units/L ALT 31 (7-52) Units/L Alkaline Phosphatase 124 H (34-104) Units/L Albumin 3.8 (3.5-5.7) g/dL - ABG Interpretation ABG results: ABG ABG pH 7.43 pH Units (7.32-7.45) 10/12/17 02:22 ABG pCO2 37 mmHg (35-45) 10/12/17 02:22 ABG pO2 89 mmHg (85-104) 10/12/17 02:22 ABG O2 Saturation 97 % (95-98) 10/12/17 02:22 PT/INR, D-dimer PT 11.6 Seconds (9.4-12.1) 10/11/17 23:56 Consult Discharge Plan - Plan Referrals: Storm Bernstein, [Primary Care Provider] - <Enmanuel Daniel - Last Filed: 10/13/17 12:55> Date of Encounter: 10/13/17 - Assessment and plan (1) Hepatic encephalopathy Current Visit: Yes Status: Acute (2) Diabetes Current Visit: Yes Status: Chronic Qualifiers: Diabetes mellitus type: type 2 Diabetes mellitus correction insulin use: with bed bug exterminator use Diabetes mellitus complication status: with kidney complications Diabetes mellitus complication detail: with chronic kidney disease Chronic kidney disease stage: stage 3 (moderate) Qualified Code(s): E11.22 - Type 2 diabetes mellitus with diabetic chronic kidney disease; N18.3 - Chronic kidney disease, stage 3 (moderate); 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 of insulin (3) CKD (chronic kidney disease) stage 3, GFR 30-59 ml/min Current Visit: Yes Status: Chronic (4) DVT prophylaxis Current Visit: Yes Status: Acute (5) Anemia Current Visit: Yes Status: Acute Qualifiers: Anemia type: iron deficiency Iron deficiency anemia type: unspecified iron deficiency Qualified Code(s): D50.9 - Iron deficiency anemia, unspecified (6) HTN (hypertension) Current Visit: Yes Status: Chronic Qualifiers: Hypertension type: essential hypertension Qualified Code(s): I10 - Essential (primary) hypertension (7) COPD (chronic obstructive pulmonary disease) Current Visit: Yes Status: Chronic Qualifiers: COPD type: emphysema Emphysema type: panlobular Qualified Code(s): J43.1 - Panlobular emphysema (8) Obstructive sleep apnea Current Visit: Yes Status: Acute (9) Hyperlipidemia Current Visit: Yes Status: Chronic Qualifiers: Hyperlipidemia type: mixed hyperlipidemia Qualified Code(s): E78.2 - Mixed hyperlipidemia (10) Cirrhosis Current Visit: Yes Status: Chronic Qualifiers: Hepatic cirrhosis type: unspecified hepatic cirrhosis Ascites presence: with ascites Qualified Code(s): K74.60 - Unspecified cirrhosis of liver (11) Elevated TSH Current Visit: Yes Status: Acute (12) Chronic pain Current Visit: Yes Status: Acute Qualifiers: Chronic pain type: chronic pain syndrome Qualified Code(s): G89.4 - Chronic pain syndrome (13) Positive blood culture Current Visit: Yes Status: Acute (14) Goals of care, counseling/discussion Current Visit: Yes Status: Acute (15) Heart failure Current Visit: Yes Status: Acute Qualifiers: Heart failure type: diastolic Heart failure chronicity: chronic Qualified Code(s): I50.32 - Chronic diastolic (congestive) heart failure - Time Spent With Patient Total time spent is greater than 50% in coordination of care (as documented) at patient's floor/unit and/or counseling patient: - Constitutional Vitals: Temp Pulse Resp BP Pulse Ox 97.6 F 78 18 110/56 91 10/13/17 11:49 10/13/17 11:49 10/13/17 11:49 10/13/17 11:49 10/13/17 11:49 Internal Medicine: Result - Labs CBC & Chem 7: 10/13/17 07:14 10/13/17 07:14 Labs: Short CBC 10/13/17 Range/Units 07:14 WBC 5.9 (4.3-11.1) K/mcL Hgb 12.5 L (12.9-16.9) g/dL Hct 38.5 (37.5-50.1) % Plt Count 141 (140-400) K/mcL Neutrophils # 4.3 (1.6-8.9) K/mcL BMP 10/13/17 07:14 Sodium 137 Potassium 4.8 Chloride 107 Carbon Dioxide 19 L BUN 31 H Creatinine 1.60 H Glucose 298 H Calcium 9.8 Liver Function 10/13/17 Range/Units 07:14 Total Bilirubin 1.0 (0.3-1.0) mg/dL AST 41 H (13-39) Units/L ALT 31 (7-52) Units/L Alkaline Phosphatase 124 H (34-104) Units/L Albumin 3.8 (3.5-5.7) g/dL - ABG Interpretation ABG results: ABG ABG pH 7.43 pH Units (7.32-7.45) 10/12/17 02:22 ABG pCO2 37 mmHg (35-45) 10/12/17 02:22 ABG pO2 89 mmHg (85-104) 10/12/17 02:22 ABG O2 Saturation 97 % (95-98) 10/12/17 02:22 PT/INR, D-dimer PT 11.6 Seconds (9.4-12.1) 10/11/17 23:56 - Attending Attestation I examined this patient and my medical decision-making was reviewed with the Resident Physician on 10/13/17. I agree with the documented findings, disposition and treatment plan as described except to the extent set forth below. Mr Hammond is currently admitted for acute hepatic encephalopathy. He remains moderate to high risk due to potential for worsening clinical status. Mr Hammond is doing somewhat better. He is still confused some but appears to be improving. No fever or chills. No CP. Exam alert. Remains disoriented at times Mucus membranes moist Heart not tachy Lungs diminished Abd soft I/P 1 Hepatic encephalopathy slowly improving 2. Cirrhosis Further diagnoses and plan as above.
[2017-10-13] MEDS ORDERED: *HR* FentaNYL PATCH 50 MCG PATCH TD SCH (08:30)
[2017-10-13] MEDS: Insulin LISPRO 300 UNITS/3 ML VIAL SQ SCH ×4 (09:35→20:57)
[2017-10-13] MEDS: Lactulose Oral Soln 20 GM/30 ML UDC PO SCH ×3 (09:35→20:57)
[2017-10-13] MEDS: Cholecalciferol (D-3) 1,000 UNIT TABLET PO SCH (09:37)
[2017-10-13] MEDS: Pregabalin 75 MG CAPSULE PO SCH ×2 (09:37→20:57)
[2017-10-13] MEDS: Furosemide 40 MG TABLET PO SCH ×2 (09:37→16:57)
[2017-10-13] MEDS: hydrALAZINE 25 MG TABLET PO SCH ×3 (09:38→20:57)
[2017-10-13] MEDS: Isosorbide MONOnitrate (24 HR) 30 MG TAB.ER.24H PO SCH (09:38)
[2017-10-13] MEDS: *HR* Insulin Regular U-500 500 UNIT/ML SQ SCH ×2 (09:38→16:58)
[2017-10-13] MEDS: *HR* OxyCODONE Immed Rel 5 MG TABLET PO PRN (10:50)
[2017-10-13] MEDS: *HR* Heparin 5,000 UNIT/ML VIAL SQ SCH ×2 (12:27→16:59)
[2017-10-14] MEDS: *HR* OxyCODONE Immed Rel 5 MG TABLET PO PRN ×2 (02:34→17:54)
[2017-10-14] MEDS ORDERED: Levothyroxine 25 MCG TABLET PO SCH (06:30)
[2017-10-14] MEDS: *HR* Heparin 5,000 UNIT/ML VIAL SQ SCH ×2 (06:46→17:54)
[2017-10-14 06:52] LABS: Basophils % 0.4 %; Eosinophils % 0.7 %; Hematocrit 37.3 % (37.5-50.1); Hemoglobin 12.3 g/dL (12.9-16.9); Immature Granulocytes % 0.4 % (0-4); Lymphocytes # 1.4 K/mcL (0.6-4.6); Lymphocytes % 24.7 %; Mean Corpuscular Hemoglobin 30.6 pg (28.0-33.3); Mean Corpuscular Volume 92.8 fL (83.0-100.0); Mean Platelet Volume 11.2 fL (9.4-12.4); Monocytes # 0.5 K/mcL (0.0-1.3); Monocytes % 9.3 %; Neutrophils # 3.7 K/mcL (1.6-8.9); Platelet Count 128 K/mcL (140-400); Red Blood Count 4.02 M/mcL (4.19-5.50); Red Cell Distribution Width 15.3 % (11.5-14.5); Segmented Neutrophils % 64.5 %
[2017-10-14 07:11] LABS: Albumin 3.7 g/dL (3.5-5.7); Albumin/Globulin Ratio 1.1 (1.1-2.2); Calcium 9.4 mg/dL (8.6-10.3); Globulin 3.4 g/dL (2.4-3.5); Potassium 4.5 mEq/L (3.5-5.1); Total Protein 7.1 g/dL (6.4-8.9)
[2017-10-14] MEDS: hydrALAZINE 25 MG TABLET PO SCH ×3 (08:06→22:33)
[2017-10-14] MEDS: Cholecalciferol (D-3) 1,000 UNIT TABLET PO SCH (08:06)
[2017-10-14] MEDS: Pregabalin 75 MG CAPSULE PO SCH ×2 (08:06→22:33)
[2017-10-14] MEDS: Isosorbide MONOnitrate (24 HR) 30 MG TAB.ER.24H PO SCH (08:06)
[2017-10-14] MEDS: Furosemide 40 MG TABLET PO SCH ×2 (08:06→17:54)
[2017-10-14] MEDS: Insulin LISPRO 300 UNITS/3 ML VIAL SQ SCH ×4 (08:07→22:33)
[2017-10-14] MEDS: Lactulose Oral Soln 20 GM/30 ML UDC PO SCH ×3 (08:07→22:33)
[2017-10-14] MEDS: *HR* Insulin Regular U-500 500 UNIT/ML SQ SCH ×2 (08:08→17:37)
--- NOTE | 2017-10-14 14:00 | Internal Med Progress Note ---
<PietroStorm danielson Kelsea - Last Filed: 10/14/17 13:58> Date of Encounter: 10/14/17 Time of Encounter: 13:58 - Assessment and plan (1) Hepatic encephalopathy Current Visit: Yes Status: Acute Assessment and plan: Likely due to ineffective lactulose regimen, patient states that some days he would have bowel movements but there is other days that he would take his lactulose and not have bowel movements. Mental status appears to be back to baseline. Continue lactulose orally and rifaximin. Patient has known cirrhosis with large liver mass of unknown etiology. This is been discussed extensively as an outpatient and patient has refused further workup and does not want to know what is causing this liver mass. (2) Cirrhosis Current Visit: Yes Status: Chronic Assessment and plan: Likely secondary to nonalcoholic fatty liver disease however patient has refused biopsy and further workup of his liver abnormalities. Meld score 12 indicative of a 6% 3 month mortality. Continue with symptomatic treatment. Qualifiers: Hepatic cirrhosis type: unspecified hepatic cirrhosis Ascites presence: with ascites Qualified Code(s): K74.60 - Unspecified cirrhosis of liver (3) Positive blood culture Current Visit: Yes Status: Acute Assessment and plan: One out of 2 blood culture was positive for gram-positive cocci indicative of staph species, not staph aureus. Likely contaminant. Patient has no clinical signs of infection including no fever, leukocytosis, or source of infection. Repeat blood cultures pending (4) Diabetes Current Visit: Yes Status: Chronic Assessment and plan: Patient assets of diabetes with severe insulin resistance. Falls with endocrinology as an outpatient. Currently on U500 220 units twice a day. Blood sugars are uncontrolled. We will increase to 200 units twice a day. Continue sliding scale insulin. Qualifiers: Diabetes mellitus type: type 2 Diabetes mellitus group home insulin use: with intermodal dispatcher use Diabetes mellitus complication status: with kidney complications Diabetes mellitus complication detail: with chronic kidney disease Chronic kidney disease stage: stage 3 (moderate) Qualified Code(s): E11.22 - Type 2 diabetes mellitus with diabetic chronic kidney disease; N18.3 - Chronic kidney disease, stage 3 (moderate); Z79.4 - [facility] (current) use of insulin (5) CKD (chronic kidney disease) stage 3, GFR 30-59 ml/min Current Visit: Yes Status: Chronic Assessment and plan: Patient had acute elevation presentation however this has returned to baseline. Good urine output. Continue monitor renal function. (6) Anemia Current Visit: Yes Status: Acute Assessment and plan: Mild. Hemoglobin 12.3 on presentation, has remained stable. Continue iron supplementation. No evidence of active bleeding Qualifiers: Anemia type: iron deficiency Iron deficiency anemia type: unspecified iron deficiency Qualified Code(s): D50.9 - Iron deficiency anemia, unspecified (7) HTN (hypertension) Current Visit: Yes Status: Chronic Assessment and plan: Blood pressure under adequate control. Continue medications. Qualifiers: Hypertension type: essential hypertension Qualified Code(s): I10 - Essential (primary) hypertension (8) COPD (chronic obstructive pulmonary disease) Current Visit: Yes Status: Chronic Assessment and plan: Stable. No evidence of acute exacerbation. Continue when necessary albuterol. Qualifiers: COPD type: emphysema Emphysema type: panlobular Qualified Code(s): J43.1 - Panlobular emphysema (9) Obstructive sleep apnea Current Visit: Yes Status: Acute Assessment and plan: Noncompliant with treatment. Patient is resistant to CPAP use in the past. (10) Hyperlipidemia Current Visit: Yes Status: Chronic Assessment and plan: chonic Qualifiers: Hyperlipidemia type: mixed hyperlipidemia Qualified Code(s): E78.2 - Mixed hyperlipidemia (11) Elevated TSH Current Visit: Yes Status: Acute Assessment and plan: Likely sick euthyroid as patient has normal T4. Will hold off on any treatment at this time, will recheck as outpatient. (12) Chronic pain Current Visit: Yes Status: Acute Assessment and plan: Patient at home and uses fentanyl patches 75 g every 72 hours and oxycodone 10 mg every 6 when necessary. Pain is well-controlled, continue current regimen Qualifiers: Chronic pain type: chronic pain syndrome Qualified Code(s): G89.4 - Chronic pain syndrome (13) Goals of care, counseling/discussion Current Visit: Yes Status: Acute Assessment and plan: Patient has previously established a CODE STATUS of DNR CCA/DNI as an outpatient. Order has been changed to reflect this. We will discuss hospice with the patient and family as outpatient (14) DVT prophylaxis Current Visit: Yes Status: Acute Assessment and plan: Heparin 5000u sq BID (15) Heart failure Current Visit: Yes Status: Acute Assessment and plan: Chronic heart failure with preserved ejection fraction. No evidence of acute exacerbation. Continue home diuretic regimen Qualifiers: Heart failure type: diastolic Heart failure chronicity: chronic Qualified Code(s): I50.32 - Chronic diastolic (congestive) heart failure - Time Spent With Patient Total time spent is greater than 50% in coordination of care (as documented) at patient's floor/unit and/or counseling patient: - Subjective Interval history: Patient seen and examined at bedside. Patient states that he feels good today, he states he ready to go home. He is awake alert and his normal jovial self. He denies fever, chills, chest pain, shortness of breath. He reports frequent bowel movements. - Constitutional Vitals: Temp Pulse Resp BP Pulse Ox 98.7 F 69 13 150/77 93 10/14/17 10:35 10/14/17 10:35 10/14/17 10:35 10/14/17 10:35 10/14/17 10:35 General appearance: Present: A&O X 3, morbidly obese, pleasant, no acute distress - Respiratory Respiratory exam: Present: CTAB. Absent: rales, rhonchi, wheezes - Cardiovascular Cardiovascular exam: Present: RRR. Absent: gallop, rubs, systolic murmur - GI/Abdominal GI/Abdominal exam: Present: distended, normal bowel sounds, soft. Absent: tenderness - Extremities Exam Extremities exam: Present: pedal edema (1+), warm. Absent: tenderness - Neurological Exam Neurological exam: Present: alert, CN II-XII intact, oriented X3, no focal deficits Internal Medicine: Result - Labs CBC & Chem 7: 10/14/17 06:35 10/14/17 06:35 Labs: Short CBC 10/14/17 Range/Units 06:35 WBC 5.7 (4.3-11.1) K/mcL Hgb 12.3 L (12.9-16.9) g/dL Hct 37.3 L (37.5-50.1) % Plt Count 128 L (140-400) K/mcL Neutrophils # 3.7 (1.6-8.9) K/mcL BMP 10/14/17 06:35 Sodium 134 L Potassium 4.5 Chloride 103 Carbon Dioxide 22 L BUN 37 H Creatinine 1.68 H Glucose 336 H Calcium 9.4 Liver Function 10/14/17 Range/Units 06:35 Total Bilirubin 1.0 (0.3-1.0) mg/dL AST 47 H (13-39) Units/L ALT 29 (7-52) Units/L Alkaline Phosphatase 133 H (34-104) Units/L Albumin 3.7 (3.5-5.7) g/dL - ABG Interpretation ABG results: ABG ABG pH 7.43 pH Units (7.32-7.45) 10/12/17 02:22 ABG pCO2 37 mmHg (35-45) 10/12/17 02:22 ABG pO2 89 mmHg (85-104) 10/12/17 02:22 ABG O2 Saturation 97 % (95-98) 10/12/17 02:22 PT/INR, D-dimer PT 11.6 Seconds (9.4-12.1) 10/11/17 23:56 - VTE Documentation of Mechanical Device: Intermittent pneumatic compression device Consult Discharge Plan - Plan Referrals: Storm Bernstein, DO [Primary Care Provider] - <Enmanuel Daniel - Last Filed: 10/14/17 19:47> Date of Encounter: 10/14/17 - Assessment and plan (1) Diabetes Current Visit: Yes Status: Chronic Qualifiers: Diabetes mellitus type: type 2 Diabetes mellitus group home insulin use: with group home use Diabetes mellitus complication status: with kidney complications Diabetes mellitus complication detail: with chronic kidney disease Chronic kidney disease stage: stage 3 (moderate) Qualified Code(s): E11.22 - Type 2 diabetes mellitus with diabetic chronic kidney disease; N18.3 - Chronic kidney disease, stage 3 (moderate); Z79.4 - [facility] (current) use of insulin (2) CKD (chronic kidney disease) stage 3, GFR 30-59 ml/min Current Visit: Yes Status: Chronic (3) DVT prophylaxis Current Visit: Yes Status: Acute (4) Anemia Current Visit: Yes Status: Acute Qualifiers: Anemia type: iron deficiency Iron deficiency anemia type: unspecified iron deficiency Qualified Code(s): D50.9 - Iron deficiency anemia, unspecified (5) HTN (hypertension) Current Visit: Yes Status: Chronic Qualifiers: Hypertension type: essential hypertension Qualified Code(s): I10 - Essential (primary) hypertension (6) COPD (chronic obstructive pulmonary disease) Current Visit: Yes Status: Chronic Qualifiers: COPD type: emphysema Emphysema type: panlobular Qualified Code(s): J43.1 - Panlobular emphysema (7) Obstructive sleep apnea Current Visit: Yes Status: Acute (8) Hyperlipidemia Current Visit: Yes Status: Chronic Qualifiers: Hyperlipidemia type: mixed hyperlipidemia Qualified Code(s): E78.2 - Mixed hyperlipidemia (9) Cirrhosis Current Visit: Yes Status: Chronic Qualifiers: Hepatic cirrhosis type: unspecified hepatic cirrhosis Ascites presence: with ascites Qualified Code(s): K74.60 - Unspecified cirrhosis of liver (10) Hepatic encephalopathy Current Visit: Yes Status: Acute (11) Elevated TSH Current Visit: Yes Status: Acute (12) Chronic pain Current Visit: Yes Status: Acute Qualifiers: Chronic pain type: chronic pain syndrome Qualified Code(s): G89.4 - Chronic pain syndrome (13) Positive blood culture Current Visit: Yes Status: Acute (14) Goals of care, counseling/discussion Current Visit: Yes Status: Acute (15) Heart failure Current Visit: Yes Status: Acute Qualifiers: Heart failure type: diastolic Heart failure chronicity: chronic Qualified Code(s): I50.32 - Chronic diastolic (congestive) heart failure - Time Spent With Patient Total time spent is greater than 50% in coordination of care (as documented) at patient's floor/unit and/or counseling patient: - Constitutional Vitals: Temp Pulse Resp BP Pulse Ox 98.6 F 73 14 151/57 92 10/14/17 16:36 10/14/17 16:36 10/14/17 16:36 10/14/17 16:36 10/14/17 16:36 Internal Medicine: Result - Labs CBC & Chem 7: 10/14/17 06:35 10/14/17 06:35 Labs: Short CBC 10/14/17 Range/Units 06:35 WBC 5.7 (4.3-11.1) K/mcL Hgb 12.3 L (12.9-16.9) g/dL Hct 37.3 L (37.5-50.1) % Plt Count 128 L (140-400) K/mcL Neutrophils # 3.7 (1.6-8.9) K/mcL BMP 10/14/17 06:35 Sodium 134 L Potassium 4.5 Chloride 103 Carbon Dioxide 22 L BUN 37 H Creatinine 1.68 H Glucose 336 H Calcium 9.4 Liver Function 06/06/18 Range/Units 06:35 Total Bilirubin 1.0 (0.3-1.0) mg/dL AST 47 H (13-39) Units/L ALT 29 (7-52) Units/L Alkaline Phosphatase 133 H (34-104) Units/L Albumin 3.7 (3.5-5.7) g/dL - ABG Interpretation ABG results: ABG ABG pH 7.43 pH Units (7.32-7.45) 10/12/17 02:22 ABG pCO2 37 mmHg (35-45) 10/12/17 02:22 ABG pO2 89 mmHg (85-104) 10/12/17 02:22 ABG O2 Saturation 97 % (95-98) 10/12/17 02:22 PT/INR, D-dimer PT 11.6 Seconds (9.4-12.1) 10/11/17 23:56 - Attending Attestation I examined this patient and my medical decision-making was reviewed with the Resident Physician on 10/14/17. I agree with the documented findings, disposition and treatment plan as described except to the extent set forth below. Mr Hammond is currently admitted for hepatic encephalopathy. He remains moderate to high risk due to potential for worsening clinical status. Mr Hammond is doing OK. His mentation is improving. No fever or chills. Awaiting repeat blood cultures. Exam alert comfortable Mucus membranes dry Heart distant No wheeze I/P 1. Hepatic enceph 2. Cirrhosis Further diagnoses and plan as above.
[2017-10-15] MEDS: *HR* OxyCODONE Immed Rel 5 MG TABLET PO PRN (02:34)
[2017-10-15 04:52] LABS: Basophils % 0.5 %; Eosinophils # 0.1 K/mcL (0.0-0.6); Eosinophils % 1.5 %; Hematocrit 37.1 % (37.5-50.1); Immature Granulocytes % 0.3 % (0-4); Lymphocytes # 1.3 K/mcL (0.6-4.6); Lymphocytes % 18.8 %; Mean Corpuscular HGB Conc 32.3 g/dL (31.6-35.5); Mean Corpuscular Hemoglobin 29.7 pg (28.0-33.3); Mean Corpuscular Volume 91.8 fL (83.0-100.0); Mean Platelet Volume 11.3 fL (9.4-12.4); Monocytes # 0.7 K/mcL (0.0-1.3); Monocytes % 9.9 %; Neutrophils # 4.6 K/mcL (1.6-8.9); Platelet Count 135 K/mcL (140-400); Red Blood Count 4.04 M/mcL (4.19-5.50); Red Cell Distribution Width 14.9 % (11.5-14.5)
[2017-10-15 05:09] LABS: Albumin 3.7 g/dL (3.5-5.7); Bilirubin,Total 0.6 mg/dL (0.3-1.0); Calcium 9.4 mg/dL (8.6-10.3); Globulin 3.7 g/dL (2.4-3.5); Potassium 4.4 mEq/L (3.5-5.1); Total Protein 7.4 g/dL (6.4-8.9)
[2017-10-15] MEDS: *HR* Heparin 5,000 UNIT/ML VIAL SQ SCH (06:19)
[2017-10-15] MEDS: Insulin LISPRO 300 UNITS/3 ML VIAL SQ SCH (08:21)
[2017-10-15] MEDS: *HR* Insulin Regular U-500 500 UNIT/ML SQ SCH (08:29)
[2017-10-15] MEDS: Isosorbide MONOnitrate (24 HR) 30 MG TAB.ER.24H PO SCH (08:29)
[2017-10-15] MEDS: Cholecalciferol (D-3) 1,000 UNIT TABLET PO SCH (08:29)
[2017-10-15] MEDS: hydrALAZINE 25 MG TABLET PO SCH (08:30)
[2017-10-15] MEDS: Lactulose Oral Soln 20 GM/30 ML UDC PO SCH (08:30)
[2017-10-15] MEDS: Pregabalin 75 MG CAPSULE PO SCH (08:30)
[2017-10-15] MEDS: Furosemide 40 MG TABLET PO SCH (08:30)
--- NOTE | 2017-10-15 09:35 | Discharge Summary ---
<Storm Bernstein - Last Filed: 10/15/17 09:26> - NOTES TO OUTPATIENT PROVIDER Notes to Outpatient Provider: Follow up TSH, discuss hospice Orders not resulted at time of discharge: Pending orders 10/13/17 08:15 Culture,Blood [BC] Stat 10/16/17 04:00 CBC [Complete Blood Count] [HEME] AM 0400 CMP [Comprehensive Metabolic Panel] AM 0400 10/17/17 04:00 CBC [Complete Blood Count] [HEME] AM 0400 CMP [Comprehensive Metabolic Panel] AM 0400 10/18/17 04:00 CBC [Complete Blood Count] [HEME] AM 0400 CMP [Comprehensive Metabolic Panel] AM 0400 10/19/17 04:00 CBC [Complete Blood Count] [HEME] AM 0400 Date of Encounter: 10/15/17 Time of Encounter: 09:27 - Discharge Diagnosis (1) Hepatic encephalopathy Priority: Primary Status: Acute (2) Cirrhosis Priority: Primary Status: Chronic Qualifiers: Hepatic cirrhosis type: unspecified hepatic cirrhosis Ascites presence: with ascites Qualified Code(s): K74.60 - Unspecified cirrhosis of liver (3) Positive blood culture Priority: Secondary Status: Resolved (4) Diabetes Priority: Secondary Status: Chronic Qualifiers: Diabetes mellitus type: type 2 Diabetes mellitus [facility] insulin use: with intermediate manager use Diabetes mellitus complication status: with kidney complications Diabetes mellitus complication detail: with chronic kidney disease Chronic kidney disease stage: stage 3 (moderate) Qualified Code(s): E11.22 - Type 2 diabetes mellitus with diabetic chronic kidney disease; N18.3 - Chronic kidney disease, stage 3 (moderate); Z79.4 - [facility] (current) use of insulin (5) CKD (chronic kidney disease) stage 3, GFR 30-59 ml/min Priority: Secondary Status: Chronic (6) Anemia Priority: Secondary Status: Chronic Qualifiers: Anemia type: iron deficiency Iron deficiency anemia type: unspecified iron deficiency Qualified Code(s): D50.9 - Iron deficiency anemia, unspecified (7) HTN (hypertension) Priority: Secondary Status: Chronic Qualifiers: Hypertension type: essential hypertension Qualified Code(s): I10 - Essential (primary) hypertension (8) COPD (chronic obstructive pulmonary disease) Priority: Secondary Status: Chronic Qualifiers: COPD type: emphysema Emphysema type: panlobular Qualified Code(s): J43.1 - Panlobular emphysema (9) Obstructive sleep apnea Priority: Secondary Status: Chronic (10) Hyperlipidemia Priority: Secondary Status: Chronic Qualifiers: Hyperlipidemia type: mixed hyperlipidemia Qualified Code(s): E78.2 - Mixed hyperlipidemia (11) Elevated TSH Priority: Secondary Status: Acute (12) Chronic pain Priority: Secondary Status: Acute Qualifiers: Chronic pain type: chronic pain syndrome Qualified Code(s): G89.4 - Chronic pain syndrome (13) Heart failure Priority: Secondary Status: Acute Qualifiers: Heart failure type: diastolic Heart failure chronicity: chronic Qualified Code(s): I50.32 - Chronic diastolic (congestive) heart failure (14) Goals of care, counseling/discussion Priority: Secondary Status: Acute Hospital course: Mr. Hammond is a 72 year old male with history of cirrhosis, type 2 diabetes presented with altered mental status. He has family stated home he was taking his lactulose however some days he would not have bowel movements and he did not have a bowel movement several days prior to arrival. Upon arrival his ammonia was noted to be significantly elevated. His lactulose as restarted and the patient had frequent bowel movements. The patient's mental status is likely return to normal. Blood cultures were initially drawn presentation and 1 out of 2 bottles were positive for staph hominis. Patient had no clinical evidence of infection so this was felt to be contaminant. Patient was put on antibiotics and monitored closely and repeat blood cultures were drawn. He remained without signs of infection and repeat blood cultures are negative. Patient will be discharged home in stable condition. Discharge discussed with: patient, family, nurse - Time Spent with Patient Total time spent providing and/or coordinating discharge services: Greater than 30 minutes - Discharge Medications Prescriptions: Rifaximin [Xifaxan] 400 mg PO BID #30 tablet Home Medications: Albuterol Sulfate [Albuterol Inhaler] 2 puff IH QID PRN 03/14/16 [History] Cholecalciferol (Vitamin D3) [Vitamin D3] 2,000 unit PO DAILY 03/14/16 [History] Hydralazine HCl 50 mg PO TID 03/14/16 [History] Omeprazole 20 mg PO DAILY 03/14/16 [History] Simvastatin [Zocor] 40 mg PO HS 03/14/16 [History] Isosorbide MONOnitrate (24 HR) [Imdur] 30 mg PO DAILY 30 Days tab.er.24h [Rx] Lisinopril [Zestril] 10 mg PO DAILY 08/22/16 [History] Nitroglycerin [Nitrostat] 0.4 mg SL Q5M PRN 08/22/16 [History] FentaNYL PATCH [Duragesic] 75 mcg TD Q72H #3 patch.td72 10/05/16 [Rx] Pregabalin [Lyrica] 150 mg PO BID #10 capsule 10/05/16 [Rx] OxyCODONE Immed Rel [Roxicodone 10 MG] 10 mg PO Q6H PRN 10/14/16 [History] Furosemide [Lasix] 40 mg PO BID #60 tablet 10/17/16 [Rx] Aspirin Enteric Coated [Aspirin EC] 325 mg PO DAILY 07/11/17 [History] Ferrous Sulfate [Iron] 325 mg PO TID 07/11/17 [History] Metoprolol [Lopressor] 50 mg PO BID 07/11/17 [History] Sennosides/Docusate Sodium [Senna-Docusate Sodium Tablet] 1 tab PO BID PRN 07/11 [History] Insulin Glargine,Hum.rec.anlog [Lantus Solostar] 220 unit SQ BID 10/12/17 [ History] Insulin Regular, Human [Humulin R U-500 Kwikpen] 220 unit SQ BID 10/12/17 [ History] Saxagliptin HCl [Onglyza] 2.5 mg PO DAILY 10/12/17 [History] Lactulose 20 gm PO BID 2 Days #4 udc 10/15/17 [Rx] Rifaximin [Xifaxan] 400 mg PO BID #30 tablet 10/15/17 [Rx] Allergies/Adverse Reactions: 3 Allergy/AdvReac Type Severity Reaction Status Date / Time No Known Allergies Allergy Verified 10/14/16 14:36 Date of admission: 10/12/17 04:32 Primary care physician: Storm Bernstein, Consults: 10/12/17 05:04 Consult to Transfer Operator [CONS] Routine Reason for SW Consult: discharge planning 10/13/17 07:36 Consult to Physical Therapy [CONS] Routine Comment: Evaluate, develop and implement POC Reason for Consult: deconditioning Does patient have active BEDREST order?: No Is patient medically & hemodynamically stable?: Yes Discharging clinician: Storm Bernstein Anticipated date of discharge: 10/15/17 - Constitutional Vitals: Temp Pulse Resp BP Pulse Ox 98.0 F 77 16 130/70 93 10/15/17 07:49 10/15/17 07:49 10/15/17 07:49 10/15/17 07:49 10/15/17 08:42 General appearance: Present: A&O X 3, morbidly obese, pleasant, no acute distress - Respiratory Respiratory exam: Present: CTAB. Absent: rales, rhonchi, wheezes - Cardiovascular Cardiovascular exam: Present: RRR. Absent: gallop, rubs, systolic murmur - GI/Abdominal GI/Abdominal exam: Present: distended (mild), soft. Absent: tenderness - Extremities Exam Extremities exam: Present: pedal edema (1+ b/l), warm. Absent: tenderness - Neurological Exam Neurological exam: Present: alert, CN II-XII intact, oriented X3, no focal deficits - Patient Status Disposition: Home, Self-Care Condition: Fair Functional capacity at discharge: independent ambulation Overall status at discharge: patient is progressing back to baseline - Discharge Instructions Follow Up With: Storm Bernstein DO [Primary Care Provider] - 10/20/17 Additional Instructions: Please follow-up with your primary care physician as scheduled. Procedures your home medications. Please start rifaximin twice a day. Please take her lactulose at least 3 times a day and make sure you are having 2- 3 soft bowel movements daily. Please have your thyroid level checked prior to yyour primary care physician appointment Please return for any new or worsening symptoms. - Diet and Activity Activity: increase activity as tolerated Diet: diabetic diet - VTE Documentation of Mechanical Device: Intermittent pneumatic compression device <Millie Andersen - Last Filed: 10/15/17 10:39> Orders not resulted at time of discharge: Pending orders 10/13/17 08:15 Culture,Blood [BC] Stat 10/16/17 04:00 CBC [Complete Blood Count] [HEME] AM 0400 CMP [Comprehensive Metabolic Panel] AM 0400 10/17/17 04:00 CBC [Complete Blood Count] [HEME] AM 0400 CMP [Comprehensive Metabolic Panel] AM 0400 10/18/17 04:00 CBC [Complete Blood Count] [HEME] AM 0400 CMP [Comprehensive Metabolic Panel] AM 0400 10/19/17 04:00 CBC [Complete Blood Count] [HEME] AM 0400 Date of Encounter: 10/15/17 Hospital course: Mr. Hammond is a 72 year old male - Time Spent with Patient Total time spent providing and/or coordinating discharge services: Date of admission: 10/12/17 04:32 Primary care physician: Storm Bernstein, Consults: 10/12/17 05:04 Consult to Transfer Operator [CONS] Routine Reason for SW Consult: discharge planning 10/13/17 07:36 Consult to Physical Therapy [CONS] Routine Comment: Evaluate, develop and implement POC Reason for Consult: deconditioning Does patient have active BEDREST order?: No Is patient medically & hemodynamically stable?: Yes - Constitutional Vitals: Temp Pulse Resp BP Pulse Ox 98.0 F 77 16 130/70 93 10/15/17 07:49 10/15/17 07:49 10/15/17 07:49 10/15/17 07:49 10/15/17 08:42 - Patient Status Functional capacity at discharge: independent ambulation - Attending Attestation I saw and examined this patient independently, and my medical decision making was reviewed with the Resident on 2017. I agree with the documented findings, assessment and treatment plan as described in the progress note or discharge summary.
[2017-10-15 11:52] VITALS: BP 124/64
== END 2017-10-15 12:34 | disposition home or self-care (01) | DRG 442 ==
LOC: EMEROO 23:27 → SUATTDRO 10-12 04:32 → 2SOUTHHOLD 10-12 04:32 → 2ANU 10-13 06:42
PROVIDERS: ADMIT Internal Medicine; ATTEND Internal Medicine